=== PATIENT | male | born 1955 | race Hispanic/Latino ===

== ENCOUNTER 2017-10-18 09:24 | Observation (INO) | payer OTHER ==
--- NOTE | 2017-10-18 10:25 | RAD REPORT ---
EXAM DESCRIPTION: Sheri Single View10/18/2017 10:17 am CLINICAL HISTORY: Shortness of breath COMPARISON: 2016 FINDINGS: Mild bilateral pulmonary opacities are present. The heart is normal size IMPRESSION: Mild bilateral pulmonary opacities may represent interstitial pulmonary edema or pneumon itis/pneumonia
[2017-10-18 10:26] LABS: Absolute Lymphocytes (CBC) 1.6 K/uL (0.7-4.9); Absolute Monocytes 0.8 K/uL (0.1-1.3); Absolute Neutrophil 5.9 K/uL (1.8-8.0); Basophils % 0.9 % (0-1.3); Eosinophils % 4.9 % (0-4.4); Hematocrit 40.3 % (39.6-49.0); Lymphocytes % 17.7 % (15.3-44.8); MCH 31.9 pg (27.0-35.0); MCV 95.3 fL (80-100); MPV 8.9 fL (7.6-11.3); Monocytes % 9.3 % (3.3-12.3); RBC Red Blood Cell Count 4.23 M/uL (4.33-5.43)
--- NOTE | 2017-10-18 10:31 | EKG ---
Test Date: 2017-10-18 Test Time: 09:37:14 Manager City: [place] MEASUREMENT RESULTS: Intervals: Rate: 105 [place]: 166 QRSD: 96 QT: 332 QTc: 438 [place]: P: 79 [place]: 166 QRS: 63 T: 59 INTERPRETIVE STATEMENTS: Sinus tachycardia Right atrial enlargement Left ventricular hypertrophy with repolarization abnormality Abnormal ECG No previous ECG available for comparison Electronically Signed On 10-18-17 10:30:46 CDT by Mati Bonner
[2017-10-18 10:45] LABS: Albumin 4.1 g/dL (3.2-5.5); Bilirubin Direct 0.1 mg/dL (0-0.2); Bilirubin Total 0.7 mg/dL (0.3-1.2); Magnesium 2.6 mg/dL (1.8-2.5); Protein, Total 8.3 g/dL (6.0-8.3)
[2017-10-18 10:54] LABS: Protime INR 0.97
--- NOTE | 2017-10-18 11:24 | RAD REPORT ---
EXAM DESCRIPTION: CT - Thorax Wo Con - 10/18/2017 11:10 am CLINICAL HISTORY: sob COMPARISON: October 18, 2017 chest x-ray TECHNIQUE: Computed axial tomography of the chest was obtained. Contrast was not requested. All CT scans are performed using dose optimization technique as appropriate and may include automated exposure control or mA/KV adjustment according to patient size. FINDINGS: The evaluation of mediastinum, екатерина and vessels is limited secondary to lack of IV contras t administration. Mild bilateral interstitial lung opacities are present. No mediastinal or hilar lymphadenopathy is seen. Small bilateral pleural effusions are present. A pericardial effusion is not seen A small hiatal hernia is present. A 7 millimeter area of increased density is present within the pro ximal to mid thoracic esophagus. There is not visualized on the prior exam. IMPRESSION: Mild bilateral pulmonary opacities may represent interstitial pulmonary edema Small bilateral pleural effusions 7 millimeter area of increased density within the proximal to to mid thoracic esophagus is of uncerta in etiology and significance. It may represent a calcification. Followup CT chest in 2 months would b e helpful for re-evaluation
--- NOTE | 2017-10-18 11:50 | EDPHYS ---
Physician Documentation [facility] Name: Go Shen Age: 62 yrs Sex: Male : 1955 Arrival Date: 10/18/2017 Time: 09:27 Bed 6 Private MD: ED Physician Saul Contreras HPI: 10/18 10:22 This 62 yrs old Male presents to ER via Wheelchair with complaints of jr8 Weakness, Congestion. 10:22 The patient has shortness of breath at rest. Onset: The symptoms/episode began/occurred jr8 gradually, 1 week(s) ago, and became worse and became persistent. Duration: The symptoms are continuous. The patient's shortness of breath is aggravated by coughing. Associated signs and symptoms: Pertinent positives: weakness, fatigue . Severity of symptoms: At their worst the symptoms were moderate in the emergency department the symptoms are unchanged. The patient has not experienced similar symptoms in the past. The patient has not recently seen a physician. Historical: - Allergies: 09:33 Codeine; hb - Home Meds: 13:31 amlodipine 10 mg tab 1 tab once daily [Active]; sg - PMHx: 09:33 HD - MWF; hb - PSHx: 09:33 fistula - RUE; hb - Immunization history:: Adult Immunizations up to date. - Social history:: Smoking status: Patient/guardian denies using tobacco. ROS: 10:22 Eyes: Negative for injury, pain, redness, and discharge, ENT: Negative for injury, jr8 pain, and discharge, Neck: Negative for injury, pain, and swelling, Cardiovascular: Negative for chest pain, palpitations, and edema, Abdomen/GI: Negative for abdominal pain, nausea, vomiting, diarrhea, and constipation, Back: Negative for injury and pain, MS/Extremity: Negative for injury and deformity, Skin: Negative for injury, rash, and discoloration. 10:22 Constitutional: Positive for fatigue. 10:22 Respiratory: Positive for cough, shortness of breath. 10:22 Neuro: Positive for tremor, weakness, Negative for altered mental status, dizziness, headache, numbness, seizure activity, syncope, tingling. Exam: 10:22 Eyes: Pupils equal round and reactive to light, extra-ocular motions intact. Lids and jr8 lashes normal. Conjunctiva and sclera are non-icteric and not injected. Cornea within normal limits. Periorbital areas with no swelling, redness, or edema. ENT: Nares patent. No nasal discharge, no septal abnormalities noted. Tympanic membranes are normal and external auditory canals are clear. Oropharynx with no redness, swelling, or masses, exudates, or evidence of obstruction, uvula midline. Mucous membranes moist. Neck: Trachea midline, no thyromegaly or masses palpated, and no cervical lymphadenopathy. Supple, full range of motion without nuchal rigidity, or vertebral point tenderness. No Meningismus. Cardiovascular: Regular rate and rhythm with a normal S1 and S2. No gallops, murmurs, or rubs. Normal PMI, no JVD. No pulse deficits. Respiratory: Lungs have equal breath sounds bilaterally, clear to auscultation and percussion. No rales, rhonchi or wheezes noted. No increased work of breathing, no retractions or nasal flaring. Abdomen/GI: Soft, non-tender, with normal bowel sounds. No distension or tympany. No guarding or rebound. No evidence of tenderness throughout. Back: No spinal tenderness. No costovertebral tenderness. Full range of motion. Skin: Warm, dry with normal turgor. Normal color with no rashes, no lesions, and no evidence of cellulitis. MS/ Extremity: Pulses equal, no cyanosis. Neurovascular intact. Full, normal range of motion. Neuro: Awake and alert, GCS 15, oriented to person, place, time, and situation. Cranial nerves II-XII grossly intact. Motor strength 5/5 in all extremities. Sensory grossly intact. Cerebellar exam normal. Normal gait. Vital Signs: 09:32 BP 175 / 97; Pulse 100; Resp 20; Temp 99(TE); Pulse Ox 100% on R/A; Weight 99.79 kg; hb Height 5 ft. 10 in. (177.80 cm); Pain 0/10; 10:56 BP 156 / 83; Pulse 93; Resp 19; Pulse Ox 98% on R/A; jb1 12:15 BP 152 / 88; Pulse 90; Resp 18 S; Pulse Ox 99% on R/A; Pain 0/10; sg 13:34 BP 161 / 88; Pulse 90; Resp 18; Temp 99.0; Pulse Ox 98% on R/A; sg 09:32 Body Mass Index 31.57 (99.79 kg, 177.80 cm) hb MDM: 09:47 Patient medically screened. [facility] 11:48 Data reviewed: vital signs, nurses notes, lab test result(s), EKG, radiologic studies, [facility] CT scan, plain films, and as a result, I will admit patient. Data interpreted: Pulse oximetry: on room air is 98 %. Interpretation: normal. Counseling: I had a detailed discussion with the patient and/or guardian regarding: the historical points, exam findings, and any diagnostic results supporting the discharge/admit diagnosis, lab results, radiology results, the need for further work-up and treatment in the hospital. Physician consultation: Uriel Smith DO was called at 11:49, was contacted at 11:49, regarding admission, to the telemetry unit. consult, patient's condition, and will see patient. 10/18 09:57 Order name: Basic Metabolic Panel; Complete Time: 11:23 [facility] 10/18 09:57 Order name: BNP; Complete Time: 10:53 [facility] 10/18 09:57 Order name: CBC with Diff; Complete Time: 10:33 [facility] 10/18 09:57 Order name: LFT's; Complete Time: 11:23 [facility] 10/18 09:57 Order name: Magnesium; Complete Time: 11:23 [facility] 10/18 09:57 Order name: PT-INR; Complete Time: 11:00 [facility] 10/18 09:57 Order name: Troponin (emerg Dept Use Only); Complete Time: 10:48 [facility] 10/18 09:57 Order name: Blood Culture Adult (2) [facility] 10/18 12:36 Order name: Basic Metabolic Panel [facility] 10/18 12:36 Order name: Basic Metabolic Panel [facility] 10/18 12:36 Order name: Basic Metabolic Panel [facility] 10/18 12:36 Order name: Basic Metabolic Panel [facility] 10/18 12:36 Order name: CKMB Creatine Kinase MB [facility] 10/18 12:36 Order name: CKMB Creatine Kinase MB [facility] 10/18 09:57 Order name: XRAY Chest (1 view); Complete Time: 10:30 [facility] 10/18 09:57 Order name: EKG; Complete Time: 09:58 [facility] 10/18 09:57 Order name: Cardiac monitoring; Complete Time: 09:59 8 10/18 09:57 Order name: EKG - Nurse/Tech; Complete Time: 09:59 jr8 10/18 09:57 Order name: IV Saline Lock; Complete Time: :59 jr8 10/18 09:57 Order name: Labs collected and sent; Complete Time: 09:59 jr8 10/18 09:57 Order name: O2 Per Protocol; Complete Time: : jr8 10/18 09:57 Order name: O2 Sat Monitoring; Complete Time: :59 8 10/18 10:48 Order name: CT Chest Wo Con; Complete Time: 11:28 8 10/18 12:37 Order name: CONS Physician Consult EDMT 10/18 12:37 Order name: CONS Physician Consult EDMT 10/18 12:37 Order name: Echo with Doppler EDMT 10/18 12:37 Order name: Renal EDMT 10/18 12:37 Order name: Creatine Phosphokinase EDMT 10/18 12:37 Order name: Troponin I EDMT Administered Medications: No medications were administered Disposition: 10/18/17 11:50 Hospitalization ordered by Uriel Smith for Observation. Preliminary diagnosis are Chronic kidney disease (CKD), Acute pulmonary edema. - Bed requested for Telemetry/MedSurg (observation). - Status is Observation. sv - Condition is Stable. - Problem is new. - Symptoms have improved. UTI on Admission? No Addendum: 10/21/2017 21:09 Co-signature as Attending Physician, Saul Contreras MD. g s Signatures: Dispatcher [facility] Annmarie Barclay RN RN sv Woody, Diana, RN RN dw Gay, Steven, Dany Zimmer RN, PA PA jr8 Alva Corey RN RN hb Starr, Gregory, MD MD Corrections: (The following items were deleted from the chart) 10/18 13:29 11:50 Hospitalization Ordered by Uriel Smith DO for Observation. Preliminary dw diagnosis is Chronic kidney disease (CKD); Acute pulmonary edema. Bed requested for Telemetry/MedSurg (observation). Status is Observation. Condition is Stable. Problem is new. Symptoms have improved. UTI on Admission? No. jr8 14:09 13:29 10/18/2017 11:50 Hospitalization Ordered by Uriel Smith DO for Observation. sv Preliminary diagnosis is Chronic kidney disease (CKD); Acute pulmonary edema. Bed requested for Telemetry/MedSurg (observation). Status is Observation. Condition is Stable. Problem is new. Symptoms have improved. UTI on Admission? No. dw
--- NOTE | 2017-10-18 11:50 | ER ---
Nurse's Notes [facility] Name: Go Shen Age: 62 yrs Sex: Male : 1955 Arrival Date: 10/18/2017 Time: 09:27 Bed 6 Private MD: Diagnosis: Chronic kidney disease (CKD);Acute pulmonary edema Presentation: 10/18 09:30 Presenting complaint: Patient states: Weakness, SOB, shakiness, diarrhea, and decreased hb appetite x 3 days. HD MWF, last HD was Wed. Transition of care: patient was not received from another setting of care. Care prior to arrival: None. 09:30 Method Of Arrival: Wheelchair hb 09:37 Onset of symptoms was October 15, 2017. sg 09:37 Acuity: LITO 3 sg 09:45 Initial Sepsis Screen: Does the patient meet any 2 criteria? No. Patient's initial sg sepsis screen is negative. Does the patient have a suspected source of infection? No. Patient's initial sepsis screen is negative. Historical: - Allergies: 09:33 Codeine; hb - Home Meds: 13:31 amlodipine 10 mg tab 1 tab once daily [Active]; sg - PMHx: 09:33 HD - MWF; hb - PSHx: 09:33 fistula - RUE; hb - Immunization history:: Adult Immunizations up to date. - Social history:: Smoking status: Patient/guardian denies using tobacco. Screenin:45 Abuse screen: Denies threats or abuse. Denies injuries from another. Nutritional sg screening: No deficits noted. Tuberculosis screening: No symptoms or risk factors identified. Never had TB. Fall Risk None identified. Assessment: 09:45 General: Appears in no apparent distress. ill, well groomed, well developed, well sg nourished, Behavior is calm, cooperative, appropriate for age. Pain: Denies pain. Complains of pain in bodyaches. 09:45 Neuro: Level of Consciousness is awake, alert, obeys commands, Oriented to person, sg place, time, Tsa Screener are equal bilaterally Moves all extremities. Full function Gait is steady, Speech is normal, Facial symmetry appears normal. Cardiovascular: Heart tones S1 S2 present Capillary refill is brisk in bilateral fingers Patient's skin is warm and dry. Chest pain is denied. Respiratory: Airway is patent Respiratory effort is even, unlabored, Respiratory pattern is regular, symmetrical, Breath sounds are clear. GI: No signs and/or symptoms were reported involving the gastrointestinal system. : No signs and/or symptoms were reported regarding the genitourinary system. EENT: No signs and/or symptoms were reported regarding the EENT system. Derm: Skin is pink, warm \T\ dry. Musculoskeletal: No deficits noted. Reports bodyaches, fatigue and body tremors. 11:30 Reassessment: Patient appears in no apparent distress at this time. Patient and/or sg family updated on plan of care and expected duration. Pain level reassessed. Patient is alert, oriented x 3, equal unlabored respirations, skin warm/dry/pink. Patient denies pain at this time. 12:30 Reassessment: Patient appears in no apparent distress at this time. Patient and/or sg family updated on plan of care and expected duration. Pain level reassessed. Patient is alert, oriented x 3, equal unlabored respirations, skin warm/dry/pink. awaiting admission orders at this time, awaiting evaluation by hospital provider, will continue to monitor Patient denies pain at this time. 13:32 Reassessment: spoke with PACHECO Torres, updated home medication list at this time. sg 13:45 Reassessment: Echo being done at the bedside. sv Vital Signs: 09:32 BP 175 / 97; Pulse 100; Resp 20; Temp 99(TE); Pulse Ox 100% on R/A; Weight 99.79 kg; hb Height 5 ft. 10 in. (177.80 cm); Pain 0/10; 10:56 BP 156 / 83; Pulse 93; Resp 19; Pulse Ox 98% on R/A; jb1 12:15 BP 152 / 88; Pulse 90; Resp 18 S; Pulse Ox 99% on R/A; Pain 0/10; sg 13:34 BP 161 / 88; Pulse 90; Resp 18; Temp 99.0; Pulse Ox 98% on R/A; sg 09:32 Body Mass Index 31.57 (99.79 kg, 177.80 cm) hb ED Course: 09:27 Patient arrived in ED. as 09:33 Arm band placed on left wrist. hb 09:36 Brandon Daniels, RN is Primary Nurse. sg 09:37 Triage completed. sg 09:47 Dany Niño PA is PHCP. jr8 09:47 Saul Contreras MD is Attending Physician. jr8 09:47 EKG done, by technical publications manager. reviewed by Saul Contreras MD. at1 09:53 Initial lab(s) drawn, by me. Inserted saline lock: 22 gauge in left antecubital area, jb1 using aseptic technique. Blood collected. 10:00 Patient has correct armband on for positive identification. Placed in gown. Bed in low sg position. Side rails up X2. monitoring and evaluation advisor on. Pulse ox on. NIBP on. 10:13 XRAY Chest (1 view) In Process Unspecified. EDMS 11:05 CT completed. Patient tolerated procedure well. Patient moved to CT via stretcher. Patient moved back from CT. 11:10 CT Chest Wo Con In Process Unspecified. EDMS 11:49 Uriel Smith DO is Hospitalizing Provider. jr8 13:38 No provider procedures requiring assistance completed. Patient admitted, IV remains in sg place. intact, No redness/swelling at site. Administered Medications: No medications were administered Outcome: 11:50 Decision to Hospitalize by Provider. jr8 13:37 Admitted to Med/surg accompanied by tech, room 201, with chart, Report called to oskar Scott RN 13:37 Condition: stable 13:37 Instructed on the need for admit, safety practices, Demonstrated understanding of instructions. 14:09 Patient left the ED. sv Signatures: Dispatcher [employer] [facility] Artem Mckeon jb1 Annmarie Barclay RN RN sv Gay, Steven, RN RN sg Jones, Susan sj Martinez, Amelia as Dany Niño PA PA jr8 Aniya weaver, sales intern EKG Tat1 Alva Corey, SHERLY DUBOIS hb
[2017-10-18] MEDS ORDERED: GLUCAGON 1 MG/VIAL IM PRN (12:24)
[2017-10-18] MEDS ORDERED: ONDANSETRON 4 MG/2 ML VIAL IV PRN (12:24)
[2017-10-18] MEDS ORDERED: ACETAMINOPHEN 500 MG TAB PO PRN (12:24)
[2017-10-18] MEDS ORDERED: HYDRALAZINE HCL 20 MG/ML VIAL IV PRN (12:24)
[2017-10-18] MEDS ORDERED: D50W 25 GM/50 ML SYRINGE IV PRN (12:24)
--- NOTE | 2017-10-18 12:42 | P.HP ---
Certification for Inpatient Patient admitted to: Observation With expected LOS: <2 Midnights Patient will require the following post-hospital care: None Practitioner: I am a practitioner with admitting privileges, knowledge of patient current condition, hospital course, and medical plan of care. Services: Services provided to patient in accordance with Admission requirements found in Title 42 Section 412.3 of the Code of Federal Regulations Patient History Date of Service: 10/18/17 Primary Care Provider: Dr. Hardy Reason for admission: Shortness of breath, fatigue History of Present Illness: 62-year-old male presented to emergency room with increasing fatigue and shortness of breath. Patient with history of end-stage renal disease on dialysis Wednesday, Wednesdays and Fridays. He also is a history of BPH who self catheterizes 3 times a day. He also reports a history of hypertension and diabetes well controlled with diet. The patient has been having increasing shortness of breath over the last several days. He is denied any significant edema to the lower extremities. He does report a mild cough. No fever, chills, chest pain noted. Patient was to go to dialysis today but apparently dialysis was closed due to issues with their water system. He was advised to go to the ER for further evaluation. In the ER the patient was evaluated. Initial vitals for appear stable. White count 8.7, hemoglobin 13.5, sodium 133, potassium 5.0. BN of 59, creatinine 11.5 with a GFR 4. Magnesium 2.6, troponin was at 0.04. BNP was elevated at 1117. EKG showed sinus tachycardia with a rate of 105. CT of the chest showed bilateral opacities significant for pulmonary edema. Small bilateral pleural effusions noted a 7 mm density the to the proximal mid thoracic esophagus was noted This is likely calcification. Due to nature the findings the patient was admitted for further evaluation and treatment. I was asked to admit the patient. When I saw the patient ER, he did not appear acutely ill. He did not appear in significant respiratory distress. Patient does not smoke or drink. Patient appears compliant with his medical regimen and dialysis. Allergies codeine Adverse Reaction (Verified 06/03/15 12:18) Nausea/Vomiting NK Allergy (Uncoded 07/11/15 10:35) Unknown Home medications list reviewed: Yes Home Medications: Calcium Carbonate [Tums Regular*] 2,000 mg PO AC #30 tab 06/05/14 Acetaminophen [Tylenol -Tablet] 325 mg PO Q4HP PRN 06/03/15 - Past Medical/Surgical History Diabetic: Yes -: ESRD, (M,W,F dialysis) -: Hypertension -: Diabetes mellitus type 2 -: BPH with urinary retention -: AV graft Psychosocial/ Personal History: The patient is single. He has no children. - Family History Father -: Heart disease, Hypertension Mother -: Other (see notes) (Gallstones) Brother -: Heart disease Sister -: Diabetes - Social History Smoking Status: Never smoker Alcohol use: No CD- Drugs: No Caffeine use: Yes Place of Residence: Home Review of Systems General: Weakness, Malaise, As per HPI Eyes: Unremarkable ENT: Unremarkable Respiratory: Cough, Shortness of Breath, SOB with Excertion, As per HPI Cardiovascular: As per HPI Gastrointestinal: Unremarkable Genitourinary: Retention, As per HPI Musculoskeletal: As per HPI Integumentary: Unremarkable Neurological: Weakness, As per HPI Lymphatics: Unremarkable Physical Examination - Physical Exam General: Alert, In no apparent distress, Oriented x3, Cooperative HEENT: Atraumatic, Normocephalic, PERRLA, Mucous membr. moist/pink Neck: Supple, No Thyromegaly Respiratory: Diminished (To the bases bilateral), Crackles/rales (Minimal bilateral) Cardiovascular: Abnormal pulses (Mild sinus tachycardia) Gastrointestinal: Normal bowel sounds, Soft and benign, Non-distended, No tenderness, No masses, No rebound, No guarding Musculoskeletal: No erythema, No tenderness, No warmth Integumentary: No tenderness/swelling, No erythema, No warmth, No cyanosis Neurological: Normal speech, Normal strength at 5/5 x4 extr, Normal tone, Normal affect Lymphatics: No axilla or inguinal lymphadenopathy - Studies Laboratory Data (last 24 hrs) 10/18/17 10:00: PT 11.4, INR 0.97 10/18/17 10:00: WBC 8.7, Hgb 13.5 L, Hct 40.3, Plt Count 216 10/18/17 10:00: B-Natriuretic Peptide 1117 H 10/18/17 10:00: Sodium 133 L, Potassium 5.0, BUN 59 H, Creatinine 11.50 H*, Glucose 118, Magnesium 2.6 H D, Total Bilirubin 0.7, AST 14, ALT 14, Alkaline Phosphatase 56 Assessment and Plan - Problems (Diagnosis) (1) Pulmonary edema Current Visit: Yes Status: Acute Plan: CT scan shows bilateral pleural effusions with opacities likely from pulmonary edema. This is likely related to his end-stage renal disease admitted for dialysis. The patient does not appear in any respiratory distress. Will teach on fluid restriction. Will monitor closely. Will continue with cardiac enzymes. Will check echocardiogram due to his shortness of breath and slight elevation in his troponin. Will consult cardiology for further recommendations. Nephrology has been informed of the patient. Qualifiers: Chronicity: acute Qualified Code(s): J81.0 - Acute pulmonary edema (2) End stage renal disease Current Visit: Yes Status: Chronic Plan: Patient with end-stage renal disease on dialysis. He goes to dialysis Mondays, Wednesdays and Fridays. Patient will receive dialysis in the hospital. Nephrology consulted. (3) Hypertension Current Visit: Yes Status: Chronic Plan: Patient reports taking medication for blood pressure. Will obtain home medications and restart. Qualifiers: Hypertension type: essential hypertension Qualified Code(s): I10 - Essential (primary) hypertension (4) Diabetes mellitus Current Visit: Yes Status: Chronic Plan: Patient reports of diet controlled diabetes. Will check A1c. Will continue with sliding scale. Qualifiers: Diabetes mellitus type: type 2 Diabetes mellitus mcc insulin use: without interpretive naturalist use Diabetes mellitus complication status: with other specified complication Qualified Code(s): E11.69 - Type 2 diabetes mellitus with other specified complication (5) Abnormal CT scan Current Visit: Yes Status: Acute Plan: CT scan shows 7 mm density to the proximal mid thoracic esophagus. This appears to be a calcification. Recommendation is to recheck CT scan in 3 months. Recommendation is for the patient follow up with GI as an outpatient to further evaluate. Patient may have underlying GERD. Will start medication. (6) Elevated troponin Current Visit: Yes Status: Acute Plan: Will monitor cardiac enzymes. Will check echocardiogram. Cardiology consulted to further assess. (7) CHF (congestive heart failure) Current Visit: Yes Status: Suspected Plan: Suspect underlying CHF. Will continue with a fluid restriction. Patient will receive dialysis. Will monitor closely. Qualifiers: Heart failure type: diastolic Heart failure chronicity: chronic Qualified Code(s): I50.32 - Chronic diastolic (congestive) heart failure (8) Pleural effusion Current Visit: Yes Status: Acute Plan: Small bilateral pleural effusions noted. This is likely from the pulmonary edema. Will continue with above plan of care. (9) Dyspnea Onset Date: 05/25/14 Current Visit: No Status: Acute Plan: Will continue with above plan of care. Qualifiers: Dyspnea type: shortness of breath Qualified Code(s): R06.02 - Shortness of breath; R06.00 - Dyspnea, unspecified; R06.01 - Orthopnea (10) GERD (gastroesophageal reflux disease) Current Visit: Yes Status: Suspected Plan: Will continue with above plan of care. Discharge Plan: Home Plan to discharge in: 24 Hours - Advance Directives Does patient have a Living Will: No Does patient have a Durable POA for Healthcare: No - Code Status/Comfort Care Code Status Assessed: Yes Time Spent Managing Pts Care (In Minutes): 55
--- NOTE | 2017-10-18 15:38 | ECHO ---
HEIGHT: 5 ft 10 in WEIGHT: 215 lb 4.8 oz DATE OF STUDY: 10/18/[address]: 2-DIMENSIONAL: YES M.MODE: YES DOPPLER: YES COLOR FLOW: YES TDS: NO PORTABLE: NO DEFINITY: NO BUBBLE STUDY: NO DIAGNOSIS: SHORTNESS OF BREATH, SUSPECT CHF CARDIAC HISTORY: CATHERIZATION: NO SURGERY: NO PROSTHETIC VALVE: NO PACEMAKER: NO MEASUREMENTS (cm) DIASTOLIC (NORMALS) SYSTOLIC (NORMALS) IVSd 1.0 (0.6-1.2) LA Diam 4.4 (1.9-4.0) LVEF 50-55% LVIDd 5.1 (3.5-5.7) LVIDs 3.8 (2.0-3.5) %FS 25% LVPWd 1.0 (0.6-1.2) Ao Diam 3.2 (2.0-3.7) 2 DIMENSIONAL ASSESSMENT: RIGHT ATRIUM: NORMAL LEFT ATRIUM: DILATED RIGHT VENTRICLE: NORMAL LEFT VENTRICLE: NORMAL TRICUSPID VALVE: NORMAL MITRAL VALVE: NORMAL PULMONIC VALVE: NORMAL AORTIC VALVE: NORMAL PERICARDIAL EFFUSION: NONE AORTIC ROOT: NORMAL LEFT VENTRICULAR WALL MOTION: NORMAL DOPPLER/COLOR FLOW: MILD MITRAL REGURGITATION. MILD TRICUSPID REGURGITATION. NORMAL RIGHT VENTRICULAR SYSTOLIC PRESSURE. IMPAIRED LEFT VENTRICULAR RELAXATION. COMMENTS: NORMAL LEFT VENTRICULAR EJECTION FRACTION. DILATED LEFT ATRIUM. IMPAIRED LEFT VENTRICULAR RELAXATION. MILD MITRAL REGURGITATION AND TRICUSPID REGURGITATION. TECHNOLOGIST: TIMI AGUSTIN RDCS
[2017-10-18] MEDS: INSULIN -REGULAR HUMAN 50 UNIT/0.5 ML ML SQ SCH ×2 (16:30→21:00)
[2017-10-18] MEDS ORDERED: ENOXAPARIN 30 MG/0.3 ML SQ SCH (17:00)
[2017-10-18 17:06] LABS: Urine Appearance CLOUDY; Urine Bilirubin NEGATIVE (NEG); Urine Blood 1+ (NEG); Urine Color YELLOW; Urine Glucose TRACE (NEG); Urine Protein 2+ (NEG); Urine Urobilinogen 0.2 mg/dL (0.2-1.0)
[2017-10-18 17:07] LABS: Urine Microscopic Reflex ORDER UMIC
[2017-10-18 17:17] LABS: Urine Bacteria >50 /HPF (NONE SEEN); Urine RBC 20-50 /HPF (NONE SEEN)
[2017-10-18 17:18] LABS: Urine Culture Reflex Order REFLEXED; Urine White Blood Cell Casts 0-5 /LPF (NONE SEEN)
[2017-10-18 18:23] LABS: CKMB Creatine Kinase MB 1.6 ng/ml (0.3-4.0)
--- NOTE | 2017-10-18 20:19 | CON ---
Chief Complaint: Shortness of breath and cough. History Of Present Illness: Mr. Jono Shen was in his usual state of health until this weekend when he started feeling more short of breath. He was having orthopnea and cough, nonproductive cough . No fevers or chills. He went to dialysis hoping to have that help him feel better, but when he go t there their equipment was not working, they plan to delay it until sometime today, but in the meant ines because of the shortness of breath, he went to the emergency room. He has been placed in the [facility], and he gets dialysis Wednesday, Wednesday, and Wednesday. He denies any tobacco use. He has been a dialysis patient for about 3 years. He has underlying diabetes, hypertension, never had congestive heart failure, stroke, myocardial infarction, cardiac arrhythmia, heart surgery, or stents. He is al lergic to codeine. Over the weekend, he does not think he ate or drank any more than usual. On week ends, he takes special care not to gain too much weight between dialysis treatments. Medications: Outpatient medications have been insulin, apparently on a sliding scale. He has hydral azine ordered now, but I do not think he takes hydralazine normally or diuretic. He takes amlodipine 10 mg a day. Physical Examination: General: 5 feet 10 inches, 215 pounds, body mass index 30. HEENT: Unremarkable. Lungs: Reveal sparse basilar crackles. Heart: Within normal limits. Abdomen: Soft. Extremities: Unremarkable. Diagnostic Data: His echocardiogram shows his ejection fraction is about 50-55%. There is no signif icant valvular abnormality. There is poor LV compliance. There is mild pretibial edema. Impression: Mr. oJno Shen probably got volume overloaded over the weekend. I think dialysis w ill quieten things down. He has a troponin of 0.04, which is just above what we would call abnormal, but in a dialysis patient it is not alarming. He has a normal hemoglobin, hematocrit, and white blo od cell count. He had a temperature of 99.1, so I suspect he is mildly volume overloaded. I do not think I would want to call this congestive heart failure. B-natriuretic peptide is 1100, but in dial ysis patients the BNP is extremely unreliable test. The echocardiogram reveals ejection fraction is within the normal range. He does not have LVH. Thank you very much for your kind referral of Mr. Jono Shen. I will follow him with you. ANJEL Voice ID: [id number] Report ID: [id number]
[2017-10-19 02:30] LABS: CKMB Creatine Kinase MB 1.6 ng/ml (0.3-4.0)
--- NOTE | 2017-10-19 02:41 | CON ---
Date of Consultation: 10/18/2017 Chief Complaint: End-stage renal disease, on dialysis. History Of Present Illness: The patient presented to the hospital because of generalized weakness, difficulty with ambulation, dizziness, and presyncope. Blood pressure was elevated and was up to 159/81 and heart rate was 104. The patient was complaining of shortness of breath and generalized weakness. Blood glucose was 78 and SpO2 95%. The patient was found to have elevated BNP. Cardiology consultation was obtained for cardiac workup. Troponin level was up to 0.05 and BNP was 1117. Urgent dialysis was ordered to control hypervolemia to provide metabolic clearance and control potassium level. The patient was found to have borderline hyperkalemia, potassium was 5.0. There was hyponatremia present due to fluid overload. The patient was found to have dilutional hyponatremia, sodium was 133, and glucose 118. The patient received dialysis and urgent procedure was ordered to control fluid overload. Review of Systems: Constitutional: The patient complains of generalized weakness, dizziness, difficulty with ambulation. Eyes: Denies vision changes. Ears, Nose, Mouth, and Throat: Denies sore throat or earache. Respiratory: Has some shortness of breath. Denies PND or orthopnea. Complains dyspnea on exertion and dyspnea at rest. GI: Denies nausea or vomiting. Denies melena or hematemesis. : Denies dysuria or hematuria. Musculoskeletal: Denies muscle aches or joint swelling. Denies gout. All other systems reviewed and all are negative. Past Medical History: Diabetes mellitus, hypertension, congestive heart failure with diastolic dysfunction, CVA, myocardial infarction, cardiac arrhythmia, history of heart surgery and stent. Social History: Denies tobacco, alcohol, or illicit drugs. Family History: No kidney disease in the family. Physical Examination: General: Not in acute distress. Conversant Eyes: Anicteric sclerae. EOMI. Ears, Nose, Mouth, and Throat: Oral mucosa moist. No pallor. Neck: Supple. No JVD. No bruits. Lungs: Diminished breath sounds in bases. Crackles bilaterally present. Heart: S1, S2. No pericardial friction rub. Abdomen: Soft, benign. NO rebound. Extremities: Slight edema in both legs. No cellulitis Neurologic: no tremor, CN intact. Laboratory Data: Sodium 133, potassium 5.0, chloride 96, CO2 of 23, BUN 59, creatinine 11.5, magnesium 2.6, calcium 9.5. BNP 1117. Total protein 8.3. Albumin is 4.1. Hemoglobin is 13.5, WBC 8.7, platelet counts 216. Impression And Plan: 1. Fluid overload, shortness of breath, congestive heart failure, with diastolic dysfunction. CT scan of the done without contrast. There is interstitial lung opacity present consistent with pulmonary edema. Small bilateral pleural effusion present. The patient has congestive heart failure with diastolic dysfunction, acute on chronic. STAT hemodialysis with ultrafiltration will be done to treat fluid overload , provide management for congestive heart failure. Continue low-sodium diet. Monitor blood pressure closely. Adjust medication for blood pressure control. 2. The patient will continue hydralazine for blood pressure control. 3. Diabetes mellitus with renal manifestation. Continue insulin per sliding scale. 4. Renal osteodystrophy. Continue renal diet and binders. 5. Anemia with chronic kidney disease. DANIEL on hold. 6. The patient is undergoing cardiac workup for congestive heart failure and coronary artery disease. Dialysis parameters are adjusted to current labs and plan is to advance ultrafiltration to treat congestive heart failure, stabilize volemia to treat fluid overload. JUANI/JENNIFER Voice ID: [id number] Report ID: [id number] TRAVIS
[2017-10-19 05:21] LABS: Absolute Lymphocytes (CBC) 1.3 K/uL (0.7-4.9); Absolute Monocytes 0.9 K/uL (0.1-1.3); Absolute Neutrophil 4.3 K/uL (1.8-8.0); Basophils % 0.9 % (0-1.3); Eosinophils % 8.9 % (0-4.4); Hematocrit 36.7 % (39.6-49.0); Lymphocytes % 18.6 % (15.3-44.8); MCH 32.2 pg (27.0-35.0); MCV 94.8 fL (80-100); MPV 8.6 fL (7.6-11.3); Monocytes % 11.8 % (3.3-12.3); RBC Red Blood Cell Count 3.87 M/uL (4.33-5.43)
[2017-10-19 06:06] LABS: Magnesium 2.3 mg/dL (1.8-2.5); Potassium 4.6 mEq/L (3.6-5.0); Thyroid Stimulating Hormone 2.54 uIU/mL (0.34-5.60)
[2017-10-19] MEDS: PANTOPRAZOLE 40MG TABLET PO SCH (06:26)
[2017-10-19] MEDS: INSULIN -REGULAR HUMAN 50 UNIT/0.5 ML ML SQ SCH ×4 (07:30→21:00)
--- NOTE | 2017-10-19 08:22 | RAD REPORT ---
EXAM DESCRIPTION: RAD - Chest Pa And Lat (2 Views) - 10/19/2017 7:25 am CLINICAL HISTORY: Pulmonary edema COMPARISON: October 18 TECHNIQUE: PA and lateral views of the chest were obtained. FINDINGS: The lungs are normal volume. Interstitial markings are diffusely prominent. The alveolar c omponent seen on the prior study has mostly resolved. Vasculature is in normal range. Heart size is normal for portable imaging. Trachea is midline. No pleural effusion or pneumothorax seen. No acute bony finding noted. No aortic abnormality. IMPRESSION: Significant but incomplete resolution of the infiltrate or edema pattern. No new or progressive finding.
[2017-10-19 09:55] LABS: A1c Component 0.44 mg/dL; Hemoglobin A1c 5.4 % (4-6.0)
[2017-10-19] MEDS: ASPIRIN 81 MG CHEWABLE TABLET PO SCH (11:14)
[2017-10-19] MEDS: HEPARIN 5000 UNIT/ML 1 ML VIAL SQ SCH ×2 (13:04→21:18)
--- NOTE | 2017-10-19 15:55 | PN ---
Date of Progress Note: 10/19/2017 Mr. De La Cruz was admitted to Dr. Smith. He was seen by Dr. Bonner. He has mild volume overload proba luis felipe secondary to renal failure, mild increase in BNP and troponin secondary to renal failure. Echoca rdiogram yesterday was normal without any LV dysfunction, wall motion abnormalities, or diastolic dys function. I agree with his present management. He needs to be obviously dialyzed. He is going to [facility] dialysis tomorrow morning and , he can go home after that. No need for cardiac followu p at this point. COLLETTE/MODL Voice ID: [id number] Report ID: [id number]
--- NOTE | 2017-10-19 18:01 | P.PN ---
Subjective Date of Service: 10/19/17 Primary Care Provider: Dr. Hardy Chief Complaint: Shortness of breath, fatigue Subjective: Other (complaiing of weakness, states he feels too weak even to ambulate) Review of Systems 10-point ROS is otherwise unremarkable Neurological: Weakness Physical Examination - Vital Signs Temperature: 98.8 F Blood Pressure: 133/71 Pulse: 89 Respirations: 17 Pulse Ox (%): 96 - Physical Exam General: Alert, In no apparent distress, Oriented x3 HEENT: Atraumatic, Normocephalic, Other Neck: JVD not distended, No Thyromegaly, No LAD Respiratory: Diminished (at bases) Cardiovascular: No edema, Normal pulses, Regular rate/rhythm, Normal S1 S2 Gastrointestinal: Normal bowel sounds, Soft and benign, Non-distended, W/out hepatosplenomegaly, No ascites, No tenderness, No masses, No rebound, No guarding Musculoskeletal: No clubbing, No swelling, No contractures, No erythema, No tenderness, No warmth Neurological: Normal speech, Normal strength at 5/5 x4 extr, Normal tone, Sensation intact, Cranial nerves 3-12 intact Assessment And Plan - Current Problems (Diagnosis) (1) Weakness Current Visit: Yes Status: Acute Plan: consult PT (2) Pulmonary edema Onset Date: 10/19/17 Current Visit: Yes Status: Acute Plan: s/p HD with improvement in volume status Qualifiers: Chronicity: acute Qualified Code(s): J81.0 - Acute pulmonary edema (3) Diabetes mellitus Onset Date: 10/19/17 Current Visit: Yes Status: Chronic Qualifiers: Diabetes mellitus type: type 2 Diabetes mellitus longterm insulin use: without longterm use Diabetes mellitus complication status: with other specified complication Qualified Code(s): E11.69 - Type 2 diabetes mellitus with other specified complication (4) End stage renal disease Onset Date: 10/19/17 Current Visit: Yes Status: Chronic Plan: plan for HD in the am continue renal diet continue home medications Discharge Plan: Home Plan to discharge in: 24 Hours - Code Status/Comfort Care Code Status Assessed: Yes Code Status: Full Code
[2017-10-20 01:40] VITALS: O2SAT 91
--- NOTE | 2017-10-20 02:39 | PN ---
Date of Progress Note: 10/19/2017 Subjective: The patient was admitted with overload. Today, feeling well, off oxygen. Physical Examination: Vital Signs: Blood pressure 139/74, pulse of 89, afebrile. The patient had dialysis yesterday. We managed to remove 2500. Chest: Crackles bilateral base. Heart: S1, S2. Systolic murmur. Abdomen: Soft, nontender. Extremities: Trace edema. Medications: Current medications the patient on include: 1.Aspirin. 2.Hydralazine p.r.n. 3.Tylenol. 4.Zofran. 5.Pantoprazole. Laboratory Data: For the patient, H and H 12.5/36.7. Sodium 139, potassium 4.6, bicarb 26, BUN 37, creatinine 9, calcium 9, magnesium 2.3. Chest x-ray done. Chest x-ray showing cardiomegaly with mil d congestion central. Echocardiogram, ejection fraction of 55%. Tricuspid regurgitation. Assessment And Plan: 1.End-stage renal disease, over volume. I am going to go ahead and arrange for dialysis tomorrow. The patient is status post dialysis yesterday. Tolerated well. We will dialyze the patient tomorrow . The patient okay from the Renal standpoint for discharge today or tomorrow, we will follow up. 2.Hypertension, controlled optimal of blood pressure medication. We will utilize the blood pressure for ultrafiltration. 3.Congestive heart failure. We will ultrafiltrate tomorrow. Case discussed with the primary doctor, Dr. Gonzalez, agreed on the plan. Discussed with the patient, cary balized understanding. SAMIRA Voice ID: [id number] Report ID: [id number]
[2017-10-20 02:53] LABS: HBsAG Nonreactive (Nonreactive)
[2017-10-20 05:59] LABS: Absolute Lymphocytes (CBC) 1.6 K/uL (0.7-4.9); Absolute Monocytes 0.9 K/uL (0.1-1.3); Absolute Neutrophil 3.8 K/uL (1.8-8.0); Eosinophils % 12.1 % (0-4.4); Hematocrit 36.7 % (39.6-49.0); MCH 32.4 pg (27.0-35.0); MCV 95.5 fL (80-100); MPV 8.9 fL (7.6-11.3); Monocytes % 12.7 % (3.3-12.3); RBC Red Blood Cell Count 3.84 M/uL (4.33-5.43)
[2017-10-20 06:09] VITALS: BMI 30.7
[2017-10-20 06:12] LABS: Magnesium 2.6 mg/dL (1.8-2.5); Potassium 5.4 mEq/L (3.6-5.0)
[2017-10-20] MEDS: INSULIN -REGULAR HUMAN 50 UNIT/0.5 ML ML SQ SCH ×2 (07:30→11:30)
[2017-10-20] MEDS: PANTOPRAZOLE 40MG TABLET PO SCH (07:34)
[2017-10-20] MEDS: ASPIRIN 81 MG CHEWABLE TABLET PO SCH (12:36)
[2017-10-20] MEDS: HEPARIN 5000 UNIT/ML 1 ML VIAL SQ SCH (12:36)
--- NOTE | 2017-10-20 15:21 | P.DS ---
Admission Date: 10/18/17 Discharge Date: 10/20/17 Primary Care Provider: Dr. Hardy Disposition: ROUTINE DISCHARGE Discharge Condition: GOOD Reason for Admission: Shortness of breath, fatigue Consultations: Nephrology:Dr Mcgrath Procedures: HD - Problems (1) Weakness Current Visit: Yes Status: Acute (2) Pulmonary edema Onset Date: 10/19/17 Current Visit: Yes Status: Acute Qualifiers: Chronicity: acute Qualified Code(s): J81.0 - Acute pulmonary edema (3) Diabetes mellitus Onset Date: 10/19/17 Current Visit: Yes Status: Chronic Qualifiers: Diabetes mellitus type: type 2 Diabetes mellitus nursing home insulin use: without rat exterminator use Diabetes mellitus complication status: with other specified complication Qualified Code(s): E11.69 - Type 2 diabetes mellitus with other specified complication (4) End stage renal disease Onset Date: 10/19/17 Current Visit: Yes Status: Chronic Brief History of Present Illness: 62-year-old male presented to emergency room with increasing fatigue and shortness of breath. Patient with history of end-stage renal disease on dialysis Wednesday, Wednesdays and Fridays. He also is a history of BPH who self catheterizes 3 times a day. He also reports a history of hypertension and diabetes well controlled with diet. The patient has been having increasing shortness of breath over the last several days. He is denied any significant edema to the lower extremities. He does report a mild cough. No fever, chills, chest pain noted. Patient was to go to dialysis today but apparently dialysis was closed due to issues with their water system. He was advised to go to the ER for further evaluation. Hospital Course: In the ER the patient was evaluated. Initial vitals for appear stable. White count 8.7, hemoglobin 13.5, sodium 133, potassium 5.0. BN of 59, creatinine 11.5 with a GFR 4. Magnesium 2.6, troponin was at 0.04. BNP was elevated at 1117. EKG showed sinus tachycardia with a rate of 105. CT of the chest showed bilateral opacities significant for pulmonary edema. Small bilateral pleural effusions noted a 7 mm density the to the proximal mid thoracic esophagus was noted This is likely calcification. Due to nature the findings the patient was admitted for further evaluation and treatment. Nephrology was consulted, he had 2 sessions of HD with improvement in his shortness of breath.Hw was advised to follow up with his PCP for repeat CT in 3 months. Vital Signs/Physical Exam: Temp Pulse Resp BP Pulse Ox 98.0 F 88 18 156/78 H 94 10/20/17 08:00 10/20/17 08:00 10/20/17 08:00 10/20/17 08:00 10/20/17 08:00 General: Alert, In no apparent distress, Oriented x3 HEENT: Atraumatic, Normocephalic Neck: 2+ carotid pulse no bruit, JVD not distended, No Thyromegaly, No LAD Respiratory: Clear to auscultation bilaterally, Normal air movement Cardiovascular: No edema, Normal pulses, Regular rate/rhythm, Normal S1 S2, No gallops, No rubs, No murmurs Gastrointestinal: Normal bowel sounds, Soft and benign, Non-distended, W/out hepatosplenomegaly, No ascites, No tenderness, No masses, No rebound, No guarding Musculoskeletal: No clubbing, No swelling, No contractures, No erythema, No tenderness, No warmth Neurological: Normal strength at 5/5 x4 extr Laboratory Data at Discharge: WBC 7.2 K/uL (4.3-10.9) 10/20/17 04:48 Hgb 12.4 g/dL (13.6-17.9) L 10/20/17 04:48 Hct 36.7 % (39.6-49.0) L 10/20/17 04:48 Plt Count 182 K/uL (152-406) 10/20/17 04:48 PT 11.4 SECONDS (9.5-12.5) 10/18/17 10:00 INR 0.97 10/18/17 10:00 Sodium 139 mEq/L (135-145) 10/20/17 04:48 Potassium 5.4 mEq/L (3.6-5.0) H 10/20/17 04:48 BUN 60 mg/dL (6-20) H D 10/20/17 04:48 Creatinine 11.47 mg/dL (0.61-1.24) H* D 10/20/17 04:48 Glucose 83 mg/dL (65-120) 10/20/17 04:48 Magnesium 2.6 mg/dL (1.8-2.5) H 10/20/17 04:48 Total Bilirubin 0.7 mg/dL (0.3-1.2) 10/18/17 10:00 AST 14 IU/L (10-42) 10/18/17 10:00 ALT 14 IU/L (10-60) 10/18/17 10:00 Alkaline Phosphatase 56 IU/L (42-121) 10/18/17 10:00 Troponin I 0.05 ng/mL (<0.03) H 10/19/17 01:40 B-Natriuretic Peptide 1117 pg/ml (<=100) H 10/18/17 10:00 Triglycerides 89 mg/dL (35-160) 10/19/17 04:34 Cholesterol 194 mg/dL (<200) 10/19/17 04:34 HDL Cholesterol 45 mg/dL (27-67) 10/19/17 04:34 Cholesterol/HDL Ratio 4.31 10/19/17 04:34 Home Medications: Amlodipine Besylate 10 mg PO T,TH,S 10/18/17 Aspirin Chewable [Aspirin Chewable*] 81 mg PO DAILY tab.chew 10/20/17 Patient Discharge Instructions: Return to ER with new or worsening symptoms Diet: ADA Activity: Ad giuseppe Followup: Gita Hardy MD [ACTIVE - CAN ADMIT] - 1 Week (will need repeat CT chest in 3 months) Physician Review: Patient Assessed, Agree with Above Assessment and Plan Time spent managing pt's care (in minutes): 30
[2017-10-20 17:22] VITALS: BP 125/67; TEMP 98.1
--- NOTE | 2017-10-20 21:00 | PN ---
Date of Progress Note: 10/20/2017 Subjective: The patient doing better. No shortness of breath. The patient seen on dialysis. Physical Examination: Vital Signs: When I saw the patient, blood pressure 156/78, pulse of 88. Afebrile. The patient re- goaling for 3 L. Chest: Clear to auscultation. Heart: S1, S2. Regular. Abdomen: Soft. Nontender. Extremities: No edema. Laboratory Data: WBC 7.2, H and H 12.4/36.7, platelet 182. Sodium 139, potassium 5.4, bicarb 26, BU N 60, creatinine 11.4, calcium 8.8, magnesium 2.6. Medications: Current medications the patient is on include: 1.Aspirin. 2.Hydralazine. 3.Tylenol. 4.Pantoprazole. 5.Zofran. Assessment And Plan: 1.End-stage renal disease, over volume. Recovering. The patient is going to be cleared from the re nal standpoint to discharge after dialysis. 2.Hyperkalemia. We dialyzing on 2 K bath. 3.Anemia no need for DANIEL. 4.Secondary hyperparathyroid. Controlled. Optimal. 5.Congestive heart failure. Currently euvolemic. We will follow up with the primary. Case discussed with the patient, verbalized understanding. Again, the patient cleared from the renal standpoint for discharge planning. SMAIRA Voice ID: [id number] Report ID: [id number]
== END 2017-10-20 16:20 | disposition home or self-care (01) ==
LOC: ER 09:24 → ERHOLD 12:33 → 2ND 13:41
PROVIDERS: ADMIT Family Medicine; ATTEND Family Medicine
PROC: 5A1D70Z Performance of Urinary Filtration, Intermittent, Less than 6 Hours Per Day (ICD-10-PCS; principal; 2017-10-18)
PROC: 5A1D70Z Performance of Urinary Filtration, Intermittent, Less than 6 Hours Per Day (ICD-10-PCS; 2017-10-20)
DX: I13.2 Hypertensive heart and chronic kidney disease with heart failure and with stage 5 chronic kidney disease, or end stage renal disease (principal); E11.22 Type 2 diabetes mellitus with diabetic chronic kidney disease; N18.6 End stage renal disease; I50.33 Acute on chronic diastolic (congestive) heart failure; D63.1 Anemia in chronic kidney disease; N25.0 Renal osteodystrophy; N40.0 Benign prostatic hyperplasia without lower urinary tract symptoms; I25.2 Old myocardial infarction; Z86.73 Personal history of transient ischemic attack (TIA), and cerebral infarction without residual deficits; Z95.5 Presence of coronary angioplasty implant and graft
CPT/HCPCS: 36415 ×2; 71045; 71046; 71250; 80048 ×3; 80061; 80076; 82550 ×2; 82553 ×2; 82962 ×8; 83036; 83735 ×3; 83880; 84439; 84443; 84484 ×3; 85025 ×3; 85610; 86317; 86704; 86706; 86803; 87040 ×2; 87086; 87088; 87340; 90935 ×2; 93005; 93306; 97163; 99285; G0378 ×2; J1644 ×3; 81003; 81015; J1650

== ENCOUNTER 2017-10-25 03:16 | Emergency (ER) | payer OTHER ==
[2017-10-25 04:08] LABS: Potassium 4.3 mEq/L (3.6-5.0)
[2017-10-25 04:14] LABS: Absolute Lymphocytes (CBC) 1.5 K/uL (0.7-4.9); Absolute Monocytes 0.8 K/uL (0.1-1.3); Absolute Neutrophil 8.3 K/uL (1.8-8.0); Eosinophils % 5.1 % (0-4.4); Hematocrit 38.3 % (39.6-49.0); Lymphocytes % 13.3 % (15.3-44.8); MCH 31.2 pg (27.0-35.0); MCV 96.7 fL (80-100); MPV 9.8 fL (7.6-11.3); Monocytes % 7.2 % (3.3-12.3); RBC Red Blood Cell Count 3.96 M/uL (4.33-5.43)
[2017-10-25 04:15] LABS: Albumin 4.1 g/dL (3.2-5.5); Bilirubin Direct 0.1 mg/dL (0-0.2); Bilirubin Total 0.8 mg/dL (0.3-1.2); Protein, Total 8.1 g/dL (6.0-8.3)
[2017-10-25 05:04] LABS: Urine RBC TNTC /HPF (NONE SEEN)
[2017-10-25 05:05] LABS: Urine Bacteria <20 /HPF (NONE SEEN); Urine Culture Reflex Order REFLEXED
[2017-10-25 05:06] LABS: Urine Blood 3+ (NEG); Urine Glucose NEGATIVE (NEG); Urine Protein 3+ (NEG); Urine Specific Gravity 1.015 (1.005-1.030); Urine pH 8.5 (5.0-7.0)
--- NOTE | 2017-10-25 05:11 | ER ---
Nurse's Notes [facility] Name: Go Shen Age: 62 yrs Sex: Male : 1955 Arrival Date: 10/25/2017 Time: 03:19 Bed 20 Private MD: Diagnosis: Cystitis, unspecified with hematuria Presentation: 10/25 03:20 Presenting complaint: Patient states: that he self cath bid. He cathed at 2300 and fc urine was clear. Then at 0000 he noted blood with clots coming from his urethra. Pt is a dialysis pt and goes MWF. Transition of care: patient was not received from another setting of care. Onset of symptoms was October 25, 2017 at 00:00. Initial Sepsis Screen: Does the patient meet any 2 criteria? HR > 90 bpm. Yes Does the patient have a suspected source of infection? No. Patient's initial sepsis screen is negative. Care prior to arrival: None. 03:20 Method Of Arrival: Ambulatory 03:20 Acuity: LITO 3 Triage Assessment: 05:27 General: Behavior is. mg2 Historical: - Allergies: 03:32 Codeine; fc - Home Meds: 03:34 amlodipine 10 mg tab 1 tab T, Th, Sat [Active]; aspirin 81 mg Oral TbEC 1 tab once fc daily [Active]; - PMHx: 03:32 HD - MWF; Hypertension; ESRD; fc - PSHx: 03:32 fistula right upper arm; fc - Immunization history:: Last tetanus immunization: up to date. - Social history:: Smoking status: Patient/guardian denies using tobacco, Patient/guardian denies using alcohol, street drugs, The patient lives with family. - Family history:: not pertinent. Screenin:20 Abuse screen: Denies threats or abuse. Nutritional screening: No deficits noted. fc Tuberculosis screening: No symptoms or risk factors identified. Fall Risk None identified. Assessment: 04:02 General: Appears in no apparent distress. comfortable. Pain: Denies pain. Neuro: Level mg2 of Consciousness is awake, alert, obeys commands, Oriented to person, place, time. Cardiovascular: Capillary refill < 3 seconds Patient's skin is warm and dry. Respiratory: Airway is patent Respiratory effort is even, unlabored. GI: No signs and/or symptoms were reported involving the gastrointestinal system. : Urine is lakhwinder blood. EENT: No signs and/or symptoms were reported regarding the EENT system. EENT: No signs and/or symptoms were reported regarding the EENT system. Derm: Derm: Skin is intact, Skin is pink, warm \T\ dry. normal. Musculoskeletal: No signs and/or symptoms reported regarding the musculoskeletal system. Vital Signs: 03:20 BP 196 / 98; Pulse 119; Resp 18; Temp 99.1(O); Pulse Ox 96% on R/A; Weight 97.52 kg fc (R); Height 5 ft. 10 in. (177.80 cm) (R); Pain 0/10; 04:21 BP 179 / 91; Pulse 96; Resp 18; Pulse Ox 96% on R/A; aa1 05:15 BP 162 / 83; Pulse 84; Resp 18; Pulse Ox 95% on R/A; Pain 0/10; mg2 03:20 Body Mass Index 30.85 (97.52 kg, 177.80 cm) fc ED Course: 03:19 Patient arrived in ED. al2 03:20 Arm band placed on Patient placed in an exam room, on a stretcher. fc 03:20 Patient has correct armband on for positive identification. Placed in gown. Bed in low fc position. Call light in reach. Pulse ox on. NIBP on. 03:25 Danielle Cronin MD is Attending Physician. ma2 03:29 Triage completed. fc 03:31 Jaden Miguel RN is Primary Nurse. mg2 03:46 Missed attempt(s): 20 gauge in left antecubital area. Blood drawn, IV infiltrated. bs1 Inserted saline lock: 22 gauge in left wrist, using aseptic technique. 05:03 Carpenter cath inserted, using sterile technique, 16 Fr., by psychological science professor, balloon inflated, to mg2 gravity drainage, other leg bag attached. 05:26 No provider procedures requiring assistance completed. IV discontinued, bleeding mg2 controlled, No redness/swelling at site. Pressure dressing applied. Administered Medications: No medications were administered Outcome: 05:10 Discharge ordered by . ma2 05:26 Discharged to home ambulatory. mg2 05:26 Condition: stable 05:26 Discharge instructions given to patient, Instructed on discharge instructions, follow up and referral plans. Demonstrated understanding of instructions, follow-up care, medications, Prescriptions given X 1. 05:30 Patient left the ED. mg2 Signatures: Zenaida Mcgrath RN RN aa1 Raynn Bansal RN RN Jeanette Rizvi RN RN bs1 Chasidy eMsa Mohammad, MD MD ma2 Jaden Miguel RN RN mg2 Corrections: (The following items were deleted from the chart) 03:34 03:32 Home Meds: amlodipine 10 mg tab 1 tab once daily; [facility] 04:02 03:52 Inserted saline lock: 22 gauge in left antecubital area, using aseptic technique. mg2 Blood collected. mg2
--- NOTE | 2017-10-25 05:11 | EDPHYS ---
Physician Documentation [facility] Name: Go Shen Age: 62 yrs Sex: Male : 1955 Arrival Date: 10/25/2017 Time: 03:19 Bed 20 Private MD: ED Physician Danielle Cronin HPI: 10/25 03:34 This 62 yrs old Male presents to ER via Ambulatory with complaints of Urinary ma2 Problem, BLOOD IN URINE. 03:34 Onset: The symptoms/episode began/occurred gradually, 1 day(s) ago. Modifying factors: ma2 The symptoms are alleviated by. Associated signs and symptoms: Pertinent positives: dysuria, hematuria. Severity of symptoms: At their worst the symptoms were moderate. The patient has experienced similar episodes in the past. ESRD self cath for urine d/t BPH here with dysuria and hematuria x 1 day . Historical: - Allergies: 03:32 Codeine; fc - Home Meds: 03:34 amlodipine 10 mg tab 1 tab T, Th, Sat [Active]; aspirin 81 mg Oral TbEC 1 tab once fc daily [Active]; - PMHx: 03:32 HD - MWF; Hypertension; ESRD; fc - PSHx: 03:32 fistula right upper arm; fc - Immunization history:: Last tetanus immunization: up to date. - Social history:: Smoking status: Patient/guardian denies using tobacco, Patient/guardian denies using alcohol, street drugs, The patient lives with family. - Family history:: not pertinent. ROS: 03:34 : Positive for urinary symptoms. ma2 03:34 All other systems are negative. 05:11 Constitutional: Negative for fever, chills, and weight loss, Eyes: Negative for injury, ma2 pain, redness, and discharge. Exam: 03:34 Constitutional: This is a well developed, well nourished patient who is awake, alert, ma2 and in no acute distress. Head/Face: Normocephalic, atraumatic. Chest/axilla: Normal chest wall appearance and motion. Nontender with no deformity. No lesions are appreciated. Cardiovascular: Regular rate and rhythm with a normal S1 and S2. No gallops, murmurs, or rubs. Normal PMI, no JVD. No pulse deficits. Male : Normal genitalia with no discharge or lesions. Skin: Warm, dry with normal turgor. Normal color with no rashes, no lesions, and no evidence of cellulitis. Vital Signs: 03:20 BP 196 / 98; Pulse 119; Resp 18; Temp 99.1(O); Pulse Ox 96% on R/A; Weight 97.52 kg fc (R); Height 5 ft. 10 in. (177.80 cm) (R); Pain 0/10; 04:21 BP 179 / 91; Pulse 96; Resp 18; Pulse Ox 96% on R/A; aa1 05:15 BP 162 / 83; Pulse 84; Resp 18; Pulse Ox 95% on R/A; Pain 0/10; mg2 03:20 Body Mass Index 30.85 (97.52 kg, 177.80 cm) fc MDM: 03:34 Differential diagnosis: nonspecific abdominal pain, UTI, urinary retention, Weinberg ma2 catheter problem, prostatitis, urethritis. 03:35 Patient medically screened. ks2 05:03 Data reviewed: vital signs, nurses notes, EMS record, lab test result(s), radiologic ma2 studies. Counseling: I had a detailed discussion with the patient and/or guardian regarding: the historical points, exam findings, and any diagnostic results supporting the discharge/admit diagnosis, the presence of at least one elevated blood pressure reading (>120/80) during this emergency department visit, the need for outpatient follow up. 05:09 ED course: will place weinberg for 1 week and f.u with urology for further eval, has UTI ma2 as well . 10/25 03:26 Order name: Amylase, Serum; Complete Time: 04:40 ma2 10/25 03:26 Order name: Basic Metabolic Panel; Complete Time: 04:40 ma10/25 03:26 Order name: CBC with Diff; Complete Time: 05:03 ma10/25 03:26 Order name: Creatinine for Radiology; Complete Time: 04:40 ma10/25 03:26 Order name: Hepatic Function; Complete Time: 04:40 ma10/25 03:26 Order name: Lipase; Complete Time: 04:40 ma2 10/25 03:26 Order name: Urine Microscopic Only; Complete Time: 05:08 10/25 03:26 Order name: IV Saline Lock; Complete Time: 03:52 ma2 10/25 03:26 Order name: Labs collected and sent; Complete Time: 03:41 [facility] 10/25 03:26 Order name: Urine Dipstick-Ancillary (obtain specimen); Complete Time: 04:02 [facility] 10/25 04:17 Order name: Urine Dipstick--Ancillary (enter results); Complete Time: 05:09 [facility] 10/25 04:22 Order name: Weinberg: discharge home with weinberg cath; Complete Time: 05:15 [facility] 10/25 05:06 Order name: Urine Culture EDMS Administered Medications: No medications were administered Disposition: 10/25/17 05:10 Discharged to Home. Impression: Cystitis, unspecified with hematuria. - Condition is Stable. - Discharge Instructions: Urinary Tract Infection, Lyem-hp-[id number]. - Prescriptions for Bactrim 400- 80 mg Oral Tablet - take 2 tablets by ORAL route 4 times per day for 5 days; 10 tablet. - Medication Reconciliation Form, Thank You Letter, Antibiotic Education, Prescription Opioid Use form. - Follow up: Private Physician; When: Tomorrow; Reason: Continuance of care. - Problem is new. - Symptoms have improved. Signatures: Dispatcher [employer] EDIA Ryann Bansal RN RN Danielle Cronin MD MD [facility] Jaden Miguel RN RN mg2 Corrections: (The following items were deleted from the chart) 03:34 03:32 Home Meds: amlodipine 10 mg tab 1 tab once daily; [facility] 05:30 05:10 10/25/2017 05:10 Discharged to Home. Impression: Cystitis, unspecified with mg2 hematuria. Condition is Stable. Forms are Medication Reconciliation Form, Thank You Letter, Antibiotic Education, Prescription Opioid Use. Follow up: Private Physician; When: Tomorrow; Reason: Continuance of care. Problem is new. Symptoms have improved. ks2
[2017-10-25 05:34] VITALS: TEMP 99.1
[2017-10-25 05:37] VITALS: BP 162/83; O2SAT 95
== END 2017-10-25 05:30 | disposition home or self-care (01) ==
LOC: ER 03:16
DX: N30.91 Cystitis, unspecified with hematuria (principal); I12.0 Hypertensive chronic kidney disease with stage 5 chronic kidney disease or end stage renal disease; N18.6 End stage renal disease; Z99.2 Dependence on renal dialysis; Z79.82 Long term (current) use of aspirin
CPT/HCPCS: 36415; 51702; 80048; 80076; 81003; 81015; 82150; 83690; 85025; 87086; 87088; 99284

== ENCOUNTER 2018-03-21 07:04 | Inpatient (IN) | payer OTHER ==
[2018-03-21 07:43] LABS: Absolute Lymphocytes (CBC) 1.3 K/uL (0.7-4.9); Absolute Monocytes 0.7 K/uL (0.1-1.3); Absolute Neutrophil 5.2 K/uL (1.8-8.0); Eosinophils % 7.2 % (0-4.4); Hematocrit 39.8 % (39.6-49.0); Lymphocytes % 16.7 % (15.3-44.8); MCH 33.3 pg (27.0-35.0); MCV 98.7 fL (80-100); MPV 8.9 fL (7.6-11.3); Monocytes % 8.7 % (3.3-12.3); RBC Red Blood Cell Count 4.03 M/uL (4.33-5.43)
--- NOTE | 2018-03-21 07:56 | RAD REPORT ---
EXAM DESCRIPTION: CT - Head Brain Wo Cont - 03/21/2018 7:41 am CLINICAL HISTORY: AMS, hypertension Drowsiness COMPARISON: No comparisons TECHNIQUE: All CT scans are performed using dose optimization technique as appropriate and may inclu de automated exposure control or mA/KV adjustment according to patient size. FINDINGS: No intracranial hemorrhage, hydrocephalus or extra-axial fluid collection.No areas of brai n edema or evidence of midline shift. The paranasal sinuses and mastoids are clear. The calvarium is intact. IMPRESSION: No acute intracranial abnormality.
[2018-03-21 07:59] LABS: Potassium 4.3 mmol/L (3.5-5.1); Troponin (Emerg Dept Use Only) 0.1 ng/mL (0.0-0.045)
--- NOTE | 2018-03-21 09:21 | RAD REPORT ---
EXAM DESCRIPTION: RAD - Chest Single View - 03/21/2018 7:48 am CLINICAL HISTORY: cough, chills, AMS Chest pain. COMPARISON: Chest Pa And Lat (2 Views) dated 10/19/2017; Chest Single View dated 10/18/2017; CHEST SING LE VIEW dated 07/10/2015; CHEST SINGLE VIEW dated 06/05/2014 FINDINGS: Portable technique limits examination quality. Ill-defined linear opacities are present in the right lung base, which may represent developing pneum onia or interstitial pulmonary edema. The heart is upper limit normal size. No displaced fractures.
--- NOTE | 2018-03-21 09:32 | ER ---
Nurse's Notes [facility] Name: Go Shen Age: 62 yrs Sex: Male : 1955 Arrival Date: 03/21/2018 Time: 07:08 Bed 3 Private MD: Diagnosis: Dyspnea, unspecified;End stage renal disease;Weakness;Pneumonia Presentation: 03/21 07:10 Presenting complaint: EMS states: c/o dizziness and generalized weakness. Pt stated c/o sv SOB after he had to crawl from his room to the living room to call 911. Transition of care: patient was not received from another setting of care. Onset of symptoms was March 21, 2018. Risk Assessment: Do you want to hurt yourself or someone else? Patient reports no desire to harm self or others. Initial Sepsis Screen: Does the patient meet any 2 criteria? No. Patient's initial sepsis screen is negative. Does the patient have a suspected source of infection? No. Patient's initial sepsis screen is negative. Care prior to arrival: None. 07:10 Method Of Arrival: EMS: [facility] sv 07:10 Acuity: LITO 2 sv Triage Assessment: 07:10 General: Appears in no apparent distress. uncomfortable, well developed, Behavior is sv calm, cooperative. Pain: Denies pain. EENT: Reports [place]. Neuro: Level of Consciousness is awake, alert, obeys commands, Oriented to person, place, time, situation, Moves all extremities. Full function Speech is normal, Reports dizziness, weakness. Cardiovascular: Patient's skin is warm and dry. Dialysis shunt: in the right bicep, with palpable thrill, with no edema, no bleeding noted. Respiratory: Reports shortness of breath on exertion Airway is patent Respiratory effort is even, unlabored, Respiratory pattern is regular, tachypnea the patient has mild shortness of breath. : Reports weinberg with leg bag. Derm: Skin is normal. Musculoskeletal: No signs and/or symptoms reported regarding the musculoskeletal system. Historical: - Allergies: 07:20 Codeine; sg - PMHx: 07:20 ESRD; HD - MWF; Hypertension; sg - PSHx: 07:20 fistula right upper arm; sg - Immunization history:: Adult Immunizations up to date. - Family history:: not pertinent. - Social history:: Smoking status: Patient/guardian denies using tobacco. - Ebola Screening: : No symptoms or risks identified at this time. - Hospitalizations: : No recent hospitalization is reported. Screenin:35 Abuse screen: Denies threats or abuse. Denies injuries from another. Nutritional sv screening: No deficits noted. Tuberculosis screening: No symptoms or risk factors identified. Fall Risk None identified. Assessment: 07:51 Reassessment: Patient appears in no apparent distress at this time. No changes from sv previously documented assessment. Patient and/or family updated on plan of care and expected duration. Pain level reassessed. Patient is alert, oriented x 3, equal unlabored respirations, skin warm/dry/pink. 09:57 Reassessment: Patient appears in no apparent distress at this time. No changes from sv previously documented assessment. Patient and/or family updated on plan of care and expected duration. Pain level reassessed. Patient is alert, oriented x 3, equal unlabored respirations, skin warm/dry/pink. 10:34 Reassessment: Patient appears in no apparent distress at this time. No changes from sv previously documented assessment. Patient and/or family updated on plan of care and expected duration. Pain level reassessed. Patient is alert, oriented x 3, equal unlabored respirations, skin warm/dry/pink. 11:15 Reassessment: Nurse to call back for report. sv Vital Signs: 07:10 BP 158 / 100; Pulse 111; Resp 20; Pulse Ox 96% on 2 lpm NC; sg 07:10 Temp 98(TE); sv 07:30 BP 166 / 86; Pulse 101; Resp 19; Pulse Ox 97% on 2 lpm NC; sv 07:51 BP 172 / 95; Pulse 99; Resp 23; Pulse Ox 97% on 2 lpm NC; sv 08:30 BP 167 / 92; Pulse 97; Resp 15; Pulse Ox 97% on 2 lpm NC; sv 09:30 BP 181 / 100; Pulse 99; Resp 23; Pulse Ox 98% on 2 lpm NC; sv 09:45 BP 176 / 96; Pulse 98; Resp 20; Pulse Ox 97% on 2 lpm NC; sv 10:38 BP 160 / 88; Pulse 97; Resp 26; Pulse Ox 98% on R/A; sv 10:53 BP 149 / 91; Pulse 98; Resp 22; Pulse Ox 98% on 2 lpm NC; sv ED Course: 07:08 Patient arrived in ED. rn 07:08 Vik Chiang MD is Attending Physician. rn 07:10 Annmarie Barclay, SHERLY is Primary Nurse. sv 07:10 Inserted saline lock: 20 gauge in left antecubital area, using aseptic technique. Blood sg collected. 07:10 Initial lab(s) drawn, by me, sent to lab. First set of blood cultures drawn by me. sg 07:10 Patient has correct armband on for positive identification. Bed in low position. Call sg light in reach. Side rails up X2. secured entrance monitor on. Pulse ox on. NIBP on. Warm blanket given. Head of bed elevated. 07:21 Arm band placed on. sg 07:33 Triage completed. sv 07:[address] via stretcher. sv 07:39 X-ray completed. Patient tolerated procedure well. Patient moved back from CT. sw 07:40 CT Head Brain wo Cont In Process Unspecified. EDMS 07:47 Patient moved back from [address]. sv 07:48 Chest Single View XRAY In Process Unspecified. EDMS 07:55 EKG done, by set up mold technician. reviewed by Vik Chiang MD. at1 09:31 Uriel Smith DO is Hospitalizing Provider. rn 10:33 IV discontinued, intact, bleeding controlled, No redness/swelling at site. IV sv infiltrated to the left AC. Inserted saline lock: 22 gauge in left hand, using aseptic technique. ,using aseptic technique. started by Sonu printing technician Blood collected. 10:39 Awaiting bed assignment. sv 11:13 No provider procedures requiring assistance completed. Patient admitted, IV remains in sv place. intact. Administered Medications: 09:54 Drug: Rocephin - (cefTRIAXone) 1 grams Route: IVPB; Infused Over: 30 mins; Site: left sv antecubital; 09:57 Follow up: Response: No adverse reaction; IV Status: Completed infusion; IV Intake: 10mlsv 09:57 Drug: AZITHromycin 500 mg Route: IVPB; Infused Over: 1 hrs; Site: left antecubital; sv 10:36 Follow up: IV SiteChange: left hand; IV SiteChange Reason: Infiltration sv 11:20 Follow up: Response: No adverse reaction; IV Status: Completed infusion; IV Intake: sv 250ml Point of Care Testing: Blood Glucose: 07:10 Blood Glucose: 116 mg/dL; sv Ranges: Intake: 09:57 IV: 10ml; Total: 10ml. sv 11:20 IV: 250ml; Total: 260ml. sv Outcome: 09:32 Decision to Hospitalize by Provider. rn 11:35 Admitted to Tele accompanied by tech, via stretcher, room 232, with oxygen, with chart, sv Report called to Diane DUBOIS 11:35 Condition: stable 11:35 Instructed on the need for admit. 11:43 Patient left the ED. sv Signatures: Dispatcher [employer] Annmarie Ward RN RN sv Gay, Steven, RN RN sg Nieto, Roman, MD MD rn Gonzales, Amanda, wrapper selector EKG Tat1 Genet Diaz
--- NOTE | 2018-03-21 09:33 | EDPHYS ---
Physician Documentation [facility] Name: Go Shen Age: 62 yrs Sex: Male : 1955 Arrival Date: 03/21/2018 Time: 07:08 Bed 3 Private MD: ED Physician Vik Chiang HPI: 03/21 07:10 This 62 yrs old Male presents to ER via Unassigned with complaints of rn weakness, cough. 07:10 Reports woke up this morning with generalized weakness, gets dialysis MWF, has not rn missed any appointments, reports chills, cough, neck pain, no syncope but feels like passing out. No abd pain/nausea/vomiting/diarrhea.. Onset: The symptoms/episode began/occurred this morning. Severity of symptoms: At their worst the symptoms were moderate in the emergency department the symptoms are unchanged. The patient has experienced a previous episode. The patient has not recently seen a physician. Historical: - Allergies: 07:20 Codeine; sg - PMHx: 07:20 ESRD; HD - MWF; Hypertension; sg - PSHx: 07:20 fistula right upper arm; sg - Immunization history:: Adult Immunizations up to date. - Family history:: not pertinent. - Social history:: Smoking status: Patient/guardian denies using tobacco. - Ebola Screening: : No symptoms or risks identified at this time. - Hospitalizations: : No recent hospitalization is reported. ROS: 07:10 Constitutional: + chills Eyes: Negative for injury, pain, redness, and discharge, Neck: rn Negative for injury, pain, and swelling, Cardiovascular: Negative for chest pain, palpitations Respiratory: + cough and sob Abdomen/GI: Negative for abdominal pain, nausea, vomiting, diarrhea, and constipation, MS/Extremity: Negative for injury and deformity, Skin: Negative for injury, rash, and discoloration, Neuro: Negative for headache, numbness, tingling, and seizure. Exam: 07:12 Constitutional: This is a well developed, well nourished patient who is awake, alert, rn and in no acute distress. Head/Face: Normocephalic, atraumatic. Eyes: Pupils equal round and reactive to light, extra-ocular motions intact. Lids and lashes normal. Conjunctiva and sclera are non-icteric and not injected. Cornea within normal limits. Periorbital areas with no swelling, redness, or edema. ENT: dry MM Cardiovascular: tachycardic, regular, no murmur Respiratory: + faint wheezing right lung erickson, mild tachypnea, no retractions, speaks full sentences Abdomen/GI: soft, non-tender Skin: Warm, dry, no rashes MS/ Extremity: Pulses equal, no cyanosis. Neurovascular intact. Full, normal range of motion. Equal circumference. Neuro: Awake and alert, GCS 15, oriented to person, place, time, and situation. Cranial nerves II-XII grossly intact. Motor strength 5/5 in all extremities. Sensory grossly intact. 07:56 ECG was reviewed by the Attending Physician. rn Vital Signs: 07:10 BP 158 / 100; Pulse 111; Resp 20; Pulse Ox 96% on 2 lpm NC; sg 07:10 Temp 98(TE); sv 07:30 BP 166 / 86; Pulse 101; Resp 19; Pulse Ox 97% on 2 lpm NC; sv 07:51 BP 172 / 95; Pulse 99; Resp 23; Pulse Ox 97% on 2 lpm NC; sv 08:30 BP 167 / 92; Pulse 97; Resp 15; Pulse Ox 97% on 2 lpm NC; sv 09:30 BP 181 / 100; Pulse 99; Resp 23; Pulse Ox 98% on 2 lpm NC; sv 09:45 BP 176 / 96; Pulse 98; Resp 20; Pulse Ox 97% on 2 lpm NC; sv 10:38 BP 160 / 88; Pulse 97; Resp 26; Pulse Ox 98% on R/A; sv 10:53 BP 149 / 91; Pulse 98; Resp 22; Pulse Ox 98% on 2 lpm NC; sv MDM: 07:08 Patient medically screened. rn 09:30 Differential Diagnosis altered mental status, sepsis. Data reviewed: vital signs, rn nurses notes, lab test result(s), radiologic studies, plain films, and as a result, I will admit patient. Counseling: I had a detailed discussion with the patient and/or guardian regarding: the historical points, exam findings, and any diagnostic results supporting the discharge/admit diagnosis, lab results, radiology results, the need for further work-up and treatment in the hospital. Response to treatment: the patient's symptoms have mildly improved after treatment, and as a result, I will admit patient. Admission orders: after a detailed discussion of the patient's condition and case, the admit orders are written by me. ED course: Pt can't even get up in stretcher, + possible pneumonia vs pulmonary edema, + productive cough, + tachypneic, will admit to Dr. Smith for further care. . 03/21 07:10 Order name: Urine Culture rn 03/21 07:10 Order name: Basic Metabolic Panel; Complete Time: 08:39 rn 03/21 07:10 Order name: Blood Culture Adult (2) rn 03/21 07:10 Order name: CBC with Diff; Complete Time: 07:56 rn 03/21 07:10 Order name: CPK; Complete Time: 08:39 rn 03/21 07:10 Order name: Lactate; Complete Time: 08:39 rn 03/21 07:10 Order name: Procalcitonin; Complete Time: 08:39 rn 03/21 07:10 Order name: Troponin (emerg Dept Use Only); Complete Time: 08:39 rn 03/21 07:10 Order name: Urine Microscopic Only rn 03/21 07:10 Order name: Strep; Complete Time: 08:39 rn 03/21 07:10 Order name: Flu; Complete Time: 08:39 rn 03/21 07:12 Order name: N-Terminal Pro-brain Natriuretic Peptide; Complete Time: 09:28 rn 03/21 07:17 Order name: Glucose, Ancillary Testing EDMS 03/21 08:03 Order name: Throat Culture EDMS 03/21 10:17 Order name: Basic Metabolic Panel EDMS 03/21 10:17 Order name: Basic Metabolic Panel EDMS 03/21 10:17 Order name: Basic Metabolic Panel EDMS 03/21 10:17 Order name: Basic Metabolic Panel EDMS 03/21 10:17 Order name: Magnesium EDMS 03/21 10:17 Order name: Magnesium EDMS 03/21 10:17 Order name: Magnesium EDMS 03/21 10:17 Order name: Magnesium EDMS 03/21 10:17 Order name: Phosphorus EDMS 03/21 10:17 Order name: Phosphorus EDMS 03/21 10:17 Order name: Phosphorus EDMS 03/21 10:17 Order name: Phosphorus EDMS 03/21 10:17 Order name: Influenza Screen (A EDMS 03/21 10:17 Order name: Sputum Culture EDMS 03/21 10:18 Order name: Hemoglobin A1c EDMS 03/21 10:18 Order name: T4 Free EDMS 03/21 07:10 Order name: Chest Single View XRAY; Complete Time: 09:28 rn 03/21 07:10 Order name: Accucheck; Complete Time: 07:31 rn 03/21 07:10 Order name: Cardiac monitoring; Complete Time: 07:31 rn 03/21 07:10 Order name: EKG - Nurse/Tech; Complete Time: 07:52 rn 03/21 07:10 Order name: IV Saline Lock - Large Bore; Complete Time: 07:31 rn 03/21 07:10 Order name: Labs collected and sent; Complete Time: 07:32 rn 03/21 07:10 Order name: O2 Per Protocol; Complete Time: 07:32 rn 03/21 07:10 Order name: O2 Sat Monitoring; Complete Time: 07:32 rn 03/21 07:10 Order name: CT Head Brain wo Cont; Complete Time: 08:39 rn 03/21 09:15 Order name: EKG Electrocardiogram EDHI 03/21 10:18 Order name: CONS Physician Consult EDMS 03/21 10:18 Order name: Respiratory Therapy Consult EDHI 03/21 10:18 Order name: Renal EDHI 03/21 10:18 Order name: Echo with Doppler EDMS 03/21 10:18 Order name: Thyroid Stimulating Hormone EDMS 03/21 10:18 Order name: Chest Pa And Lat (2 Views) EDMS 03/21 10:55 Order name: Lactate Sepsis 2 HR Follow-up EDMS EC:56 Rate is 99 beats/min. Rhythm is regular. QRS Mcloud is Normal. [place] interval is normal. QRS rn interval is normal. QT interval is normal. No Q waves. T waves are Normal. No ST changes noted. Clinical impression: NSR w/ Non-specific ST/T Changes. Interpreted by me. Administered Medications: 09:54 Drug: Rocephin - (cefTRIAXone) 1 grams Route: IVPB; Infused Over: 30 mins; Site: left sv antecubital; 09:57 Follow up: Response: No adverse reaction; IV Status: Completed infusion; IV Intake: 10mlsv 09:57 Drug: AZITHromycin 500 mg Route: IVPB; Infused Over: 1 hrs; Site: left antecubital; sv 10:36 Follow up: IV SiteChange: left hand; IV SiteChange Reason: Infiltration sv 11:20 Follow up: Response: No adverse reaction; IV Status: Completed infusion; IV Intake: sv 250ml Point of Care Testing: Blood Glucose: 07:10 Blood Glucose: 116 mg/dL; sv Ranges: Critical Glucose Levels:Adult <50 mg/dl or >400 mg/dl <40 mg/dl or >180 mg/dl Disposition: 03/21/18 09:32 Hospitalization ordered by Uriel Smith for Inpatient Admission. Preliminary diagnosis are Dyspnea, unspecified, End stage renal disease, Weakness, Pneumonia. - Bed requested for Telemetry/MedSurg (Inpatient). - Status is Inpatient Admission. sv - Condition is Stable. - Problem is new. - Symptoms have improved. UTI on Admission? No Signatures: Dispatcher [employer] EDAnnmarie Vial RN RN sv Woody, Diana, RN RN dw Gay, Steven, RN RN sg Nieto, Roman, MD MD rn Corrections: (The following items were deleted from the chart) 07:13 07:10 Constitutional: + chills Eyes: Negative for injury, pain, redness, and discharge, hybrid corn breeder: Negative for chest pain, palpitations Respiratory: + cough and sob Abdomen/GI: Negative for abdominal pain, nausea, vomiting, diarrhea, and constipation, rn 10:59 09:32 Hospitalization Ordered by Uriel Smith DO for Inpatient Admission. Preliminary dw diagnosis is Dyspnea, unspecified; End stage renal disease; Weakness; Pneumonia. Bed requested for Telemetry/MedSurg (Inpatient). Status is Inpatient Admission. Condition is Stable. Problem is new. Symptoms have improved. UTI on Admission? No. rn 11:43 10:59 03/21/2018 09:32 Hospitalization Ordered by Uriel Smith DO for Inpatient sv Admission. Preliminary diagnosis is Dyspnea, unspecified; End stage renal disease; Weakness; Pneumonia. Bed requested for Telemetry/MedSurg (Inpatient). Status is Inpatient Admission. Condition is Stable. Problem is new. Symptoms have improved. UTI on Admission? No. dw
[2018-03-21] MEDS ORDERED: AZITHROMYCIN 500 MG/250 ML BAG ONE (09:45)
[2018-03-21] MEDS ORDERED: CEFTRIAXONE/SWI 1gm 1 GM/10 ML SYR ONE (09:45)
[2018-03-21] MEDS ORDERED: ACETAMINOPHEN 500 MG TAB PO PRN (10:10)
[2018-03-21] MEDS ORDERED: ONDANSETRON 4 MG/2 ML VIAL IV PRN (10:10)
[2018-03-21] MEDS ORDERED: BENZONATATE 100 MG CAP PO PRN (10:10)
[2018-03-21] MEDS: INSULIN -REGULAR HUMAN 50 UNIT/0.5 ML ML SQ SCH ×3 (11:30→20:45)
[2018-03-21 12:45] VITALS: BMI 29.5
--- NOTE | 2018-03-21 13:15 | EKG ---
Test Date: 2018-03-21 Test Time: 07:54:08 Insurance Sales Specialist: DELPHINE MEASUREMENT RESULTS: Intervals: Rate: 99 W[place]: 168 QRSD: 98 QT: 354 QTc: 454 [place]: P: 72 W[place]: 168 QRS: -9 T: 101 INTERPRETIVE STATEMENTS: Normal sinus rhythm Left ventricular hypertrophy with repolarization abnormality Abnormal ECG Compared to ECG 10/18/2017 09:37:14 Sinus tachycardia no longer present Atrial abnormality no longer present Electronically Signed On 03-21-18 13:14:51 CDT by Mati Bonner
--- NOTE | 2018-03-21 13:31 | P.HP ---
Certification for Inpatient Patient admitted to: Inpatient With expected LOS: >2 Midnights Patient will require the following post-hospital care: None Practitioner: I am a practitioner with admitting privileges, knowledge of patient current condition, hospital course, and medical plan of care. Services: Services provided to patient in accordance with Admission requirements found in Title 42 Section 412.3 of the Code of Federal Regulations Patient History Date of Service: 03/21/18 Primary Care Provider: None; Nephrology-Dr. Ledezma Reason for admission: Shortness of breath History of Present Illness: 62-year-old male presented emergency room with shortness of breath. Patient reported shortness of breath, cough and fatigue today. He was not able to get out of bed. Patient also reported some pain to the shoulder and arm. Patient with history of end-stage renal disease on dialysis, diabetes, BPH and hypertension. Patient goes to dialysis and monitor his weight closely. In the ER patient evaluated. White count 7.8, hemoglobin 13.4. Platelet count of 211. Sodium 140, potassium 4.3, BUN of 62, creatinine 11.7 with a GFR 4. Glucose 120. Lactic acid 2.1. Troponin 0.1. BMP 24,000. Pro calcitonin negative. Chest x-rayed showed possible right lower lobe pneumonia versus pulmonary edema. Patient admitted for further evaluation and treatment. When I saw the patient ER, he appeared comfortable. Patient with history of end -stage renal disease, diabetes, BPH and hypertension. Patient does not smoke or drink alcohol. Allergies No Known Allergies Allergy (Verified 03/21/18 12:06) Home medications list reviewed: Yes Home Medications: Calcium Carbonate [Tums] 1 tab PO TIDWM 03/21/18 - Past Medical/Surgical History Diabetic: Yes -: ESRD, (M,W,F dialysis) -: Hypertension -: Diabetes mellitus type 2 -: BPH with urinary retention -: AV graft Psychosocial/ Personal History: The patient is single. He has no children. - Family History Father -: Heart disease, Hypertension Mother -: Other (see notes) Brother -: Heart disease Sister -: Diabetes - Social History Smoking Status: Never smoker Alcohol use: Yes CD- Drugs: No Caffeine use: Yes Place of Residence: Home Review of Systems General: Weakness, As per HPI Eyes: Unremarkable ENT: Unremarkable Respiratory: Cough, Shortness of Breath, As per HPI Cardiovascular: Unremarkable Gastrointestinal: Unremarkable Genitourinary: Unremarkable Musculoskeletal: Unremarkable Integumentary: Unremarkable Neurological: Weakness, As per HPI Lymphatics: Unremarkable Physical Examination - Vital Signs Temperature: 99.1 F Blood Pressure: 158/83 Pulse: 99 Respirations: 20 Pulse Ox (%): 99 - Physical Exam General: Alert, In no apparent distress, Oriented x3, Cooperative HEENT: Atraumatic, Normocephalic, PERRLA, Mucous membr. moist/pink Neck: Supple Respiratory: Crackles/rales (To the right base) Cardiovascular: Normal pulses, Regular rate/rhythm Gastrointestinal: Normal bowel sounds, Soft and benign, Non-distended, No tenderness, No masses, No rebound, No guarding Musculoskeletal: No erythema, No tenderness, No warmth Integumentary: No tenderness/swelling, No erythema, No warmth, No cyanosis Neurological: Normal speech, Normal strength at 5/5 x4 extr, Normal tone, Normal affect - Studies Laboratory Data (last 24 hrs) 03/21/18 07:10: WBC 7.8, Hgb 13.4 L, Hct 39.8, Plt Count 211 03/21/18 07:10: Sodium 140, Potassium 4.3, BUN 62 H, Creatinine 11.70 H*, Glucose 126 H Microbiology Data (last 24 hrs): 03/21/18 07:20 Throat Group A Streptococcus Rapid Screen - Final 03/21/18 07:20 Nasopharnyx Influenza Type A Antigen Screen - Final 03/21/18 07:20 Nasopharnyx Influenza Type B Antigen Screen - Final Assessment and Plan - Plan Impression: Shortness of breast secondary to right lower pneumonia versus pulmonary edema End-stage renal disease on dialysis Mondays, Wednesdays and Fridays Diabetes mellitus type 2 non insulin dependent Hypertension BPH Plan: Shortness of breast secondary to right lower pneumonia versus pulmonary edema: Patient will be admitted. Will start antibiotic therapy for pneumonia. Will obtain sputum culture and influenza evaluation. Will recheck chest x-ray in the morning. This may also be underlying pulmonary edema. Will check echocardiogram to evaluate for CHF. Patient to get dialysis. Will provide medication for cough. Will continue monitor closely. Will maintain sats above 90%. End-stage renal disease on dialysis Mondays, Wednesdays and Fridays: Nephrology consulted. Patient will require dialysis during his stay. Diabetes mellitus type 2 non insulin dependent: Will provide insulin sliding scale and Accu-Cheks. Will check A1c. Hypertension: Will need to verify home medication and restart. Will monitor and adjust appropriately. BPH: Will review and restart home medication. Will monitor and adjust appropriately. Discharge Plan: Home Plan to discharge in: 72 Hours - Advance Directives Does patient have a Living Will: No Does patient have a Durable POA for Healthcare: No - Code Status/Comfort Care Code Status Assessed: Yes (Patient full code.) Time Spent Managing Pts Care (In Minutes): 55
[2018-03-21 14:06] LABS: Thyroid Stimulating Hormone 2.65 uIU/mL (0.360-3.740)
[2018-03-21] MEDS ORDERED: MANNITOL 25% 12.5 GM/50 ML VIAL IV PRN (14:19)
[2018-03-21] MEDS ORDERED: NA CHLORIDE 0.9% 1,000 ML IV PRN (14:19)
[2018-03-21] MEDS ORDERED: ALBUMIN HUMAN 25% 50 ML IV SCH (15:00)
[2018-03-21] MEDS: ENOXAPARIN 30 MG/0.3 ML SQ SCH (17:47)
[2018-03-21] MEDS: METOPROLOL TAR 25 MG TAB PO SCH (18:00)
--- NOTE | 2018-03-22 02:28 | CON ---
Date of Consultation: 03/21/2018 Chief Complaint: End-stage renal disease. History Of Present Illness: The patient presented to the hospital because of generalized weakness, altered mental status, fever, chills and cough. He was complaining of shortness of breath. Chest x-ray was done to rule out pneumonia. The patient was found to have elevated BNP, fluid overload and urgent dialysis was ordered to control congestive heart failure with diastolic dysfunction. The patient is a 62-year-old man with history of multiple medical problems including end-stage renal disease. He was scheduled to have dialysis today in the morning although because he was not feeling well and was complaining of shortness of breath, fatigue and cough came to emergency room. He has history of end-stage renal disease, dialysis, diabetes, BPH, hypertension. ER evaluation showed hemoglobin of 13.4, potassium 4.3, creatinine 11.7, BUN 62, troponin 0.1. Chest x-ray showed possible right lower lobe pneumonia and some pulmonary edema. Review of Systems: General: Complains of generalized weakness, fatigue. Eyes: Denies vision changes. Ears, Nose, Mouth and Throat: Denies sore throat, earache. Respiratory: Complains of shortness of breath, dyspnea with activities and at rest, and productive cough. Denies wheezing. GI: Denies nausea, vomiting. : Denies dysuria, hematuria. Musculoskeletal: Denies muscle aches or joint swellings. All other systems reviewed and all are negative. Past Medical History: Hypertension, congestive heart failure with diastolic dysfunction, hypertensive heart and kidney disease, diabetes mellitus, BPH, hyperlipidemia, anemia of CKD, renal osteodystrophy. Family History: Heart disease, hypertension in his father. Mother had hypertension. Brother, heart disease. Sister, diabetes. Social History: Denies tobacco, alcohol, illicit drug. Physical Examination: General: Not in acute distress. Eyes: Anicteric sclerae. EOMI. Ears, Nose, Mouth and Throat: Oral mucosa moist. No pallor. Neck: Supple. No JVD. No bruits. cardiovascular: S1, S2 no pericardial friction rub Lungs: Crackles bilaterally. Rhonchi present. No wheezing. Heart: S1, S2. No pericardial friction rub. Abdomen: Soft, benign. Not tender. Extremities: Edema present in both legs. NEUROLOGIC: alert , oriented , no tremor SKIN: warm and dry , no skin rashes Laboratory Data: Hemoglobin 13.4, WBC 7.8, platelet count is 211,000. Sodium 140, potassium 4.3, chloride 102, CO2 22, BUN 66, creatinine 11.7. Lactic acid 2.1. Troponin 0.10. CK level 53. BNP 24,320. TSH 2.65. Impression And Plan: 1. Congestive heart failure with diastolic dysfunction, fluid overload, pulmonary edema. The patient will have urgent dialysis with ultrafiltration to control fluid overload. 2. Continue O2 nasal cannula. Workup is pending to rule out acute coronary syndrome. 3. Hypertension. Monitor blood pressure closely during dialysis. Continue beta-tyrese and AP inhibitor for congestive heart failure. 4. Echo will be done to check for any evidence of pericardial effusion. 5. Anemia of chronic kidney disease. Monitor hemoglobin level and adjust DANIEL. 6. Renal osteodystrophy. Continue renal diet, low phosphorus diet, adjust binders. 7. Hyperlipidemia. Continue low-cholesterol diet, adjust medications. JUANI/JENNIFER Voice ID: [id number] Report ID: [id number] [email or web address]
[2018-03-22 05:42] LABS: Urine Appearance TURBID; Urine Bilirubin NEGATIVE (NEG); Urine Blood 1+ (NEG); Urine Color RED; Urine Glucose NEGATIVE (NEG); Urine Protein 3+ (NEG); Urine Specific Gravity 1.015 (1.005-1.030); Urine Urobilinogen 0.2 mg/dL (0.2-1.0); Urine pH 7.5 (5.0-7.0)
[2018-03-22 05:43] LABS: Urine Microscopic Reflex ORDER UMIC
[2018-03-22 05:53] LABS: Urine Bacteria LOADED /HPF (NONE SEEN); Urine Culture Reflex Order NOT NEEDED
[2018-03-22 06:06] LABS: Absolute Lymphocytes (CBC) 1.4 K/uL (0.7-4.9); Absolute Monocytes 0.8 K/uL (0.1-1.3); Absolute Neutrophil 4.4 K/uL (1.8-8.0); Basophils % 1.2 % (0-1.3); Eosinophils % 10.5 % (0-4.4); Hematocrit 36.9 % (39.6-49.0); Lymphocytes % 18.3 % (15.3-44.8); MCH 33.2 pg (27.0-35.0); MCV 99.2 fL (80-100); MPV 8.7 fL (7.6-11.3); Monocytes % 10.9 % (3.3-12.3); RBC Red Blood Cell Count 3.72 M/uL (4.33-5.43)
[2018-03-22] MEDS: METOPROLOL TAR 25 MG TAB PO SCH ×2 (06:25→21:52)
[2018-03-22 06:31] LABS: Magnesium 2.8 mg/dL (1.8-2.4); Phosphorus 5.7 mg/dL (2.5-4.9); Potassium 4.4 mmol/L (3.5-5.1)
[2018-03-22] MEDS: INSULIN -REGULAR HUMAN 50 UNIT/0.5 ML ML SQ SCH ×4 (07:30→21:00)
[2018-03-22] MEDS: ASPIRIN EC 81 MG TAB PO SCH (08:55)
[2018-03-22] MEDS ORDERED: AZITHROMYCIN 250 MG TAB PO SCH (09:00)
[2018-03-22] MEDS ORDERED: CEFTRIAXONE/SWI 1gm 1 GM/10 ML SYR IV SCH (09:00)
--- NOTE | 2018-03-22 12:17 | ECHO ---
HEIGHT: 5 ft 10 in WEIGHT: 209 lb 1 oz DATE OF STUDY: 03/22/[address]: Uriel Smith DO 2-DIMENSIONAL: YES M.MODE: YES DOPPLER: YES COLOR FLOW: YES TDS: NO PORTABLE: NO DEFINITY: NO BUBBLE STUDY: NO DIAGNOSIS: SHORTNESS OF BREATH, END STAGE RENAL DISEASE/ HYPERTENSION CARDIAC HISTORY: CATHERIZATION: NO SURGERY: NO PROSTHETIC VALVE: NO PACEMAKER: NO MEASUREMENTS (cm) DIASTOLIC (NORMALS) SYSTOLIC (NORMALS) IVSd 1.2 (0.6-1.2) LA Diam 4.6 (1.9-4.0) LVEF 41% LVIDd 4.9 (3.5-5.7) LVIDs 3.9 (2.0-3.5) %FS 20% LVPWd 1.2 (0.6-1.2) Ao Diam 2.9 (2.0-3.7) 2 DIMENSIONAL ASSESSMENT: RIGHT ATRIUM: DILATED LEFT ATRIUM: DILATED RIGHT VENTRICLE: NORMAL LEFT VENTRICLE: NORMAL TRICUSPID VALVE: NORMAL MITRAL VALVE: NORMAL PULMONIC VALVE: NORMAL AORTIC VALVE: NORMAL PERICARDIAL EFFUSION: NONE AORTIC ROOT: NORMAL LEFT VENTRICULAR WALL MOTION: MILD GLOBAL HYPOKINESIS. DOPPLER/COLOR FLOW: MILD MITRAL AND TRICUSPID REGURGITATION. ESTIMATED RIGHT VENTRICULAR SYSOTOLIC PRESSURE 55mmHg. MODERATE PULMONARY HYPERTENSION. COMMENTS: DEPRESSED LEFT VENTRICULAR EJECTION FRACTION. DILATED LEFT AND RIGHT ATRIUM. MILD MITRAL AND TRICUSPID REGURGITATION. MODERATE PULMONARY HYPERTENSION. TECHNOLOGIST: TIMI GR
--- NOTE | 2018-03-22 13:19 | P.PN ---
Subjective Date of Service: 03/22/18 Primary Care Provider: None; Nephrology-Dr. Ledezma Chief Complaint: Shortness of breath Subjective: Improving Physical Examination - Vital Signs Temperature: 98.6 F Blood Pressure: 143/67 Pulse: 71 Respirations: 17 Pulse Ox (%): 96 - Physical Exam General: Alert, In no apparent distress, Oriented x3, Cooperative HEENT: Atraumatic Neck: Supple Respiratory: Crackles/rales (Mild crackles but improved) Cardiovascular: Normal pulses, Regular rate/rhythm Gastrointestinal: Normal bowel sounds, Soft and benign, Non-distended, No tenderness, No masses, No rebound, No guarding Musculoskeletal: No erythema, No tenderness, No warmth Integumentary: No tenderness/swelling, No erythema, No warmth, No cyanosis Neurological: Normal speech, Normal strength at 5/5 x4 extr, Normal tone, Normal affect - Studies Microbiology Data (last 24 hrs): 03/21/18 07:25 Blood - Blood Anaerobic Blood Culture - Final 03/21/18 07:10 Blood - Blood Anaerobic Blood Culture - Final Medications List Reviewed: Yes Assessment & Plan Discharge Plan: Home Plan to discharge in: 24 Hours Physician Review Additional Text: Impression: Shortness of breast secondary to pulmonary edema with noted moderate pulmonary hypertension on echocardiogram Acute on chronic diastolic CHF End-stage renal disease on dialysis Mondays, Wednesdays and Fridays Diabetes mellitus type 2 non insulin dependent Hypertension Anemia of chronic disease Plan: Shortness of breast secondary to pulmonary edema with noted moderate pulmonary hypertension on echocardiogram: Case discussed with nephrology. Patient will get dialysis again today. Doubt pneumonia. Will discontinue antibiotic therapy. Echocardiogram shows moderate pulmonary hypertension. Will teach on 1500 cc per day fluid restriction. Will recheck x-ray. Will wean off oxygen. Acute on chronic diastolic CHF: Continue with above recommendation. Echocardiogram shows moderate palm hypertension. Will teach on 1500 cc per day fluid restriction and low-salt diet. End-stage renal disease on dialysis Mondays, Wednesdays and Fridays: Patient will get another round of dialysis again today Diabetes mellitus type 2 non insulin dependent: Hemoglobin A1c 5.3. Well controlled, will continue with sliding scale. Patient does not take medication as an outpatient. Hypertension: Will continue with metoprolol. Will continue monitor and adjust appropriately. Anemia of chronic disease: Hemoglobin stable. Will monitor closely. Time Spent Managing Pts Care (In Minutes): 55
--- NOTE | 2018-03-22 14:13 | RAD REPORT ---
EXAM DESCRIPTION: RAD - Chest Pa And Lat (2 Views) - 03/22/2018 2:02 pm CLINICAL HISTORY: Follow up CHF, pulmonary edema Chest pain. COMPARISON: Chest Single View dated 03/21/2018; Chest Pa And Lat (2 Views) dated 10/19/2017; Chest Sing le View dated 10/18/2017; CHEST SINGLE VIEW dated 07/10/2015 FINDINGS: Mild improvement in bilateral pulmonary opacities is noted since comparative study, compat ible with mild improvement in CHF/ volume overload pattern. Trace pleural fluid bilaterally. The hear t is upper limit normal in size. No displaced fractures. IMPRESSION: Mild improvement in CHF/ volume overload pattern.
--- NOTE | 2018-03-22 17:20 | PN ---
Date of Progress Note: 03/22/2018 History: The patient was admitted with over volume. The patient had dialysis yesterday. We managed to remove 2 L. The patient tolerated the dialysis. The patient feeling slightly better. No nausea . No vomiting. Physical Examination: Vital Signs: When I saw the patient, blood pressure of 143/67, pulse of 72. Chest: Faint crackles bilateral base. Heart: S1, S2. Regular. Abdomen: Soft. Nontender. Extremity: No edema. Laboratory Data: H and H 12.4/36.9. Sodium 140, potassium 4.4, bicarb 24, BUN 47, creatinine 10, ca lcium 8.8. Phosphorus 5.7, magnesium 2.8. Medications: Current medications the patient on include: 1.Aspirin. 2.Z-Bec. 3.Ceftriaxone. 4.Lovenox. 5.Metoprolol 25 b.i.d. 6.Zofran. Assessment And Plan: 1.End-stage renal disease, over volume. I am going to go ahead and do another session of sequential today to establish better volume control. Then patient may be able to be discharged after dialysis. 2.Hypertension. We will keep utilizing the blood pressure for more ultrafiltration. 3.Anemia for chronic kidney disease. No need for DANIEL. 4.Coronary artery disease congestive heart failure as above. SAMIRA Voice ID: [id number] Report ID: [id number]
[2018-03-22] MEDS: ENOXAPARIN 30 MG/0.3 ML SQ SCH (21:52)
[2018-03-23] MEDS: METOPROLOL TAR 25 MG TAB PO SCH (05:15)
[2018-03-23 05:16] VITALS: BP 132/74
[2018-03-23 05:24] VITALS: TEMP 98.2
[2018-03-23 06:02] VITALS: O2SAT 97
[2018-03-23 06:10] LABS: Absolute Lymphocytes (CBC) 1.6 K/uL (0.7-4.9); Absolute Neutrophil 4.9 K/uL (1.8-8.0); Basophils % 0.3 % (0-1.3); Eosinophils % 12.5 % (0-4.4); Hematocrit 41.2 % (39.6-49.0); Lymphocytes % 18.9 % (15.3-44.8); MCH 33.3 pg (27.0-35.0); MCV 98.2 fL (80-100); MPV 8.8 fL (7.6-11.3); Monocytes % 11.5 % (3.3-12.3)
[2018-03-23 06:29] LABS: Magnesium 2.9 mg/dL (1.8-2.4); Phosphorus 7.4 mg/dL (2.5-4.9); Potassium 4.6 mmol/L (3.5-5.1)
[2018-03-23] MEDS: INSULIN -REGULAR HUMAN 50 UNIT/0.5 ML ML SQ SCH ×2 (07:30→11:30)
[2018-03-23] MEDS: ASPIRIN EC 81 MG TAB PO SCH (09:20)
--- NOTE | 2018-03-23 10:39 | P.DS ---
Admission Date: 03/21/18 Discharge Date: 03/23/18 Primary Care Provider: None; Nephrology-Dr. Ledezma Disposition: ROUTINE DISCHARGE Discharge Condition: GOOD Reason for Admission: Shortness of breath Consultations: Nephrology-Dr. Mcgrath Procedures: Echocardiogram: Ejection fraction 41% LEFT VENTRICULAR WALL MOTION: MILD GLOBAL HYPOKINESIS. DOPPLER/COLOR FLOW: MILD MITRAL AND TRICUSPID REGURGITATION. ESTIMATED RIGHT VENTRICULAR SYSOTOLIC PRESSURE 55mmHg. MODERATE PULMONARY HYPERTENSION. COMMENTS: DEPRESSED LEFT VENTRICULAR EJECTION FRACTION. DILATED LEFT AND RIGHT ATRIUM. MILD MITRAL AND TRICUSPID REGURGITATION. MODERATE PULMONARY HYPERTENSION. Medical Problem List: Shortness of breast secondary to pulmonary edema with noted moderate pulmonary hypertension on echocardiogram Acute on chronic diastolic CHF, ejection fraction 41% with moderate pulmonary hypertension End-stage renal disease on dialysis Mondays, Wednesdays and Fridays Diabetes mellitus type 2 non insulin dependent Hypertension Anemia of chronic disease Brief History of Present Illness: 62-year-old male presented emergency room with shortness of breath. Patient reported shortness of breath, cough and fatigue today. He was not able to get out of bed. Patient also reported some pain to the shoulder and arm. Patient with history of end-stage renal disease on dialysis, diabetes, BPH and hypertension. Patient goes to dialysis and monitor his weight closely. In the ER patient evaluated. White count 7.8, hemoglobin 13.4. Platelet count of 211. Sodium 140, potassium 4.3, BUN of 62, creatinine 11.7 with a GFR 4. Glucose 120. Lactic acid 2.1. Troponin 0.1. BMP 24,000. Pro calcitonin negative. Chest x-rayed showed possible right lower lobe pneumonia versus pulmonary edema. Patient admitted for further evaluation and treatment. When I saw the patient ER, he appeared comfortable. Patient with history of end -stage renal disease, diabetes, BPH and hypertension. Patient does not smoke or drink alcohol. Hospital Course: Patient presented with shortness of breath. Patient found to have pulmonary edema on chest x-ray. Pulmonary edema secondary to acute on chronic diastolic CHF. Echocardiogram showed ejection fraction 41% with moderate pulmonary hypertension. Medications adjusted during his stay. Patient also received dialysis. Improvement was noted. At discharge he will continue with a 1500 cc per day fluid restriction and low-salt diet. Patient will need to monitor his weight daily. If his weight increases by more than 5 lb, then he is to contact nephrology to further assess. Recommendation is for the patient to establish care with pulmonology to further address his pulmonary hypertension. Patient may have underlying sleep apnea. Patient may require sleep study with pulmonology to further evaluate. Patient has end-stage renal disease on dialysis Mondays, Wednesdays and Fridays. Patient received dialysis with improvement of his shortness of breath. Nephrology was consulted. At discharge patient will continue with dialysis as directed. Future medications will need to be renally dosed. Recommendation on no further use of nonsteroidal anti-inflammatories. Patient has diabetes type 2 non insulin dependent. A1c 5.3. Patient continue with diet control. No need for medication at this time. Recommendation is to maintain blood sugars less 140 fasting and less than 2 after meals. Further monitoring to be done by his PCP. Patient has hypertension. Patient not previously on medication. Blood pressure now better controlled with medication. At discharge he will continue with metoprolol 25 mg 1 pill twice daily. Recommendation is to maintain blood pressures less 150/80. Further adjustment can be done by nephrology. Patient has anemia of chronic disease. Hemoglobin stable. This can be monitored by nephrology as an outpatient. Vital Signs/Physical Exam: Temp Pulse Resp BP Pulse Ox 98.2 F 86 16 132/74 98 03/23/18 05:23 03/23/18 05:23 03/23/18 05:23 03/23/18 05:23 03/23/18 05:23 General: Alert, In no apparent distress, Oriented x3, Cooperative HEENT: Atraumatic Neck: Supple Respiratory: Clear to auscultation bilaterally, Normal air movement Cardiovascular: Normal pulses, Regular rate/rhythm Gastrointestinal: Normal bowel sounds, Soft and benign, Non-distended, No tenderness, No masses, No rebound, No guarding Musculoskeletal: No erythema, No tenderness, No warmth Integumentary: No tenderness/swelling, No erythema, No warmth, No cyanosis Neurological: Normal speech, Normal strength at 5/5 x4 extr, Normal tone, Normal affect Laboratory Data at Discharge: WBC 8.6 K/uL (4.3-10.9) D 03/23/18 05:57 Hgb 14.0 g/dL (13.6-17.9) 03/23/18 05:57 Hct 41.2 % (39.6-49.0) 03/23/18 05:57 Plt Count 186 K/uL (152-406) 03/23/18 05:57 Sodium 138 mmol/L (136-145) 03/23/18 05:57 Potassium 4.6 mmol/L (3.5-5.1) 03/23/18 05:57 BUN 67 mg/dL (7-18) H D 03/23/18 05:57 Creatinine 12.50 mg/dL (0.55-1.3) H* D 03/23/18 05:57 Glucose 94 mg/dL (74-106) 03/23/18 05:57 Phosphorus 7.4 mg/dL (2.5-4.9) H 03/23/18 05:57 Magnesium 2.9 mg/dL (1.8-2.4) H 03/23/18 05:57 Home Medications: Calcium Carbonate [Tums] 1 tab PO TIDWM 03/21/18 Aspirin [Aspirin EC 81 MG] 81 mg PO DAILY #90 tablet. 03/23/18 Metoprolol Tartrate [Lopressor*] 25 mg PO BID 6AM 6PM #60 tab 03/23/18 New Medications: Aspirin [Aspirin EC 81 MG] 81 mg PO DAILY #90 tablet. Metoprolol Tartrate [Lopressor*] 25 mg PO BID 6AM 6PM #60 tab Patient Discharge Instructions: 1. Patient will need to establish care with a PCP to continue his care. 2. Patient presented with shortness of breath. Patient found to have pulmonary edema on chest x-ray. Pulmonary edema secondary to acute on chronic diastolic CHF. Echocardiogram showed ejection fraction 41% with moderate pulmonary hypertension. Medications adjusted during his stay. Patient also received dialysis. Improvement was noted. At discharge he will continue with a 1500 cc per day fluid restriction and low-salt diet. Patient will need to monitor his weight daily. If his weight increases by more than 5 lb, then he is to contact nephrology to further assess. Recommendation is for the patient to establish care with pulmonology to further address his pulmonary hypertension. Patient may have underlying sleep apnea. Patient may require sleep study with pulmonology to further evaluate. 3. Patient has end- stage renal disease on dialysis Mondays, Wednesdays and Fridays. Patient received dialysis with improvement of his shortness of breath. Nephrology was consulted. At discharge patient will continue with dialysis as directed. Future medications will need to be renally dosed. Recommendation on no further use of nonsteroidal anti-inflammatories. 4. Patient has diabetes type 2 non insulin dependent. A1c 5.3. Patient continue with diet control. No need for medication at this time. Recommendation is to maintain blood sugars less 140 fasting and less than 2 after meals. Further monitoring to be done by his PCP. 5. Patient has hypertension. Patient not previously on medication. Blood pressure now better controlled with medication. At discharge he will continue with metoprolol 25 mg 1 pill twice daily. Recommendation is to maintain blood pressures less 150/80. Further adjustment can be done by nephrology. 6. Patient has anemia of chronic disease. Hemoglobin stable. This can be monitored by nephrology as an outpatient. Diet: Renal Activity: Ad giuseppe Time spent managing pt's care (in minutes): 55
--- NOTE | 2018-03-23 15:51 | PN ---
Subjective: The patient was admitted with shortness of breath, congestive heart failure. Physical Examination: Vital Signs: Blood pressure 132/74, pulse of 86. General: The patient had dialysis yesterday. We managed to remove 2900. Chest: Crackles bilateral base. Heart: S1, S2. Regular. Abdomen: Soft, nontender. Extremities: No edema. : The patient has Carpenter. Laboratory Data: H and H are 14/41. Sodium 138, potassium 4.6, bicarb 23, BUN 67, creatinine 12, ca lcium of 9. Current Medications: The patient on, its includes: 1.Albumin. 2.Lovenox. 3.Metoprolol 25 b.i.d. 4.Zofran. Assessment And Plan: 1.End-stage renal disease, over volume, status post sequentials yesterday. We will do dialysis toda y to establish better volume and to back the patient to his schedule. 2.Hypertension. Controlled, optimal. Continue current medication. 3.Congestive heart failure, looks to me. Started getting better volume control. The patient will b e able to be discharged after dialysis today. 4.Diabetes as by primary. 5.Obstructive uropathy. Status post Carpenter. We will follow up with Urology as outpatient. MARYANNE/JENNIFER Voice ID: [id number] Report ID: [id number]
[2018-03-24 19:06] LABS: HBsAG Nonreactive (Nonreactive)
== END 2018-03-23 15:50 | disposition home or self-care (01) | DRG 291 ==
LOC: ER 07:04 → ERHOLD 10:10 → 2ND 11:36
PROVIDERS: ADMIT Family Medicine; ATTEND Family Medicine
PROC: 5A1D70Z Performance of Urinary Filtration, Intermittent, Less than 6 Hours Per Day (ICD-10-PCS; principal; 2018-03-21)
PROC: 5A1D70Z Performance of Urinary Filtration, Intermittent, Less than 6 Hours Per Day (ICD-10-PCS; 2018-03-22)
PROC: 5A1D70Z Performance of Urinary Filtration, Intermittent, Less than 6 Hours Per Day (ICD-10-PCS; 2018-03-23)
DX: I13.2 Hypertensive heart and chronic kidney disease with heart failure and with stage 5 chronic kidney disease, or end stage renal disease (principal); N18.6 End stage renal disease; I50.33 Acute on chronic diastolic (congestive) heart failure; E11.22 Type 2 diabetes mellitus with diabetic chronic kidney disease; Z99.2 Dependence on renal dialysis; I27.20 Pulmonary hypertension, unspecified; D63.1 Anemia in chronic kidney disease; N40.0 Benign prostatic hyperplasia without lower urinary tract symptoms; E78.5 Hyperlipidemia, unspecified; N25.0 Renal osteodystrophy; I25.10 Atherosclerotic heart disease of native coronary artery without angina pectoris; N13.9 Obstructive and reflux uropathy, unspecified
CPT/HCPCS: 36415; 70450; 71045; 71046; 80048; 81003; 81015; 82550; 82962; 83036; 83605; 83735; 83880; 84100; 84145; 84439; 84443; 84484; 85025; 86317; 86704; 86706; 87040; 87070; 87077; 87081; 87086; 87088; 87186; 87340; 87804; 90935; 93005; 93306; 96365; 96375; 99285; J0456; J0696; J1650

== ENCOUNTER 2018-10-30 17:22 | Inpatient (IN) | payer OTHER, BC ==
[2018-10-30 18:43] LABS: Absolute Lymphocytes (CBC) 1.3 K/uL (0.7-4.9); Absolute Monocytes 0.9 K/uL (0.1-1.3); Absolute Neutrophil 7.9 K/uL (1.8-8.0); Basophils % 0.6 % (0-1.3); Eosinophils % 7.4 % (0-4.4); Hematocrit 37.4 % (39.6-49.0); Lymphocytes % 12.1 % (15.3-44.8); MPV 8.5 fL (7.6-11.3); Monocytes % 8.5 % (3.3-12.3); RBC Red Blood Cell Count 3.83 M/uL (4.33-5.43)
[2018-10-30 19:24] LABS: Potassium 4.1 mmol/L (3.5-5.1)
--- NOTE | 2018-10-30 19:28 | RAD REPORT ---
EXAM DESCRIPTION: Sheri Single View10/30/2018 7:01 pm CLINICAL HISTORY: cough COMPARISON: March 2018 FINDINGS: Mild bilateral pulmonary opacities. The heart is mildly enlarged IMPRESSION: Mild interstitial pulmonary edema
[2018-10-30] MEDS ORDERED: ACETAMINOPHEN 500 MG TAB PO PRN (20:02)
[2018-10-30] MEDS ORDERED: ONDANSETRON 4 MG/2 ML VIAL IV PRN (20:02)
[2018-10-30] MEDS ORDERED: ALBUTEROL 2.5 MG/3 ML NEB SOL NEB PRN (20:02)
[2018-10-30] MEDS ORDERED: IPRATROPIUM BROM 0.5MG/2.5ML NEB PRN (20:02)
--- NOTE | 2018-10-30 20:32 | EDPHYS ---
Physician Documentation [facility] Name: Go Shen Age: 63 yrs Sex: Male : 1955 Arrival Date: 10/30/2018 Time: 17:24 Bed 24 Private MD: ED Physician Jorge Cisneros HPI: 10/30 18:15 This 63 yrs old Male presents to ER via Ambulatory with complaints of Cough, cp Congestion, Drainage From Eye. 18:15 The patient or guardian reports cough, that is intermittent, with productive sputum. cp Onset: The symptoms/episode began/occurred 1 week(s) ago. Severity of symptoms: in the emergency department the symptoms are unchanged, despite home interventions. Associated signs and symptoms: Pertinent positives: general weakness, drainage from eyes, Pertinent negatives: chest pain, diarrhea, fever, vomiting. Historical: - Allergies: 17:42 Codeine; la1 - Home Meds: 17:48 None [Active]; la1 - PMHx: 17:42 ESRD; HD - MWF; Hypertension; bph; la1 - Immunization history:: Adult Immunizations up to date. - Social history:: Smoking status: Patient/guardian denies using tobacco. - Ebola Screening: : No symptoms or risks identified at this time. ROS: 18:20 Constitutional: Negative for body aches, chills, fever, poor PO intake. cp 18:20 Eyes: Positive for discharge, Negative for pain. cp 18:20 Cardiovascular: Negative for chest pain. 18:20 Respiratory: Positive for cough, shortness of breath, Negative for wheezing. 18:20 Abdomen/GI: Negative for abdominal pain, nausea, vomiting, and diarrhea. 18:20 Back: Negative for pain at rest, pain with movement. 18:20 Neuro: Positive for general weakness, Negative for altered mental status, headache. 18:20 All other systems are negative. Exam: 18:27 Constitutional: The patient appears in no acute distress, alert, awake, cp non-diaphoretic, non-toxic, well developed, well nourished. 18:27 Head/Face: Normocephalic, atraumatic. cp 18:27 Eyes: Periorbital structures: appear normal, Pupils: equal, round, and reactive to light and accomodation, Extraocular movements: intact throughout, Conjunctiva: mild erythema and drainage both eyes. Lids and lashes: appear normal, bilaterally. 18:27 ENT: External ear(s): are unremarkable, Ear canal(s): are normal, clear, TM's: are normal, no evidence of bulging, no erythema, Nose: is normal, Mouth: Lips: moist, Oral mucosa: pink and intact, moist, Posterior pharynx: is normal, airway is patent, no erythema, no exudate. 18:27 Neck: ROM/movement: is normal, is supple, without pain, no range of motions limitations, no meningismus, no nuchal rigidity. 18:27 Chest/axilla: Inspection: normal, Palpation: is normal, no crepitus, no tenderness. 18:27 Cardiovascular: Rate: tachycardic, Rhythm: regular. 18:27 Respiratory: the patient does not display signs of respiratory distress, Respirations: normal, no use of accessory muscles, no retractions, no splinting, no tachypnea, labored breathing, is not present. 18:27 Abdomen/GI: Inspection: abdomen appears normal, Bowel sounds: active, all quadrants, Palpation: abdomen is soft and non-tender, in all quadrants. 18:27 Back: pain, is absent, ROM is normal. 18:27 Skin: cellulitis, is not appreciated, no rash present. 18:27 Neuro: Orientation: to person, place \T\ time. Mentation: is normal, Cerebellar function: is grossly normal, Motor: moves all fours, general weakness w/o focal deficits, Gait: is unsteady. 18:50 ECG was reviewed by the Attending Physician. cp Vital Signs: 17:42 BP 172 / 95; Pulse 112; Resp 19; Temp 99.4(O); Pulse Ox 98% on R/A; Weight 99.79 kg; la1 Height 5 ft. 10 in. (177.80 cm); Pain 0/10; 19:26 BP 164 / 99; Pulse 104; Resp 16; Pulse Ox 98% on R/A; la1 20:28 BP 172 / 98; Pulse 105; Resp 22; Pulse Ox 98% on R/A; la1 21:05 Temp 99.3; la1 17:42 Body Mass Index 31.57 (99.79 kg, 177.80 cm) la1 MDM: 17:41 Patient medically screened. 20:30 Data reviewed: vital signs, nurses notes, lab test result(s), radiologic studies, plain cp films. 20:30 Test interpretation: by ED physician or midlevel provider: plain radiologic studies. cp Physician consultation: Danielle Cano MD was called at 19:45, was contacted at 19:45, regarding admission, to the telemetry unit. patient's condition. 10/30 18:12 Order name: Influenza Screen (a \T\ B); Complete Time: 19:06 cp 10/30 18:12 Order name: Strep; Complete Time: 19:06 cp 10/30 18:16 Order name: CBC with Diff; Complete Time: 19:06 10/30 19:31 Interpretation: Normal except: WBC 11.1; RBC 3.83; HGB 12.4; HCT 37.4; LYM% 12.1; cp EOSINOPHIL % 7.4; EOSA 0.8. 10/30 18:16 Order name: BMP; Complete Time: 19:30 10/30 19:31 Interpretation: Normal except: NA 134; GLUC 113; BUN 76; CRE 11.00; GFR 5. 10/30 18:16 Order name: BNP; Complete Time: 19:30 10/30 19:31 Interpretation: Abnormal: NT PRO-BNP 16703. 10/30 18:54 Order name: Throat Culture [facility] 10/30 18:16 Order name: XRAY Chest (1 view); Complete Time: 19:30 10/30 19:49 Order name: Procalcitonin 10/30 19:49 Order name: Blood Culture Adult (2) 10/30 19:49 Order name: Lactate 05/ 19:49 Order name: Magnesium; Complete Time: 20:29 cp 10/30 20:29 Interpretation: Abnormal: MG 2.5. 10/30 20:06 Order name: Troponin I [facility] 10/30 20:06 Order name: Troponin I [facility] 10/30 20:06 Order name: Troponin I [facility] 10/30 18:16 Order name: EKG; Complete Time: 18:16 10/30 18:16 Order name: EKG - Nurse/Tech; Complete Time: 18:39 10/30 20:06 Order name: CONS Physician Consult [facility] 05/12 20:06 Order name: CONS Physician Consult ED[facility] 10/30 20:07 Order name: Echo with Doppler ED[facility] EC:50 Rate is 106 beats/min. Rhythm is regular. ND interval is normal. QRS interval is cp normal. QT interval is normal. Interpreted by me. Reviewed by me. Administered Medications: 20:28 Drug: Lasix 40 mg Route: IVP; Site: left antecubital; la1 20:48 Follow up: Response: No adverse reaction la1 Disposition: 21:30 Chart complete. cp 10/31 09:26 Co-signature as Attending Physician, Jorge Cisneros MD I agree with the assessment and [facility] plan of care. Disposition: 10/30/18 20:31 Hospitalization ordered by Danielle Cano for Observation. Preliminary diagnosis are Weakness - general, End stage renal disease, Pulmonary edema. - Bed requested for Telemetry/MedSurg (observation). - Status is Observation. la1 - Condition is Stable. - Problem is new. - Symptoms have improved. UTI on Admission? No Signatures: Dispatcher [employer] EDHI Jessica Méndez RN RN mw Anderson, Corey, MD MD cha Attema, Lee, RN RN la1 Jorge Simmons PA PA cp Corrections: (The following items were deleted from the chart) 10/30 19:31 19:07 Normal except: WBC 11.1; RBC 3.83; HGB 12.4; HCT 37.4; LYM% 12.1; EOSINOPHIL % cp 7.4. cp 20:38 20:31 Hospitalization Ordered by Danielle Cano MD for Observation. Preliminary mw diagnosis is Weakness - general; End stage renal disease; Pulmonary edema. Bed requested for Telemetry/MedSurg (observation). Status is Observation. Condition is Stable. Problem is new. Symptoms have improved. UTI on Admission? No. cp 21:06 20:38 10/30/2018 20:31 Hospitalization Ordered by Danielle Cano MD for Observation. la1 Preliminary diagnosis is Weakness - general; End stage renal disease; Pulmonary edema. Bed requested for Telemetry/MedSurg (observation). Status is Observation. Condition is Stable. Problem is new. Symptoms have improved. UTI on Admission? No. mw
--- NOTE | 2018-10-30 20:32 | ER ---
Nurse's Notes [facility] Name: Go Shen Age: 63 yrs Sex: Male : 1955 Arrival Date: 10/30/2018 Time: 17:24 Bed 24 Private MD: Diagnosis: Weakness-general;End stage renal disease;Pulmonary edema Presentation: 10/30 17:40 Presenting complaint: Patient states: Persistent cough for one week with nasal la1 drainage. Transition of care: patient was not received from another setting of care. Resp Distress? No respiratory distress is noted at this time. Onset of symptoms was October 30, 2018. Risk Assessment: Do you want to hurt yourself or someone else? Patient reports no desire to harm self or others. Initial Sepsis Screen: Does the patient meet any 2 criteria? HR > 90 bpm. Does the patient have a suspected source of infection? Yes: Productive cough/pneumonia. Care prior to arrival: None. 17:40 Method Of Arrival: Ambulatory la1 17:40 Acuity: LITO 3 la1 Historical: - Allergies: 17:42 Codeine; la1 - Home Meds: 17:48 None [Active]; la1 - PMHx: 17:42 ESRD; HD - MWF; Hypertension; bph; la1 - Immunization history:: Adult Immunizations up to date. - Social history:: Smoking status: Patient/guardian denies using tobacco. - Ebola Screening: : No symptoms or risks identified at this time. Screenin:48 Abuse screen: Denies threats or abuse. Nutritional screening: No deficits noted. la1 Tuberculosis screening: No symptoms or risk factors identified. Fall Risk None identified. Assessment: 17:47 General: Appears ill, Behavior is calm, cooperative. Pain: Denies pain. Neuro: Level of la1 Consciousness is awake, alert, obeys commands, Oriented to person, place, time, situation. Cardiovascular: Capillary refill < 3 seconds Patient's skin is warm and dry. Cardiovascular: Dialysis shunt: in the right arm. Respiratory: Airway is patent Respiratory effort is even, unlabored, Respiratory pattern is regular, symmetrical, Breath sounds are coarse bilaterally. the patient has mild shortness of breath. GI: No signs and/or symptoms were reported involving the gastrointestinal system. : No signs and/or symptoms were reported regarding the genitourinary system. 19:03 Reassessment: Patient appears in no apparent distress at this time. No changes from la1 previously documented assessment. Patient and/or family updated on plan of care and expected duration. Pain level reassessed. 20:48 Cardiovascular: Patient's skin is warm and dry. Respiratory: Airway is patent la1 Respiratory effort is even, unlabored, Respiratory pattern is regular, symmetrical. : Carpenter in place to gravity drainage Urine is clear. Vital Signs: 17:42 BP 172 / 95; Pulse 112; Resp 19; Temp 99.4(O); Pulse Ox 98% on R/A; Weight 99.79 kg; la1 Height 5 ft. 10 in. (177.80 cm); Pain 0/10; 19:26 BP 164 / 99; Pulse 104; Resp 16; Pulse Ox 98% on R/A; la1 20:28 BP 172 / 98; Pulse 105; Resp 22; Pulse Ox 98% on R/A; la1 21:05 Temp 99.3; la1 17:42 Body Mass Index 31.57 (99.79 kg, 177.80 cm) la1 ED Course: 17:24 Patient arrived in ED. as 17:41 Triage completed. la1 17:41 Jorge Simmons PA is PHCP. cp 17:41 Jorge Cisneros MD is Attending Physician. cp 17:42 Arm band placed on left wrist. la1 17:48 Bed in low position. Call light in reach. la1 18:17 Valentino Hernandez, RN is Primary Nurse. la1 19:01 XRAY Chest (1 view) In Process Unspecified. EDMS 20:28 No provider procedures requiring assistance completed. Inserted saline lock: 22 gauge la1 in left antecubital area, using aseptic technique. Blood collected. 20:30 Danielle Cano MD is Hospitalizing Provider. cp 21:04 Patient admitted, IV remains in place. la1 Administered Medications: 20:28 Drug: Lasix 40 mg Route: IVP; Site: left antecubital; la1 20:48 Follow up: Response: No adverse reaction la1 Outcome: 20:31 Decision to Hospitalize by Provider. cp 21:05 Admitted to Tele accompanied by tech, via stretcher, room 412. la1 21:05 Condition: stable 21:05 Instructed on the need for admit. 21:06 Patient left the ED. la1 Signatures: Dispatcher [employer] Carmen Miramontes Lee, RN RN la1 Jorge Simmons PA PA cp
[2018-10-30 21:38] VITALS: BMI 30.4
[2018-10-30] MEDS: FUROSEMIDE 40 MG/4 ML VIAL IV SCH (22:00)
[2018-10-30] MEDS: METOPROLOL TAR 50 MG TAB PO SCH (22:00)
[2018-10-31] MEDS: HYDROCODONE/CHLORPHEN 5 ML/OSYR PO PRN ×2 (00:27→20:31)
--- NOTE | 2018-10-31 04:15 | P.HP ---
Certification for Inpatient Patient admitted to: Inpatient With expected LOS: >2 Midnights Patient will require the following post-hospital care: None Practitioner: I am a practitioner with admitting privileges, knowledge of patient current condition, hospital course, and medical plan of care. Services: Services provided to patient in accordance with Admission requirements found in Title 42 Section 412.3 of the Code of Federal Regulations Patient History Date of Service: 10/30/18 Reason for admission: SOB/cough/congestion/hypoxic/pleuritic CP History of Present Illness: Patient is a 63-year-old gentleman who came to the hospital with shortness of breath. Patient was found have pulmonary edema. Patient has end-stage renal disease and is on hemodialysis. Patient has not missed a dialysis session but with short of breath. X-ray confirmed patient was volume overloaded. Will go ahead and Consulted nephrology for hemodialysis. Patient also has coughing & congestion. He denies a fever. He will be admitted for further evaluation. Allergies No Known Allergies Allergy (Verified 10/30/18 23:27) Home Medications: NK [No Home Meds] 10/30/18 - Past Medical/Surgical History Has patient received pneumonia vaccine in the past: Yes Diabetic: Yes -: ESRD, (M,W,F dialysis) -: Hypertension -: Diabetes mellitus type 2 -: BPH with urinary retention -: AV graft Psychosocial/ Personal History: The patient is single. He has no children. - Family History Father Medical History: Heart disease, Hypertension Mother Medical History: Other (see notes) Brother Medical History: Heart disease Sister Medical History: Diabetes - Social History Smoking Status: Never smoker Alcohol use: Yes CD- Drugs: No Caffeine use: Yes Place of Residence: Home Review of Systems 10-point ROS is otherwise unremarkable Physical Examination - Vital Signs Temperature: 97.5 F Blood Pressure: 156/84 Pulse: 84 Respirations: 16 Pulse Ox (%): 99 - Physical Exam General: Alert, In no apparent distress, Oriented x3 HEENT: Atraumatic, PERRLA, Mucous membr. moist/pink, EOMI, Sclerae nonicteric Neck: Supple, 2+ carotid pulse no bruit, No LAD, Without JVD or thyroid abnormality Respiratory: Crackles/rales, Rhonchi/gurgles Cardiovascular: Regular rate/rhythm, Normal S1 S2, No murmurs Gastrointestinal: Normal bowel sounds, Soft and benign, Non-distended, No tenderness Musculoskeletal: No clubbing, No swelling, No tenderness Integumentary: No rashes Neurological: Normal gait, Normal speech, Normal strength at 5/5 x4 extr, Normal tone, Sensation intact, Cranial nerves 3-12 intact, Normal affect Lymphatics: No axilla or inguinal lymphadenopathy Urinary: Weinberg catheter - Studies Laboratory Data (last 24 hrs) 10/30/18 18:30: Magnesium 2.5 H 10/30/18 18:30: Sodium 134 L, Potassium 4.1, BUN 76 H, Creatinine 11.00 H*, Glucose 113 H 10/30/18 18:30: WBC 11.1 H, Hgb 12.4 L, Hct 37.4 L, Plt Count 209 Microbiology Data (last 24 hrs): 10/30/18 18:30 Nasopharnyx Influenza Type A Antigen Screen - Final 10/30/18 18:30 Nasopharnyx Influenza Type B Antigen Screen - Final 10/30/18 18:30 Throat Group A Streptococcus Rapid Screen - Final Assessment & Plan - Problems (Diagnosis) (1) Acute diastolic CHF (congestive heart failure) Current Visit: Yes Status: Acute (2) BPH (benign prostatic hyperplasia) Onset Date: 03/22/18 Current Visit: No Status: Acute (3) Dyspnea Onset Date: 05/25/14 Current Visit: No Status: Acute Qualifiers: (4) ESRD on hemodialysis Onset Date: 03/22/18 Current Visit: No Status: Acute (5) Pulmonary edema Onset Date: 10/19/17 Current Visit: No Status: Acute Qualifiers: (6) Weakness Current Visit: No Status: Acute (7) Diabetes mellitus Onset Date: 10/19/17 Current Visit: No Status: Chronic Qualifiers: (8) Hypertension Onset Date: 10/19/17 Current Visit: No Status: Chronic Qualifiers: (9) GERD (gastroesophageal reflux disease) Onset Date: 10/19/17 Current Visit: No Status: Suspected - Plan 1. Echocardiogram 2. Consult ARB 3. Consult Beta tyrese 4. Cardiology/Nephrology consultation 5. Aggressive diuresis 6. Strict I's and O's 7. Repeat CXR 8. Daily weights 9. Discuss with nephrology re: weinberg Discharge Plan: Home Plan to discharge in: Greater than 2 days - Advance Directives Does patient have a Living Will: No Does patient have a Durable POA for Healthcare: No - Code Status/Comfort Care Code Status Assessed: Yes Code Status: Full Code Critical Care: No Time Spent Managing PTS Care (In Minutes): 50
[2018-10-31] MEDS: HEPARIN 5000 UNIT/ML 1 ML VIAL SQ SCH ×2 (09:00→20:31)
[2018-10-31] MEDS ORDERED: ENOXAPARIN 40 MG/0.4 ML SQ SCH (09:00)
[2018-10-31] MEDS: FUROSEMIDE 40 MG/4 ML VIAL IV SCH ×2 (09:00→18:06)
[2018-10-31] MEDS: METOPROLOL TAR 50 MG TAB PO SCH ×2 (09:00→20:31)
--- NOTE | 2018-10-31 09:19 | EKG ---
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
--- NOTE | 2018-10-31 12:05 | P.PN ---
Subjective Date of Service: 10/31/18 Primary Care Provider: [facility]; Nephrology-Dr. Mcgrath Chief Complaint: SOB/cough/congestion/hypoxic/pleuritic CP Subjective: Doing well Physical Examination - Vital Signs Temperature: 97.5 F Blood Pressure: 156/84 Pulse: 84 Respirations: 16 Pulse Ox (%): 99 - Physical Exam General: Alert, In no apparent distress, Oriented x3, Cooperative HEENT: Atraumatic Neck: Supple Respiratory: Clear to auscultation bilaterally, Normal air movement Cardiovascular: Normal pulses, Regular rate/rhythm Gastrointestinal: Normal bowel sounds, Soft and benign, Non-distended Integumentary: Tenderness/swelling (Edema to the lower extremities bilateral 1 to 2+) Neurological: Normal speech, Normal strength at 5/5 x4 extr, Normal tone, Normal affect - Studies Laboratory Data (last 24 hrs) 10/30/18 18:30: Magnesium 2.5 H 10/30/18 18:30: Sodium 134 L, Potassium 4.1, BUN 76 H, Creatinine 11.00 H*, Glucose 113 H 10/30/18 18:30: WBC 11.1 H, Hgb 12.4 L, Hct 37.4 L, Plt Count 209 Microbiology Data (last 24 hrs): 10/30/18 18:30 Nasopharnyx Influenza Type A Antigen Screen - Final 10/30/18 18:30 Nasopharnyx Influenza Type B Antigen Screen - Final 10/30/18 18:30 Throat Group A Streptococcus Rapid Screen - Final Medications List Reviewed: Yes Assessment & Plan Discharge Plan: Home Plan to discharge in: 24 Hours Physician Review Additional Text: Impression: Dyspnea secondary to acute on chronic diastolic CHF complicated with elevated troponin likely underlying CAD End-stage renal disease on hemodialysis Hypertension Diabetes mellitus type 2 BPH with history of urinary retention, patient self caths Plan: Dyspnea secondary to acute on chronic diastolic CHF complicated with elevated troponin likely underlying CAD: Continue with fluid restriction. Continue with diuresis. Patient to get dialysis. Elevated troponin noted. Cardiology has ordered stress test to further evaluate. Will discuss with cardiology and nephrology after findings. End-stage renal disease on hemodialysis: Continue with fluid restriction and hemodialysis. Hypertension: Continue with medication. Will monitor and adjust appropriately. Diabetes mellitus type 2: Continue with Accu-Cheks and sliding scale. BPH with history of urinary retention, patient self caths: Patient has had chronic catheter for quite some time. It is not been changed in over 3 months. No need for chronic catheter at this time. Will discontinue. Patient will continue with self caths as directed. Continue with medication. Recommend to follow up with urology as an outpatient. Time Spent Managing Pts Care (In Minutes): 55
--- NOTE | 2018-10-31 12:14 | CON ---
Additional Attending Physician: Dr. Cano. Chief Complaint: Cough. History Of Present Illness: Mr. Shen has been having a cough for about a week. He coughs up juan miguel ar looking phlegm. No fevers or chills. He was not having any chest pain, but he got so short of br eath and so sick with a cough that he came to the ER. He was admitted. His EKG does not show any ac knik changes suggestive of AL. His troponin is elevated and N-terminal proBNP is very elevated. The patient is a dialysis patient, has been for about 4 years now. He takes a variety of medicines, but they are not listed in his chart as of yet. He has never had any vascular surgery. Never myocardial infarction or stroke. He has mildly depressed ejection fraction, moderate to severe pulmonary hyper tension. Never has been a cigarette smoker. Physical Examination: General: He is 5 feet 10 inches, 212 pounds. Alert, oriented, pleasant. HEENT: Unremarkable. Lungs: Crackles up to the mid scapula. Heart: Within normal limits. Abdomen: Soft. Extremities: Trace edema. Distal pulses diminished. His troponin is 1.15 and 1.62. His creatinine is 11 and N-terminal proBNP is 64,000. A procalcitonin level is elevated. His chest x-ray indicate s interstitial edema. No pneumonia. Impression: The patient has pulmonary edema causing his enzyme rise. I am not sure he is having ang nguyen. We will do an echo and pharmacologic nuclear stress test to see what degree of CAD he might have, but he clearly needs to get more fluid removed when he gets dialysis. CYN/JENNIFER Voice ID: [id number] Report ID: [id number]
--- NOTE | 2018-10-31 13:47 | ECHO ---
HEIGHT: 5 ft 10 in WEIGHT: 212 lb 9.6 oz DATE OF STUDY: 10/31/[address]: Danielle Cano MD 2-DIMENSIONAL: YES M.MODE: YES DOPPLER: YES COLOR FLOW: YES TDS: NO PORTABLE: NO DEFINITY: NO BUBBLE STUDY: NO DIAGNOSIS: CONGESTIVE HEART FAILURE CARDIAC HISTORY: CATHERIZATION: NO SURGERY: NO PROSTHETIC VALVE: NO PACEMAKER: NO MEASUREMENTS (cm) DIASTOLIC (NORMALS) SYSTOLIC (NORMALS) IVSd 1.0 (0.6-1.2) LA Diam 4.3 (1.9-4.0) LVEF 30-35% LVIDd 6.1 (3.5-5.7) LVIDs 4.9 (2.0-3.5) %FS 20% LVPWd 1.1 (0.6-1.2) Ao Diam 2.9 (2.0-3.7) 2 DIMENSIONAL ASSESSMENT: RIGHT ATRIUM: DILATED LEFT ATRIUM: DILATED RIGHT VENTRICLE: DILATED LEFT VENTRICLE: DILATED TRICUSPID VALVE: NORMAL MITRAL VALVE: NORMAL PULMONIC VALVE: NORMAL AORTIC VALVE: NORMAL PERICARDIAL EFFUSION: NONE AORTIC ROOT: NORMAL LEFT VENTRICULAR WALL MOTION: GLOBAL HYPOKINESIS. DOPPLER/COLOR FLOW: MILD MITRAL AND TRICUSPID REGURGITATION. NORMAL RIGHT VENTRICULAR SYSTOLIC PRESSURE. COMMENTS: FOUR CHAMBER DILATATION. DEPRESSED LEFT VENTRICULAR EJECTION FRACTION. MILD MITRAL AND TRICUSPID REGURGITATION. TECHNOLOGIST: TIMI GR
[2018-10-31] MEDS ORDERED: MANNITOL 25% 12.5 GM/50 ML VIAL IV PRN (15:10)
[2018-10-31] MEDS ORDERED: NA CHLORIDE 0.9% 1,000 ML IV PRN (15:10)
[2018-10-31] MEDS ORDERED: ALBUMIN HUMAN 25% 50 ML IV SCH (16:00)
--- NOTE | 2018-11-01 05:22 | CON ---
Date of Consultation: 10/31/2018 Chief Complaint: End-stage renal disease, severe shortness of breath, congestive heart failure with acute on chronic component diastolic dysfunction. History Of Present Illness: The patient is a 63-year-old man with history of end-stage renal disease. He presented to the hospital with shortness of breath. He was found to have pleural effusion and pulmonary edema. He was complaining of shortness of breath, cough, congestion of the chest. He was found to have hypoxemic respiratory failure. He was evaluated for pleuritic chest pain. The patient is on hemodialysis, has been treated with dialysis 3 times per week. The patient came into the hospital yesterday and chest x-ray showed interstitial pulmonary edema. Nephrology consultation was obtained. The patient will have stat dialysis to obtain metabolic clearance and ultrafiltration to provide management for congestive heart failure. Review of Systems: Constitutional: The patient denies fever, chills. He is complaining of generalized weakness. Eyes: Denies vision changes. Ears, Nose, Mouth, and Throat: Denies sore throat, earache. Respiratory: He is complaining of cough, shortness of breath, PND, orthopnea. Cardiovascular: Denies syncope. He is complaining of chest pain of pleuritic characteristics. GI: Denies nausea, vomiting. : Denies dysuria, hematuria. Musculoskeletal: Complains of generalized weakness. All other systems reviewed and all are negative. Past Medical History: End-stage renal disease, on dialysis Wednesday, Wednesday, Wednesday; hypertension; diabetes mellitus, type 2; BPH with urinary retention, status post AV access procedure; history of congestive heart failure with diastolic dysfunction, required treatment with frequent dialysis during hospitalization on previous occasion. Family History: Hypertension, heart disease due to coronary artery disease, diabetes. Social History: Negative for tobacco, alcohol, or illicit drugs. Physical Examination: General: The patient is awake, alert, follows commands. Eyes: Anicteric sclerae. EOMI. Ears, Nose, Mouth, and Throat: Oral mucosa moist. No pallor. Neck: Supple. NO bruits Lungs: Crackles bilaterally present at bases. Few rhonchi. Abdomen: Soft, benign, nontender. Extremities: Edema present in both legs. No cellulitis Neurological: Moving extremities. Cranial nerves intact. No tremor. Psychiatric: The patient is lethargic. The patient is alert, responsive to voice and follows commands. Lab Work: Magnesium 2.5, sodium 144, potassium 4.1, BUN 76, creatinine 11, glucose 113. WBC 11.1, hemoglobin 12.4, platelet count 209,000. Impression And Plan: 1. Severe shortness of breath, hypoxemic respiratory failure. The patient will continue p.o. fluid restriction. The patient will have dialysis with stat procedure done with ultrafiltration to treat volume overload and to provide management for congestive heart failure. 2. BPH. The patient has a Carpenter catheter previously. The Carpenter catheter will be removed and the patient will have bladder scan to assess for urinary retention. Recommend to have urology consultation to rule out any evidence of malignancy and evaluate prostate hyperplasia. 3. Dyspnea of multifactorial etiology secondary to end-stage renal disease with hypervolemia and congestive heart failure. Dialysis will be done to treat hyperkalemia. Continue p.o. fluid restriction, low-sodium diet. 4. Diabetes mellitus. Continue insulin. The patient is not a candidate for metformin. 5. Hypertension, blood pressure controlled. Adjust ultrafiltration during dialysis according to blood pressure and volemia status. 6. Renal osteodystrophy. Continue renal diet and binders. 7. Anemia. DANIEL on hold. Hemoglobin is over the target range. JUANI/JENNIFER Voice ID: [id number] Report ID: [id number] TRAVIS
[2018-11-01] MEDS: HYDROCODONE/CHLORPHEN 5 ML/OSYR PO PRN ×2 (06:22→06:23)
[2018-11-01] MEDS ORDERED: REGADENOSON 0.4 MG/5 ML SYR IV ONE (08:26)
[2018-11-01] MEDS: METOPROLOL TAR 50 MG TAB PO SCH (09:28)
[2018-11-01] MEDS: FUROSEMIDE 40 MG/4 ML VIAL IV SCH (09:28)
[2018-11-01] MEDS: HEPARIN 5000 UNIT/ML 1 ML VIAL SQ SCH (09:30)
--- NOTE | 2018-11-01 10:27 | RAD REPORT ---
EXAM DESCRIPTION: NM - Rest Stress Cardiac Imaging - 11/01/2018 9:37 am CLINICAL HISTORY: Chest pain COMPARISON: None. TECHNIQUE: The patient was administered approximately 10 mCi of Tc 99m Sestamibi prior to resting SP ECT imaging of the heart. The patient was then administered approximately 30 mCi of Tc 99m Sestamibi following exercise or pharmacologic stress. Multiplanar SPECT images were reviewed. FINDINGS: The end diastolic volume is 214 ml, the end systolic volume is 168 ml, and the ejection fr action is 21 %. No stress-induced ischemic changes are identifiable. Large area as of fixed diminished activity seen along the anterior wall mid in apex portion. Muscular septum and the inferior wall show large areas o f fixed diminished activity as well. Lateral wall is the only region that is mostly uninvolved by any scarring. IMPRESSION: No stress-induced ischemic change identifiable. Anterior, septal and inferior wall large fixed defects all believed to be areas of scarred myocardium . End-diastolic volume is enlarged at 214 mL with very poor EF of 21%.
--- NOTE | 2018-11-01 10:48 | TREADPHA ---
DX: CHEST PAIN Date of Study: 11/01/2018 Ht: 5 10 Wt: 212 lb 9.6 oz Consulting Physician: KEYUR MEDICATIONS: TYLENOL, PROVENTIL, LASIX, HEPARIN, LOPRESSOR HISTORY: 63 YEAR OLD MALE HERE FOR CHEST PAIN. HISTORY OF END STAGE RENAL FAILURE WITH DIALYSIS, HYPERTENSION AND BPH PHYSICIAL EXAMINATION: RESTING B.P.: 140/74 RESTING H.R.: 84 RESTING EKG: NORMAL SINUS RHYTHM, NON SPECIFIC ST PROTOCOL: LEXISCAN EXERCISE TIME: 3:30 B.P. AT PEAK STRESS: 129/79 IMPRESSION: LEXISCAN STRESS TEST PERFORMED. CARDIOLITE INJECTED PER PROTOCOL. NO ARRHYTHMIAS NOTED. DENIES ANY PAIN. SEE NUCLEAR MEDICINE REPORT.
--- NOTE | 2018-11-01 12:07 | P.DS ---
Admission Date: 10/30/18 Discharge Date: 11/01/18 Primary Care Provider: [facility]; Nephrology-Dr. Mcgrath Disposition: ROUTINE DISCHARGE Discharge Condition: GOOD Reason for Admission: SOB/cough/congestion/hypoxic/pleuritic CP Consultations: Nephrology-Dr. Mcgrath Cardiology-Dr. Bonner/Dr. Cheney Urology-Dr. Avelar Procedures: CXR: COMPARISON: March 2018 FINDINGS: Mild bilateral pulmonary opacities. The heart is mildly enlarged IMPRESSION: Mild interstitial pulmonary edema ECHO: Ejection fraction 30% LEFT VENTRICULAR WALL MOTION: GLOBAL HYPOKINESIS. DOPPLER/COLOR FLOW: MILD MITRAL AND TRICUSPID REGURGITATION. NORMAL RIGHT VENTRICULAR SYSTOLIC PRESSURE. COMMENTS: FOUR CHAMBER DILATATION. DEPRESSED LEFT VENTRICULAR EJECTION FRACTION. MILD MITRAL AND TRICUSPID REGURGITATION. Cardiac Stress test: FINDINGS: The end diastolic volume is 214 ml, the end systolic volume is 168 ml , and the ejection fraction is 21 %. No stress-induced ischemic changes are identifiable. Large area as of fixed diminished activity seen along the anterior wall mid in apex portion. Muscular septum and the inferior wall show large areas of fixed diminished activity as well. Lateral wall is the only region that is mostly uninvolved by any scarring. IMPRESSION: No stress-induced ischemic change identifiable. Anterior, septal and inferior wall large fixed defects all believed to be areas of scarred myocardium. End-diastolic volume is enlarged at 214 mL with very poor EF of 21%. Medical problem list: Dyspnea secondary to acute on chronic systolic CHF ejection fraction 30% End-stage renal disease on hemodialysis Hypertension Diabetes mellitus type 2, diet controlled BPH with history of urinary retention, patient self caths Brief History of Present Illness: 63-year-old male presented emergency room with shortness of breath and cough. Patient with underlying CHF, hypertension, and end-stage renal disease. Patient found to have acute on chronic CHF. Patient was admitted for treatment. Hospital Course: Patient presented with dyspnea secondary to acute on chronic systolic CHF. Patient had elevated troponin. Patient was started on diuresis. Patient received dialysis. Patient was seen and evaluated by a nephrology and cardiology. Cardiology recommended echocardiogram and cardiac stress test to further evaluate his condition. Echocardiogram shows ejection fraction of 30%. Cardiac stress test shows no stress-induced ischemia. Patient not taking any medication prior to admission. At discharge patient without any significant shortness of breath. At discharge patient will continue with aspirin 81 mg daily, Lasix 40 mg daily, metoprolol 25 mg 1 pill twice daily, and Lipitor 10 mg daily. Recommend to continue with a 1500 cc per day fluid restriction and low-salt diet. Recommend to monitor his weight daily. If his weight increases by more than 5 lb he is to contact nephrology or cardiology for further recommendation. Education on CHF will be provided. Patient with end-stage renal disease on hemodialysis. Patient will continue with fluid restriction as above. Recommend no further use of nonsteroidal anti- inflammatories. Future medications will not be renally dosed. Patient will continue with hemodialysis as directed. Patient with hypertension. Patient previously not on a medication. Patient placed on metoprolol 25 mg 1 pill twice daily. Blood pressure improved. At discharge, he will continue with metoprolol 25 mg 1 pill twice daily. Further adjustment in medication can be done by nephrology as an outpatient. Patient with diabetes mellitus type 2. Patient is diet controlled. Recommend to follow up with his PCP to further monitor. Recommend to recheck A1c in 3 months. Patient with history of BPH and history of urinary retention. Patient previously on medication. Patient has had Carpenter catheter since late last year. This had not been replaced. During the course of his stay urology was consulted. Carpenter catheter removed. Patient may continue with self- catheterizations every other day. This can be further adjusted pending urinary output. Recommend to follow up with urology to further monitor and address. Vital Signs/Physical Exam: Temp Pulse Resp BP Pulse Ox 97.9 F 75 20 140/80 97 11/01/18 08:00 11/01/18 09:28 11/01/18 08:00 11/01/18 09:28 11/01/18 08:00 General: Alert, In no apparent distress, Oriented x3, Cooperative HEENT: Atraumatic Neck: Supple Respiratory: Clear to auscultation bilaterally, Normal air movement Cardiovascular: Normal pulses, Regular rate/rhythm Gastrointestinal: Normal bowel sounds, Soft and benign, Non-distended, No tenderness, No masses, No rebound, No guarding Musculoskeletal: No erythema, No tenderness, No warmth Integumentary: No tenderness/swelling, No erythema, No warmth, No cyanosis Neurological: Normal speech, Normal strength at 5/5 x4 extr, Normal tone, Normal affect Laboratory Data at Discharge: WBC 11.1 K/uL (4.3-10.9) H 10/30/18 18:30 Hgb 12.4 g/dL (13.6-17.9) L 10/30/18 18:30 Hct 37.4 % (39.6-49.0) L 10/30/18 18:30 Plt Count 209 K/uL (152-406) 10/30/18 18:30 Sodium 134 mmol/L (136-145) L 10/30/18 18:30 Potassium 4.1 mmol/L (3.5-5.1) 10/30/18 18:30 BUN 76 mg/dL (7-18) H 10/30/18 18:30 Creatinine 11.00 mg/dL (0.55-1.3) H* 10/30/18 18:30 Glucose 113 mg/dL (74-106) H 10/30/18 18:30 Magnesium 2.5 mg/dL (1.8-2.4) H 10/30/18 18:30 Troponin I 1.62 ng/mL (0.0-0.045) H* 10/31/18 05:35 Home Medications: Aspirin [Aspirin EC 81 MG] 81 mg PO DAILY #90 tablet. 11/01/18 Atorvastatin Calcium [Lipitor] 10 mg PO BEDTIME #30 tab 11/01/18 Furosemide [Lasix] 40 mg PO DAILY #30 tab 11/01/18 Metoprolol Tartrate [Lopressor*] 25 mg PO BID #60 tab 11/01/18 New Medications: Aspirin [Aspirin EC 81 MG] 81 mg PO DAILY #90 tablet. Atorvastatin Calcium [Lipitor] 10 mg PO BEDTIME #30 tab Furosemide [Lasix] 40 mg PO DAILY #30 tab Metoprolol Tartrate [Lopressor*] 25 mg PO BID #60 tab Patient Discharge Instructions: 1. Recommend to follow up with a PCP to establish care and follow up this hospitalization. 2. Patient presented with dyspnea secondary to acute on chronic systolic CHF. Patient had elevated troponin. Patient was started on diuresis. Patient received dialysis. Patient was seen and evaluated by a nephrology and cardiology. Cardiology recommended echocardiogram and cardiac stress test to further evaluate his condition. Echocardiogram shows ejection fraction of 30%. Cardiac stress test shows no stress-induced ischemia. Patient not taking any medication prior to admission. At discharge patient without any significant shortness of breath. At discharge patient will continue with aspirin 81 mg daily, Lasix 40 mg daily, metoprolol 25 mg 1 pill twice daily, and Lipitor 10 mg daily. Recommend to continue with a 1500 cc per day fluid restriction and low-salt diet. Recommend to monitor his weight daily. If his weight increases by more than 5 lb he is to contact nephrology or cardiology for further recommendation. Education on CHF will be provided. 3. Patient with end-stage renal disease on hemodialysis. Patient will continue with fluid restriction as above. Recommend no further use of nonsteroidal anti-inflammatories. Future medications will not be renally dosed. Patient will continue with hemodialysis as directed. 4. Patient with hypertension. Patient previously not on a medication. Patient placed on metoprolol 25 mg 1 pill twice daily. Blood pressure improved. At discharge, he will continue with metoprolol 25 mg 1 pill twice daily. Further adjustment in medication can be done by nephrology as an outpatient. 5. Patient with diabetes mellitus type 2. Patient is diet controlled. Recommend to follow up with his PCP to further monitor. Recommend to recheck A1c in 3 months. 6. Patient with history of BPH and history of urinary retention. Patient previously on medication. Patient has had Carpenter catheter since late last year. This had not been replaced. During the course of his stay urology was consulted. Carpenter catheter removed. Patient may continue with self-catheterizations every other day. This can be further adjusted pending urinary output. Recommend to follow up with urology to further monitor and address. Diet: Renal Activity: Fall precautions Time spent managing pt's care (in minutes): 55
[2018-11-01 16:20] VITALS: BP 100/59; TEMP 97.7
[2018-11-01 16:50] VITALS: O2SAT 95
--- NOTE | 2018-11-01 17:10 | CON ---
History Of Present Illness: A 63-year-old gentleman with end-stage renal disease and history of BPH, he said since 5 years ago. He also has urinary retention. He has endstage renal disease on dialysi s and catheterize twice a day. Only about a cup of urine each time. He was placed on Flomax 5 years ago also, but never worked. He came to the ER in April and March last year for some gross teresa turia due to catheter trauma, so a catheter was placed in his bladder. This catheter has remained in side until now. He now comes to the ER for CHF, and the patient tells me that he only makes like a c up of urine or so a day, and he catheterize once a day now. I think with this in mind, he probably w ill catheterize once every 2 days. Does not need to catheterize that often. Review of Systems: Otherwise negative. Past Medical History: End-stage renal disease, dialyzed 3 times per week, diabetes type 2, BPH with retention, history of CHF, diastolic dysfunction. Family History: Hypertension, heart disease, coronary artery disease, diabetes. Social History: Negative for tobacco, alcohol, or illicit drugs. Physical Examination: General: The patient is awake, alert, following commands. Doctor is present and the nurses present in the room. HEENT: Atraumatic and normocephalic. Neck: Supple. Lungs: Clear. Abdomen: Soft, nontender. : Both testicles were descended, nontender. No masses. Phallus uncircumcised. No lesions. ULYSSES: Examined about 40 g benign feeling prostate. No lesions. Laboratory Data: Reviewed. No PSA is present. The patient will check with his primary care doctor, Dr. Hester, about his PSA, since he is leaving in a few hours. We will have enough time to check a PSA and discuss the results with him. Impression: Urinary retention, most likely secondary to benign prostatic hyperplasia. Continue cath eterization p.r.n., maybe once every 2 days. If it is a lot, he can go once a day. He may even need to be cath'ed maybe only once a week, possibly. ZORA/JENNIFER Voice ID: [id number] Report ID: [id number]
--- NOTE | 2018-11-01 20:55 | PN ---
Date of Progress Note: 11/01/2018 Subjective: The patient was admitted with urine retention and chest pain. Physical Examination: Vital Signs: When I saw the patient, blood pressure of 140/80, pulse of 75. Chest: Clear to auscultation. Heart: S1 and S2, regular. Abdomen: Soft and nontender. Extremities: Trace edema. Laboratory Data: H and H 12.4/37.4. Sodium 134, potassium 4.1, bicarb 22, BUN 76, creatinine 11, ca lcium 9.6. BNP 64,000. Assessment/plan: 1.End-stage renal disease, over-volume, status post dialysis yesterday. Currently better on room ai r. We will continue dialysis Wednesday, Wednesday, and Wednesday. Keep challenging the patient. 2.Hyponatremia secondary to cardiorenal. We will keep optimizing fluid. 3.Anemia. No need for DANIEL. 4.Hypertension. Utilize blood pressure for more ultrafiltration. 5.Urine retention. Continue p.r.n. self catheter. SAMIRA Voice ID: [id number] Report ID: [id number]
--- NOTE | 2018-11-01 23:25 | PN ---
Date of Progress Note: 11/01/2018 The patient had been seen by Dr. Bonner for congestive heart failure. Mr. De La Cruz had an ejection fraction by echo which was done yesterday of 35%. He was diuresing well. He is a hemodialysis patient. A Lexiscan that was ordered today was normal. Mr. De La Cruz can probably go home on congestive heart failure regimen. I would like to see him in the office soon and consider a heart catheterization and possibly a defibrillator placement. COLLETTE/JENNIFER Voice ID: [id number] Report ID: [id number]
== END 2018-11-01 18:17 | disposition home or self-care (01) | DRG 291 ==
LOC: ER 17:22 → ERHOLD 20:02 → 4TH 20:58
PROVIDERS: ADMIT Hospitalist; ATTEND Family Medicine
PROC: 5A1D70Z Performance of Urinary Filtration, Intermittent, Less than 6 Hours Per Day (ICD-10-PCS; principal; 2018-10-31)
DX: I13.2 Hypertensive heart and chronic kidney disease with heart failure and with stage 5 chronic kidney disease, or end stage renal disease (principal); N18.6 End stage renal disease; I50.33 Acute on chronic diastolic (congestive) heart failure; J96.91 Respiratory failure, unspecified with hypoxia; E87.1 Hypo-osmolality and hyponatremia; E11.22 Type 2 diabetes mellitus with diabetic chronic kidney disease; Z99.2 Dependence on renal dialysis; I27.20 Pulmonary hypertension, unspecified; N40.1 Benign prostatic hyperplasia with lower urinary tract symptoms; R33.8 Other retention of urine; E87.5 Hyperkalemia; R53.1 Weakness; D64.9 Anemia, unspecified; K21.9 Gastro-esophageal reflux disease without esophagitis; Z88.5 Allergy status to narcotic agent
CPT/HCPCS: 36415; 71045; 78452; 80048; 82962; 83605; 83735; 83880; 84145; 84484; 85025; 87040; 87070; 87081; 87804; 90935; 93005; 93017; 93306; 96374; 99285; A9500; J1644; J1940; J2785

== ENCOUNTER 2019-04-14 15:20 | Inpatient (IN) | payer OTHER, BC ==
[2019-04-14] MEDS ORDERED: NA CHLORIDE 0.9% 250 ML ONE (16:01)
[2019-04-14] MEDS ORDERED: ACETAMINOPHEN 325 MG TABLET ONE (16:01)
[2019-04-14] MEDS ORDERED: LEVALBUTEROL 1.25 MG/3 ML NEB ONE (16:17)
[2019-04-14 16:19] LABS: Absolute Lymphocytes (CBC) 0.8 K/uL (0.7-4.9); Basophils % 0.3 % (0-1.3); Hematocrit 38.3 % (39.6-49.0); Lymphocytes % 10.4 % (15.3-44.8); MPV 8.6 fL (7.6-11.3); RBC Red Blood Cell Count 3.86 M/uL (4.33-5.43)
[2019-04-14 16:22] LABS: Protime INR 1.04
--- NOTE | 2019-04-14 16:33 | RAD REPORT ---
EXAM DESCRIPTION: Sheri Single View04/14/2019 4:19 pm CLINICAL HISTORY: Fever COMPARISON: October 2018 FINDINGS: Mild bilateral interstitial lung opacities. The heart is mildly to moderately enlarged IMPRESSION: These findings probably represent mild CHF
[2019-04-14 16:39] LABS: Albumin 3.7 g/dL (3.4-5.0); Bilirubin Direct 0.2 mg/dL (0-0.2); Bilirubin Total 0.7 mg/dL (0.2-1.0); Potassium 3.6 mmol/L (3.5-5.1); Protein, Total 8.8 g/dL (6.4-8.2); Troponin (Emerg Dept Use Only) 0.5 ng/mL (0.0-0.045)
[2019-04-14] MEDS ORDERED: ASPIRIN 81 MG CHEWABLE TABLET ONE (16:53)
[2019-04-14 17:19] LABS: Urine Blood 3+ (NEG); Urine Glucose NEGATIVE (NEG); Urine Protein 3+ (NEG)
[2019-04-14 17:35] LABS: Urine Bacteria 20-50 /HPF (NONE SEEN)
[2019-04-14 17:37] LABS: Urine Culture Reflex Order NOT NEEDED; Urine Mucus 2+ /HPF (NONE SEEN)
[2019-04-14] MEDS ORDERED: NA CHLORIDE 0.9% 500 ML ONE (17:39)
--- NOTE | 2019-04-14 17:42 | ER ---
Nurse's Notes [facility] Name: Go Shen Age: 64 yrs Sex: Male : 1955 Arrival Date: 04/14/2019 Time: 15:22 Bed 20 Private MD: Diagnosis: Acute upper respiratory infection, unspecified;Urinary tract infection, site not specified Presentation: 04/14 15:31 Initial Sepsis Screen: Does the patient meet any 2 criteria? RR > 20 per min. HR > 90 sv bpm. Yes Does the patient have a suspected source of infection? Yes: Productive cough/pneumonia. 15:31 Presenting complaint: Patient states: fever, productive cough since yesterday. Pt sv reports that he went to HD today and started having chills, tachycardia during HD and he finished it. Transition of care: patient was not received from another setting of care. Onset of symptoms was April 13, 2019. Risk Assessment: Do you want to hurt yourself or someone else? Patient reports no desire to harm self or others. Care prior to arrival: None. 15:31 Method Of Arrival: Wheelchair sv 15:31 Acuity: LITO 2 sv Historical: - Allergies: 15:34 Codeine; sv - PMHx: 15:34 BPH; ESRD; HD - MWF; Hypertension; sv - Immunization history:: Adult Immunizations up to date. - Social history:: Smoking status: Patient/guardian denies using tobacco. - Ebola Screening: : Patient negative for fever greater than or equal to 101.5 degrees Fahrenheit, and additional compatible Ebola Virus Disease symptoms Patient denies exposure to infectious person Patient denies travel to an Ebola-affected area in the 21 days before illness onset. Screenin:32 Abuse screen: Denies threats or abuse. Nutritional screening: No deficits noted. em Tuberculosis screening: No symptoms or risk factors identified. Fall Risk None identified. Assessment: 15:32 General: Appears in no apparent distress. uncomfortable, Behavior is calm, cooperative, em Reports fever for 12-24 hours, feeling ill for 12-24 hours. Pain: Complains of pain in "body aches" Pain currently is 5 out of 10 on a pain scale. Neuro: Level of Consciousness is awake, alert, obeys commands, Oriented to person, place, time, situation, Appropriate for age. Cardiovascular: Capillary refill < 3 seconds Patient's skin is warm and dry. Dialysis shunt: in the right bicep, with palpable thrill, with auscultated bruit, with no erythema, with no edema, no bleeding noted. Respiratory: Reports cough that is productive, Airway is patent Respiratory effort is even, Respiratory pattern is regular, tachypnea Breath sounds are diminished bilaterally. Onset: The symptoms/episode began/occurred yesterday, the patient has moderate shortness of breath. GI: Patient currently denies nausea, vomiting. Derm: Skin is intact, is healthy with good turgor, Skin is pink, warm \\T\\ dry. Musculoskeletal: Capillary refill < 3 seconds, Range of motion: intact in all extremities. 15:34 Reassessment: Code sepsis called. sv 16:42 Reassessment: Patient appears in no apparent distress at this time. Patient and/or em family updated on plan of care and expected duration. Pain level reassessed. Patient states feeling better. Patient states symptoms have improved. 17:45 Reassessment: Patient appears in no apparent distress at this time. Patient and/or em family updated on plan of care and expected duration. Pain level reassessed. Patient is alert/active/playful, equal unlabored respirations, skin warm/dry/pink. Patient denies pain at this time. Patient states feeling better. Patient states symptoms have improved. 19:15 General: Appears in no apparent distress. comfortable, Behavior is calm, cooperative, rr5 appropriate for age, Reports fever for feeling ill for. Pain: Denies pain. Neuro: Level of Consciousness is awake, alert, obeys commands, Oriented to person, place, time, situation, Appropriate for age. Cardiovascular: Capillary refill < 3 seconds Patient's skin is warm and dry. Respiratory: Airway is patent Respiratory effort is even, unlabored. GI: No signs and/or symptoms were reported involving the gastrointestinal system. : No signs and/or symptoms were reported regarding the genitourinary system. EENT: No signs and/or symptoms were reported regarding the EENT system. Derm: Skin is intact, is healthy with good turgor, Skin is pink, warm \\T\\ dry. Skin temperature is warm. 19:15 Musculoskeletal: Capillary refill < 3 seconds, Range of motion: intact in all rr5 extremities, fistula at right arm noted. 20:10 Reassessment: Patient appears in no apparent distress at this time. No changes from rr5 previously documented assessment. Patient and/or family updated on plan of care and expected duration. Pain level reassessed. Patient is alert, oriented x 3, equal unlabored respirations, skin warm/dry/pink. no complaints made for transfer to 4th floor. agreed for the plan of admission. Vital Signs: 15:34 BP 180 / 112; Pulse 127; Resp 26; Temp 100.4; Pulse Ox 100% ; Weight 96.5 kg; sv 16:15 BP 184 / 91; Pulse 120; Resp 30; Pulse Ox 100% on R/A; Pain 5/10; em 17:15 BP 145 / 98; Pulse 114; Resp 34; Temp 101.4(O); Pulse Ox 100% on R/A; em 18:43 BP 151 / 76; Pulse 102; Resp 26; Temp 100.6(O); Pulse Ox 95% on R/A; Pain 0/10; em 19:53 BP 156 / 83; Pulse 103; Resp 22; Temp 99.8; Pulse Ox 98% ; rr5 ED Course: 15:22 Patient arrived in ED. mr 15:23 Jorge Simmons PA is PHCP. cp 15:23 Narciso Adame MD is Attending Physician. cp 15:29 Fuentes Nowak LVN is Primary Nurse. em 15:32 Patient has correct armband on for positive identification. Placed in gown. Bed in low em position. Call light in reach. Side rails up X2. phototypesetting equipment monitor on. Pulse ox on. NIBP on. 15:34 Triage completed. sv 15:35 Arm band placed on. sv 15:43 Primary Nurse role handed off by Fuentes Nowak LVN iw 15:43 Sharon Fuentes, SHERLY is Primary Nurse. iw 15:45 Missed attempt(s): 22 gauge in right antecubital area. Bleeding controlled, band aid em applied, catheter tip intact. 15:59 Initial lab(s) drawn, by me, sent to lab. Inserted saline lock: 22 gauge in left ms forearm, using aseptic technique. Blood collected. 16:19 Chest Single View XRAY In Process Unspecified. EDMS 17:41 Uriel Smith DO is Hospitalizing Provider. cp 17:45 Straight cath inserted, using sterile technique, 16 Fr. Returned cloudy urine. Patient em tolerated well. 19:25 Repeat lab(s) drawn. by me, sent to lab. rr5 19:54 No provider procedures requiring assistance completed. Patient admitted, IV remains in rr5 place. intact, No redness/swelling at site. Administered Medications: 16:02 Drug: Tylenol 1000 mg Route: PO; em 17:16 Follow up: Response: No adverse reaction; Temperature is unchanged em 16:04 Drug: NS 0.9% 250 ml Route: IV; Rate: bolus; Site: left forearm; em 16:35 Follow up: IV Status: Completed infusion; IV Intake: 250ml em 16:20 Drug: Xopenex (3) 1.25 mg Route: Inhalation; em 16:45 Follow up: Response: No adverse reaction; Marked relief of symptoms; Wheezing diminishedem 16:57 Drug: Aspirin Chewable Tablet 324 mg Route: PO; em 17:17 Follow up: Response: No adverse reaction em 17:36 Drug: vancoMYCIN 1 grams Route: IVPB; Infused Over: 2 hrs; Site: right forearm; em 19:35 Follow up: Response: No adverse reaction; IV Status: Completed infusion; IV Intake: rr5 250ml 17:37 Drug: Cefepime 2 grams Route: IVPB; Rate: 200 ml/hr; Infused Over: 30 mins; Site: right iw forearm; 17:45 Follow up: Response: No adverse reaction; IV Status: Completed infusion; IV Intake: 20mlem 17:38 Not Given (Other Intervention Used): NS 0.9% 750 ml IV at bolus once iw 17:42 Drug: NS 0.9% 500 ml Route: IV; Rate: bolus; Site: left forearm; em 19:15 Follow up: Response: No adverse reaction; IV Status: Completed infusion; IV Intake: rr5 500ml Intake: 16:35 IV: 250ml; Total: 250ml. em 17:45 IV: 20ml; Total: 270ml. em 19:15 IV: 500ml; Total: 770ml. rr5 19:35 IV: 250ml; Total: 1020ml. rr5 Outcome: 17:41 Decision to Hospitalize by Provider. cp 20:00 Admitted to [facility] accompanied by baljit, via wheelchair, room 405, with chart, Report rr5 called to ambrose 20:00 Condition: stable 20:00 Instructed on the need for admit. rr5 20:19 Patient left the ED. rr5 Signatures: Dispatcher [employer] Annmarie Ward, RN RN Elio, Zuly Nowak, Fuentes, SCRAP HOOKER SCRAP HOOKER em Sharon Fuentes RN RN iw Villarreal, Valorie ms Iris, Jorge, PA PA Tyrese Medina RN RN rr5 Corrections: (The following items were deleted from the chart) 16:20 15:32 Respiratory: Airway is patent Respiratory effort is even, Respiratory pattern is em regular, tachypnea em
--- NOTE | 2019-04-14 17:42 | EDPHYS ---
Physician Documentation [facility] Name: Go Shen Age: 64 yrs Sex: Male : 1955 Arrival Date: 04/14/2019 Time: 15:22 Bed 20 Private MD: ED Physician Narciso Adame HPI: 04/14 15:45 This 64 yrs old Male presents to ER via Wheelchair with complaints of Fever. cp 15:45 The patient reports fever, with an emergency department temperature of 100.4 degrees cp Fahrenheit. 15:45 Onset: The symptoms/episode began/occurred today. Associated signs and symptoms: cp Pertinent positives: chills, cough, Pertinent negatives: abdominal pain, altered mental status, chest pain, diarrhea, headache, vomiting. Severity of symptoms: in the emergency department the symptoms are unchanged despite home interventions. Patient reports he completed dialysis today. Historical: - Allergies: 15:34 Codeine; sv - PMHx: 15:34 BPH; ESRD; HD - MWF; Hypertension; sv - Immunization history:: Adult Immunizations up to date. - Social history:: Smoking status: Patient/guardian denies using tobacco. - Ebola Screening: : Patient negative for fever greater than or equal to 101.5 degrees Fahrenheit, and additional compatible Ebola Virus Disease symptoms Patient denies exposure to infectious person Patient denies travel to an Ebola-affected area in the 21 days before illness onset. ROS: 15:50 Constitutional: Positive for chills, fever, Negative for poor PO intake. cp 15:50 Eyes: Negative for injury, pain, redness, and discharge. cp 15:50 ENT: Negative for drainage from ear(s), ear pain, sinus congestion, sinus pain, sore throat, difficulty swallowing, difficulty handling secretions. 15:50 Cardiovascular: Negative for chest pain. 15:50 Respiratory: Positive for cough, "sounds productive", Negative for wheezing. 15:50 Abdomen/GI: Negative for abdominal pain, vomiting, diarrhea, constipation. 15:50 Back: Negative for pain at rest, pain with movement. 15:50 Skin: Negative for rash. 15:50 Neuro: Negative for altered mental status, headache, weakness. 15:50 All other systems are negative. Exam: 16:00 Constitutional: The patient appears in no acute distress, alert, awake, cp non-diaphoretic, non-toxic, well developed, well nourished, obviously ill. 16:00 Head/Face: Normocephalic, atraumatic. cp 16:00 Eyes: Periorbital structures: appear normal, Conjunctiva: normal, no exudate, no injection, Sclera: no appreciated abnormality, Lids and lashes: appear normal, bilaterally. 16:00 ENT: External ear(s): are unremarkable, Ear canal(s): are normal, clear, TM's: bulging, is not appreciated, bilaterally, dullness, bilaterally, erythema, is not appreciated, bilaterally, Nose: is normal, Mouth: Lips: moist, Oral mucosa: moist, Posterior pharynx: is normal, airway is patent, no erythema, no exudate. 16:00 Neck: ROM/movement: is normal, is supple, without pain, no range of motions limitations, no meningismus, no nuchal rigidity. 16:00 Chest/axilla: Inspection: normal, Palpation: is normal, no crepitus, no tenderness. 16:00 Cardiovascular: Rate: tachycardic, Rhythm: regular, Edema: ankle edema, that is mild, JVD: is not appreciated. 16:00 Respiratory: the patient does not display signs of respiratory distress, Respirations: labored breathing, is not present, shallow respirations, are not present, Breath sounds: bronchial sounds, that are moderate, are heard diffusely, stridor, is not appreciated, + upper airway congestion. 16:00 Abdomen/GI: Inspection: abdomen appears normal, Bowel sounds: active, all quadrants, Palpation: abdomen is soft and non-tender, in all quadrants, voluntary guarding, is not appreciated. 16:00 Back: pain, is absent, ROM is normal. 16:00 Skin: no rash present. 16:00 Neuro: Orientation: to person, place \\T\\ time. Mentation: is normal, Motor: moves all fours, strength is normal. 16:13 ECG was reviewed by the Attending Physician. cp Vital Signs: 15:34 BP 180 / 112; Pulse 127; Resp 26; Temp 100.4; Pulse Ox 100% ; Weight 96.5 kg; sv 16:15 BP 184 / 91; Pulse 120; Resp 30; Pulse Ox 100% on R/A; Pain 5/10; em 17:15 BP 145 / 98; Pulse 114; Resp 34; Temp 101.4(O); Pulse Ox 100% on R/A; em 18:43 BP 151 / 76; Pulse 102; Resp 26; Temp 100.6(O); Pulse Ox 95% on R/A; Pain 0/10; em 19:53 BP 156 / 83; Pulse 103; Resp 22; Temp 99.8; Pulse Ox 98% ; rr5 MDM: 15:24 Patient medically screened. cp 16:00 Differential diagnosis: viral Infection, bacterial infection, pneumonia meningitis, cp influenza, sepsis, UTI. 17:40 Physician consultation: Uriel Smith DO was called at 17:40, was contacted at 17:40, regarding patient's condition. 17:40 Data reviewed: vital signs, nurses notes, lab test result(s), EKG, radiologic studies, cp plain films, I have discussed the patient's presentation/case with the attending Emergency Department Physician; and as a result, I will admit patient. 17:40 Test interpretation: by ED physician or midlevel provider: ECG, plain radiologic cp studies. Counseling: I had a detailed discussion with the patient and/or guardian regarding: the historical points, exam findings, and any diagnostic results supporting the discharge/admit diagnosis, lab results, radiology results, the need for further work-up and treatment in the hospital. 04/14 15:42 Order name: Basic Metabolic Panel; Complete Time: 16:46 cp 04/14 16:46 Interpretation: Normal except: NA 132; CL 94; GLUC 108; BUN 30; CRE 5.98; GFR 9. cp 04/14 15:42 Order name: Blood Culture Adult (2) cp 04/14 15:42 Order name: CBC with Diff; Complete Time: 16:40 cp 04/14 16:42 Interpretation: Normal except: RBC 3.86; HGB 13.1; HCT 38.3; HASEEB% 75.6; LYM% 10.4; MN% cp 13.1. 04/14 15:42 Order name: CPK; Complete Time: 16:46 cp 04/14 17:24 Interpretation: Abnormal: CPK 1160. 04/14 15:42 Order name: Lactate; Complete Time: 16:46 cp 04/14 16:46 Interpretation: Abnormal: LAC 2.1. 04/14 15:42 Order name: LFT's; Complete Time: 16:46 cp 04/14 17:24 Interpretation: Normal except: AST 61; TP 8.8; GLOB 5.1; A/G 0.7. cp 04/14 15:42 Order name: Procalcitonin; Complete Time: 17:24 cp 04/14 17:36 Interpretation: Reviewed. 04/14 15:42 Order name: Protime (+inr); Complete Time: 16:40 cp 04/14 15:42 Order name: Ptt, Activated; Complete Time: 16:40 cp 04/14 15:42 Order name: Troponin (emerg Dept Use Only); Complete Time: 16:46 cp 04/14 16:46 Interpretation: Abnormal: TROPED 0.50. cp 04/14 15:43 Order name: Influenza Screen (a \\T\\ B); Complete Time: 16:40 cp 04/14 17:25 Interpretation: Reviewed. 04/14 15:56 Order name: UA MICROSCOPIC; Complete Time: 17:38 cp 04/14 17:38 Interpretation: Reviewed. 04/14 15:56 Order name: Urine Culture cp 04/14 17:15 Order name: Urine Dipstick--Ancillary (enter results); Complete Time: 17:32 eb 04/14 17:33 Interpretation: Normal except: UBLD 3+; UPROT 3+; UESTR 3+. cp 04/14 15:42 Order name: Chest Single View XRAY; Complete Time: 16:40 cp 04/14 15:42 Order name: Accucheck; Complete Time: 15:59 cp 04/14 15:42 Order name: Cardiac monitoring; Complete Time: 15:59 cp 04/14 15:42 Order name: EKG - Nurse/Tech; Complete Time: 15:59 cp 04/14 15:42 Order name: IV Saline Lock - Large Bore; Complete Time: 15:59 cp 04/14 15:42 Order name: Labs collected and sent; Complete Time: 15:59 cp 04/14 16:02 Order name: EKG Electrocardiogram; Complete Time: 16:03 EDMS 04/14 20:09 Order name: Lactate Sepsis 2 HR Follow-up EDMS 04/14 15:42 Order name: O2 Per Protocol; Complete Time: 15:59 cp 04/14 15:42 Order name: O2 Sat Monitoring; Complete Time: 15:59 cp 04/14 15:42 Order name: Urine Dipstick-Ancillary (obtain specimen); Complete Time: 17:11 cp 04/14 15:56 Order name: Cath; Complete Time: 17:11 cp EC:13 Rate is 119 beats/min. Rhythm is regular. VT interval is normal. QRS interval is cp normal. QT interval is normal. Interpreted by me. Reviewed by me. Administered Medications: 16:02 Drug: Tylenol 1000 mg Route: PO; em 17:16 Follow up: Response: No adverse reaction; Temperature is unchanged em 16:04 Drug: NS 0.9% 250 ml Route: IV; Rate: bolus; Site: left forearm; em 16:35 Follow up: IV Status: Completed infusion; IV Intake: 250ml em 16:20 Drug: Xopenex (3) 1.25 mg Route: Inhalation; em 16:45 Follow up: Response: No adverse reaction; Marked relief of symptoms; Wheezing diminishedem 16:57 Drug: Aspirin Chewable Tablet 324 mg Route: PO; em 17:17 Follow up: Response: No adverse reaction em 17:36 Drug: vancoMYCIN 1 grams Route: IVPB; Infused Over: 2 hrs; Site: right forearm; em 19:35 Follow up: Response: No adverse reaction; IV Status: Completed infusion; IV Intake: rr5 250ml 17:37 Drug: Cefepime 2 grams Route: IVPB; Rate: 200 ml/hr; Infused Over: 30 mins; Site: right iw forearm; 17:45 Follow up: Response: No adverse reaction; IV Status: Completed infusion; IV Intake: 20mlem 17:38 Not Given (Other Intervention Used): NS 0.9% 750 ml IV at bolus once iw 17:42 Drug: NS 0.9% 500 ml Route: IV; Rate: bolus; Site: left forearm; em 19:15 Follow up: Response: No adverse reaction; IV Status: Completed infusion; IV Intake: rr5 500ml Disposition: 04/14/19 17:41 Hospitalization ordered by Uriel Smith for Inpatient Admission. Preliminary diagnosis are Acute upper respiratory infection, unspecified, Urinary tract infection, site not specified. - Bed requested for Telemetry/MedSurg (Inpatient). - Status is Inpatient Admission. rr5 - Condition is Stable. - Problem is new. - Symptoms have improved. UTI on Admission? Yes Addendum: 04/17/2019 08:22 Co-signature as Attending Physician, Narciso Adame MD I agree with the assessment and k plan of care. Signatures: Dispatcher [employer] Annmarie Ward, RN RN Celestina Tello RN RN Narciso Adame MD MD [facility] Fuentes Nowak, NURSERY WORKER NURSERY WORKER em Sharon Fuentes RN SHERLY Jorge Simmons PA PA cp Tyrese Guevara RN RN rr5 Corrections: (The following items were deleted from the chart) 04/14 18:15 17:41 [facility] Preliminary cp diagnosis is Other sepsis; Acute upper respiratory infection, unspecified; Urinary tract infection, site not specified. Bed requested for Telemetry/MedSurg (Inpatient). Status is Inpatient Admission. Condition is Stable. Problem is new. Symptoms have improved. UTI on Admission? Yes. 18:34 18:15 04/14/2019 17:41 [facility] Preliminary diagnosis is Acute upper respiratory infection, unspecified; Urinary tract infection, site not specified. Bed requested for Telemetry/MedSurg (Inpatient). Status is Inpatient Admission. Condition is Stable. Problem is new. Symptoms have improved. UTI on Admission? Yes. 20:19 18:34 04/14/2019 17:41 [facility]. Preliminary diagnosis is Acute upper respiratory infection, unspecified; Urinary tract infection, site not specified. Bed requested for Telemetry/MedSurg (Inpatient). Status is Inpatient Admission. Condition is Stable. Problem is new. Symptoms have improved. UTI on Admission? Yes.
[2019-04-14] MEDS ORDERED: VANCOMYCIN/NS 1 gm 1 GM/250 ML BAG IV ONE (18:00)
[2019-04-14] MEDS ORDERED: CEFEPIME/SWI 2gm 2 GM/20 ML SYR IVP ONE (18:00)
--- NOTE | 2019-04-14 18:15 | P.HP ---
Certification for Inpatient Patient admitted to: Inpatient With expected LOS: >2 Midnights Patient will require the following post-hospital care: None Practitioner: I am a practitioner with admitting privileges, knowledge of patient current condition, hospital course, and medical plan of care. Services: Services provided to patient in accordance with Admission requirements found in Title 42 Section 412.3 of the Code of Federal Regulations Patient History Date of Service: 04/14/19 Primary Care Provider: None; Nephrology-Dr. Mcgrath Reason for admission: Fever History of Present Illness: 64-year-old male with history of end-stage renal disease on hemodialysis, diabetes mellitus type 2 diet controlled, BPH, and peripheral vascular disease. Over the last several days patient has reported some cough, congestion. He was in dialysis today when he started to have fever, chills. His temperature was around 100.4. He reported that he has been taking some medication for flu-like symptoms. The patient was sent from dialysis to the ER for further evaluation. In the ER patient evaluated. Patient found to have fever 100.4. Patient slightly tachycardic. Blood pressure stable. Patient was given IV fluid bolus in the emergency room. White count 7.8, hemoglobin 13.1. Pro calcitonin unremarkable. Lactic acid slightly elevated at 2.1. Normal less than 2. Sodium 132, potassium 3.6. BUN of 30, creatinine 5.9, GFR of 9. Glucose 108. Troponin 0.5. Urinalysis was positive for UTI. Chest x-rayed showed some mild volume overload. Patient was given IV antibiotic therapy. Patient admitted for further evaluation. When I saw the patient ER, he appeared stable. Patient did not appear septic. Tachycardia improved around 110. Blood pressure stable. Patient reports that he still self caths from time to time. He still produces some mild urine. He has been on dialysis for over 2 years. Patient reports history of BPH. Diabetes is well controlled with diet. Patient with history of PVD on Plavix. Patient has history of UTI in the past. No recent sick contacts noted. Influenza test negative. Patient reports the only takes medication-Plavix and Protonix. He does not take any medication which he used to in the past for hypertension. Allergies No Known Allergies Allergy (Verified 10/30/18 23:27) Home medications list reviewed: Yes Home Medications: Aspirin [Aspirin EC 81 MG] 81 mg PO DAILY #90 tablet. 11/01/18 Atorvastatin Calcium [Lipitor] 10 mg PO BEDTIME #30 tab 11/01/18 Furosemide [Lasix] 40 mg PO DAILY #30 tab 11/01/18 Metoprolol Tartrate [Lopressor*] 25 mg PO BID #60 tab 11/01/18 - Past Medical/Surgical History Diabetic: Yes -: ESRD, (M,W,F dialysis) -: Hypertension -: Diabetes mellitus type 2 -: BPH with urinary retention -: PVD -: AV graft Psychosocial/ Personal History: The patient is single. He has no children. - Family History Father -: Heart disease, Hypertension Mother -: Other (see notes) Brother -: Heart disease Sister -: Diabetes - Social History Smoking Status: Never smoker Alcohol use: No CD- Drugs: No Caffeine use: Yes Place of Residence: Home Review of Systems General: Fever, Chills, As per HPI Eyes: Unremarkable ENT: Nose Congestion, As per HPI Respiratory: Cough, As per HPI Cardiovascular: Unremarkable Gastrointestinal: Unremarkable Genitourinary: Unremarkable Musculoskeletal: Unremarkable Integumentary: Unremarkable Neurological: Unremarkable Lymphatics: Unremarkable Physical Examination - Physical Exam General: Alert, In no apparent distress, Oriented x3, Cooperative HEENT: Atraumatic, Normocephalic, PERRLA, Other (Mild nasal congestion. Hearing loss noted. Has hearing aid on the left side.) Neck: Supple, No Thyromegaly Respiratory: Crackles/rales (Mild crackles to the bases.) Cardiovascular: Abnormal pulses (Mild sinus tachycardia around 100-110.) Gastrointestinal: Normal bowel sounds, Soft and benign, Non-distended, No tenderness, No masses, No rebound, No guarding Musculoskeletal: No erythema, No tenderness, No warmth Integumentary: No tenderness/swelling, No erythema, No warmth, No cyanosis Neurological: Normal speech, Normal strength at 5/5 x4 extr, Normal tone, Normal affect - Studies Laboratory Data (last 24 hrs) 04/14/19 15:53: PT 12.3, INR 1.04, APTT 27.5 04/14/19 15:53: WBC 7.8, Hgb 13.1 L, Hct 38.3 L, Plt Count 181 04/14/19 15:53: Sodium 132 L, Potassium 3.6, BUN 30 H, Creatinine 5.98 H*, Glucose 108 H, Total Bilirubin 0.7, AST 61 H, ALT 29, Alkaline Phosphatase 63 Microbiology Data (last 24 hrs): 04/14/19 15:53 Nasopharnyx Influenza Type A Antigen Screen - Final 04/14/19 15:53 Nasopharnyx Influenza Type B Antigen Screen - Final Assessment and Plan - Plan Impression: Fever secondary to recurrent UTI Cough, congestion with possible volume overload End-stage renal disease on hemodialysis History of BPH patient self caths Diabetes mellitus type 2 diet controlled GERD Peripheral vascular disease Elevated troponin Plan: Fever secondary to recurrent UTI: Patient will be admitted for further evaluation and treatment. Will start Rocephin. Urine culture obtained. This was a cath urine. Blood cultures also obtained. Patient with history of UTI in the past. Will continue to monitor the patient closely. Patient given IV fluid bolus in the emergency room. Will not give any more fluid due to possible volume overload and history of end-stage renal disease. Patient does not appear septic at this time. Pro calcitonin negative. Lactic acid was 2.1. Will monitor the patient closely. Patient still self caths. Will allow patient to self caths from time to time. Hospitalist will continue his care tomorrow. Nephrology consulted to further evaluate. Anticipate discharge in the next 2-4 days with clinical improvement. Cough, congestion with possible volume overload: Patient with possible viral upper respiratory infection. Will need to monitor chest x-ray closely. Patient given IV fluid bolus in the emergency room. Will hold further IV fluids at this time. Patient may require dialysis during his stay as unsure whether he completed dialysis today. Will obtain echocardiogram. End-stage renal disease on hemodialysis: Nephrology consulted. Patient will likely require dialysis as unsure whether he completed his dialysis today. History of BPH patient self caths: Continue as above. Will allow the patient to self caths from time to time. Diabetes mellitus type 2 diet controlled: Will monitor Accu-Cheks and provide sliding scale. GERD: Restart home medication-Protonix. Peripheral vascular disease: Restart home medication-Plavix Elevated troponin: Will monitor cardiac enzymes. Doubt need for cardiology consultation. Will obtain echocardiogram. Discharge Plan: Home Plan to discharge in: Greater than 2 days - Advance Directives Does patient have a Living Will: No Does patient have a Durable POA for Healthcare: No - Code Status/Comfort Care Code Status Assessed: Yes (Patient is full code) Time Spent Managing Pts Care (In Minutes): 55
[2019-04-14] MEDS ORDERED: ONDANSETRON 4 MG/2 ML VIAL IV PRN (20:01)
[2019-04-14] MEDS ORDERED: ACETAMINOPHEN 500 MG TAB PO PRN (20:01)
[2019-04-14] MEDS ORDERED: BENZONATATE 100 MG CAP PO PRN (20:01)
[2019-04-14] MEDS: INSULIN -REGULAR HUMAN 50 UNIT/0.5 ML ML SQ SCH (21:00)
[2019-04-14] MEDS: HEPARIN 5000 UNIT/ML 1 ML VIAL SQ SCH (21:20)
[2019-04-14] MEDS: CEFTRIAXONE/SWI 1gm 1 GM/10 ML SYR IV SCH (21:20)
[2019-04-14 21:40] VITALS: BMI 29.9
[2019-04-14 22:54] LABS: CKMB Creatine Kinase MB 3.4 ng/mL (0.3-3.6)
[2019-04-14 22:56] LABS: Troponin I 0.72 ng/mL (0.0-0.045)
[2019-04-15] MEDS ORDERED: PANTOPRAZOLE 40MG TABLET PO SCH (06:30)
[2019-04-15 06:38] LABS: Absolute Lymphocytes (CBC) 0.8 K/uL (0.7-4.9); Basophils % 0.6 % (0-1.3); Hematocrit 35.8 % (39.6-49.0); Lymphocytes % 11.6 % (15.3-44.8); MPV 8.9 fL (7.6-11.3); RBC Red Blood Cell Count 3.59 M/uL (4.33-5.43)
[2019-04-15] MEDS: INSULIN -REGULAR HUMAN 50 UNIT/0.5 ML ML SQ SCH ×4 (07:30→21:00)
[2019-04-15 08:04] LABS: CKMB Creatine Kinase MB 4.9 ng/mL (0.3-3.6); Magnesium 2.2 mg/dL (1.8-2.4); Potassium 3.4 mmol/L (3.5-5.1); Troponin I 1.18 ng/mL (0.0-0.045)
[2019-04-15] MEDS: HEPARIN 5000 UNIT/ML 1 ML VIAL SQ SCH ×2 (08:16→21:34)
[2019-04-15] MEDS: CLOPIDOGREL 75 MG TABLET PO SCH (08:16)
[2019-04-15] MEDS: ALBUTEROL 2.5 MG/3 ML NEB SOL NEB PRN ×2 (11:02→21:45)
[2019-04-15] MEDS ORDERED: ALBUTEROL 2.5 MG/3 ML NEB SOL NEB SCH (12:00)
--- NOTE | 2019-04-15 12:31 | EKG ---
Test Date: 2019-04-14 Test Time: 16:09:35 Home Economics Teacher: TJ MEASUREMENT RESULTS: Intervals: Rate: 119 WI: 160 QRSD: 90 QT: 324 QTc: 455 [place]: P: 91 WI: 160 QRS: 4 T: 114 INTERPRETIVE STATEMENTS: Sinus tachycardia Inferior infarct, age undetermined Abnormal ECG Compared to ECG 10/30/2018 18:37:43 Myocardial infarct finding now present Left ventricular hypertrophy no longer present Early repolarization no longer present Electronically Signed On 04-15-19 12:29:21 CDT by Eliseo Cheney
--- NOTE | 2019-04-15 13:56 | P.PN ---
Subjective Date of Service: 04/16/19 Primary Care Provider: None; Nephrology-Dr. Mcgrath Chief Complaint: Fever No fever today. Patient voices no new complaint. He stated he self catheterized himself every day. He denied any nausea. He is eating well. Urine culture result is pending. Physical Examination - Vital Signs Temperature: 98.5 F Blood Pressure: 140/82 Pulse: 96 Respirations: 18 Pulse Ox (%): 98 - Physical Exam General: Alert, In no apparent distress, Oriented x3 HEENT: Mucous membr. moist/pink Neck: Supple, JVD not distended Respiratory: Normal air movement, Other (Mild scattered wheezes) Cardiovascular: No edema, Regular rate/rhythm, Normal S1 S2, No murmurs Capillary refill: <2 Seconds Gastrointestinal: Normal bowel sounds, Soft and benign, Non-distended, No tenderness Musculoskeletal: No swelling, No erythema Integumentary: No rashes Neurological: Normal speech, Normal strength at 5/5 x4 extr - Studies Laboratory Data (last 24 hrs) 04/14/19 15:53: PT 12.3, INR 1.04, APTT 27.5 04/14/19 15:53: WBC 7.8, Hgb 13.1 L, Hct 38.3 L, Plt Count 181 04/14/19 15:53: Sodium 132 L, Potassium 3.6, BUN 30 H, Creatinine 5.98 H*, Glucose 108 H, Total Bilirubin 0.7, AST 61 H, ALT 29, Alkaline Phosphatase 63 Microbiology Data (last 24 hrs): 04/14/19 15:49 Blood - Blood Anaerobic Blood Culture - Final 04/14/19 15:53 Nasopharnyx Influenza Type A Antigen Screen - Final 04/14/19 15:53 Nasopharnyx Influenza Type B Antigen Screen - Final Assessment And Plan - Current Problems (Diagnosis) (1) Urinary tract infection Current Visit: Yes Status: Acute (2) Upper respiratory infection Current Visit: Yes Status: Acute (3) BPH (benign prostatic hyperplasia) Onset Date: 03/22/18 Current Visit: No Status: Acute (4) ESRD on hemodialysis Onset Date: 03/22/18 Current Visit: No Status: Acute (5) Elevated troponin Onset Date: 10/19/17 Current Visit: No Status: Acute (6) Acute diastolic CHF (congestive heart failure) Current Visit: No Status: Acute - Plan Continue IV Rocephin and follow urine culture. Rapid flu test is negative. Patient also has mild wheezing which could be secondary to CHF as evidenced on his chest x-ray. He is stable respiratory brown but may require additional dialysis. Nephrology is consulted to assist. Elevated troponin likely secondary to decreased clearance from ESRD. Patient is asymptomatic and there is low suspicion for ACS. Echocardiogram ordered to evaluate elevated troponin. Diabetes mellitus type 2 diet controlled. Continue Plavix for PVD.
[2019-04-15] MEDS: CEFTRIAXONE/SWI 1gm 1 GM/10 ML SYR IV SCH (21:30)
--- NOTE | 2019-04-16 02:23 | PN ---
Date of Progress Note: 04/15/2019 Chief Complaint: End-stage renal disease DICTATION ENDS HERE JUANI/JENNIFER Voice ID: [id number] Report ID: [id number]
--- NOTE | 2019-04-16 02:40 | CON ---
Date of Consultation: 04/15/2019 Chief Complaint: End-stage renal disease, on dialysis. History Of Present Illness: Patient has multiple medical problems including history of diabetes tim itus, diabetic kidney disease, BPH, peripheral vascular disease. He presented to the [facility] of cough, congestion, and generalized weakness. He had dialysis done yesterday. He developed feve rs, chills, and temperature was 100.4. He was taking medication for flu-like symptoms. He was refer red from dialysis to emergency room for further evaluation. He was admitted to the hospital because of fever, tachycardia. He received IV fluid bolus in the emergency room. White count was 7.8, hemog lobin 13.1. Procalcitonin was unremarkable. Lactic acid was slightly elevated up to 2.1. Electroly jerry showed potassium 3.6, sodium 132, BUN 30, creatinine 5.9, glucose 108, troponin 0.5. Urinalysis was positive for urinary tract infection. Chest x-ray was consistent with mild fluid overload. Misty ent was started on antibiotics for possible pneumonia. He developed tachycardia up to 110. He start ed on antibiotics for urinary tract infection. He has history of BPH, was seen previously by urologi and he was advised to perform self catheterization. Review of Systems: Constitutional: Had low-grade fever, generalized weakness, and chills. Eyes: Denies vision changes. Ears, Nose, Mouth, and Throat: Denies sore throat, earache. Respiratory: Denies PND, orthopnea. Had some cough, nonproductive. : Denies dysuria or hematuria. Musculoskeletal: Denies muscle aches or joint swelling. All other systems reviewed and all are negative. Past Medical History: End-stage renal disease, on dialysis Wednesday, Wednesday, Wednesday, hypertension, diabetes mellitus type 2, BPH, peripheral vascular disease, status post AV access procedure, had AV g raft placed. Family History: Father, heart disease, hypertension. Mother, did not have kidney disease. Sister, diabetes. Brother, heart disease. Social History: Denies tobacco, alcohol, or illicit drugs. Physical Examination: General: The patient is awake, alert, follows commands. Eyes: Anicteric sclerae. EOMI. Ears, Nose, Mouth and Throat: Oral mucosa moist. No pallor. Neck: Supple. No JVD. No bruits. Lungs: Clear to auscultation bilaterally. Heart: S1, S2. No pericardial friction rub. Abdomen: Soft, benign, nontender. Extremities: No edema. Laboratory Data: Sodium 132, potassium 3.6, chloride 108, BUN 30, creatinine 5.98, glucose 108. Impression And Plan: 1.End-stage renal disease. Dialysis will be done. According to lab work results, patient will have lab work re-evaluated tomorrow. Patient will continue low-sodium diet and renal diet, p.o. fluid re striction. 2.Cough, congestion, possible pneumonia. Continue antibiotics. 3.Diabetes mellitus. Continue insulin. 4.Urinary tract infection. Plan is to check blood culture to rule out bacteremia. Continue antibio tics for urinary tract infection. JUANI/JENNIFER Voice ID: [id number] Report ID: [id number]
[2019-04-16 06:05] LABS: Absolute Lymphocytes (CBC) 0.9 K/uL (0.7-4.9); Basophils % 0.6 % (0-1.3); Hematocrit 34.1 % (39.6-49.0); Lymphocytes % 17.1 % (15.3-44.8); RBC Red Blood Cell Count 3.45 M/uL (4.33-5.43)
[2019-04-16 06:29] LABS: Magnesium 2.4 mg/dL (1.8-2.4); Potassium 3.6 mmol/L (3.5-5.1)
[2019-04-16] MEDS: INSULIN -REGULAR HUMAN 50 UNIT/0.5 ML ML SQ SCH ×4 (07:30→21:00)
[2019-04-16] MEDS: HEPARIN 5000 UNIT/ML 1 ML VIAL SQ SCH ×2 (08:26→21:04)
[2019-04-16] MEDS: PANTOPRAZOLE 40MG TABLET PO SCH (08:26)
[2019-04-16] MEDS: ASPIRIN EC 81 MG TAB PO SCH (08:27)
[2019-04-16] MEDS: CLOPIDOGREL 75 MG TABLET PO SCH (08:27)
--- NOTE | 2019-04-16 10:39 | P.PN ---
Subjective Date of Service: 04/16/19 Primary Care Provider: None; Nephrology-Dr. Mcgrath Chief Complaint: Fever Subjective: No new changes Patient reports coughing intermittently. Cough is nonproductive. He has been afebrile. He denied any nausea. He is eating well. Urine culture result is growing gram-negative rods. He denies shortness of breath. Physical Examination - Vital Signs Temperature: 98.1 F Blood Pressure: 157/85 Pulse: 90 Respirations: 20 Pulse Ox (%): 97 - Physical Exam General: Alert, In no apparent distress, Oriented x3 HEENT: Mucous membr. moist/pink Neck: Supple, JVD not distended Respiratory: Normal air movement, Other (Mild bibasilar area) Cardiovascular: No edema, Regular rate/rhythm, Normal S1 S2 Gastrointestinal: Normal bowel sounds, Soft and benign, Non-distended, No tenderness Musculoskeletal: No swelling, No erythema Integumentary: No rashes Neurological: Normal speech, Normal strength at 5/5 x4 extr - Studies Microbiology Data (last 24 hrs): 04/14/19 15:49 Blood - Blood Anaerobic Blood Culture - Final Assessment And Plan - Current Problems (Diagnosis) (1) Urinary tract infection Current Visit: Yes Status: Acute (2) Upper respiratory infection Current Visit: Yes Status: Acute (3) BPH (benign prostatic hyperplasia) Onset Date: 03/22/18 Current Visit: No Status: Acute (4) ESRD on hemodialysis Onset Date: 03/22/18 Current Visit: No Status: Acute (5) Elevated troponin Onset Date: 10/19/17 Current Visit: No Status: Acute (6) Acute diastolic CHF (congestive heart failure) Current Visit: No Status: Acute - Plan Continue IV Rocephin and follow urine culture. Patient also has mild intermittent wheezing which could be secondary to CHF as evidenced on his chest x-ray. He is stable respiratory brown but may require additional dialysis. Nephrology input appreciated. Elevated troponin likely secondary to decreased clearance from ESRD. Patient is asymptomatic and there is low suspicion for ACS. Echocardiogram is pending. Diabetes mellitus type 2 is diet to controlled. Continue Plavix for PVD.
--- NOTE | 2019-04-16 11:22 | RAD REPORT ---
EXAM DESCRIPTION: RAD - Chest Pa And Lat (2 Views) - 04/16/2019 5:50 am CLINICAL HISTORY: pneumonia Chest pain. COMPARISON: Chest Single View dated 04/14/2019; Chest Single View dated 10/30/2018; Chest Pa And Lat (2 Views) dated 03/22/2018; Chest Single View dated 03/21/2018 FINDINGS: The lungs are mildly emphysematous. Subtle areas of reticular opacity in both lung bases, greater on the left, probably represents mild pneumonia. The heart is moderately enlarged in size. No displaced fractures.
[2019-04-16] MEDS: CEFTRIAXONE/SWI 1gm 1 GM/10 ML SYR IV SCH (21:03)
[2019-04-16] MEDS: ALBUTEROL 2.5 MG/3 ML NEB SOL NEB PRN (22:30)
--- NOTE | 2019-04-17 02:00 | PN ---
Date of Progress Note: 04/16/2019 Chief Complaint: End-stage renal disease, generalized weakness, fever. History: Patient is treated with antibiotics for urinary tract infection. Chest x-ray showed some i ncreased trace pleural effusion. Patient denies PND or orthopnea. Physical Examination: Lungs: Diminished breath sounds at bases, few crackles. Heart: S1, S2. Abdomen: Soft, benign. Extremities: No edema. Impression And Plan: 1.End-stage renal disease. Patient will have dialysis tomorrow. Patient likely has pneumonia in th e left lung base. Continue antibiotics. Re-evaluate chest x-ray. 2.Hypertension. Continue blood pressure medication. 3.Anemia in chronic kidney disease. Continue DANIEL. 4.Renal osteodystrophy. Continue renal diet and binders. EB/MODL Voice ID: [id number] Report ID: [id number]
[2019-04-17 06:08] LABS: Basophils % 0.8 % (0-1.3); Hematocrit 33.3 % (39.6-49.0); Lymphocytes % 17.9 % (15.3-44.8); MPV 8.7 fL (7.6-11.3); RBC Red Blood Cell Count 3.37 M/uL (4.33-5.43)
[2019-04-17 06:30] LABS: Magnesium 2.6 mg/dL (1.8-2.4); Potassium 3.7 mmol/L (3.5-5.1)
[2019-04-17] MEDS: INSULIN -REGULAR HUMAN 50 UNIT/0.5 ML ML SQ SCH ×4 (07:30→20:34)
[2019-04-17] MEDS: CLOPIDOGREL 75 MG TABLET PO SCH (09:00)
[2019-04-17] MEDS: HEPARIN 5000 UNIT/ML 1 ML VIAL SQ SCH ×2 (09:00→20:56)
[2019-04-17] MEDS: ASPIRIN EC 81 MG TAB PO SCH (09:00)
[2019-04-17] MEDS: PANTOPRAZOLE 40MG TABLET PO SCH (09:00)
--- NOTE | 2019-04-17 11:38 | EKG ---
Test Date: 2019-04-15 Test Time: 08:57:16 Box Storage Worker: EDWARDO MEASUREMENT RESULTS: Intervals: Rate: 99 KS: 158 QRSD: 88 QT: 360 QTc: 462 [place]: P: 83 KS: 158 QRS: 35 T: 263 INTERPRETIVE STATEMENTS: Normal sinus rhythm Right atrial enlargement Inferior infarct, age undetermined ST & T wave abnormality, consider lateral ischemia Abnormal ECG Compared to ECG 04/14/2019 16:09:35 Atrial abnormality now present ST (T wave) deviation now present Possible ischemia now present Sinus tachycardia no longer present Myocardial infarct finding still present Electronically Signed On 04-17-19 11:38:04 CDT by Mati Bonner
--- NOTE | 2019-04-17 14:30 | PN ---
Date of Progress Note: 04/17/2019 Subjective: Patient seen and examined. Chart reviewed and case discussed with RN. Denies any acute events overnight. Code Status: Full. Medications: List reviewed. Physical Examination: Vital Signs: Temperature 97.9, heart rate 100, blood pressure 175/86, respirations 20, O2 95% on susan m air. General: Awake, alert, oriented x3. Elderly male, obese, BMI 30. CV: S1, S2. Regular rate and rhythm. Peripheral pulses present. Respiratory: Somewhat diminished breath sounds. No wheezing or stridor. Gastrointestinal: Abdomen is soft, nontender, nondistended. Positive bowel sounds. Extremities: No clubbing or cyanosis. Trace pedal edema. Neurologic: Nonfocal. Laboratory Data: Sodium 137, potassium 3.7, chloride 100, CO2 of 20, BUN 77, creatinine 12.5, glucos e 91, calcium 8.9, magnesium 2.6. Troponin 0.72, 1.18. WBC 5.8, H and H 11.5 and 33.3, platelets 17 5, neutrophils 63%. Blood cultures, no growth to date. Urine culture, growing out Salmonella specie s, which was sensitive to Cipro, Levaquin, Bactrim, and ampicillin. Echocardiogram still pending. Assessment: A 64-year-old male with; 1.Acute cystitis without hematuria secondary to Salmonella. Can be switched over to oral antibiotic s upon discharge, improving. 2.Upper respiratory infection. Chest x-ray does show pneumonia on the left side with subtle areas o f reticular opacity, greater on the left. 3.Benign prostatic hypertrophy. Continue medications. 4.End-stage renal disease, on hemodialysis, scheduled for dialysis today. Appreciate Nephrology in ut. We will avoid NSAIDs and nephrotoxins. 5.Elevated troponin level. We will consult Cardiology. Echocardiogram is still pending. 6.Acute diastolic heart failure. Continue with diuretics. Monitor I's and O's. Strict fluid restr iction. 7.Diabetes mellitus type 2 with hyperglycemia, diet-controlled. We will monitor Accu-Cheks and cont inue sliding scale insulin. 8.Peripheral vascular disease. Continue Plavix. Plan: Follow up on echocardiogram. Cardiology consultation. Dialysis this morning. /JENNIFER Voice ID: [id number] Report ID: [id number]
--- NOTE | 2019-04-17 16:50 | PN ---
Date of Progress Note: 04/17/2019 Chief Complaint: End-stage renal disease, generalized weakness, fever. History: Patient is treated with antibiotics for urinary tract infection and pneumonia. Patient den ies PND or orthopnea. Today, he is scheduled for dialysis. He has some fluid overload, pleural effu corrina, peripheral edema of mild degree. Patient will have ultrafiltration as tolerated to obtain nega tive fluid balance. Review of Systems: Denies fever or chills. Denies nausea or vomiting. Physical Examination: Lungs: Clear to auscultation bilaterally. Heart: S1, S2. Abdomen: Soft, benign. Extremities: Slight edema. Laboratory Data: Blood work; sodium 137, potassium 3.7, chloride 100, CO2 of 22, BUN 77, calcium 8.9 , magnesium 2.6, glucose 91. Hemoglobin 11.5, WBC 5.8, platelets 175,000. Impression And Plan: 1.End-stage renal disease. Continue p.o. fluid restriction, renal diet, electrolytes and azotemia h as been in good control. 2.Fluid overload. Continue p.o. fluid restriction. Obtain ultrafiltration with dialysis. Monitor blood pressure to prevent intradialytic hypotension. Plan is to adjust ultrafiltration accordingly. 3.Hypertension. Blood pressure controlled. 4.Renal osteodystrophy. Continue renal diet and binders. EB/MODL Voice ID: [id number] Report ID: [id number]
--- NOTE | 2019-04-17 18:30 | CON ---
Identification: 64-year-old man. Chief Complaint: Shortness of breath. Reason For Consult: Abnormal troponin. History Of Present Illness: Mr. Jono Shen is an end-stage renal disease patient. He has mildl y depressed ejection fraction. He does not have chest pain. When he had shortness of breath, there is interstitial edema. It is thought by 1 radiologist the pneumonia in the left lower base. Patient does not have fevers, chills, sweats, or excessive sputum or an elevated white blood cells. He has been in our hospital several times with a similar thing. In October of this year, a nuclear stress test indicated ejection fraction in the 30s. No ischemia. Possible old scar. Patient is not having ches t pain. He has shortness of breath. No cough, fevers, chills, or sweats. He is doing much better n ow. When he gets dialysis, he loses more weight. He tends to gain weight when he has a weekend wher e 2 consecutive days occurred without dialysis that may have been what happened here. Physical Examination: Vital Signs: The patient is 5 feet 10 inches, 213 pounds. General: Alert, oriented, pleasant, not in distress. Lungs: Do not reveal crackles. Heart: Within normal limits. Abdomen: Soft. Extremities: No edema, cyanosis, clubbing. Laboratory Data: The highest troponin is 1.18. He has a creatinine today of 12.5 before dialysis. He just finished dialysis. Impression: His troponin elevations probably are not indicative of an acute coronary syndrome, certa inly not by symptoms or EKG changes. I would argue again for continued medical therapy for Mr. Shelton Shen. I recommend doing a cardiac cath at this point. His urine is growing salmonella, which is an unusual organism and he was not tested for the ceftriaxone that he is receiving, so perhaps he should get one of the fluoroquinolone drugs that he is usually used to treat salmonella. The salmone lla growing in his urine is sensitive to all of the usual fluoroquinolone such as Cipro. SH/MODL Voice ID: [id number] Report ID: [id number]
[2019-04-18] MEDS: INSULIN -REGULAR HUMAN 50 UNIT/0.5 ML ML SQ SCH ×2 (07:30→11:30)
[2019-04-18] MEDS ORDERED: CIPROFLOXACIN 400mg IV 400 MG/200 ML BAG IV SCH (09:00)
[2019-04-18] MEDS: HEPARIN 5000 UNIT/ML 1 ML VIAL SQ SCH (10:27)
[2019-04-18] MEDS: PANTOPRAZOLE 40MG TABLET PO SCH (10:27)
[2019-04-18] MEDS: CLOPIDOGREL 75 MG TABLET PO SCH (10:27)
[2019-04-18] MEDS: ASPIRIN EC 81 MG TAB PO SCH (10:30)
[2019-04-18 12:33] VITALS: BP 137/72; TEMP 97.6
[2019-04-18 12:41] VITALS: O2SAT 82
--- NOTE | 2019-04-18 16:51 | PN ---
Date of Progress Note: 04/18/2019 History: Patient is feeling better. Shortness of breath has been subsided. Physical Examination: Vital Signs: Blood pressure of 152/69, pulse of 82. Chest: Crackles in the left base. Heart: S1, S2. Regular. Systolic murmur. Abdomen: Soft, nontender. Extremities: No edema. Laboratory Data: H and H of 11.5/33.3. Sodium 137, potassium 3.7, bicarb 20, BUN 77, creatinine 12. 5, calcium 8.9, magnesium 2.6. Current Medications: The patient on include Cipro, aspirin, Plavix, Tylenol, Zofran, pantoprazole. Assessment And Plan: 1.End-stage renal disease, over volume, currently normalized volume. Continue dialysis as scheduled . Dialyzed yesterday, managed to remove 2800. We will continue dialysis Wednesday, Wednesday, Wednesday. 2.Congestive heart failure exacerbation, normal volume currently, resolved. We will utilize blood p ressure for ultrafiltration. 3.Hypertension, off blood pressure medication. We will utilize blood pressure for ultrafiltration. 4.Secondary hyperparathyroidism, stable. 5.Pneumonia. Continue Cipro. MARYANNE/JENNIFER Voice ID: [id number] Report ID: [id number]
--- NOTE | 2019-04-18 16:58 | PN ---
Date of Progress Note: 04/18/2019 Subjective: Mr. De La Cruz is 64, has a history of end-stage renal disease, on hemodialysis, came in wit h shortness of breath, chest pain, elevated troponin. Dr. Bonner saw him. We are planning only medi miah therapy, no heart catheterization. He has mild decrease in ejection fraction as of October 2018. He has a normal Lexiscan in October 2018. Today, he is in sinus rhythm. Glucose of 141. His blood pressu re is okay. Continuing to have his hemodialysis. Recommendations: I recommend continuing present therapy. The patient can go home whenever it is oka y with Dr. Viera. We will be happy to see him in the office as an outpatient. COLLETTE/JENNIFER Voice ID: [id number] Report ID: [id number]
--- NOTE | 2019-04-19 06:23 | DS ---
Date of Discharge: 04/18/2019 Consultants: Dr. Bonner with Cardiology. Dr. Ledezma with Nephrology. Admitting Diagnoses: 1.Fever. 2.Recurrent acute cystitis with hematuria. 3.Volume overload. 4.End-stage renal disease, on hemodialysis. 5.History of benign prostatic hypertrophy, self catheterization. 6.Diabetes mellitus type 2, diet controlled. 7.Gastroesophageal reflux disease without esophagitis. 8.Peripheral vascular disease. 9.Elevated troponin level. Discharge Diagnoses: 1.Acute cystitis with hematuria secondary to Salmonella. 2.Acute upper respiratory tract infection, likely bronchitis. 3.End-stage renal disease, on hemodialysis. 4.Benign prostatic hypertrophy, self catheterization. 5.Elevated troponin level. No further cardiac workup. 6.Acute diastolic heart failure. 7.Diabetes mellitus type 2 with hyperglycemia and diet controlled. 8.Peripheral vascular disease on Plavix. 9.Overweight, body mass index 29. Hospital Course: Patient is a 64-year-old male with past medical history of end-stage renal disease, on hemodialysis; diabetes, benign prostatic hyperplasia, and peripheral vascular disease, who comes in due to cough and congestion. Patient's workup revealed a white count of 7.8. Procalcitonin was n egative. Lactate was slightly elevated at 2.1 and as well as the troponin which was 0.5. His UA was positive for UTI. He was started on IV antibiotics for the UTI. Cultures were sent out. Patient d oes have history of self catheterization. He has diabetes which is diet controlled. His urine cultu re grew out Salmonella, which is unusual to be present in the urine. Possible contamination from sto ol is possible, however, patient did not have any GI symptoms. His influenza screen was negative. H is blood cultures did not show any growth. Sputum cultures were pending as well. Patient was seen b y Nephrology to continue his dialysis. His renal status remained stable. His shortness of breath im proved. Chest x-ray was repeated. Lungs were found to be mildly emphysematous, subtle areas of reti cular opacity in the lung bases, greater on the left, representing mild pneumonia, however, there was no cough, sputum production, or clinical signs of pneumonia. Patient was also seen by Cardiology jenny e to the elevated troponin level, which was as high as 1.18. Patient refuses echocardiogram, however , patient was seen by Dr. Bonner. Patient has had multiple previous stress test and workup done by Safia arkatina. This was not felt to be acute coronary syndrome. There was no ST-elevation on EKG and Ca rdiology recommended medical therapy per Dr. Shen. Patient was then stable for discharge. He di d not have any chest pain or shortness of breath. His symptoms improved. He was able to ambulate. He had dialysis day prior to discharge and we will repeat dialysis on Wednesday. Medications: As per medication reconciliation list. Patient needs to establish care with primary ca re physician in 1 week. Follow up with business continuity analyst, Dr. Ledezma in 2 weeks. Follow up with cardiologi st, Dr. Bonner, in 2 weeks. Return to ER for worsening condition. Diet: Renal. Activity: As tolerated. Physical Examination: General: Awake, alert, oriented x3 elderly male. CV: S1-S2. Respiratory: Moving air well bilaterally, except at the bases. Abdomen: Abdomen is soft, nontender, nondistended. Positive bowel sounds. Extremities: No clubbing or cyanosis. Patient's edema is present. Neurologic: Nonfocal. Time Spent: Total time spent discharging patient was 41 minutes. /JENNIFER Voice ID: [id number] Report ID: [id number]
== END 2019-04-18 13:10 | disposition home or self-care (01) | DRG 689 ==
LOC: ER 15:20 → ERHOLD 18:01 → 4TH 20:05
PROVIDERS: ADMIT Family Medicine; ATTEND Family Medicine
PROC: 5A1D70Z Performance of Urinary Filtration, Intermittent, Less than 6 Hours Per Day (ICD-10-PCS; principal; 2019-04-17)
DX: N30.01 Acute cystitis with hematuria (principal); N18.6 End stage renal disease; I50.33 Acute on chronic diastolic (congestive) heart failure; J18.9 Pneumonia, unspecified organism; I13.2 Hypertensive heart and chronic kidney disease with heart failure and with stage 5 chronic kidney disease, or end stage renal disease; B96.89 Other specified bacterial agents as the cause of diseases classified elsewhere; E11.22 Type 2 diabetes mellitus with diabetic chronic kidney disease; E11.65 Type 2 diabetes mellitus with hyperglycemia; I73.9 Peripheral vascular disease, unspecified; N40.0 Benign prostatic hyperplasia without lower urinary tract symptoms; J06.9 Acute upper respiratory infection, unspecified; D63.1 Anemia in chronic kidney disease; N25.0 Renal osteodystrophy; Z99.2 Dependence on renal dialysis; E66.3 Overweight; Z68.29 Body mass index [BMI] 29.0-29.9, adult
CPT/HCPCS: 36415; 51702; 71045; 71046; 80048; 80076; 81003; 81015; 82550; 82553; 82947; 83605; 83735; 84145; 84484; 85025; 85610; 85730; 87040; 87077; 87086; 87088; 87186; 87804; 90935; 93005; 94640; 96365; 96366; 96367; 96375; 99285; J0692; J0696; J0744; J1644; J3370; J7030; J7040

== ENCOUNTER 2022-03-11 16:59 | Inpatient (IN) | payer OTHER, BC ==
[2022-03-11] MEDS ORDERED: METOPROLOL TAR 25 MG TAB ONE ×2 (18:18→18:39)
[2022-03-11] MEDS ORDERED: METOPROLOL TARTRATE 5 MG/5 ML INJ IV ONE (18:18)
[2022-03-11 18:19] LABS: Absolute Lymphocytes (CBC) 1.3 K/uL (0.7-4.9); Lymphocytes % 16.7 % (15.3-44.8); MCV 97.1 fL (80-100); MPV 8.7 fL (7.6-11.3)
[2022-03-11 18:25] LABS: Protime INR 1.16
[2022-03-11 18:42] LABS: Albumin 3.6 g/dL (3.4-5.0); Bilirubin Direct 0.1 mg/dL (0-0.2); Bilirubin Total 0.5 mg/dL (0.2-1.0); Protein, Total 8.3 g/dL (6.4-8.2)
[2022-03-11 18:43] LABS: Magnesium 2.9 mg/dL (1.8-2.4); Potassium 4.9 mmol/L (3.5-5.1)
[2022-03-11 18:45] LABS: Troponin High Sensitivity 360.4 pg/mL (<58.9)
--- NOTE | 2022-03-11 19:07 | EDPHYS ---
Physician Documentation [facility] Name: Go Shen Age: 66 yrs Sex: Male : 1955 Arrival Date: 03/11/2022 Time: 17:05 Bed 4 Private MD: TONO Physician Jorge Cisneros HPI: 03/11 18:10 This 66 yrs old Male presents to ER via Ambulatory with complaints of cp Shortness Of Breath, Weakness. 18:10 The patient has shortness of breath at rest. cp 18:10 Onset: The symptoms/episode began/occurred 2 week(s) ago. Duration: The symptoms are cp continuous, and are steadily getting worse. Associated signs and symptoms: Pertinent positives: general weakness, Pertinent negatives: chest pain, productive cough, diaphoresis, fever. 18:10 Severity of symptoms: in the emergency department the symptoms are unchanged despite cp home interventions. Patient reports completing dialysis today. Historical: - Allergies: 17:45 Codeine; jh6 - PMHx: 17:45 BPH; ESRD; HD - MWF; Hypertension; jh6 - Immunization history:: Client reports receiving the 2nd dose of the Covid vaccine. - Social history:: Smoking status: Patient denies any tobacco usage or history of. ROS: 18:15 Constitutional: Negative for body aches, chills, fever, poor PO intake. cp 18:15 Eyes: Negative for injury, pain, redness, and discharge. cp 18:15 ENT: Negative for drainage from ear(s), ear pain, sore throat, difficulty swallowing, difficulty handling secretions. 18:15 Cardiovascular: Negative for chest pain. 18:15 Respiratory: Positive for shortness of breath, at rest. Negative for cough, wheezing. 18:15 Abdomen/GI: Negative for abdominal pain, nausea, vomiting, and diarrhea. 18:15 Neuro: Positive for weakness, Negative for altered mental status, dizziness, headache, syncope. 18:15 All other systems are negative. Exam: 18:20 Constitutional: The patient appears in no acute distress, alert, awake, cp non-diaphoretic, non-toxic, well developed, well nourished. 18:20 Head/Face: Normocephalic, atraumatic. cp 18:20 Eyes: Periorbital structures: appear normal, Conjunctiva: normal, no exudate, no injection, Sclera: no appreciated abnormality, Lids and lashes: appear normal, bilaterally. 18:20 ENT: External ear(s): are unremarkable, Nose: is normal, Mouth: Lips: moist, Oral mucosa: pink and intact, moist, Posterior pharynx: Airway: no evidence of obstruction, patent. 18:20 Neck: ROM/movement: is normal, is supple, without pain, no range of motions limitations. 18:20 Chest/axilla: Inspection: normal, Palpation: is normal, no crepitus, no tenderness. 18:20 Cardiovascular: Rate: tachycardic, Rhythm: irregular, Edema: ankle edema, that is mild, cp JVD: is not appreciated. 18:20 Respiratory: the patient does not display signs of respiratory distress, Respirations: labored breathing, that is mild, intercostal retractions, are absent, shallow respirations, are not present, Breath sounds: decreased breath sounds, that are mild, diffuse, wheezing: is not appreciated. 18:20 Abdomen/GI: Inspection: abdomen appears normal, Palpation: abdomen is soft and cp non-tender, in all quadrants. 18:20 Neuro: Orientation: to person, place \T\ time. Mentation: is normal, Motor: moves all fours, general weakness with no focal deficits. Vital Signs: 17:32 BP 140 / 108; Pulse 120; Resp 20; Temp 99.2; Pulse Ox 100% ; Weight 91.63 kg; Height 5 jh6 ft. 10 in. (177.80 cm); Pain 0/10; 18:10 BP 146 / 105; Pulse 121; Resp 27; Pulse Ox 100% on R/A; tp1 18:20 BP 141 / 124; Pulse 126; Resp 26; Pulse Ox 100% on R/A; tp1 18:25 BP 125 / 97; Pulse 107; Resp 18; Pulse Ox 100% on R/A; tp1 18:48 BP 108 / 90; Pulse 97; Resp 29; Pulse Ox 100% on R/A; eh3 19:39 BP 131 / 82; Pulse 89; Resp 24; Pulse Ox 100% on R/A; jb4 17:32 Body Mass Index 28.98 (91.63 kg, 177.80 cm) 6 MDM: 17:49 Patient medically screened. [facility] 03/11 18:05 Order name: Basic Metabolic Panel 03/11 18:05 Order name: CBC with Diff cp 03/11 18:05 Order name: LFT's cp 03/11 18:05 Order name: Magnesium 03/11 18:05 Order name: NT PRO-BNP 03/11 18:05 Order name: PT-INR 03/11 18:05 Order name: Troponin HS 03/11 18:23 Order name: CBC with Automated Diff; Complete Time: 18:27 EDMS 03/11 18:27 Interpretation: Normal except: RBC 3.40; HGB 11.1; HCT 33.0; RDW 16.0. cp 03/11 18:25 Order name: Protime (+INR); Complete Time: 18:27 EDMS 03/11 18:45 Order name: Basic Metabolic Panel; Complete Time: 19:37 EDMS 03/11 18:48 Interpretation: Normal except: ANION GAP 17.9; BUN 62; CRE 10.80; GFR 5. cp 03/11 18:45 Order name: Liver (Hepatic) Function; Complete Time: 19:37 EDMS 03/11 18:45 Order name: Troponin High Sensitivity; Complete Time: 19:37 EDMS 03/11 18:45 Order name: Magnesium; Complete Time: 19:37 EDMS 03/11 18:58 Order name: NT PRO-BNP; Complete Time: 19:37 EDMS 03/11 18:05 Order name: XRAY Chest (1 view) 03/11 18:05 Order name: EKG; Complete Time: 18:06 03/11 18:05 Order name: Cardiac monitoring; Complete Time: 18:05 03/11 18:05 Order name: EKG - Nurse/Tech; Complete Time: 18:05 03/11 18:05 Order name: IV Saline Lock; Complete Time: 18:50 03/11 18:05 Order name: Labs collected and sent; Complete Time: 18:05 03/11 18:05 Order name: O2 Per Protocol; Complete Time: 18:05 03/11 18:05 Order name: O2 Sat Monitoring; Complete Time: 18:05 03/11 19:18 Order name: RAD; Complete Time: 19:37 EDMS 03/11 20:30 Order name: SARS-COV-2 Antigen Rapid EDMS Administered Medications: 18:15 Drug: Lopressor (metoprolol) 5 mg Route: IVP; Site: left wrist; tp1 18:20 Drug: Lopressor (metoprolol) 5 mg Route: IVP; Site: left wrist; tp1 18:49 Follow up: Response: Marked relief of symptoms tp1 18:26 Not Given (Physician Discretion): Lopressor (metoprolol TARTRATE)) 25 mg PO once cp 18:35 Drug: Lopressor (metoprolol TARTRATE) 50 mg Route: PO; tp1 19:12 Follow up: Response: Marked relief of symptoms tp1 Disposition Summary: 03/11/22 19:07 Hospitalization Ordered Hospitalization Status: Inpatient Admission cp Provider: Fabby Atkins cp Location: Telemetry/MedSurg (Inpatient) cp Condition: Stable cp Problem: new cp Symptoms: have improved cp Bed/Room Type: Standard cp Room Assignment: 405(03/11/22 20:42) tw5 Diagnosis - Unspecified atrial fibrillation cp Forms: - Medication Reconciliation Form cp - SBAR form cp Signatures: Dispatcher [employer] EDJorge Johnson MD MD cha Page, Corey, PA PA cp Wood, Tiffany tw5 Diamond Hammond RN RN jh6 Lety Figueroa RN RN tp1 Fabby Atkins PA-C PA-C sb4 Corrections: (The following items were deleted from the chart) 20:42 19:07 cp tw5
--- NOTE | 2022-03-11 19:07 | ER ---
Nurse's Notes [facility] Name: Go Shen Age: 66 yrs Sex: Male : 1955 Arrival Date: 03/11/2022 Time: 17:05 Bed 4 Private MD: Diagnosis: Unspecified atrial fibrillation Presentation: 03/11 17:32 Chief complaint: Patient states: Pt having weakness when he west to dialysis today with 6 sob. has not missed any dialysis treatments and reports that they took off 2kg today. pt states still having slight sob after dialysis today. pt is able to speak in complete sentneces. Coronavirus screen: Vaccine status: Patient reports receiving the 2nd dose of the covid vaccine. Ebola Screen: Patient negative for fever greater than or equal to 101.5 degrees Fahrenheit, and additional compatible Ebola Virus Disease symptoms Patient denies exposure to infectious person. Patient denies travel to an Ebola-affected area in the 21 days before illness onset. Initial Sepsis Screen: Does the patient meet any 2 criteria? No. Patient's initial sepsis screen is negative. Does the patient have a suspected source of infection? No. Patient's initial sepsis screen is negative. Risk Assessment: Do you want to hurt yourself or someone else? Patient reports no desire to harm self or others. Onset of symptoms was February 25, 2022. 17:32 Method Of Arrival: Ambulatory [facility] 17:32 Acuity: LITO 2 [facility] Triage Assessment: 17:45 General: Appears in no apparent distress. General: Behavior is calm, cooperative. Pain: [facility] Denies pain. Respiratory: Reports shortness of breath on exertion Onset: The symptoms/episode began/occurred 2-3 weeks go, the patient has moderate shortness of breath. Historical: - Allergies: 17:45 Codeine; jh6 - PMHx: 17:45 BPH; ESRD; HD - MWF; Hypertension; jh6 - Immunization history:: Client reports receiving the 2nd dose of the Covid vaccine. - Social history:: Smoking status: Patient denies any tobacco usage or history of. Screenin:00 Abuse screen: Denies threats or abuse. Denies injuries from another. Nutritional tp1 screening: No deficits noted. Tuberculosis screening: No symptoms or risk factors identified. Fall Risk No fall in past 12 months (0 pts). No secondary diagnosis (0 pts). IV access (20 points). Ambulatory Aid- None/Bed Rest/Nurse Assist (0 pts). Gait- Normal/Bed Rest/Wheelchair (0 pts) Mental Status- Oriented to own ability (0 pts). Assessment: 18:00 General: Appears in no apparent distress. uncomfortable, Behavior is calm, cooperative. tp1 Pain: Denies pain. Neuro: Level of Consciousness is awake, alert, obeys commands, Oriented to person, place, time, situation. Cardiovascular: Reports shortness of breath, Patient's skin is warm and dry. Rhythm is atrial fibrillation. Respiratory: Reports shortness of breath on exertion Airway is patent Respiratory effort is even, unlabored, Breath sounds with wheezes bilaterally. the patient has mild shortness of breath. GI: Abdomen is round non-distended. : Reports produces little urine due to dialysis. EENT: No signs and/or symptoms were reported regarding the EENT system. Derm: Skin is pink, warm \T\ dry. Musculoskeletal: Circulation, motion, and sensation intact. Swelling present in bilateral lower extremities. 18:35 Reassessment: PTs respiratory rate increased and PT stated his stomach was hurting and tp1 then sat up in a tripod position. head of bed was elevated, O2 100%. provider notified. PT was repositioned in bed, 2L O2 via NC applied. PT now resting comfortably in bed. 18:35 GI: Abd is soft and non tender X 4 quads. tp1 19:15 Reassessment: Pt is sitting on the side of the bed. Respirations are labored, even, jb4 symmetrical, and tachypneic. denies difficulty breathing at this time. Vital Signs: 17:32 BP 140 / 108; Pulse 120; Resp 20; Temp 99.2; Pulse Ox 100% ; Weight 91.63 kg; Height 5 jh6 ft. 10 in. (177.80 cm); Pain 0/10; 18:10 BP 146 / 105; Pulse 121; Resp 27; Pulse Ox 100% on R/A; tp1 18:20 BP 141 / 124; Pulse 126; Resp 26; Pulse Ox 100% on R/A; tp1 18:25 BP 125 / 97; Pulse 107; Resp 18; Pulse Ox 100% on R/A; tp1 18:48 BP 108 / 90; Pulse 97; Resp 29; Pulse Ox 100% on R/A; eh3 19:39 BP 131 / 82; Pulse 89; Resp 24; Pulse Ox 100% on R/A; jb4 17:32 Body Mass Index 28.98 (91.63 kg, 177.80 cm) [facility] ED Course: 17:05 Patient arrived in ED. mr 17:45 Triage completed. [facility] 17:46 Arm band placed on left wrist. EKG completed in triage. Results shown to MD. [facility] 17:48 Jorge Simmons PA is PHCP. cp 17:48 Jorge Cisneros MD is Attending Physician. cp 18:00 Patient has correct armband on for positive identification. Bed in low position. Call tp1 light in reach. 18:08 Inserted saline lock: 22 gauge in left wrist, using aseptic technique. Blood collected. tp1 18:36 Lety Figueroa RN is Primary Nurse. tp1 19:05 Fabby Atkins PA-C is Hospitalizing Provider. cp 19:09 Basic Metabolic Panel Sent. tw5 19:09 CBC with Diff Sent. tw5 19:09 LFT's Sent. tw5 19:09 Magnesium Sent. tw5 19:09 NT PRO-BNP Sent. tw5 19:10 PT-INR Sent. tw5 19:10 Troponin HS Sent. tw5 21:10 No provider procedures requiring assistance completed. Patient admitted, IV remains in tw5 place. Administered Medications: 18:15 Drug: Lopressor (metoprolol) 5 mg Route: IVP; Site: left wrist; tp1 18:20 Drug: Lopressor (metoprolol) 5 mg Route: IVP; Site: left wrist; tp1 18:49 Follow up: Response: Marked relief of symptoms tp1 18:26 Not Given (Physician Discretion): Lopressor (metoprolol TARTRATE)) 25 mg PO once cp 18:35 Drug: Lopressor (metoprolol TARTRATE) 50 mg Route: PO; tp1 19:12 Follow up: Response: Marked relief of symptoms tp1 Medication: 21:10 VIS not applicable for this client. tw5 Outcome: 19:07 Decision to Hospitalize by Provider. cp 21:10 Admitted to Med/surg Report called to bedside report given tw5 21:10 Condition: stable 21:10 Instructed on the need for admit. 21:10 Patient left the ED. tw5 Signatures: Zuly Ballard mr Iris, KATIANA Patel cp, James, RN RN jb4 Lety Mcneill tw5 Diamond Hammond, RN RN jh6 Lety Figueroa, RN RN tp1 Noris Serrano, RN RN eh3 Corrections: (The following items were deleted from the chart) 18:46 18:41 Reassessment: tp1 tp1 18:47 18:00 EENT: No signs and/or symptoms were reported regarding the EENT system. tp1 tp1 18:47 18:00 Musculoskeletal: Circulation, motion, and sensation intact. tp1 tp1 19:12 18:35 Reassessment: PTs respiratory rate increased and PT stated his stomach was tp1 hurting and then sat up in a tripod position. head of bed was elevated, O2 100%. provider notified. PT was repositioned in bed, 2L O2 via NC applied. PT now resting comfortably in bed. tp1
--- NOTE | 2022-03-11 19:15 | RAD REPORT ---
EXAM DESCRIPTION: RAD - Chest Single View - 03/11/2022 7:07 pm CLINICAL HISTORY: SOB Chest pain. COMPARISON: Chest Pa And Lat (2 Views) dated 04/16/2019; Chest Single View dated 04/14/2019; Chest S john View dated 10/30/2018; Chest Pa And Lat (2 Views) dated 03/22/2018 FINDINGS: Portable technique limits examination quality. Moderate bilateral pulmonary opacities are present which may represent pulmonary edema or pneumonia. The heart is moderately enlarged. No displaced fractures. IMPRESSION: Moderate CHF versus volume overload pattern.
[2022-03-11 20:30] LABS: SARS-CoV-2 Antigen Rapid Res Negative (Negative)
[2022-03-11] MEDS ORDERED: ONDANSETRON 4 MG/2 ML VIAL IV PRN (21:26)
[2022-03-11] MEDS ORDERED: ALBUTEROL 2.5 MG/3 ML NEB SOL NEB PRN (21:26)
[2022-03-11] MEDS ORDERED: ACETAMINOPHEN 500 MG TAB PO PRN (21:26)
[2022-03-11 21:39] VITALS: BMI 29.0
[2022-03-11] MEDS: APIXABAN 2.5 MG TABLET PO SCH (22:05)
[2022-03-11] MEDS: ATORVASTATIN 40 MG TAB PO SCH (22:05)
--- NOTE | 2022-03-11 22:37 | P.HP ---
Certification for Inpatient Patient admitted to: Inpatient With expected LOS: <2 Midnights Patient will require the following post-hospital care: None Practitioner: I am a practitioner with admitting privileges, knowledge of patient current condition, hospital course, and medical plan of care. Services: Services provided to patient in accordance with Admission requirements found in Title 42 Section 412.3 of the Code of Federal Regulations Patient History Date of Service: 03/12/22 Reason for admission: Afib new onset History of Present Illness: Patient is a 66-year-old male with history of hypertension, insulin dependent type 2 diabetes, and ESRD on HD MWF (followed by [facility]) who presented to the ED with complaints of weakness and shortness of breath that began when he was finishing dialysis today. He was noted to be tachycardic upon arrival to the ER. EKG showed A. fib RVR. Patient denies history of afib and is not on any anticoagulation. He was given 2 rounds of 5 mg IV Lopressor as well as 50 mg p.o. Lopressor which brought his rate down. His labs are significant for creatinine of 10, troponin 360, BNP [id number]. Shortness of breath and weakness have improved throughout his stay in the ER. He is admitted for further evaluation and treatment. Allergies No Known Allergies Allergy (Verified 03/11/22 21:29) Home medications list reviewed: Yes Home Medications: Aspirin [Aspirin EC 81 MG] 81 mg PO DAILY #90 tablet. 11/01/18 Clopidogrel Bisulfate [Plavix*] 1 tab PO DAILY 04/14/19 Pantoprazole [Protonix Tab*] 1 tab PO DAILY 04/14/19 Ciprofloxacin HCl [Cipro 250 MG Tablet*] 250 mg PO DAILY #5 tab 04/18/19 - Past Medical/Surgical History Diabetic: Yes -: ESRD, (M,W,F dialysis) -: Hypertension -: Diabetes mellitus type 2 -: BPH with urinary retention -: PVD -: AV graft Psychosocial/ Personal History: The patient is single. He has no children. - Family History Father -: Heart disease, Hypertension Mother -: Other (see notes) Brother -: Heart disease Sister -: Diabetes - Social History Smoking Status: Never smoker Alcohol use: No CD- Drugs: No Caffeine use: No Place of Residence: Home Review of Systems General: Weakness Respiratory: Shortness of Breath Physical Examination - Physical Exam General: Alert, In no apparent distress HEENT: Atraumatic, PERRLA, EOMI, Sclerae nonicteric Neck: Supple, 2+ carotid pulse no bruit, No LAD, Without JVD or thyroid abnormality Respiratory: Clear to auscultation bilaterally, Normal air movement Cardiovascular: Regular rate/rhythm, Normal S1 S2 Gastrointestinal: Normal bowel sounds, No tenderness Musculoskeletal: No tenderness Integumentary: No rashes Neurological: Normal speech, Normal strength at 5/5 x4 extr, Normal tone, Normal affect - Studies Laboratory Data (last 24 hrs) 03/11/22 18:06: PT 12.8 H, INR 1.16 03/11/22 18:06: WBC 7.50, Hgb 11.1 L, Hct 33.0 L, Plt Count 181 03/11/22 18:06: Sodium 136, Potassium 4.9, BUN 62 H, Creatinine 10.80 H*, Glucose 105, Magnesium 2.9 H, Total Bilirubin 0.5, AST 36, ALT 56, Alkaline Phosphatase 116 Assessment and Plan - Problems (Diagnosis) (1) New onset a-fib Current Visit: Yes Status: Acute (2) ESRD on hemodialysis Current Visit: Yes Status: Chronic (3) Elevated troponin Current Visit: Yes Status: Acute (4) Hypertension Current Visit: Yes Status: Chronic Qualifiers: Hypertension type: primary hypertension Qualified Code(s): I10 - Essential (primary) hypertension (5) Diabetes mellitus Current Visit: Yes Status: Chronic Qualifiers: Diabetes mellitus type: type 2 Diabetes mellitus senior living insulin use: without senior living use Diabetes mellitus complication status: with hyperglycemia Qualified Code(s): E11.65 - Type 2 diabetes mellitus with hyperglycemia - Plan -Rate currently controlled although still afib -Cardiology consulted. Echo ordered. -Eliquis initiated -Nephrology consult for HD -Monitor patient on telemetry -Lipid panel, TSH, A1c pending -Trend troponin -Aspirin daily -Breathing treatments PRN -Monitor and replete electrolytes per protocol -Reconcile and continue home medications -Eliquis for VTE prophylaxis -Full code Discharge Plan: Home Plan to discharge in: 48 Hours - Advance Directives Does patient have a Living Will: No Does patient have a Durable POA for Healthcare: No - Code Status/Comfort Care Code Status Assessed: Yes (Full) Critical Care: No Time Spent Managing Pts Care (In Minutes): 50
[2022-03-11 23:29] LABS: Troponin High Sensitivity 382.8 pg/mL (<58.9)
[2022-03-12 06:45] LABS: Absolute Lymphocytes (CBC) 0.8 K/uL (0.7-4.9); Hematocrit 32.6 % (39.6-49.0); Lymphocytes % 11.5 % (15.3-44.8); MCV 97.7 fL (80-100); MPV 8.8 fL (7.6-11.3); RBC Red Blood Cell Count 3.34 M/uL (4.33-5.43)
[2022-03-12 07:09] LABS: Albumin 3.5 g/dL (3.4-5.0); Magnesium 2.9 mg/dL (1.8-2.4); Phosphorus 5.9 mg/dL (2.5-4.9); Thyroid Stimulating Hormone 2.93 uIU/mL (0.360-3.740)
[2022-03-12 07:11] LABS: Troponin High Sensitivity 334.2 pg/mL (<58.9)
[2022-03-12 07:12] LABS: Potassium 5.8 mmol/L (3.5-5.1)
[2022-03-12] MEDS: ASPIRIN EC 81 MG TAB PO SCH (08:55)
[2022-03-12] MEDS: APIXABAN 2.5 MG TABLET PO SCH ×2 (08:55→21:01)
--- NOTE | 2022-03-12 12:49 | CON ---
Date of Consultation: 03/12/2022 Reason For Consultation: Weakness and shortness of breath. History Of Present Illness: Mr. De La Cruz is 66. Has a history of dialysis on Wednesday, Wednesday, and . Has a history of chronic atrial fibrillation. Came in with weakness and shortness of breath, it is only presumably secondary to CHF. Chest x-ray shows CHF. Had a negative Lexiscan in 2019. Landry gipson has a known ejection fraction of 32% to 35%, chronic systolic congestive heart failure. He denied any chest pain, but has had PND, orthopnea and some pedal edema. He is compliant with his dialysis. Past Medical History: As stated above. Allergies: NONE. Review of Systems: Negative. Social History: Negative. Family History: Noncontributory. Medications: Include Eliquis, albuterol, aspirin, and Lipitor. Physical Examination: General: He is in AFib, rate of 88. No acute distress. Vital Signs: Stable. HEENT: Negative. Neck: Supple with no bruit. Chest: Clear on the right. Rales on the left. Cardiac: Revealed atrial fibrillation. No murmurs, gallops, or rubs. Abdomen: Benign. Extremities: Revealed no clubbing, cyanosis. He had 1+ edema. Laboratory Data: Creatinine is 11.8. Troponin is 334. Potassium is 5.8. EKG; AFib, 88. BNP is 11 9,000. Impression And Plan: 1.Acute on chronic systolic congestive heart failure. 2.Chronic atrial fibrillation. 3.End-stage renal disease, on dialysis. 4.Elevated troponin and BNP secondary to demand ischemia from congestive heart failure and kidney fa ilure. No plan for catheterization at this point, although he may deserve a catheterization sometime down the road. Echocardiogram is pending. Continue present regimen, dialyze. We will continue to follow. COLLETTE/JACOBOL Voice ID: [id number] Report ID: [id number]
--- NOTE | 2022-03-12 13:38 | EKG ---
Test Date: 2022-03-11 Test Time: 17:46:05 Business Control Specialist: HO MEASUREMENT RESULTS: Intervals: Rate: 120 UT: QRSD: 98 QT: 342 QTc: 483 [place]: P: UT: QRS: -39 T: 165 INTERPRETIVE STATEMENTS: Atrial flutter with variable AV block Left axis deviation Left ventricular hypertrophy with repolarization abnormality Abnormal ECG Compared to ECG 04/15/2019 08:57:16 Left-axis deviation now present Left ventricular hypertrophy now present Early repolarization now present Sinus rhythm no longer present Atrial abnormality no longer present Myocardial infarct finding no longer present ST (T wave) deviation no longer present Possible ischemia no longer present Electronically Signed On 03-12-22 13:36:55 CDT by Abdiel Reilly
--- NOTE | 2022-03-12 13:40 | CON ---
Date of Consultation: 03/12/2022 Reason For Consultation: Elevated BUN and creatinine, over volume, end-stage renal disease. 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 The patient yesterday came to the dialysis with shortness of breath and palpitation, difficulty ambulating. We placed the patient on s equential. We extended the treatment. We managed to remove 3.1 L below his dry weight by 1 kg, but the patient continued to have shortness of breath. For that reason, the patient was reported to the ER. In the ER, the patient found to have AFib with RVR. For that reason, the patient was admitted. The patient denied any chest pain. Today, his heart rate much better. Past Medical History: Includes; 1.End-stage renal disease, on hemodialysis Wednesday, Wednesday, Wednesday. 2.Secondary hyperparathyroidism. 3.Anemia. 4.Diabetes complicated with neuropathy, nephropathy. 5.Benign prostatic hypertrophy. 6.CAD. 7.AFib. Family History: Positive for CAD, hypertension, diabetes. Social History: Denied smoking. Denied drinking. Denied drugs abuse. Review of Systems: Head and Neck: No red eye. No ear pain. GI: No nausea. No vomiting. : No polyuria. No dysuria. No hematuria. Pigment Making Supervisor: Not applicable. Respiratory: Has shortness of breath. Cardiovascular: Has palpitation. Endocrine: No polydipsia. Skin: No rash. Neuro: Has neuropathy. Musculoskeletal: Generalized fatigue, difficulty ambulating. Physical Examination: Vital Signs: When I saw the patient; blood pressure 149/92, pulse of 92, irregular. Chest: Crackles bilateral. Heart: S1, S2. Systolic murmur. Irregular. Abdomen: Soft, nontender. Extremity: Trace edema. Right radial cephalic AV fistula. Neurologic: Alert, oriented. No focality. Difficulty hearing. Laboratory Data: H and H 11.1/32.6. Sodium 133, potassium 5.8, bicarb 22, BUN 74, creatinine 1.8, p hosphorus 5.9, magnesium 2.9. Current Medications: The patient on include Eliquis, albuterol, aspirin, atorvastatin, and Zofran. Assessment And Plan: 1.End-stage renal disease with over volume and hyperkalemia. I am going to go ahead and arrange for the dialysis today and tomorrow. We will challenge the patient. The patient is going to be dialyze d on low-potassium bath and low blood flow to establish better volume control and we will follow up t he patient. 2.Hypertension, controlled, optimal. We will continue trying to utilize blood pressure for more ult rafiltration. 3.Hyperkalemia. The patient is going to be dialyzed on low-potassium bath. 4.Anemia of chronic kidney disease. No need for DANIEL. 5.Over volume. The patient is going to be challenged on the dialysis today and tomorrow. 6.Diabetes as by primary. 7.Atrial fibrillation with rapid ventricular response as by primary and Cardiology. Thank you, Dr. Cano for allowing us to participate in the care of your patient. Time spent examining the patient [id number], reviewing data, lab and radiology, placing order, disc ussing the case with the hospitalist and steam hand including nursing more than 65 minutes. SAMIRA Voice ID: [id number] Report ID: [id number]
[2022-03-12] MEDS ORDERED: ALBUTEROL 2.5 MG/3 ML NEB SOL NEB PRN (15:00)
--- NOTE | 2022-03-12 19:14 | RAD REPORT ---
EXAM DESCRIPTION: RAD - Chest Single View - 03/12/2022 6:16 pm CLINICAL HISTORY: unable to completete dialysis COMPARISON: Portable 03/11/2022 TECHNIQUE: AP portable chest image was obtained 03/12/2022 6:16 pm . FINDINGS: Interstitial and patchy alveolar opacities are present. Pattern is not substantially diffe rent from comparison. Mild cardiomegaly is present. Central vascular engorgement seen. No pneumothorax or large pleural effusion. No acute bony abnormality seen. No acute aortic findings suspected. IMPRESSION: CHF/volume overload pattern similar to March 11 imaging.
[2022-03-12] MEDS: ATORVASTATIN 40 MG TAB PO SCH (21:01)
[2022-03-13 06:05] LABS: Absolute Lymphocytes (CBC) 1.3 K/uL (0.7-4.9); Hematocrit 28.5 % (39.6-49.0); Lymphocytes % 18.1 % (15.3-44.8); MCV 97.6 fL (80-100); MPV 9.2 fL (7.6-11.3); RBC Red Blood Cell Count 2.92 M/uL (4.33-5.43)
[2022-03-13 06:25] LABS: Potassium 4.8 mmol/L (3.5-5.1)
--- NOTE | 2022-03-13 07:08 | ECHO ---
HEIGHT: 5 ft 10 in WEIGHT: 201 lb 14.4 oz DATE OF STUDY: 03/12/[address]: Fabby Atkins 2-DIMENSIONAL: YES M.MODE: YES DOPPLER: YES COLOR FLOW: YES TDS: NO PORTABLE: YES DEFINITY: NO BUBBLE STUDY: NO DIAGNOSIS: NEW ONSET ATRIAL FIBRILLATION CARDIAC HISTORY: CATHERIZATION: NO SURGERY: NO PROSTHETIC VALVE: NO PACEMAKER: NO MEASUREMENTS (cm) DIASTOLIC (NORMALS) SYSTOLIC (NORMALS) IVSd 1.2 (0.6-1.2) LA Diam 3.9 (1.9-4.0) LVEF 10-15% LVIDd 5.3 (3.5-5.7) LVIDs 4.8 (2.0-3.5) %FS 9% LVPWd 1.3 (0.6-1.2) Ao Diam 2.5 (2.0-3.7) 2 DIMENSIONAL ASSESSMENT: RIGHT ATRIUM: NORMAL LEFT ATRIUM: ENLARGED RIGHT VENTRICLE: DIPRESSED FUNCTION LEFT VENTRICLE: SEVERELY DEPRESSED EJECTION FRACTION TRICUSPID VALVE: MILD TRICUSPID REGURGITATION MITRAL VALVE: MODERATE MITRAL REGURGITATION PULMONIC VALVE: MILD PULMONIC INSUFFICIENCY AORTIC VALVE: NORMAL PERICARDIAL EFFUSION: NONE AORTIC ROOT: NORMAL LEFT VENTRICULAR WALL MOTION: SEVERE GLOBAL HYPOKINESIS. DOPPLER/COLOR FLOW: SEE BELOW. COMMENTS: SEVERELY DEPRESSED LEFT VENTRICULAR EJECTION FRACTION 10-15%. SEVERELY DEPRESSED RIGHT VENTRICULAR FUNCTION. MILD TRICUSPID REGURGITATION. MODERATE MITRAL REGURGITATION. TECHNOLOGIST: CARLEEN SOUTH
[2022-03-13] MEDS: APIXABAN 2.5 MG TABLET PO SCH ×2 (08:56→20:17)
[2022-03-13] MEDS: ASPIRIN EC 81 MG TAB PO SCH (08:56)
--- NOTE | 2022-03-13 14:41 | P.PN ---
Subjective Date of Service: 03/13/22 Chief Complaint: Afib new onset Subjective: Other (Attempted to do HD today but unable d/t clotted AVF.) Physical Examination - Vital Signs Temperature: 97.2 F Blood Pressure: 131/82 Pulse: 89 Respirations: 24 Pulse Ox (%): 99 - Physical Exam General: In no apparent distress, Other (chronically ill-appearing) HEENT: Atraumatic, Normocephalic Neck: Supple, JVD not distended Respiratory: Other (symmetric chest expansion) Cardiovascular: No rubs, No murmurs Gastrointestinal: Soft and benign, No rebound Musculoskeletal: No clubbing Integumentary: No warmth Neurological: Normal tone Urinary: Other (no bladder distention) External genitalia: Deferred Rectal: Deferred Assessment And Plan - Plan 1. End-stage renal disease. Unable to do HD today d/t clotted LA AVF. 2. Hyperkalemia. Improved w/ HD received yesterday. 3. Htn. Cont current BP med regimen. 4. Anemia of chronic kidney disease. No need for DANIEL. Monitor H/H 5. Volume overload. Resume HD when access is working. 6. DM2. Mngt per primary team. 7. Atrial fibrillation with rapid ventricular response. Per cardiology 8. Dispo. Transfer to [facility] for AVF declotting.
[2022-03-13] MEDS: ATORVASTATIN 40 MG TAB PO SCH (20:17)
[2022-03-13 20:59] VITALS: O2SAT 99
[2022-03-14 07:33] VITALS: BP 131/82; TEMP 97.2
--- NOTE | 2022-03-14 09:18 | PN ---
Date of Progress Note: 03/13/2022 Subjective: Seen by bedside. Doing clinically well. No shortness of breath. He has a fistula for dialysis that is thrombosed and the plan to transfer him for thrombectomy in [place]. Review of Systems: No chest pain or shortness of breath, orthopnea, cough, nausea, vomiting, diarrhea. All other system s reviewed and they were negative. Physical Examination: Vital Signs: Reviewed. Head and Neck: Pupils are equal, reactive to light. Intact eye movements. No JVD. No cervical lym phadenopathy. Neck is supple. Thyroid is not enlarged. Lungs: Decreased breathing sounds with crackles both failed both lung erickson. No accessory muscle u se or muscle retraction. Heart: Irregularly irregular. No extra sounds. Abdomen: Soft, nontender. Bowel sounds positive. No organomegaly. No masses or hernia. No rigidi ty or rebound. Extremities: No clubbing or cyanosis. Intact pulses. Skin: No rash. Neurologic: Alert, awake, oriented x3. No acute focal deficits appreciated. Lymph Nodes: No cervical or axillary lymphadenopathy. Investigations: His creatinine is 13.3. Troponin 334. Hemoglobin is 9.7, white blood cell count 7. Assessment And Recommendation: 1.Severe systolic heart failure. Ejection fraction is less than 15%. The patient has atrial fibril lation and sinus rhythm needs to be restored. I recommend to start him on beta-tyrese with metoprol ol 25 mg twice a day for rate control and titrate up as needed and then once his heart rate is contro lled to switch to Toprol-XL and also recommend to start low dose of AP inhibitor if Nephrology is ok ay with that. 2.Atrial fibrillation. Rate is better; however, introduce beta-tyrese as outlined above and contin ue apixaban at a low dose due to the kidney dysfunction and the patient will need close monitoring as an outpatient. I explained to him in details and he agreed for followup as the patient likely will be transferred for fistula thrombectomy in [place]. 3.Dyslipidemia. Continue statin. 4.Elevated troponin. This patient will need ischemia evaluation. We will plan on a stress test as an outpatient and also further management of his atrial fibrillation. We will attempt to convert to sinus rhythm down the road once he has been anticoagulated for at least 4 weeks. SR/MODL Voice ID: [id number] Report ID: [id number]
== END 2022-03-14 05:04 | disposition short-term general hospital (02) | DRG 291 ==
LOC: ER 16:59 → ERHOLD 20:16 → 4TH 20:54
PROVIDERS: ADMIT Hospitalist; ATTEND Hospitalist
DX: I13.2 Hypertensive heart and chronic kidney disease with heart failure and with stage 5 chronic kidney disease, or end stage renal disease (principal); N18.6 End stage renal disease; I50.23 Acute on chronic systolic (congestive) heart failure; T82.868A Thrombosis due to vascular prosthetic devices, implants and grafts, initial encounter; I24.8 Other forms of acute ischemic heart disease; N25.81 Secondary hyperparathyroidism of renal origin; I48.91 Unspecified atrial fibrillation; E11.22 Type 2 diabetes mellitus with diabetic chronic kidney disease; E11.51 Type 2 diabetes mellitus with diabetic peripheral angiopathy without gangrene; E11.65 Type 2 diabetes mellitus with hyperglycemia; D63.1 Anemia in chronic kidney disease; Z99.2 Dependence on renal dialysis; E87.70 Fluid overload, unspecified; E11.40 Type 2 diabetes mellitus with diabetic neuropathy, unspecified; E11.21 Type 2 diabetes mellitus with diabetic nephropathy; E87.5 Hyperkalemia; N40.1 Benign prostatic hyperplasia with lower urinary tract symptoms; R33.8 Other retention of urine; E78.5 Hyperlipidemia, unspecified; I25.10 Atherosclerotic heart disease of native coronary artery without angina pectoris; Z20.822 Contact with and (suspected) exposure to COVID-19; Z79.82 Long term (current) use of aspirin; Z79.01 Long term (current) use of anticoagulants; Z79.899 Other long term (current) drug therapy; Z88.5 Allergy status to narcotic agent; Z82.49 Family history of ischemic heart disease and other diseases of the circulatory system; Z83.3 Family history of diabetes mellitus
CPT/HCPCS: 36415; 71045; 80048; 80061; 80069; 80076; 82550; 82553; 82947; 83735; 83880; 84443; 84484; 85025; 85610; 87811; 90935; 93005; 93306; 94760; 96374; 97116; 97161; 97530; 99285; J1644

== ENCOUNTER 2023-03-17 20:36 | Inpatient (IN) | payer OTHER, BC ==
--- OUTSIDE RECORDS SUMMARY | 2023-03-17 20:44 | XMS REPORT | Continuity of Care Document ---
:1955 Author Organization [facility] t Address [address] [place] [address] Care Team Providers Name Role Phone ERIKA AVALOS Attending Clinician Unavailable ERIKA AVALOS Admitting Clinician Unavailable Problems This patient has no known problems. Allergies, Adverse Reactions, Alerts This patient has no known allergies or adverse reactions. Medications This patient has no known medications. Procedures This patient has no known procedures. Encounters Start End Encounter Admission Attending Care Care Encounter Source Date/Time Date/Time Type Type Clinicians Facility Department ID 2022-03-14 2022-03-18 Inpatient ERIKA AVALOS [facility] [id number] Adrian 00:00:00 00:00:[address] Results Test Description Test Time Test Comments Results Result Comments Source SARS-CoV-2 (COVID-19) RNA [Presence] in Respiratory sp ecimen by 2022-03-15 04:52:56 ROMA with probe detection Test Item Value Reference Range Interpretation Comme nts SARS-CoV-2 (COVID-19) RNA [Presence] in Respiratory specimen by Not detected ROMA with probe detection (test code = 01156-5) Whether patient is employed in a healthcare setting (test code = Un known 26514-5) Whether the patient has symptoms related to condition of interest U nknown (test code = 40395-0) Whether the patient was hospitalized for condition of interest Unkn own (test code = 96786-5) Whether the patient was admitted to intensive care unit (ICU) for U nknown condition of interest (test code = 50273-9) Whether patient resides in a congregate care setting (test code = U nknown 06220-8) status (test code = 85136-7) Unknown Date and time of symptom onset (test code = 99041-9) Unknown [facility]
[2023-03-17] MEDS ORDERED: PROMETHAZINE 25 MG TABLET ONE (21:21)
[2023-03-17] MEDS ORDERED: hydrOXYzine HCL 25 MG TAB ONE (21:21)
[2023-03-17] MEDS ORDERED: HYDROCODONE/APAP 5/325 MG TAB ONE (21:22)
[2023-03-17 21:33] LABS: Absolute Lymphocytes (CBC) 1.1 K/uL (0.7-4.9); Hematocrit 38.9 % (39.6-49.0); Lymphocytes % 12.8 % (15.3-44.8); MCV 100.9 fL (80-100); MPV 8.8 fL (7.6-11.3); Platelets 154 thou/uL (152-406); RBC Red Blood Cell Count 3.85 M/uL (4.33-5.43)
--- NOTE | 2023-03-17 21:50 | RAD REPORT ---
EXAM DESCRIPTION: RAD - Chest Single View - 03/17/2023 9:44 pm CLINICAL HISTORY: chest congestion Chest pain. COMPARISON: Chest Single View dated 03/12/2022; Chest Single View dated 03/11/2022; Chest Pa And Lat ( 2 Views) dated 04/16/2019; Chest Single View dated 04/14/2019 FINDINGS: Portable technique limits examination quality. Moderate bilateral pulmonary opacities are present, which may represent pulmonary edema or pneumonia. The heart is mildly enlarged in size. No displaced fractures.
[2023-03-17 22:20] LABS: Albumin 3.4 g/dL (3.4-5.0); Bilirubin Direct 0.2 mg/dL (0-0.2); Bilirubin Indirect, Calculated 0.4 mg/dL (0.2-0.8); Bilirubin Total 0.6 mg/dL (0.2-1.0); Magnesium 2.1 mg/dL (1.6-2.4); Potassium 3.9 mEq/L (3.5-5.1); Protein, Total 7.6 g/dL (6.4-8.2)
--- NOTE | 2023-03-17 22:35 | ER ---
Nurse's Notes [facility] Name: Go Shen Age: 67 yrs Sex: Male : 1955 Arrival Date: 03/17/2023 Time: 20:36 Bed 13 Private MD: Diagnosis: Dyspnea on exertion, pulmonary edema, congestion, elevation of troponin, end-stage renal disease on dialysis Presentation: 03/17 20:38 Chief complaint: EMS states: toned out to patient's house for me1 congestion/cough/fever/chills and some sob. Coronavirus screen: Vaccine status: Patient reports receiving the 2nd dose of the covid vaccine. chills, congestion, cough unrelated to allergies, difficulty breathing, fatigue, fever, muscle pain. Ebola Screen: No symptoms or risks identified at this time. Initial Sepsis Screen: Does the patient meet any 2 criteria? HR > 90 bpm. No. Patient's initial sepsis screen is negative. Does the patient have a suspected source of infection? Yes: Productive cough/pneumonia. Risk Assessment: Do you want to hurt yourself or someone else? Patient reports no desire to harm self or others. Onset of symptoms was March 17, 2023. 20:38 Method Of Arrival: EMS: [facility] 20:38 Acuity: LITO 3 me1 Triage Assessment: 20:41 General: Appears uncomfortable, well developed, well nourished, Behavior is calm, me1 cooperative, appropriate for age, quiet. Pain: Complains of pain in generalized Pain does not radiate. Pain currently is 4 out of 10 on a pain scale. Quality of pain is described as aching, Pain began gradually, Is continuous. Neuro: Level of Consciousness is awake, alert, obeys commands, Oriented to person, place, time, situation, Appropriate for age. Cardiovascular: Capillary refill < 3 seconds Patient's skin is warm and dry. Respiratory: Airway is patent Respiratory effort is even, unlabored, Respiratory pattern is regular, symmetrical. Historical: - Allergies: 20:41 Codeine; me1 - PMHx: 20:41 BPH; ESRD; HD - MWF; Hypertension; me1 - Immunization history:: Adult Immunizations up to date. - Social history:: Smoking status: Patient denies any tobacco usage or history of. - Family history:: not pertinent. Screenin:43 [facility] ED Fall Risk Assessment (Adult) History of falling in the last 3 months, me1 including since admission No falls in past 3 months (0 pts) Confusion or Disorientation No (0 pts) Intoxicated or Sedated No (0 pts) Impaired Gait Yes (1 pt) Mobility Assist Device Used Yes (1 pt) Altered Elimination No (0 pt) Score/Fall Risk Level 3 or more points = High Risk. Abuse screen: Denies threats or abuse. Nutritional screening: No deficits noted. Tuberculosis screening: No symptoms or risk factors identified. Assessment: 20:43 General: See triage assessment. . me1 Vital Signs: 20:38 BP 151 / 81; Pulse 98; Resp 23; Temp 99.1(O); Pulse Ox 99% on R/A; Weight 82.55 kg; me1 Height 5 ft. 10 in. ; 21:00 BP 143 / 74; Pulse 95; Resp 20; Pulse Ox 99% on R/A; me1 21:45 BP 150 / 80; Pulse 97; Resp 22; Pulse Ox 100% on R/A; me1 22:32 BP 137 / 72; Pulse 98; Resp 17; Pulse Ox 96% on R/A; me1 20:38 Body Mass Index 26.11 (82.55 kg, 177.8 cm) me1 ED Course: 20:37 Patient arrived in ED. lg3 20:38 Joel Hill MD is Attending Physician. sp4 20:38 Teresa Dang, RN is Primary Nurse. me1 20:41 Triage completed. me1 20:41 Arm band placed on Patient placed in an exam room. me1 20:43 Patient has correct armband on for positive identification. Bed in low position. Call me1 light in reach. Side rails up X2. Provided Education on: POC. Verbalized understanding.. 20:43 No provider procedures requiring assistance completed. me1 20:56 Inserted saline lock: 20 gauge in left forearm, using aseptic technique. me1 21:45 Chest Single View In Process Unspecified. EDMS 22:21 Notified ED physician of a critical lab result(s). troponin 291. me1 22:34 Tyrese Chiang MD is Hospitalizing Provider. sp4 03/18 08:19 Patient admitted, IV remains in place. db Administered Medications: 03/17 21:14 Drug: HYDROcodone-acetaminophen PO 5 mg-325 mg 2 tabs PO once Route: PO; me1 21:54 Follow up: Response: No adverse reaction; Pain is decreased me1 21:14 Drug: hydrOXYzine PO 25 mg PO once Route: PO; me1 21:54 Follow up: Response: No adverse reaction me1 21:14 Drug: Promethazine PO 25 mg PO once Route: PO; me1 21:54 Follow up: Response: No adverse reaction me1 21:14 Not Given (med not available. Dr Michael krishnan ): [id number] mg PO once me1 22:39 Drug: Enoxaparin Sub-Q 80 mg Sub-Q once Route: Sub-Q; Site: left lower abdomen; me1 22:40 Drug: Aspirin PO Chewable Tablet 324 mg PO once; 81 mg tablets x 4 Route: PO; me1 Medication: 20:43 VIS not applicable for this client. me1 Outcome: 22:34 Decision to Hospitalize by Provider. sp4 03/18 08:19 Admitted to ER Hold. Please see [facility] for further documentation. db Condition: stable Instructed on the need for admit, 11:58 Patient left the ED. db Signatures: Dispatcher [employer] EDBettina Tiwari RN RN lg3 Dolly Wadsworth RN RN db Joel Hill MD MD sp4 Teresa Dang RN RN me1 Corrections: (The following items were deleted from the chart) 03/17 22:32 21:00 BP 150 / 80; Pulse 97bpm; Resp 22bpm; Pulse Ox 100% RA; me1 me1
--- NOTE | 2023-03-17 22:35 | EDPHYS ---
Physician Documentation [facility] Name: Go Shen Age: 67 yrs Sex: Male : 1955 Arrival Date: 03/17/2023 Time: 20:36 Bed 13 Private MD: ED Physician Joel Hill HPI: 03/17 20:38 This 67 yrs old Male presents to ER via Unassigned with complaints of flu like sp4 symptoms . 22:34 67-year-old male with past medical history of end-stage renal disease, hypertension, sp4 insulin-dependent type 2 diabetes, on hemodialysis every Wednesday, Followed by Dr. Mcgrath, presents to the emergency room with generalized weakness, feeling unwell, cough and congestion, shortness of breath. Patient reports he finishes dialysis this morning but he still feeling unwell and short of breath. Patient arrived with EMS, denied any chest pains. Past medications as listed include aspirin 81 mg daily, Plavix 75 mg daily, Protonix daily, also phosphate binders. Additional history includes BPH and PVD. . Historical: - Allergies: 20:41 Codeine; me1 - PMHx: 20:41 BPH; ESRD; HD - MWF; Hypertension; me1 - Immunization history:: Adult Immunizations up to date. - Social history:: Smoking status: Patient denies any tobacco usage or history of. - Family history:: not pertinent. ROS: 22:38 Constitutional: Negative for fever, chills, and weight loss, positive for generalized sp4 weakness, shortness of breath, feeling unwell, cough and congestion Eyes: Negative for injury, pain, redness, and discharge, 22:38 All other systems are negative, Exam: 22:38 Constitutional: This is a well developed, well nourished patient who is awake, alert, sp4 and in no acute distress. Patient is chronically ill-appearing but nontoxic. Vital signs and blood pressure are stable. There is a right upper arm dialysis fistula with palpable thrill. Results of right upper arm nonfunctional fistula. Patient is very hard of hearing has sensorineural hearing loss Head/Face: Normocephalic, atraumatic. Eyes: Pupils equal round and reactive to light, extra-ocular motions intact. Lids and lashes normal. Conjunctiva and sclera are not injected. Cornea within normal limits. Periorbital areas with no swelling, redness, or edema. ENT: Nares patent. No nasal discharge, no septal abnormalities noted. Tympanic membranes are normal and external auditory canals are clear. Oropharynx with no redness, swelling, or masses, exudates, or evidence of obstruction, uvula midline. Mucous membranes moist. Neck: Trachea midline, no thyromegaly or masses palpated, and no cervical lymphadenopathy. Supple, full range of motion without nuchal rigidity, or vertebral point tenderness. Chest/axilla: Normal chest wall appearance and motion. Nontender with no deformity. No lesions are appreciated. Cardiovascular: Regular rate and rhythm with a normal S1 and S2. No gallops, murmurs, or rubs. Normal PMI, no JVD. No pulse deficits. Respiratory: Lungs have equal breath sounds bilaterally, clear to auscultation and percussion. No rales, rhonchi or wheezes noted. No increased work of breathing, no retractions or nasal flaring. Abdomen/GI: Soft, non-tender, with normal bowel sounds. No distension or tympany. No guarding or rebound. No evidence of tenderness throughout. Back: No spinal tenderness. No costovertebral tenderness. Male : Normal genitalia with no discharge or lesions. Skin: Warm, dry with normal turgor. Normal color with no rashes, no lesions, and no evidence of cellulitis. MS/ Extremity: Pulses equal, no cyanosis. Neurovascular intact. Full, normal range of motion. Neuro: Awake and alert, GCS 15, oriented to person, place, time, and situation. Cranial nerves II-XII grossly intact. Motor strength 5/5 in all extremities. Sensory grossly intact. Psych: Awake, alert, with orientation to person, place and time. Behavior, mood, and affect are within normal limits 22:40 ECG was reviewed by the Attending Physician. EKG time 2145, EKG reveals sinus rhythm sp4 with a rate of 99, left axis deviation, left ventricular hypertrophy, ST segment depressed V5 V6, no sign of ST elevation. Vital Signs: 20:38 BP 151 / 81; Pulse 98; Resp 23; Temp 99.1(O); Pulse Ox 99% on R/A; Weight 82.55 kg; me1 Height 5 ft. 10 in. ; 21:00 BP 143 / 74; Pulse 95; Resp 20; Pulse Ox 99% on R/A; me1 21:45 BP 150 / 80; Pulse 97; Resp 22; Pulse Ox 100% on R/A; me1 22:32 BP 137 / 72; Pulse 98; Resp 17; Pulse Ox 96% on R/A; me1 20:38 Body Mass Index 26.11 (82.55 kg, 177.8 cm) [facility] [place] MDM: 20:55 Patient medically screened. sp4 22:40 Differential Diagnosis altered mental status, sepsis, flu. Data reviewed: vital signs, sp4 nurses notes, EMS record, old medical records, lab test result(s), EKG, radiologic studies, plain films. 22:41 Consideration of Admission/Observation Patient was admitted/placed on observation. sp4 Escalation of care including admission/observation considered. Management of patient was discussed with the following: Hospitalist: Admission team. ED course: Patient has significant troponin elevation to 91, although troponin has been high in the past, at this time patient warrants admission for troponin trend also for management of pulmonary edema. Influenza test still pending. 03/17 20:38 Order name: SARS RAPID [facility] 03/17 20:38 Order name: Influenza Screen (a \T\ B) [facility] 03/17 20:39 Order name: Basic Metabolic Panel [facility] 03/17 20:39 Order name: CBC with Diff [facility] 03/17 20:39 Order name: LFT's [facility] 03/17 20:39 Order name: Magnesium [facility] 03/17 20:39 Order name: NT PRO-BNP [facility] 03/17 20:39 Order name: PT-INR [facility] 03/17 20:39 Order name: Troponin HS [facility] 03/17 21:29 Order name: Basic Metabolic Panel; Complete Time: 22:23 [facility] 03/17 21:29 Order name: Liver (Hepatic) Function; Complete Time: 22:23 [facility] 03/17 21:29 Order name: Troponin High Sensitivity; Complete Time: 22:23 [facility] 03/17 21:29 Order name: NT PRO-BNP; Complete Time: 22:23 [facility] 03/17 21:29 Order name: Magnesium; Complete Time: 22:23 [facility] 03/17 21:29 Order name: CBC with Automated Diff; Complete Time: 22:04 [facility] 03/17 21:29 Order name: Protime (+INR) [facility] 03/17 21:29 Order name: SARS-COV-2 RT PCR; Complete Time: 22:04 [facility] 03/17 21:29 Order name: Influenza Screen (A ; Complete Time: 00:06 [facility] 03/18 02:46 Order name: Influenza Screen (A [facility] 03/18 04:35 Order name: CBC with Automated Diff [facility] 03/18 05:19 Order name: Basic Metabolic Panel [facility] 03/18 05:19 Order name: Troponin High Sensitivity [facility] 03/18 05:19 Order name: Lipid Profile [facility] 03/18 05:19 Order name: T4 Free [facility] 03/18 05:19 Order name: Thyroid Stimulating Hormone [facility] 03/18 05:26 Order name: Procalcitonin [facility] 03/17 20:39 Order name: XRAY Chest (1 view) [facility] 03/17 21:22 Order name: Chest Single View; Complete Time: 22:04 [facility] 03/17 20:39 Order name: EKG; Complete Time: 02:38 [facility] 03/17 20:39 Order name: Cardiac monitoring; Complete Time: 21:54 [facility] 03/17 20:39 Order name: EKG - Nurse/Tech; Complete Time: 21:54 [facility] 03/17 20:39 Order name: IV Saline Lock; Complete Time: 21:05 [facility] 03/17 20:39 Order name: Labs collected and sent; Complete Time: 21:05 4 03/17 20:39 Order name: O2 Per Protocol; Complete Time: 21:05 [facility] 03/17 20:39 Order name: O2 Sat Monitoring; Complete Time: 21:05 sp4 EC:40 Rate is 99 beats/min. Rhythm is regular, Sinus Rhythm. Left axis deviation noted. FL sp4 interval is normal. ST Segment is depressed in leads V5, V6. Interpreted by me. Administered Medications: 21:14 Drug: HYDROcodone-acetaminophen PO 5 mg-325 mg 2 tabs PO once Route: PO; me1 21:54 Follow up: Response: No adverse reaction; Pain is decreased me1 21:14 Drug: hydrOXYzine PO 25 mg PO once Route: PO; me1 21:54 Follow up: Response: No adverse reaction me1 21:14 Drug: Promethazine PO 25 mg PO once Route: PO; me1 21:54 Follow up: Response: No adverse reaction me1 21:14 Not Given (med not available. Dr Michael kirshnan ): [id number] mg PO once me1 22:39 Drug: Enoxaparin Sub-Q 80 mg Sub-Q once Route: Sub-Q; Site: left lower abdomen; me1 22:40 Drug: Aspirin PO Chewable Tablet 324 mg PO once; 81 mg tablets x 4 Route: PO; me1 Disposition Summary: 03/17/23 22:34 Hospitalization Ordered Notes: Hospitalization Status: Inpatient Admission sp4 Provider: Tyrese Chiang sp4 Condition: Stable sp4 Problem: new sp4 Symptoms: are unchanged sp4 Bed/Room Type: Standard sp4 Location: Telemetry/MedSurg (Inpatient)(03/18/23 11:00) Room Assignment: [facility](03/18/23 11:00) Diagnosis - Dyspnea on exertion, pulmonary edema, congestion, elevation of troponin, end-stage sp4 renal disease on dialysis Forms: - Medication Reconciliation Form sp4 - SBAR form sp4 - Leadership Thank You Letter sp4 Signatures: Dispatcher [employer] Talita Ruiz RN RN Alva Corey RN RN Joel Hill MD MD sp Teresa Dang RN RN me1 Corrections: (The following items were deleted from the chart) 23:10 22:34 Telemetry/MedSurg (Inpatient) sp4 cg 23:10 22:34 sp4 cg 03/18 11:00 03/17 23:10 [facility] ER HOLD cg hb 03/18 11:00 03/17 23:10 ERHOLD- [facility]
[2023-03-17] MEDS ORDERED: ASPIRIN 81 MG CHEWABLE TABLET ONE (22:51)
[2023-03-17] MEDS ORDERED: ENOXAPARIN 80 MG/0.8 ML SQ ONE (22:52)
--- NOTE | 2023-03-17 23:21 | P.HP ---
Certification for Inpatient Patient admitted to: Observation With expected LOS: <2 Midnights Practitioner: I am a practitioner with admitting privileges, knowledge of patient current condition, hospital course, and medical plan of care. Services: Services provided to patient in accordance with Admission requirements found in Title 42 Section 412.3 of the Code of Federal Regulations Patient History Date of Service: 03/17/23 Reason for admission: NSTEMI, Pulmonary edema History of Present Illness: 67-year-old male with history of ESRD on HD MWF, BPH, hypertension, atrial fibr illation on chronic anticoagulation presents emergency department with chief complaint of cough, congestion, shortness of breath. He reports his symptoms began yesterday, felt as if he had low-grade fevers as well for the past 24 to 48 hours. He was evaluated here in the emergency department his labs are significant for hemoglobin 13 hematocrit 30.9 creatinine 6.31 GFR 9 troponin 291.0 BNP 97,832 COVID-negative flu test is pending chest x-ray shows moderate pulmonary opacities concerning for pulmonary edema versus pneumonia. Flu test is pending, previous troponin levels about a year ago similar to this evening, denies chest pain. Patient be admitted for NSTEMI, shortness of breath. Allergies No Known Allergies Allergy (Verified 03/11/22 21:29) Home Medications: Sucroferric Oxyhydroxide [Velphoro] 1,000 mg PO TID 03/12/22 Apixaban [Eliquis *] 2.5 mg PO BID #60 03/13/22 Metoprolol Tartrate [Lopressor] 25 mg PO BID #60 tab 03/13/22 - Past Medical/Surgical History Diabetic: Yes -: ESRD, (M,W,F dialysis) -: Hypertension -: Diabetes mellitus type 2 -: BPH with urinary retention -: PVD -: AF on AC -: AV graft Psychosocial/ Personal History: The patient is single. He has no children. - Family History Father -: Heart disease, Hypertension Mother -: Other (see notes) Brother -: Heart disease Sister -: Diabetes - Social History Smoking Status: Never smoker Alcohol use: No CD- Drugs: No Caffeine use: No Place of Residence: Home Review of Systems 10-point ROS is otherwise unremarkable General: Chills Respiratory: Shortness of Breath Physical Examination - Physical Exam General: Alert, In no apparent distress, Oriented x3 HEENT: Atraumatic, PERRLA, Mucous membr. moist/pink, EOMI, Sclerae nonicteric Neck: Supple, 2+ carotid pulse no bruit, No LAD, Without JVD or thyroid abnormality Respiratory: Diminished Cardiovascular: Regular rate/rhythm, Normal S1 S2 Gastrointestinal: Normal bowel sounds, No tenderness Musculoskeletal: No tenderness Integumentary: No rashes Neurological: Normal speech, Normal strength at 5/5 x4 extr, Normal tone, Normal affect - Studies Laboratory Data (last 24 hrs) 03/17/23 03/17/23 21:03 21:03 WBC 8.50 Hgb 13.0 L Hct 38.9 L Plt Count 154 Sodium 135 L Potassium 3.9 BUN 21 H Creatinine 6.31 H Glucose 100 Magnesium 2.1 Total Bilirubin 0.6 AST 13 L ALT 24 Alkaline Phosphatase 63 Assessment and Plan - Plan Assessment: ESRD on HD MWF with volume overload/pulmonary edema NSTEMI Atrial fibrillation on chronic anticoagulation Hypertension BPH-self caths around once a week Plan: ESRD on HD MWF with volume overload/pulmonary edema Compliant with dialysis, last dialyzed on Wednesday completed session. Nephrology consult in place. NSTEMI Suspect event ischemia, denies chest pain troponin similar to previous. Will trend troponins, monitor on telemetry. Atrial fibrillation on chronic anticoagulation Continue Eliquis, other home medications. Hypertension BPH-self caths around once a week Continue home medications. DVT PPX: Continue Eliquis Code status: Full Discharge Plan: Home Plan to discharge in: 24 Hours - Advance Directives Does patient have a Living Will: No Does patient have a Durable POA for Healthcare: No - Code Status/Comfort Care Code Status Assessed: Yes (Full code) Critical Care: No Time Spent Managing Pts Care (In Minutes): 55
[2023-03-18] MEDS ORDERED: ONDANSETRON 4 MG/2 ML VIAL IV PRN (01:13)
[2023-03-18 01:17] VITALS: BMI 26.1
[2023-03-18 04:28] LABS: Absolute Lymphocytes (CBC) 1.3 K/uL (0.7-4.9); Hematocrit 40.1 % (39.6-49.0); Lymphocytes % 14.3 % (15.3-44.8); MCV 101.7 fL (80-100); MPV 8.9 fL (7.6-11.3); Platelets 143 thou/uL (152-406); RBC Red Blood Cell Count 3.94 M/uL (4.33-5.43)
[2023-03-18 05:09] LABS: Potassium 3.8 mEq/L (3.5-5.1); Thyroid Stimulating Hormone 1.64 uIU/mL (0.358-3.740)
[2023-03-18 05:18] LABS: Troponin High Sensitivity 317.1 pg/mL (<58.9)
[2023-03-18 05:30] LABS: Protime INR 1.15
[2023-03-18] MEDS: APIXABAN 2.5 MG TABLET PO SCH ×2 (08:56→20:40)
--- NOTE | 2023-03-18 10:15 | P.PN ---
Subjective Date of Service: 03/18/23 Chief Complaint: NSTEMI, Pulmonary edema HPI 03/17: Hermelinda De La Cruz, 67-year-old male with history of ESRD on HD MWF, BPH, hypertension, atrial fibrillation on chronic anticoagulation presents emergency department with chief complaint of cough, congestion, shortness of breath. He reports his symptoms began yesterday, felt as if he had low-grade fevers as well for the past 24 to 48 hours. He was evaluated here in the emergency department his labs are significant for hemoglobin 13 hematocrit 30.9 creatinine 6.31 GFR 9 troponin 291.0 BNP 97,832 COVID-negative flu test is pending chest x-ray shows moderate pulmonary opacities concerning for pulmonary edema versus pneumonia. Flu test is pending, previous troponin levels about a year ago similar to this evening, denies chest pain. Patient be admitted for NSTEMI, shortness of breath. 03/18: Patient awake in bed uncomfortable. Patient c/o of a hoarse voice, coughing while talking. On RA sating 95%. Troponin trend 291.0/317.1/313.9. Plan for dialysis tomorrow. Patient more comfortable this afternoon. <Leeann Clement - Last Filed: 03/18/23 16:41> Date of Service: 03/18/23 <Tyrese Chiang - Last Filed: 03/18/23 17:23> Review of Systems General: Fever, Weakness, Malaise Eyes: Unremarkable ENT: Other (hoarse ) Respiratory: Cough Cardiovascular: Orthopnea Gastrointestinal: Unremarkable Genitourinary: Other (Dialysis Wednesday, self catheterization) Integumentary: Unremarkable Neurological: Unremarkable Lymphatics: Unremarkable <Leeann Clement - Last Filed: 03/18/23 16:41> Physical Examination - Vital Signs Temperature: 98.8 F Blood Pressure: 156/88 Pulse: 102 Respirations: 20 Pulse Ox (%): 96 - Physical Exam General: Alert, Oriented x3, Other (uncomfortable) HEENT: Atraumatic, Normocephalic, PERRLA, Other (hard of hearing) Neck: Supple, 2+ carotid pulse no bruit Respiratory: Diminished Cardiovascular: No edema, Normal pulses, Regular rate/rhythm, Normal S1 S2 Capillary refill: <2 Seconds Gastrointestinal: Normal bowel sounds, Hyperactive Musculoskeletal: No clubbing, No swelling, No contractures Integumentary: No rashes Neurological: Normal speech, Normal strength at 5/5 x4 extr - Studies Laboratory Data (last 24 hrs) 03/17/23 03/17/23 03/17/23 21:03 21:03 20:39 WBC 8.50 Hgb 13.0 L Hct 38.9 L Plt Count 154 PT Cancelled INR Cancelled Sodium 135 L Potassium 3.9 BUN 21 H Creatinine 6.31 H Glucose 100 Magnesium 2.1 Total Bilirubin 0.6 AST 13 L ALT 24 Alkaline Phosphatase 63 03/17/23 03/17/23 20:39 20:39 WBC Cancelled Hgb Cancelled Hct Cancelled Plt Count Cancelled PT INR Sodium Cancelled Potassium Cancelled BUN Cancelled Creatinine Cancelled Glucose Cancelled Magnesium Cancelled Total Bilirubin Cancelled AST Cancelled ALT Cancelled Alkaline Phosphatase Cancelled Microbiology Data (last 24 hrs): 03/17/23 21:03 Nasopharnyx Influenza Type A Antigen Screen - Final 03/17/23 21:03 Nasopharnyx Influenza Type B Antigen Screen - Final <Leeann Clement - Last Filed: 03/18/23 16:41> - Studies Laboratory Data (last 24 hrs) 03/17/23 03/17/23 03/17/23 21:03 21:03 20:39 WBC 8.50 Hgb 13.0 L Hct 38.9 L Plt Count 154 PT Cancelled INR Cancelled Sodium 135 L Potassium 3.9 BUN 21 H Creatinine 6.31 H Glucose 100 Magnesium 2.1 Total Bilirubin 0.6 AST 13 L ALT 24 Alkaline Phosphatase 63 03/17/23 03/17/23 20:39 20:39 WBC Cancelled Hgb Cancelled Hct Cancelled Plt Count Cancelled PT INR Sodium Cancelled Potassium Cancelled BUN Cancelled Creatinine Cancelled Glucose Cancelled Magnesium Cancelled Total Bilirubin Cancelled AST Cancelled ALT Cancelled Alkaline Phosphatase Cancelled Microbiology Data (last 24 hrs): 03/17/23 21:03 Nasopharnyx Influenza Type A Antigen Screen - Final 03/17/23 21:03 Nasopharnyx Influenza Type B Antigen Screen - Final <Tyrese Chiang - Last Filed: 03/18/23 17:23> Assessment And Plan - Plan Assessment: ESRD on HD MWF with volume overload/pulmonary edema NSTEMI Atrial fibrillation on chronic anticoagulation Hypertension BPH-self caths around once a week Plan: ESRD on HD MWF with volume overload/pulmonary edema Compliant with dialysis, last dialyzed on Wednesday completed session. Self catheterization once a week. Nephrology consult- plan for dialysis Wednesday NSTEMI Suspect event ischemia, denies chest pain troponin similar to previous. Monitor on telemetry. Troponin trend 291.0/317.1/313.9 Atrial fibrillation on chronic anticoagulation Continue Eliquis, other home medications. Hypertension BPH-self caths around once a week Continue home medications. DVT PPX: Continue Eliquis Code status: Full Discharge Plan: Home Plan to discharge in: 24 Hours Time Spent Managing PTS Care (In Minutes): 35 <Leeann Clement - Last Filed: 03/18/23 16:41> - Plan Patient seen on rounds separately from MAP CLERK U[place]ano, and plan of care reviewed Agree with plan of care as noted above Patient reports feeling better - less congestion, breathing easier, voice is still crackling / weak no new/worse symptoms HD tomorrow NSTEMI, cardio consulted, denies chest pain, suspect demand ischemia afebrile <Tyrese Chiang - Last Filed: 03/18/23 17:23>
--- NOTE | 2023-03-18 15:07 | EKG ---
Test Date: 2023-03-17 Test Time: 21:43:32 Gate Mortiser Operator: TRI MEASUREMENT RESULTS: Intervals: Rate: 98 VA: 176 QRSD: 134 QT: 394 QTc: 503 [place]: P: 82 VA: 176 QRS: -39 T: 116 INTERPRETIVE STATEMENTS: Normal sinus rhythm Left axis deviation Left ventricular hypertrophy with QRS widening T wave abnormality, consider lateral ischemia Abnormal ECG Compared to ECG 03/11/2022 17:46:05 T-wave abnormality now present Possible ischemia now present Atrial flutter no longer present Early repolarization no longer present Electronically Signed On 03-18-23 15:04:59 CDT by Abdiel Reilly
[2023-03-18] MEDS: METOPROLOL TAR 25 MG TAB PO SCH (17:44)
--- NOTE | 2023-03-18 20:51 | CON ---
Date of Consultation: 03/18/2023 Reason For Consultation: Elevated troponin. History Of Present Illness: This is a 67-year-old male with history of end-stage renal disease, on h emodialysis, hypertension, atrial fibrillation, who presented with cough and congestion and shortness of breath, low-grade fever as well. Denies having any active chest pain. No other complaints. Past Medical History: As outlined above in the HPI. Medications: Refer reconciliation sheet for detailed list. Allergies: NO KNOWN DRUG ALLERGIES. Family History: No premature coronary artery disease or cancer. Social History: Does not smoke or drink. Does not use any drugs. Review of Systems: All systems reviewed and they were negative except as mentioned in the HPI. Physical Examination: Vital Signs: Reviewed. Head and Neck: Pupils are equal, reactive to light. Intact eye movements. Mild JVD elevation. No cervical lymphadenopathy. Lungs: Positive bilateral air entry with rhonchi bilaterally. No accessory muscle use or muscle ret raction. Heart: Irregular. No extra sounds. Abdomen: Soft, nontender. Bowel sounds positive. No organomegaly. No masses or hernia. No rigidi ty or rebound Extremities: Edema is present bilaterally. No clubbing or cyanosis. Intact pulses. Skin: No rash. No nodule. Neurologic: Alert, awake, oriented x3. No acute focal deficits appreciated. Investigations: BUN 23, creatinine 6.7. Troponin peaked at 317. Assessment And Recommendations: 1.Elevated troponin, likely demand ischemia. Patient is asymptomatic. I recommend a Lexiscan nucle ar stress test to be done to further evaluate and obtain an echo. 2.Atrial fibrillation. Increase metoprolol to 50 mg twice a day and continue apixaban 2.5 mg twice a day. 3.End-stage renal disease, on hemodialysis. 4.Fluid overload. Needs dialysis and nephrology is on board. SR/MODL Voice ID: [id number] Report ID: [id number]
[2023-03-18] MEDS: BENZONATATE 100 MG CAP PO PRN (22:49)
[2023-03-19 03:14] LABS: Absolute Lymphocytes (CBC) 1.2 K/uL (0.7-4.9); Hematocrit 38.7 % (39.6-49.0); Lymphocytes % 11.8 % (15.3-44.8); MCV 101.2 fL (80-100); MPV 8.9 fL (7.6-11.3); Platelets 144 thou/uL (152-406); RBC Red Blood Cell Count 3.83 M/uL (4.33-5.43)
[2023-03-19 03:36] LABS: Albumin 3.2 g/dL (3.4-5.0); Potassium 4.1 mEq/L (3.5-5.1)
--- NOTE | 2023-03-19 04:21 | CON ---
Date of Consultation: 03/18/2023 Chief Complaint: Congestive heart failure, fluid overload, non-ST elevation myocardial infarction, p ulmonary edema. History Of Present Illness: The patient is a 67-year-old man with history of end-stage renal disease , on hemodialysis Wednesday, Wednesday, Wednesday. He has last dialysis done on March 17, 2 023. He has history of atrial fibrillation on chronic anticoagulation, hypertension, and BPH. He pr esented to the hospital because of shortness of breath, cough, congestion, and low-grade fever. He w as evaluated for possible COVID. COVID test was negative. BNP was elevated, troponin was 291, hemog lobin 13, hematocrit 38.9, creatinine 6.31. Chest x-ray showed some interstitial opacities. Pulmona ry congestion concerning for pulmonary edema, which was a typical pneumonia. Flu test was done as we ll and is pending. Patient is admitted to the hospital for non-ST elevation myocardial infarction, s hortness of breath. He was consulted by machine try out setter. Review of Systems: General: Denies syncope. Has low-grade fever. Eyes: Denies new vision changes. Ears, Nose, Mouth and Throat: Has hearing impairment, chronic. Gastrointestinal: Denies nausea or vomiting. : Denies dysuria, hematuria. Cardiovascular: Denies chest pain, palpitation, syncope. Respiratory: Denies hemoptysis. He has had cough and some congestion, which is gradually resolving. All other system are reviewed and all are negative. Past Medical History: Anemia, CKD, end-stage renal disease, hypertension, diabetes mellitus with anh al manifestation, diabetic kidney disease, BPH with urinary retention, peripheral vascular disease, a trial fibrillation on anticoagulation, history of dialysis access procedure. Social History: Denies tobacco, alcohol, illicit drugs. Family History: Heart disease, history of diabetes. Mother has sudden hypertension and heart diseas e. Physical Examination: General: The patient is awake, follows commands. Oriented x3. HEENT: Atraumatic, normocephalic. Anicteric sclerae. Neck: Supple. No JVD. No bruits. Lungs: Few rhonchi. Heart: S1, S2. No pericardial friction rub. Abdomen: Soft, benign, nontender. No rebound. No guarding. No flank tenderness. Extremities: Slight edema in both ankles. Neurological: Moving extremities. Cranial nerves intact. Lab Work: WBC 8.5, hemoglobin 13. Sodium 135, platelet count 154, potassium 3.9, BUN 21, creatinine level of 6.31, magnesium 2.1, total bilirubin 0.6. Impression And Plan: End-stage renal disease on Wednesday, Wednesday, Wednesday. He came to the hospital with shortness of breath and chest x-ray consistent with pulmonary edema and fluid overload. The pat ient is on O2 nasal cannula, non-ST elevation myocardial infarction. Cardiology is consulted for atr ial fibrillation, on chronic anticoagulation, hypertension, BPH, end-stage renal disease. Plan is to resume dialysis with ultrafiltration and monitor fluid balance. Continue low-sodium diet, p.o. flui d restriction. Advance ultrafiltration to control volemia. 1.Atrial fibrillation, chronic, on Eliquis. Further recommendation from Cardiology. 2.Hypertension. Continue low-sodium diet and current blood pressure medication. 3.BPH. Patient self catheterized and continue as per Urology recommendation. 4.Hypertension. Advance blood pressure medication. Patient will continue beta tyrese. EB/MODL Voice ID: [id number] Report ID: [id number]
[2023-03-19] MEDS: METOPROLOL TAR 25 MG TAB PO SCH (05:49)
--- NOTE | 2023-03-19 06:55 | ECHO ---
HEIGHT: 5 ft 10 in WEIGHT: 181 lb 15.866 oz DATE OF STUDY: 03/18/[address]: Valentino Hernandez NP 2-DIMENSIONAL: YES M.MODE: YES DOPPLER: YES COLOR FLOW: YES TDS: PORTABLE: YES DEFINITY: BUBBLE STUDY: DIAGNOSIS: NON ST ELEVATION MYOCARDIAL INFARCTION, PULMONARY EDEMA CARDIAC HISTORY: CATHERIZATION: NO SURGERY: NO PROSTHETIC VALVE: NO PACEMAKER: NO MEASUREMENTS (cm) DIASTOLIC (NORMALS) SYSTOLIC (NORMALS) IVSd 1.1 (0.6-1.2) LA Diam 3.4 (1.9-4.0) LVEF 12% LVIDd 5.6 (3.5-5.7) LVIDs 2.3 (2.0-3.5) %FS 6% LVPWd 1.2 (0.6-1.2) Ao Diam 3.0 (2.0-3.7) 2 DIMENSIONAL ASSESSMENT: RIGHT ATRIUM: NORMAL LEFT ATRIUM: NORMAL RIGHT VENTRICLE: NORMAL LEFT VENTRICLE: DEPRESSED EJECTION FRACTION TRICUSPID VALVE: MILD TRICUSPID REGURGITATION MITRAL VALVE: MODERATE MITRAL REGURGITATION PULMONIC VALVE: MILD PULMONIC INSUFFICIENCY AORTIC VALVE: NORMAL PERICARDIAL EFFUSION: NONE AORTIC ROOT: NORMAL LEFT VENTRICULAR WALL MOTION: SEVERE GLOBAL HYPOKINESIS DOPPLER/COLOR FLOW: SEE BELOW COMMENTS: 1. SEVERELY DEPRESSED LEFT VENTRICULAR EJECTION FRACTION 15-20% 2. SEVERE GLOBAL HYPOKINESIS 3. MODERATE MITRAL REGURGITATION 4. MILD TRICUSPID REGURGITATION TECHNOLOGIST: CARLEEN SOUTH
[2023-03-19] MEDS ORDERED: REGADENOSON 0.4 MG/5 ML SYR IV ONE (07:24)
[2023-03-19] MEDS: FOLIC ACID 1 MG TABLET PO SCH (08:35)
[2023-03-19] MEDS: APIXABAN 2.5 MG TABLET PO SCH ×2 (08:36→20:00)
--- NOTE | 2023-03-19 12:43 | RAD REPORT ---
EXAM DESCRIPTION: NM - Rest Stress Cardiac Imaging - 03/19/2023 8:22 am CLINICAL HISTORY: elevated troponin COMPARISON: Rest Stress Cardiac Imaging dated 11/01/2018 TECHNIQUE: The patient was administered approximately 10.2 mCi of Tc 99m Sestamibi prior to resting SPECT imaging of the heart. The patient was then administered approximately 28.9 mCi of Tc 99m Sestam ibi following exercise or pharmacologic stress. Multiplanar SPECT images were reviewed. FINDINGS: No stress induced ischemic defect is seen to suggest stress induced ischemia. Large fixed defects involving the entirety of the inferior wall and apex, large portions of the anterior wall spa ring a portion of the basal segment, apical segment of the lateral wall, and most of the septal wall. The extent of involvement is overall stable. The end diastolic volume is 251 ml, the end systolic volume is 183 ml, and the ejection fraction is 2 7 %. IMPRESSION: No evidence of stress induced ischemia. Extensive fixed defects, mainly sparing the lateral wall, stable in extent compared to the 2019 study , compatible with sequelae of ischemia. End-diastolic volume is increased, and the ejection fraction is reduced, 27%. Similar findings were a lso noted in 2019.
--- NOTE | 2023-03-19 13:17 | P.PN ---
Subjective Date of Service: 03/19/23 Chief Complaint: NSTEMI, Pulmonary edema Subjective: Other (HD received today.) Physical Examination - Vital Signs Temperature: 98.3 F Blood Pressure: 127/67 Pulse: 73 Respirations: 18 Pulse Ox (%): 100 - Physical Exam General: Other (chronically ill-appearing) HEENT: Atraumatic, Normocephalic Neck: Supple Respiratory: Other (symmetric chest expansion) Cardiovascular: No rubs, No murmurs Gastrointestinal: Soft and benign, No rebound Musculoskeletal: No clubbing Integumentary: No warmth Neurological: Normal tone Urinary: Other (no bladder distention) External genitalia: Deferred Rectal: Deferred - Studies Laboratory Data (last 24 hrs) 03/19/23 03/19/23 02:40 02:40 WBC 9.70 Hgb 13.5 L Hct 38.7 L Plt Count 144 L Sodium 131 L D Potassium 4.1 BUN 42 H Creatinine 8.58 H Glucose 120 H Phosphorus 5.0 H Assessment And Plan - Plan 1. End-stage renal disease on HD Wednesday, Wednesday, Wednesday. HD received today. 1. Atrial fibrillation, chronic, on Eliquis. Further recommendation from Cardiology. 2. Hypertension. Continue low-sodium diet and current blood pressure medication. 3. BPH. Patient self catheterized and continue as per Urology recommendation. 4. Hypertension. Advance blood pressure medication. Patient will continue beta tyrese. 5. Renal osteodystrophy. Monitor serum calcium and phosphorus.
[2023-03-19 14:20] LABS: Hepatitis B surface AG Interp. Nonreactive (Nonreactive)
--- NOTE | 2023-03-19 14:56 | TREADPHA ---
DX: ELEVATED TROPONIN Date of Study: 03/19/2023 Ht: 5' 10 " Wt: 181 lb 15.866 oz Consulting Physician: MICKY MEDICATIONS: ELIQUIS, TESSALON PERLE, FOLIC ACID, LOPRESSOR, ZOFRAN HISTORY: PHYSICIAL EXAMINATION: RESTING B.P.: 120/72 RESTING H.R.: 76 RESTING EKG: NORMAL SINUS RHYTHM WITH INFERIOLATERAL ST DEPRESSION PROTOCOL: PHARMACOLOGIC EXERCISE TIME: 3:30 B.P. AT PEAK STRESS: 128/64 IMPRESSION: LEXISCAN STRESS TEST PERFORMED. CARDIOLITE ADMINISTERED PER PROTOCOL (SEE NUCLEAR MEDICINE REPORT). NO SUPRAVENTRICULAR TACHYCARDIA, VENTRICULAR TACHYCARDIA OR ARRHYTHMIAS NOTED. NO SHORTNESS OF BREATH OR CHEST PAIN NOTED. NON-DIAGNOSTIC ELECTROCARDIGRAM PART DUE TO ABNORMAL BASELINE.
[2023-03-19] MEDS: METOPROLOL TAR 50 MG TAB PO SCH (17:13)
--- NOTE | 2023-03-19 17:47 | P.PN ---
Subjective Date of Service: 03/19/23 Chief Complaint: NSTEMI, Pulmonary edema HPI 03/17: Hermelinda De La Cruz, 67-year-old male with history of ESRD on HD MWF, BPH, hypertension, atrial fibrillation on chronic anticoagulation presents emergency department with chief complaint of cough, congestion, shortness of breath. He reports his symptoms began yesterday, felt as if he had low-grade fevers as well for the past 24 to 48 hours. He was evaluated here in the emergency department his labs are significant for hemoglobin 13 hematocrit 30.9 creatinine 6.31 GFR 9 troponin 291.0 BNP 97,832 COVID-negative flu test is pending chest x-ray shows moderate pulmonary opacities concerning for pulmonary edema versus pneumonia. Flu test is pending, previous troponin levels about a year ago similar to this evening, denies chest pain. Patient be admitted for NSTEMI, shortness of breath. 03/18: Patient awake in bed uncomfortable. Patient c/o of a hoarse voice, coughing while talking. On RA sating 95%. Troponin trend 291.0/317.1/313.9. Plan for dialysis tomorrow. Patient more comfortable this afternoon. 03/19: Patient awake, more comfortable today. Still with hoarse voice and upper respiratory congestion. Dialysis today. likely discharge tomorrow. Nephrology recommends fluid restriction and low sodium diet. Stress test resulted with No evidence of stress induced ischemia. Extensive fixed defects, mainly sparing the lateral wall, stable in extent compared to the 2019 study, compatible with sequelae of ischemia. End-diastolic volume is increased, and the ejection fraction is reduced, 27%. Similar findings were also noted in 2019. <Leeann Clement - Last Filed: 03/19/23 18:05> Date of Service: 03/19/23 <Tyrese Chiang - Last Filed: 03/19/23 21:27> Review of Systems General: Unremarkable Eyes: Unremarkable ENT: Nose Congestion Respiratory: Cough, Wheezing Cardiovascular: Unremarkable Gastrointestinal: Unremarkable Neurological: Unremarkable <Leeann Clement - Last Filed: 03/19/23 18:05> Physical Examination - Vital Signs Temperature: 98.3 F Blood Pressure: 127/67 Pulse: 73 Respirations: 18 Pulse Ox (%): 100 - Physical Exam General: Alert, In no apparent distress, Oriented x3 HEENT: Atraumatic, Normocephalic, PERRLA Respiratory: Crackles/rales, Expiratory wheezes Cardiovascular: No edema, Normal pulses, Regular rate/rhythm, Normal S1 S2 Capillary refill: <2 Seconds Gastrointestinal: Normal bowel sounds Musculoskeletal: No clubbing, No swelling, No contractures Integumentary: No rashes Neurological: Normal speech, Normal strength at 5/5 x4 extr - Studies Laboratory Data (last 24 hrs) 03/19/23 03/19/23 02:40 02:40 WBC 9.70 Hgb 13.5 L Hct 38.7 L Plt Count 144 L Sodium 131 L D Potassium 4.1 BUN 42 H Creatinine 8.58 H Glucose 120 H Phosphorus 5.0 H <Leeann Clement - Last Filed: 03/19/23 18:05> - Studies Laboratory Data (last 24 hrs) 03/19/23 03/19/23 02:40 02:40 WBC 9.70 Hgb 13.5 L Hct 38.7 L Plt Count 144 L Sodium 131 L D Potassium 4.1 BUN 42 H Creatinine 8.58 H Glucose 120 H Phosphorus 5.0 H <Tyrese Chiang - Last Filed: 03/19/23 21:27> Assessment And Plan - Plan Assessment: ESRD on HD MWF with volume overload/pulmonary edema NSTEMI Atrial fibrillation on chronic anticoagulation Hypertension BPH-self caths around once a week Plan: ESRD on HD MWF with volume overload/pulmonary edema Compliant with dialysis, last dialyzed on Wednesday completed session. Self catheterization once a week. Nephrology consult- plan for dialysis today (Wednesday) fluid restriction with low sodium diet NSTEMI Suspect event ischemia, denies chest pain troponin similar to previous. Monitor on telemetry. Troponin trend 291.0/317.1/313.9 stress test with No evidence of stress induced ischemia. ejection fraction is reduced, 27%. Similar findings were also noted in 2019. Eliquis Atrial fibrillation on chronic anticoagulation Continue Eliquis, other home medications. Hypertension lopressor upper respiratory infection tessalon perle BPH-self caths around once a week Continue home medications. DVT PPX: Continue Eliquis Code status: Full Discharge Plan: Home Plan to discharge in: 24 Hours Time Spent Managing PTS Care (In Minutes): 35 <Leeann Clement - Last Filed: 03/19/23 18:05> - Plan Patient seen on rounds independently reviewed and agree with plan of care as noted above by FRONT END TECHNICIAN Urbano alfaro on chronci CHF exacerbation; EF: 15-20% on echo, h/o EF <15-20% nephro consulted; planned for HD today <Tyrese Chiang - Last Filed: 03/19/23 21:27>
--- NOTE | 2023-03-19 19:03 | PN ---
Date of Progress Note: 03/19/2023 Subjective: Seen by bedside. Doing well. No chest pain. Review of Systems: No chest pain. Has mild shortness of breath. No nausea, vomiting, or diarrhea. No abdominal pain. No dysuria, polyuria, or urgency. All other systems reviewed are negative. Physical Examination: Vital Signs: Reviewed. Head and Neck: Pupils are equal, reactive to light. Intact eye movements. No JVD. No cervical lym phadenopathy. Neck: Supple. Thyroid is not enlarged. Lungs: Clear to auscultation bilaterally. No rhonchi, rales, or crackles. No accessory muscles. H eart: Regular. No extra sounds. Abdomen: Soft, nontender. Bowel sounds positive. No organomegaly. No masses or hernia. No rigidi ty or rebound. Extremities: No clubbing or cyanosis. Intact pulses. Skin: No rash. Neurologic: Alert, awake. No acute focal deficits appreciated. Investigations: Troponin peaked at 317, it is coming down. Stress test was negative. Assessment And Recommendation: 1.Elevated troponin. Negative stress test was done today. The patient does not have any active tiana st pain and on echo, severely depressed ejection fraction. No further ischemia workup is needed. 2.Severe systolic heart failure. The patient with end-stage renal disease. Needs fluid management via dialysis. 3.Hypertension. Blood pressure is controlled. 4.Atrial fibrillation. His heart rate is better. I would recommend increase metoprolol further to 100 mg twice a day to get the heart rate close to 60. SR/MODL Voice ID: [id number] Report ID: [id number]
[2023-03-19 20:08] VITALS: O2SAT 94
[2023-03-20] MEDS ORDERED: ACETAMINOPHEN 325 MG TABLET PO PRN (01:45)
[2023-03-20] MEDS: BENZONATATE 100 MG CAP PO PRN (01:59)
[2023-03-20 03:43] LABS: Hematocrit 39.5 % (39.6-49.0); Lymphocytes % 10.6 % (15.3-44.8); MCV 101.3 fL (80-100); MPV 9.4 fL (7.6-11.3); Platelets 170 thou/uL (152-406)
[2023-03-20 04:09] LABS: Magnesium 2.3 mg/dL (1.6-2.4); Phosphorus 4.2 mg/dL (2.5-4.9); Potassium 4.1 mEq/L (3.5-5.1)
[2023-03-20] MEDS: METOPROLOL TAR 50 MG TAB PO SCH (05:37)
[2023-03-20] MEDS: APIXABAN 2.5 MG TABLET PO SCH (09:08)
[2023-03-20] MEDS: FOLIC ACID 1 MG TABLET PO SCH (09:08)
--- NOTE | 2023-03-20 09:44 | P.DS ---
Admission Date: 03/19/23 Discharge Date: 03/20/23 Reason for Admission: NSTEMI, Pulmonary edema Brief History of Present Illness: HPI 03/17: Hermelinda De La Cruz, 67-year-old male with history of ESRD on HD MWF, BPH, hypertension, atrial fibrillation on chronic anticoagulation presents emergency department with chief complaint of cough, congestion, shortness of breath. He reports his symptoms began yesterday, felt as if he had low-grade fevers as well for the past 24 to 48 hours. He was evaluated here in the emergency department his labs are significant for hemoglobin 13 hematocrit 30.9 creatinine 6.31 GFR 9 troponin 291.0 BNP 97,832 COVID-negative flu test is pending chest x-ray shows moderate pulmonary opacities concerning for pulmonary edema versus pneumonia. Flu test is pending, previous troponin levels about a year ago similar to this evening, denies chest pain. Patient be admitted for NSTEMI, shortness of breath. Dialysis Monday 03/19, cardiology and nephrology consulted and following closely. Stress test resulted with no evidence of stress induced ischemia. Hospital Course: Hermelinda De La Cruz is a pleasant 67 with a past medical history significant for ESRD on HS MWF, BPH, HTN, atrial fibrillation on chronic anticoagulation, who was admitted to the [facility] on 03/17 for NSTEMI, pulmonary edema. Cardiology and Nephrology were consulted, Dialysis performed Monday 03/19, Nephrology recommended low sodium diet, fluid restriction. Cardiology recommended to increase the metoprolol and dialysis to manage fluid level. On 03/20, Hermelinda De La Cruz was seen on morning rounds and deemed medically stable for discharge. Hermelinda De La Cruz was discharged with instructions to schedule follow-up appointments with PCP and Staffing Clerk. Hermelinda De La Cruz was provided prescriptions for Metoprolol 100 mg PO BID. The patient and family members were given the opportunity to ask questions and reported no further questions. Furthermore, all questions were answered to the best of my ability. A copy of this discharge summary will be sent to the above providers to facilitate continuity of care. Today, I personally spent 55 minutes with Hermelinda De La Cruz, of which greater than 50% of the time was spent in patient education, counseling, and coordination of care as described above. Discharge Instructions Continue with HD on your regular schedule of MWF Fluid restriction of 1500 mls daily low sodium diet per nephrology- 2000 mg of sodium daily Follow up with PCP and retail receiving clerk in one week - Please follow-up with your PCP for medication refills/adjustments Medication changes: metoprolol 100 mg PO BID folic acid 1 mg PO daily benzonate 100 mg prn TID <Leeann Clement - Last Filed: 03/20/23 10:38> Admission Date: 03/19/23 Discharge Date: 03/20/23 <Tyrese Chiang - Last Filed: 03/20/23 17:04> Disposition: ROUTINE DISCHARGE Vital Signs/Physical Exam: Temp Pulse Resp BP Pulse Ox 98.3 F 73 18 127/67 100 03/20/23 09:24 03/20/23 09:24 03/20/23 09:24 03/20/23 09:24 03/20/23 09:24 General: Alert, In no apparent distress, Oriented x3 HEENT: Atraumatic, Normocephalic, PERRLA Neck: Supple, 2+ carotid pulse no bruit, JVD not distended Respiratory: Clear to auscultation bilaterally, Normal air movement, Crackles/rales Cardiovascular: No edema, Normal pulses, Normal S1 S2 Capillary refill: <2 Seconds Gastrointestinal: Normal bowel sounds, Hypoactive, Soft and benign Musculoskeletal: No clubbing, No swelling, No contractures Integumentary: No rashes, No breakdown, No significant lesion Neurological: Normal speech, Normal strength at 5/5 x4 extr, Normal tone Laboratory Data at Discharge: WBC 9.70 thou/uL (4.3-10.9) 03/20/23 02:25 Hgb 13.3 g/dL (13.6-17.9) L 03/20/23 02:25 Hct 39.5 % (39.6-49.0) L 03/20/23 02:25 Plt Count 170 thou/uL (152-406) 03/20/23 02:25 PT 12.6 SECONDS (9.5-12.5) H 03/18/23 04:55 INR 1.15 03/18/23 04:55 Sodium 132 mEq/L (136-145) L 03/20/23 02:25 Potassium 4.1 mEq/L (3.5-5.1) 03/20/23 02:25 BUN 37 mg/dL (7-18) H 03/20/23 02:25 Creatinine 7.51 mg/dL (0.70-1.30) H 03/20/23 02:25 Glucose 96 mg/dL (74-106) 03/20/23 02:25 Phosphorus 4.2 mg/dL (2.5-4.9) 03/20/23 02:25 Magnesium 2.3 mg/dL (1.6-2.4) 03/20/23 02:25 Total Bilirubin 0.6 mg/dL (0.2-1.0) 03/17/23 21:03 AST 13 U/L (15-37) L 03/17/23 21:03 ALT 24 U/L (16-61) 03/17/23 21:03 Alkaline Phosphatase 63 U/L (45-117) 03/17/23 21:03 Triglycerides 80 mg/dL (<150) 03/18/23 03:38 Cholesterol 184 mg/dL (<200) 03/18/23 03:38 HDL Cholesterol 56 mg/dL (40-60) 03/18/23 03:38 Cholesterol/HDL Ratio 3.29 03/18/23 03:38 <Leeann Clement - Last Filed: 03/20/23 10:38> Vital Signs/Physical Exam: Temp Pulse Resp BP Pulse Ox 98.2 F 74 16 109/57 L 97 03/20/23 11:53 03/20/23 11:53 03/20/23 11:53 03/20/23 11:53 03/20/23 11:53 Laboratory Data at Discharge: WBC 9.70 thou/uL (4.3-10.9) 03/20/23 02:25 Hgb 13.3 g/dL (13.6-17.9) L 03/20/23 02:25 Hct 39.5 % (39.6-49.0) L 03/20/23 02:25 Plt Count 170 thou/uL (152-406) 03/20/23 02:25 PT 12.6 SECONDS (9.5-12.5) H 03/18/23 04:55 INR 1.15 03/18/23 04:55 Sodium 132 mEq/L (136-145) L 03/20/23 02:25 Potassium 4.1 mEq/L (3.5-5.1) 03/20/23 02:25 BUN 37 mg/dL (7-18) H 03/20/23 02:25 Creatinine 7.51 mg/dL (0.70-1.30) H 03/20/23 02:25 Glucose 96 mg/dL (74-106) 03/20/23 02:25 Phosphorus 4.2 mg/dL (2.5-4.9) 03/20/23 02:25 Magnesium 2.3 mg/dL (1.6-2.4) 03/20/23 02:25 Total Bilirubin 0.6 mg/dL (0.2-1.0) 03/17/23 21:03 AST 13 U/L (15-37) L 03/17/23 21:03 ALT 24 U/L (16-61) 03/17/23 21:03 Alkaline Phosphatase 63 U/L (45-117) 03/17/23 21:03 Triglycerides 80 mg/dL (<150) 03/18/23 03:38 Cholesterol 184 mg/dL (<200) 03/18/23 03:38 HDL Cholesterol 56 mg/dL (40-60) 03/18/23 03:38 Cholesterol/HDL Ratio 3.29 03/18/23 03:38 <Tyrese Chiang - Last Filed: 03/20/23 17:04> Diet: Low sodium Activity: Ad giuseppe Time spent managing pt's care (in minutes): 55 <Leeann Clement - Last Filed: 03/20/23 10:38> Physician Review: Patient Assessed, Agree with Above Assessment and Plan <Tyrese Chiang - Last Filed: 03/20/23 17:04> Home Medications: Sucroferric Oxyhydroxide [Velphoro] 1,000 mg PO TID 03/12/22 Apixaban [Eliquis *] 2.5 mg PO BID #60 03/13/22 Benzonatate [Tessalon Perle*] 100 mg PO TID PRN 30 Days #30 cap 03/20/23 Folic Acid 1 mg PO DAILY #30 tab 03/20/23 Metoprolol Tartrate 100 mg PO BID 30 Days #60 tab 03/20/23 New Medications: Folic Acid 1 mg PO DAILY #30 tab Metoprolol Tartrate 100 mg PO BID 30 Days #60 tab Benzonatate [Tessalon Perle*] 100 mg PO TID PRN 30 Days #30 cap PRN Reason: Cough Physician Discharge Instructions: Hermelinda De La Cruz is a pleasant 67 with a past medical history significant for ESRD on HS MWF, BPH, HTN, atrial fibrillation on chronic anticoagulation, who was admitted to the [facility] on 03/17 for NSTEMI, pulmonary edema. Cardiology and Nephrology were consulted, Dialysis performed Monday 03/19, Nephrology recommended low sodium diet, fluid restriction. Cardiology recommended to increase the metoprolol and dialysis to manage fluid level. On 03/20, Hermelinda De La Cruz was seen on morning rounds and deemed medically stable for discharge. Hermelinda De La Cruz was discharged with instructions to schedule follow-up appointments with PCP and Staffing Clerk. Hermelinda De La Cruz was provided prescriptions for Metoprolol 100 mg PO BID. The patient and family members were given the opportunity to ask questions and reported no further questions. Furthermore, all questions were answered to the best of my ability. A copy of this discharge summary will be sent to the above providers to facilitate continuity of care. Discharge Instructions Continue with HD on your regular schedule of MWF Fluid restriction of 1500 mls daily low sodium diet per nephrology- 2000 mg of sodium daily Follow up with PCP and retail receiving clerk in one week - Please follow-up with your PCP for medication refills/adjustments Medication changes: metoprolol 100 mg PO BID folic acid 1 mg PO daily benzonate 100 mg prn TID
[2023-03-20 11:54] VITALS: BP 109/57; TEMP 98.2
[2023-03-20] MEDS ORDERED: METOPROLOL TAR 50 MG TAB PO SCH (18:00)
--- NOTE | 2023-03-20 23:36 | PN ---
Date of Progress Note: 03/20/2023 Chief Complaint: End-stage renal disease, on hemodialysis. History Of Present Illness: Patient was admitted for [id number] myocardial infarction and he w as found to have pulmonary edema yesterday and procedure was well tolerated. Patient katherin es PND, orthopnea, wheezing, chest pain palpitation. Physical Examination: Lungs: Clear to auscultation bilaterally. Heart: S1, S2. Abdomen: Soft. Extremities: No edema. Blood Work: Hemoglobin 13.5, WBC 9.7, and platelet count 144,000. Sodium 142, potassium 4.1, chlori de 110, BUN . Impression And Plan: 1.End-stage renal disease, on hemodialysis Wednesday, Wednesday, Wednesday. He received dialysis yesterda y. 2.Atrial fibrillation, chronic. Recommendation from Cardiology. Continue low-fat diet and current blood pressure medication. 3.BPH. Patient self catheterizes and continue rest per Urology recommendation. 4.Hypertension. Advance blood pressure medication. Patient will continue beta tyrese. 5.Renal osteodystrophy. Monitor calcium and phosphorus level. EB/MODL Voice ID: [id number] Report ID: [id number]
== END 2023-03-20 13:05 | disposition home or self-care (01) | DRG 280 ==
LOC: ER 20:36 → ERHOLD 23:25 → 2ND 03-18 11:30 → OBSVTOIN 03-19 12:14
PROVIDERS: ADMIT Hospitalist; ATTEND Hospitalist
PROC: 5A1D70Z Performance of Urinary Filtration, Intermittent, Less than 6 Hours Per Day (ICD-10-PCS; principal; 2023-03-19)
DX: I21.4 Non-ST elevation (NSTEMI) myocardial infarction (principal); I50.23 Acute on chronic systolic (congestive) heart failure; N18.6 End stage renal disease; I13.2 Hypertensive heart and chronic kidney disease with heart failure and with stage 5 chronic kidney disease, or end stage renal disease; I48.20 Chronic atrial fibrillation, unspecified; E11.22 Type 2 diabetes mellitus with diabetic chronic kidney disease; E11.51 Type 2 diabetes mellitus with diabetic peripheral angiopathy without gangrene; J06.9 Acute upper respiratory infection, unspecified; N25.0 Renal osteodystrophy; H91.90 Unspecified hearing loss, unspecified ear; N40.0 Benign prostatic hyperplasia without lower urinary tract symptoms; Z99.2 Dependence on renal dialysis; Z79.4 Long term (current) use of insulin; Z88.5 Allergy status to narcotic agent; Z79.01 Long term (current) use of anticoagulants; Z79.82 Long term (current) use of aspirin; Z79.02 Long term (current) use of antithrombotics/antiplatelets; Z79.899 Other long term (current) drug therapy; Z20.822 Contact with and (suspected) exposure to COVID-19
CPT/HCPCS: 36415; 71045; 78452; 80048; 80061; 80069; 80076; 83735; 83880; 84145; 84439; 84443; 84484; 85025; 85610; 86704; 86706; 87340; 87635; 87804; 90935; 93005; 93017; 93306; 96372; 99285; A9500; G0378; J2785; Q0169

== ENCOUNTER 2024-06-07 13:18 | Inpatient (IN) | payer OTHER, BC ==
[2024-06-07 14:30] LABS: SARS-CoV-2 Antigen CONTROL BLUE LINE VIS/BG OK; SARS-CoV-2 Antigen Rapid Res Negative (Negative)
[2024-06-07 14:38] LABS: Absolute Eosinophils 0.2 K/uL (0-0.5); Absolute Lymphocytes (CBC) 0.6 K/uL (0.7-4.9); Absolute Monocytes 0.6 K/uL (0.1-1.3); Absolute Neutrophil 3.9 K/uL (1.8-8.0); Basophils % 0.6 % (0-1.3); Eosinophils % 3.8 % (0-4.4); Hematocrit 41.8 % (39.6-49.0); Hemoglobin 13.7 g/dL (13.6-17.9); Lymphocytes % 11.3 % (15.3-44.8); MCH 33.9 pg (27.0-35.0); MCHC 32.7 g/dL (32.0-36.0); MCV 103.6 fL (80-100); MPV 8.8 fL (7.6-11.3); Neutrophils % 73.3 % (41.7-73.7); Nucleated Red Blood Cells % 0.1 % (0-0); Platelets 129 thou/uL (152-406); RBC Red Blood Cell Count 4.04 M/uL (4.33-5.43); Red Cell Distribution Width 15.8 % (12.1-15.2)
--- NOTE | 2024-06-07 14:44 | RAD REPORT ---
EXAMINATION: ONE VIEW CHEST XR CLINICAL INDICATION: Male, 69 years old.,SOB TECHNIQUE: Frontal chest projection is submitted. Examination is limited by patient positioning and t echnique. COMPARISON: 03/17/2023 FINDINGS: Central interstitial prominence and perihilar mild hazy opacities, stable. No pneumothorax. Possible small left pleural effusion. The heart is upper limit of normal in size. Mediastinal contours are unremarkable. IMPRESSION: Stable findings suggestive of pulmonary edema, although a small left pleural effusion may have develo ped.
[2024-06-07 15:08] LABS: Albumin 3.7 g/dL (3.4-5.0); Albumin/Globulin Ratio 0.8 (1.1-1.8); Anion Gap 11.2 mEq/L (5.0-15.0); Bilirubin Direct 0.3 mg/dL (0-0.2); Bilirubin Indirect, Calculated 0.6 mg/dL (0.2-0.8); Bilirubin Total 0.9 mg/dL (0.2-1.0); Globulin 4.8 g/dL (2.3-3.5); Protein, Total 8.5 g/dL (6.4-8.2)
[2024-06-07 15:09] LABS: Magnesium 2.6 mg/dL (1.6-2.4); Potassium 4.2 mEq/L (3.5-5.1)
[2024-06-07] MEDS ORDERED: FUROSEMIDE 40 MG/4 ML VIAL ONE (17:33)
[2024-06-07] MEDS ORDERED: ALBUTEROL 2.5 MG/3 ML NEB SOL ONE ×2 (17:33→19:38)
--- NOTE | 2024-06-07 18:40 | EDPHYS ---
Physician Documentation [facility] Name: Go Shen Age: 69 yrs Sex: Male : 1955 Arrival Date: 06/07/2024 Time: 13:18 Bed 20 Private MD: ED Physician Joel Hill HPI: 06/07 13:34 This 69 yrs old Male presents to ER via EMS with complaints of Shortness Of sw6 Breath, Palpitations. 13:34 The patient presents with EMS from his dialysis center for evaluation for cough, sw6 palpitations and shortness of breath that started yesterday. He denies any sick contacts. He was given Tylenol at the facility prior to transfer to the ER for temperature documented to be 100.1 degrees orally. He did receive his full run of dialysis today and had 1.4 L of fluid taken off. He does receive dialysis every Wednesday, Wednesday and Wednesday and today is Wednesday. He denies any chest pain. No leg swelling. No history of COPD, emphysema or heart failure. He does have high blood pressure as well as diabetes and takes medications for this. He does not smoke. Here for evaluation.. 13:41 The patient has shortness of breath at rest. Onset: The symptoms/episode began/occurred sw6 yesterday. Duration: The symptoms are continuous, and are unchanged since they started. The patient's shortness of breath has no apparent modifying factors. Associated signs and symptoms: The patient has no apparent associated signs or symptoms. Severity of symptoms: in the emergency department the symptoms are unchanged. Historical: - Allergies: 13:20 Codeine; db - PMHx: 13:20 BPH; ESRD; HD - MWF; Hypertension; db - Immunization history:: Adult Immunizations unknown. - Infectious Disease History:: Denies. - Social history:: Smoking status: Patient reports the use of cigarette tobacco products. ROS: 13:34 Constitutional: Negative for fever, chills, and weight loss, ENT: Negative for injury, sw6 pain, and discharge, Neck: Negative for injury, pain, and swelling, Abdomen/GI: Negative for abdominal pain, nausea, vomiting, diarrhea, and constipation, MS/Extremity: Negative for injury and deformity, Skin: Negative for injury, rash, and discoloration, Neuro: Negative for headache, weakness, numbness, tingling, and seizure, 13:34 Cardiovascular: Positive for palpitations, 13:34 Respiratory: Positive for cough, shortness of breath, Exam: 13:34 Constitutional: The patient appears alert, awake, non-diaphoretic, non-toxic, in sw6 obvious distress, mildly distressed, 13:34 Head/face: Exam is negative for abrasion(s), deformity, 13:34 ENT: Nose: is normal, 13:34 Chest/axilla: Exam negative for deformity, tenderness, 13:34 Cardiovascular: Rate: tachycardic, Rhythm: regular, 13:34 ECG was reviewed by the Attending Physician. 13:34 Respiratory: The patient is tachypneic and using accessory muscles to breathe. He has wheezing noted bilaterally., 13:34 Abdomen/GI: Inspection: abdomen appears normal, Palpation: abdomen is soft and non-tender, 13:34 Musculoskeletal/extremity: No edema to his bilateral legs. His right arm AV fistula site has a palpable thrill.. 13:34 Neuro: Exam negative for focal neuro deficits, 13:34 Psych: Exam negative for inappropriate behavior, 18:44 Neck: Trachea midline, no thyromegaly or masses palpated, and no cervical sw6 lymphadenopathy. Supple, full range of motion without nuchal rigidity, or vertebral point tenderness. No Meningismus. Vital Signs: 13:16 BP 163 / 95; Pulse 121; Resp 26; Temp 99.3; Pulse Ox 97% on R/A; Weight 83.01 kg; db 13:30 BP 171 / 94; Pulse 118; Resp 36; Pulse Ox 97% ; db 14:30 BP 135 / 72; Pulse 105; Resp 20; Pulse Ox 95% on R/A; db 15:00 BP 131 / 72; Pulse 100; Resp 30; Pulse Ox 96% on R/A; db 16:30 BP 135 / 81; Pulse 101; Resp 28; Pulse Ox 96% ; db 17:30 BP 147 / 86; Pulse 102; Resp 24; Pulse Ox 95% ; db 18:30 BP 149 / 85; Pulse 104; Resp 20; Pulse Ox 97% on R/A; db 19:55 BP 159 / 80; Pulse 112; Resp 32; Pulse Ox 100% on R/A; jb4 20:55 BP 156 / 104; Pulse 113; Resp 24; Pulse Ox 96% ; jb4 MDM: 13:25 Medical Screening Exam initiated 13:34 Differential diagnosis: Anemia asthma, Bronchitis CHF exacerbation, pneumonia, sw6 pulmonary edema, reactive airway disease. Data reviewed: vital signs, nurses notes, EKG. 18:34 Data reviewed: lab test result(s), cardiac enzymes, CBC, electrolytes, hepatic panel, radiologic studies, plain films. ED course: The patient is doing well here in ER. His breathing improved on its own after short time here in the ER. He was given an albuterol treatment here in the ER after his breathing improved on its own and reports that is helping him feel better. His laboratory studies are baseline for him including an elevated creatinine as well as a baseline BNP which is slightly improved today as well as an elevated troponin. His EKG shows no signs of hyperkalemia and his potassium is normal here. He has remained with ox saturations in the upper 90s \T\ improved respiratory rate. He is also resting comfortably in the examination room without any evidence of respite distress. He remained stable here in the ER and is okay for discharge home with PCP follow-up.. 20:29 ED course: The patient got winded and short of breath while standing up trying to get sw6 dressed to go home. Will admit the patient to internal medicine for continued management.. 20:29 Transition of care: After a detail discussion of the patient's case, care is sw6 transferred to Joel Hill MD. 06/07 13:33 Order name: BMP; Complete Time: 15:45 06/07 13:33 Order name: Blood Culture Adult (2) 06/07 13:33 Order name: CBC with Diff; Complete Time: 15:45 06/07 15:46 Interpretation: Within normal limits. 06/07 13:33 Order name: CPK; Complete Time: 15:45 06/07 13:33 Order name: Hepatic Function; Complete Time: 15:45 06/07 15:46 Interpretation: Within normal limits. 06/07 13:33 Order name: Lipase; Complete Time: 15:45 06/07 13:33 Order name: Magnesium; Complete Time: 15:45 06/07 15:46 Interpretation: Within normal limits. 06/07 13:33 Order name: NT PRO-BNP; Complete Time: 15:45 06/07 15:49 Interpretation: Abnormal: high but improved value for him. 06/07 13:33 Order name: Troponin HS; Complete Time: 15:45 06/07 15:49 Interpretation: Abnormal: Baseline for patient. 06/07 13:33 Order name: Flu; Complete Time: 14:35 06/07 14:36 Interpretation: Within normal limits. 06/07 13:33 Order name: RSV; Complete Time: 14:35 06/07 14:36 Interpretation: Within normal limits. 06/07 13:33 Order name: SARS-COV-2 Antigen Rapid; Complete Time: 14:35 06/07 14:36 Interpretation: Within normal limits. 06/07 20:58 Order name: Magnesium EDMS 06/07 20:58 Order name: NT PRO-BNP EDMS 06/07 20:58 Order name: Phosphorus EDMS 06/07 20:58 Order name: Urinalysis w/ reflexes EDMS 06/07 20:58 Order name: Troponin High Sensitivity EDMS 06/07 20:58 Order name: Troponin High Sensitivity EDMS 06/07 20:58 Order name: Troponin High Sensitivity EDMS 06/07 20:58 Order name: Troponin High Sensitivity EDMS 06/07 13:33 Order name: XRAY CXR (1 view); Complete Time: 15:45 06/07 21:26 Order name: Echo with Doppler EDMS 06/07 13:33 Order name: Cardiac monitoring; Complete Time: 14:52 06/07 13:33 Order name: EKG - Nurse/Tech; Complete Time: 14:52 06/07 13:33 Order name: IV Saline Lock; Complete Time: 14:52 06/07 13:33 Order name: Labs collected and sent; Complete Time: 14:52 06/07 13:33 Order name: O2 Per Protocol; Complete Time: 14:52 06/07 13:33 Order name: O2 Sat Monitoring; Complete Time: 14:52 06/07 13:33 Order name: Droplet/Contact Precautions; Complete Time: 17:37 EC:34 Rate is 119 beats/min. Rhythm is regular. Left axis deviation noted. PA interval is sw6 prolonged. QRS interval is prolonged. QT interval is normal. No Q waves. Administered Medications: 17:35 Drug: Albuterol Inhalation 2.5 mg Inhalation once Route: Inhalation; db 19:03 Follow up: Response: No adverse reaction db 17:35 Drug: Furosemide IVP 80 mg IVP once; give over 2 minutes Route: IVP; Site: left db antecubital; 19:03 Follow up: Response: No adverse reaction db 19:40 Drug: Albuterol Inhalation 2.5 mg Inhalation once Route: Inhalation; jb4 19:53 Drug: Tessalon Perle PO 100 mg PO once Route: PO; jb4 Disposition Summary: 06/07/24 22:02 Hospitalization Ordered Notes: Hospitalization Status: Inpatient Admission sp4 Provider: Prince madiha Ramirez Location: Telemetry/MedSurg (Inpatient)(06/07/24 22:02) sp4 Condition: Fair(06/07/24 22:02) sp4 Problem: new sp4 Symptoms: are unchanged sp4 Bed/Room Type: Standard sp4 Room Assignment: 415(06/07/24 22:11) ty Diagnosis - Acute pulmonary edema sp4 - Dyspnea on exertion, elevated troponin, end-stage renal disease dialysis dependent, sp4 acute respiratory distress Forms: - Medication Reconciliation Form sp4 - SBAR form sp4 - Leadership Thank You Letter sp4 Signatures: Dispatcher [employer] EDMS Cruz Perez RN RN jb4 Dolly Wadsworth RN RN Joel Scanoln MD MD sp4 Roberto Le ty Nevaeh Fuentes MD MD sw6 Corrections: (The following items were deleted from the chart) 13:34 13:34 BASIC METABOLIC PANEL+C.LAB.BRZ ordered. EDMS EDMS 13:34 13:34 BLOOD CULTURE*+BA.LAB.BRZ ordered. EDMS EDMS 13:34 13:34 CBC+H.LAB.BRZ ordered. EDMS EDMS 13:34 13:34 CREATINE PHOSPHOKINASE+C.LAB.BRZ ordered. EDMS EDMS 13:34 13:34 HEPATIC FUNCTION+C.LAB.BRZ ordered. EDMS EDMS 13:34 13:34 LIPASE+C.LAB.BRZ ordered. EDMS EDMS 13:34 13:34 MAGNESIUM+C.LAB.BRZ ordered. EDMS EDMS 13:34 13:34 PROBNP+C.LAB.BRZ ordered. EDMS EDMS 13:34 13:34 Troponin High Sensitivity+C.LAB.BRZ ordered. EDMS EDMS 13:34 13:34 Influenza Screen (A \T\ B)+BA.LAB.BRZ ordered. EDMS EDMS 13:34 13:34 Respiratory Syncytial Virus Ag+BA.LAB.BRZ ordered. EDMS EDMS 13:34 13:34 SARS-COV-2 Antigen Rapid+I.LAB.BRZ ordered. EDMS EDMS 15:49 15:49 Abnormal. 6 6 20:31 18:39 Home [facility]6 20:31 18:39 Shortness of breath [facility]6 20:31 18:39 Dependence on renal dialysis [facility]6 20:55 18:39 Fair 6 sp4 22:11 22:02 sp4 ty
--- NOTE | 2024-06-07 18:40 | ER ---
Nurse's Notes [facility] Name: Go Shen Age: 69 yrs Sex: Male : 1955 Arrival Date: 06/07/2024 Time: 13:18 Bed 20 Private MD: Diagnosis: Acute pulmonary edema;Dyspnea on exertion, elevated troponin, end-stage renal disease dialysis dependent, acute respiratory distress Presentation: 06/07 13:16 Chief complaint: EMS states: SHORTNESS OF BREATH, PALPITATIONS, AND COUGH. FROM db DIALYSIS WITH HIGH HR AND SOB. DIALYSIS PULLED 1.4 LITERS. TAKES TYLENOL 975 MG PO. Coronavirus screen: Client denies travel out of the [place] in the last 14 days. At this time, the client does not indicate any symptoms associated with coronavirus-19. Ebola Screen: Patient negative for fever greater than or equal to 101.5 degrees Fahrenheit, and additional compatible Ebola Virus Disease symptoms Patient denies exposure to infectious person. Patient denies travel to an Ebola-affected area in the 21 days before illness onset. No symptoms or risks identified at this time. Initial Sepsis Screen: Does the patient meet any 2 criteria? No. Patient's initial sepsis screen is negative. Does the patient have a suspected source of infection? No. Patient's initial sepsis screen is negative. Risk Assessment: Do you want to hurt yourself or someone else? Patient reports no desire to harm self or others. Onset of symptoms was June 07, 2024. Care prior to arrival: Medication(s) given: Tylenol, 975 MG PO. 13:16 Method Of Arrival: EMS: [facility] db 13:16 Acuity: LITO 2 db Triage Assessment: 13:20 General: Appears distressed, uncomfortable, Behavior is cooperative. Pain: Denies pain. db Neuro: Level of Consciousness is awake, alert, obeys commands, Oriented to person, place, time, situation. Cardiovascular: Reports palpitations, shortness of breath. Respiratory: Reports shortness of breath cough that is Airway is patent Respiratory effort is even, labored, Respiratory pattern is regular, symmetrical, Breath sounds are coarse bilaterally. Onset: The symptoms/episode began/occurred yesterday, the patient has moderate shortness of breath. Historical: - Allergies: 13:20 Codeine; db - PMHx: 13:20 BPH; ESRD; HD - MWF; Hypertension; db - Immunization history:: Adult Immunizations unknown. - Infectious Disease History:: Denies. - Social history:: Smoking status: Patient reports the use of cigarette tobacco products. Screenin:31 [facility] ED Fall Risk Assessment (Adult) History of falling in the last 3 months, db including since admission No falls in past 3 months (0 pts) Confusion or Disorientation No (0 pts) Intoxicated or Sedated No (0 pts) Impaired Gait No (0 pts) Mobility Assist Device Used No (0 pt) Altered Elimination No (0 pt) Score/Fall Risk Level 0 - 2 = Low Risk Oriented to surroundings, Maintained a safe environment. Abuse screen: Denies threats or abuse. Denies injuries from another. Nutritional screening: No deficits noted. Tuberculosis screening: No symptoms or risk factors identified. Assessment: 13:31 Neuro: Level of Consciousness is awake, alert, obeys commands, Oriented to person, db place, time, situation. Cardiovascular: Rhythm is sinus tachycardia. Respiratory: Breath sounds are coarse Breath sounds with rhonchi. 15:14 Reassessment: Patient and/or family updated on plan of care and expected duration. Pain db level reassessed. Patient is alert, oriented x 3, equal unlabored respirations, skin warm/dry/pink. General: Appears uncomfortable, Behavior is calm, cooperative. Respiratory: Airway is patent Respiratory effort is even, labored, with retractions, Respiratory pattern is regular, symmetrical. 16:24 Reassessment: Patient appears in no apparent distress at this time. Patient and/or db family updated on plan of care and expected duration. Pain level reassessed. Patient is alert, oriented x 3, equal unlabored respirations, skin warm/dry/pink. FAMILY IS AT BEDSIDE. 17:30 Reassessment: Patient appears in no apparent distress at this time. Patient and/or db family updated on plan of care and expected duration. Pain level reassessed. Patient is alert, oriented x 3, equal unlabored respirations, skin warm/dry/pink. 18:45 Reassessment: Patient appears in no apparent distress at this time. Patient and/or db family updated on plan of care and expected duration. Pain level reassessed. Patient is alert, oriented x 3, equal unlabored respirations, skin warm/dry/pink. PATIENT STATES NEEDS TRANSPORTATION HOME. 19:12 Reassessment: Patient and/or family updated on plan of care and expected duration. Pain jb4 level reassessed. Pt attempting to call his sister for a ride home. Respirations are even and labored. Pt reports increasing SOB. 20:30 Reassessment: Pt reports feeling better after breathing treatments respirations are jb4 more relaxed. Pt attempted to stand and became very SOB which worsened with talking, ER provider notified, pt to be admitted. Vital Signs: 13:16 BP 163 / 95; Pulse 121; Resp 26; Temp 99.3; Pulse Ox 97% on R/A; Weight 83.01 kg; db 13:30 BP 171 / 94; Pulse 118; Resp 36; Pulse Ox 97% ; db 14:30 BP 135 / 72; Pulse 105; Resp 20; Pulse Ox 95% on R/A; db 15:00 BP 131 / 72; Pulse 100; Resp 30; Pulse Ox 96% on R/A; db 16:30 BP 135 / 81; Pulse 101; Resp 28; Pulse Ox 96% ; db 17:30 BP 147 / 86; Pulse 102; Resp 24; Pulse Ox 95% ; db 18:30 BP 149 / 85; Pulse 104; Resp 20; Pulse Ox 97% on R/A; db 19:55 BP 159 / 80; Pulse 112; Resp 32; Pulse Ox 100% on R/A; jb4 20:55 BP 156 / 104; Pulse 113; Resp 24; Pulse Ox 96% ; jb4 ED Course: 13:20 Arm band placed on Patient placed in an exam room. db 13:24 Patient arrived in ED. db 13:25 Nevaeh Fuentes MD is Attending Physician. sw6 13:29 Triage completed. db 14:07 Missed attempt(s): 20 gauge Bleeding controlled, band aid applied, catheter tip intact. kb4 14:07 Missed attempt(s): 20 gauge Bleeding controlled, band aid applied, catheter tip intact. kb4 14:16 XRAY CXR (1 view) In Process Unspecified. EDMS 14:50 Dolly Wadsworth, RN is Primary Nurse. db 14:51 Patient has correct armband on for positive identification. Bed in low position. Call db light in reach. Side rails up X2. Client placed on continuous cardiac and pulse oximetry monitoring. NIBP monitoring applied. environmental monitoring specialist on. Pulse ox on. NIBP on. Warm blanket given. Pillow given. 20:28 Attending Physician role handed off by Nevaeh Fuentes MD sp4 20:28 Joel Hill MD is Attending Physician. sp4 22:01 Prince Ramirez MD is Hospitalizing Provider. sp4 Administered Medications: 17:35 Drug: Albuterol Inhalation 2.5 mg Inhalation once Route: Inhalation; db 19:03 Follow up: Response: No adverse reaction db 17:35 Drug: Furosemide IVP 80 mg IVP once; give over 2 minutes Route: IVP; Site: left db antecubital; 19:03 Follow up: Response: No adverse reaction db 19:40 Drug: Albuterol Inhalation 2.5 mg Inhalation once Route: Inhalation; jb4 19:53 Drug: Tessalon Perle PO 100 mg PO once Route: PO; jb4 Medication: 13:31 VIS not applicable for this client. db Outcome: 18:39 Discharge ordered by . sw6 22:02 Decision to Hospitalize by Provider. sp4 23:26 Patient left the ED. vc1 Signatures: Dispatcher [employer] EDMS Cruz Perez RN RN jb4 Agueda Huerta RN RN vc1 Dolly Wadsworth RN RN db Potepalov, Sergey, MD MD sp4 Nevaeh Fuentes MD MD sw6 Francesca Morgan kb4 Corrections: (The following items were deleted from the chart) 20:00 19:55 BP 159 / 80; Pulse 112bpm; Resp 18bpm; Pulse Ox 100% RA; jb4 jb4 20:55 19:12 Reassessment: Patient appears in no apparent distress at this time. Patient jb4 and/or family updated on plan of care and expected duration. Pain level reassessed. Patient is alert, oriented x 3, equal unlabored respirations, skin warm/dry/pink. Pt attempting to call his sister for a ride home. jb4
[2024-06-07] MEDS ORDERED: BENZONATATE 100 MG CAP PO ONE (19:44)
[2024-06-07] MEDS ORDERED: ONDANSETRON 4 MG/2 ML VIAL IV PRN (20:53)
[2024-06-07] MEDS ORDERED: ALBUTEROL 2.5 MG/3 ML NEB SOL NEB PRN (20:53)
[2024-06-07] MEDS ORDERED: IPRATROPIUM BROM 0.5MG/2.5ML NEB PRN (20:53)
--- NOTE | 2024-06-07 21:04 | P.HP ---
Certification for Inpatient Patient admitted to: Inpatient With expected LOS: >2 Midnights Practitioner: I am a practitioner with admitting privileges, knowledge of patient current condition, hospital course, and medical plan of care. Services: Services provided to patient in accordance with Admission requirements found in Title 42 Section 412.3 of the Code of Federal Regulations Patient History Date of Service: 06/07/24 Reason for admission: Shortness of breath, pulmonary edema History of Present Illness: Patient is a 69-year-old male very hard of hearing. He has a history of ESRD on hemodialysis Wednesday, atrial fibrillation and hypertension. He is admitted after he presents with shortness of breath. Patient had dialysis today. He later developed shortness of breath and palpitations. He states that the symptoms have been ongoing for the past 24 hours. He arrived in the ER ill-appearing. His chest x-ray revealed pulmonary edema. Patient received a dose of IV Lasix. He so far is oliguric. During my evaluation, patient was on room air. Tachycardic on the monitor with heart rate in the 110s. His initial EKG revealed sinus tachycardia. Placed a consult for nephrology. Patient denied chest pain, palpitations. He was still short of breath during our encounter. Additional blood work included troponin, which was 303. His last cardiac workup was in February 2023. Nuclear stress test was negative for reversible ischemia. Allergies No Known Allergies Allergy (Verified 03/11/22 21:29) Home Medications: Sucroferric Oxyhydroxide [Velphoro] 1,000 mg PO TID 03/12/22 Apixaban [Eliquis *] 2.5 mg PO BID #60 03/13/22 Benzonatate [Tessalon Perle*] 100 mg PO TID PRN 30 Days #30 cap 03/20/23 Folic Acid 1 mg PO DAILY #30 tab 03/20/23 Metoprolol Tartrate 100 mg PO BID 30 Days #60 tab 03/20/23 - Past Medical/Surgical History Diabetic: Yes -: ESRD, (M,W,F dialysis) -: Hypertension -: Diabetes mellitus type 2 -: BPH with urinary retention -: PVD -: AF on AC -: AV graft Psychosocial/ Personal History: The patient is single. He has no children. - Family History Father -: Heart disease, Hypertension Mother -: Other (see notes) Brother -: Heart disease Sister -: Diabetes - Social History Alcohol use: No CD- Drugs: No Caffeine use: No Physical Examination - Physical Exam General: Acute distress, Other (Slightly diaphoretic) HEENT: Atraumatic, Normocephalic Respiratory: Diminished (Slightly labored breathing, tachypneic.), Other Cardiovascular: No edema, Normal pulses, Regular rate/rhythm, Normal S1 S2, Other (Right upper extremity AV fistula) Musculoskeletal: No clubbing, No swelling, No contractures, No erythema, No tenderness, No warmth Neurological: Normal speech, Other (Very hard of hearing) - Studies Laboratory Data (last 24 hrs) 06/07/24 06/07/24 14:18 14:18 WBC 5.40 Hgb 13.7 Hct 41.8 Plt Count 129 L Sodium 133 L Potassium 4.2 BUN 21 H Creatinine 4.94 H Glucose 100 Magnesium 2.6 H Total Bilirubin 0.9 AST 19 ALT 22 Alkaline Phosphatase 93 Lipase 56 Microbiology Data (last 24 hrs): 06/07/24 13:55 Nasopharnyx Influenza Type A Antigen Screen - Final 06/07/24 13:55 Nasopharnyx Influenza Type B Antigen Screen - Final 06/07/24 13:55 Nasopharnyx Respiratory Syncytial Virus Ag Scrn - Final Assessment and Plan - Problems (Diagnosis) (1) Acute diastolic CHF (congestive heart failure) Current Visit: No Status: Acute (2) BPH (benign prostatic hyperplasia) Onset Date: 03/22/18 Current Visit: No Status: Acute (3) Dyspnea Onset Date: 05/25/14 Current Visit: No Status: Acute Qualifiers: (4) Elevated troponin Current Visit: No Status: Acute (5) Pulmonary edema Onset Date: 10/19/17 Current Visit: No Status: Acute Qualifiers: (6) Respiratory failure Current Visit: No Status: Acute (7) Diabetes mellitus Current Visit: No Status: Chronic Qualifiers: Diabetes mellitus type: type 2 Diabetes mellitus halfway insulin use: without termite 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 He is admitted after he presented with shortness of breath and palpitations. He has evidence of pulmonary edema on chest x-ray. Patient was dialyzed today but continued to be symptomatic. Additional workup revealed elevated troponin. His last stress test was roughly 1 year ago. No reversible ischemia was found on nuclear stress test. Patient 2D echo at the time revealed severe global hypokinesis and a EF of 15 to 20%. During this admission, he received a dose of Lasix in the ER. He is currently on room air. Influenza, RSV and COVID test returned negative Acute hypoxemic respiratory failure Acute on chronic systolic CHF exacerbation Moderate mitral regurg Elevated troponin ESRD on hemodialysis Hypertension Atrial fibrillation BPH Thrombocytopenia Hyponatremia Plan: Admit inpatient with telemetry Patient received a dose of Lasix in the ER. Monitor urine output Otherwise, consult nephrology for dialysis. Potassium within normal limits, patient does not appear volume overloaded Cardiology consulted as well due to advanced CHF and elevated troponin Trend troponin and obtain a 2D echo Resume home medications upon reconciliation DVT prophylaxis - Advance Directives Does patient have a Living Will: No Does patient have a Durable POA for Healthcare: No
[2024-06-08] MEDS: HEPARIN 5000 UNIT/ML 1 ML VIAL SQ SCH (00:12)
[2024-06-08 00:55] VITALS: BMI 25.8
[2024-06-08] MEDS ORDERED: HYDRALAZINE HCL 20 MG/ML VIAL IV PRN (05:39)
[2024-06-08 07:21] LABS: Magnesium 2.6 mg/dL (1.6-2.4)
[2024-06-08 07:25] LABS: Troponin High Sensitivity 1119.8 pg/mL (<58.9)
[2024-06-08] MEDS: ASPIRIN EC 81 MG TAB PO SCH (08:29)
[2024-06-08] MEDS: carvediloL 6.25 MG TAB PO SCH (08:29)
[2024-06-08] MEDS ORDERED: HEPA 1000U/500MLS 2,000 UNIT/1,000 ML BAG IV ONE (09:07)
[2024-06-08] MEDS ORDERED: TICAGRELOR 90 MG TABLET PO ONE (09:08)
[2024-06-08] MEDS ORDERED: LIDOCAINE 1% 20 ML MDV ONE (09:08)
[2024-06-08] MEDS ORDERED: ATROPINE SULF 1 MG/10 ML SYR IV ONE (09:08)
[2024-06-08] MEDS ORDERED: MIDAZOLAM HCL 2 MG/2 ML INJ ONE (09:08)
[2024-06-08] MEDS ORDERED: HEPARIN 5000 UNIT/ML 1 ML VIAL ONE (09:08)
[2024-06-08] MEDS ORDERED: HEPARIN 10,000 UNIT/10 ML VIAL IV ONE (09:08)
[2024-06-08] MEDS ORDERED: CLOPIDOGREL 75 MG TABLET ONE (09:08)
[2024-06-08] MEDS ORDERED: FENTANYL CITR 100 MCG/2 ML ONE (09:09)
[2024-06-08] MEDS ORDERED: ASPIRIN 325 MG TAB ONE (09:09)
--- NOTE | 2024-06-08 09:43 | P.CNS ---
Date of Consult: 06/08/24 Chief Complaint: Shortness of breath, pulmonary edema History of Present Illness: Patient with PMH of heart failure reduced EF, ESRD on HD presented with worsening SOB and lower extremities swelling, denies having chest pain, cardiology consulted for elevated troponin. Allergies No Known Allergies Allergy (Verified 03/11/22 21:29) Home medications list reviewed: Yes - Past Medical/Surgical History Diabetic: Yes -: ESRD, (M,W,F dialysis) -: Hypertension -: Diabetes mellitus type 2 -: BPH with urinary retention -: PVD -: AF on AC -: AV graft Psychosocial/ Personal History: The patient is single. He has no children. - Family History Father Medical History: Heart disease, Hypertension Mother Medical History: Other (see notes) Brother Medical History: Heart disease Sister Medical History: Diabetes - Social History Alcohol use: No CD- Drugs: No Caffeine use: No Place of Residence: Home Review of Systems 10-point ROS is otherwise unremarkable Physical Examination Temp Pulse Resp BP Pulse Ox 101.0 F H 116 H 24 H 175/90 H 96 06/08/24 08:00 06/08/24 08:29 06/08/24 08:00 06/08/24 08:29 06/08/24 08:00 General: Alert, In no apparent distress HEENT: Atraumatic, PERRLA, Mucous membr. moist/pink, EOMI, Sclerae nonicteric Neck: Supple, 2+ carotid pulse no bruit, No LAD, Without JVD or thyroid abnormality Respiratory: Clear to auscultation bilaterally, Normal air movement Cardiovascular: Regular rate/rhythm, Normal S1 S2 Gastrointestinal: Normal bowel sounds, No tenderness Musculoskeletal: No tenderness Integumentary: No rashes Neurological: Normal gait, Normal speech, Normal tone, Normal affect Lymphatics: No axilla or inguinal lymphadenopathy Laboratory Data (last 24 hrs) 06/07/24 06/07/24 14:18 14:18 WBC 5.40 Hgb 13.7 Hct 41.8 Plt Count 129 L Sodium 133 L Potassium 4.2 BUN 21 H Creatinine 4.94 H Glucose 100 Magnesium 2.6 H Total Bilirubin 0.9 AST 19 ALT 22 Alkaline Phosphatase 93 Lipase 56 - Problems (1) NSTEMI (non-ST elevated myocardial infarction) Current Visit: Yes Status: Acute Plan: NPO for coronary angiogram ASA 81 mg daily Heparin drip ACS protocol Lipitor 40 mg daily (2) Acute on chronic combined systolic and diastolic heart failure Current Visit: Yes Status: Acute Plan: volume adjustment through dialysis appreciate nephrology input continue Coreg 6.25 mg po BID (3) Atrial fibrillation Current Visit: Yes Status: Acute Plan: not on anitcoagulation, will need low dose eliquis on discharge.
[2024-06-08] MEDS: VANCOMYCIN 1.75 GM in NA CHLORIDE 0.9% 500 ML IVPB ONE (09:48)
[2024-06-08] MEDS: NA CHLORIDE 0.9% 500 ML ONE (10:19)
[2024-06-08] MEDS ORDERED: METOPROLOL TARTRATE 5 MG/5 ML INJ IV ONE (10:57)
--- NOTE | 2024-06-08 11:11 | P.PN ---
Subjective Date of Service: 06/08/24 Chief Complaint: Shortness of breath, pulmonary edema Subjective: Worsening Patient is confused, spiking fever 101, agitated. Review of Systems is unable to be obtained Physical Examination - Vital Signs Temperature: 101.0 F Blood Pressure: 175/90 Pulse: 116 Respirations: 24 Pulse Ox (%): 96 - Physical Exam Other Physical/Emotional Findings: - Physical Exam. General: Chronic ill- looking, agitated. HEENT: Normocephalic, atraumatic, nonicteric sclera, nonanemic conjunctive. Neck: Supple, without JVD or goiter or thyroid mass. Respiratory: Normal breathing effort, clear to auscultation bilaterally, no crackles no wheezing or rhonchi. Cardiovascular: Regular rate and rhythm, S1, S2 normal, no murmur no gallop. Gastrointestinal: Normal bowel sounds, nondistended, nontender, No ascites, , No masses, no hepatosplenomegaly. Extremities : No clubbing, +1/+1 peripheral edema, full range of motion, no deformity, no muscle atrophy, AV fistula in right upper arms. Integumentary: No rashes, petechia, suspected lesions. Lymphatics: No axilla or cervical lymphadenopathy. Neurology; alert awake no focal neurologic deficit, normal affection . mood and behavior. - Studies Laboratory Data (last 24 hrs) 06/07/24 06/07/24 14:18 14:18 WBC 5.40 Hgb 13.7 Hct 41.8 Plt Count 129 L Sodium 133 L Potassium 4.2 BUN 21 H Creatinine 4.94 H Glucose 100 Magnesium 2.6 H Total Bilirubin 0.9 AST 19 ALT 22 Alkaline Phosphatase 93 Lipase 56 Microbiology Data (last 24 hrs): 06/07/24 13:55 Nasopharnyx Influenza Type A Antigen Screen - Final 06/07/24 13:55 Nasopharnyx Influenza Type B Antigen Screen - Final 06/07/24 13:55 Nasopharnyx Respiratory Syncytial Virus Ag Scrn - Final Assessment And Plan - Plan Patient is a 69-year-old male very hard of hearing. He has a history of ESRD on hemodialysis Wednesday, atrial fibrillation and hypertension. He is admitted on general medical floor after he presents with shortness of breath. Patient had dialysis He later developed shortness of breath and palpitations. #1 fever Test negative for influenza, COVID-19, RSV, chest x-ray shows pulmonary edema, I will discharge empiric antibiotic with IV vancomycin and ceftriaxone for possible bacteremia after blood culture x 2 #2 elevated troponin rule out non-STEMI Multiple factor including ESRD, fever, cardiology decided to take him to coronary angiogram, will put him on n.p.o., started heparin infusion Nuclear cardiac stress test negative in 2022 #3 atrial fibrillation with rapid ventricular response on apixaban Will continue metoprolol, apixaban on hold for heparin infusion #4 decompensated heart failure with reduced ejection fraction, dilated cardiomyopathy Order transthoracic echocardiogram reviewed, DVT prophylaxis heparin infusion
--- NOTE | 2024-06-08 14:41 | ECHO ---
HEIGHT: 5 ft 10 in WEIGHT: 180 lb 0 oz DATE OF STUDY: 06/08/[address]: Prince Robert Ramirez MD 2-DIMENSIONAL: YES M.MODE: YES DOPPLER: YES COLOR FLOW: YES TDS: NO PORTABLE: YES DEFINITY: NO BUBBLE STUDY: NO DIAGNOSIS: ACUTE ON CHRONIC CONGESTIVE HEART FAILURE EXACERBATION CARDIAC HISTORY: CATHERIZATION: SURGERY: PROSTHETIC VALVE: PACEMAKER: MEASUREMENTS (cm) DIASTOLIC (NORMALS) SYSTOLIC (NORMALS) IVSd 1.1 (0.6-1.2) LA Diam 2.8 (1.9-4.0) LVEF 5-10% LVIDd 5.4 (3.5-5.7) LVIDs 5.2 (2.0-3.5) %FS 4% LVPWd 1.2 (0.6-1.2) Ao Diam 2.8 (2.0-3.7) 2 DIMENSIONAL ASSESSMENT: RIGHT ATRIUM: NORMAL LEFT ATRIUM: NORMAL RIGHT VENTRICLE: NORMAL LEFT VENTRICLE: MODERATELY DILATED TRICUSPID VALVE: MODERATE TRICUSPID REGURGITATION MITRAL VALVE: MILD TO MODERATE MITRAL REGURGITATION PULMONIC VALVE: NORMAL AORTIC VALVE: NORMAL PERICARDIAL EFFUSION: NONE AORTIC ROOT: NORMAL LEFT VENTRICULAR WALL MOTION: SEVERE GLOBAL HYPOKINESIS. DOPPLER/COLOR FLOW: GRADE III DIASTOLIC DYSFINCTION. COMMENTS: 1. SEVERELY REDUCED LEFT VENTRICULAR SYSTOLIC FUNCTION. LEFT VENTRICULAR EJECTION FRACTION 5-10%. SEVERE GLOBAL HYPOKINESIS. 2. GRADE III DIASTOLIC DYSFINCTION. 3. MODERATE TRICUSPID REGURGITATION. 4. MILD TO MODERATE MITRAL REGURGITATION. 5. ELEVATED FILLING PRESSURE. RIGHT ATRIAL PRESSURE 15-20 mmHg. 6. MODERATE PULMONARY HYPERTENSION. RIGHT VENTRICULAR SYSTOLIC PRESSURE 50-55 mmHg. TECHNOLOGIST: CARLEEN SOUTH
[2024-06-08] MEDS: CEFTRIAXONE 1,000 MG in NA CHLORIDE 0.9% 50 ML IVPB SCH (14:50)
[2024-06-08] MEDS: HEPARIN/D5W 25,000 UNIT/500 ML BAG IV SCH (14:51)
--- NOTE | 2024-06-08 16:53 | P.CNS ---
Date of Consult: 06/08/24 Reason for Consult: Over volume end-stage renal disease Chief Complaint: Shortness of breath, pulmonary edema History of Present Illness: 66-year-old gentleman, well known to me from dialysis with significant past medical history of end-stage renal disease, on hemodialysis, Wednesday, Wednesday, Wednesday at [facility] through right radiocephalic AV fistula, diabetes complicated with neuropathy and nephropathy, benign prostatic hypertrophy. The patient yesterday came to the dialysis with shortness of breath and palpitation, patient received dialysis we managed to remove 3 L patient continued to have shortness of breath with cough patient was referred to the ER patient undergo cardiac cath found to have non-ST elevation MO Allergies No Known Allergies Allergy (Verified 03/11/22 21:29) Home medications list reviewed: Yes - Past Medical/Surgical History Diabetic: Yes -: ESRD, (M,W,F dialysis) -: Hypertension -: Diabetes mellitus type 2 -: BPH with urinary retention -: PVD -: AF on AC -: AV graft Psychosocial/ Personal History: The patient is single. He has no children. - Family History Father Medical History: Heart disease, Hypertension Mother Medical History: Heart disease, Diabetes, Stroke, Kidney disease, Other (see notes) Brother Medical History: Heart disease, Hypertension, Stroke, Kidney disease Sister Medical History: Diabetes - Social History Alcohol use: No CD- Drugs: No Caffeine use: No Place of Residence: Home Review of Systems 10-point ROS is otherwise unremarkable Respiratory: Cough, Shortness of Breath, SOB with Excertion Cardiovascular: Chest Pain, Palpitations, Orthopnea Physical Examination Temp Pulse Resp BP Pulse Ox 98.8 F 101 H 22 H 154/88 H 100 06/08/24 16:00 06/08/24 16:00 06/08/24 16:00 06/08/24 16:00 06/08/24 16:00 General: Alert, Oriented x3 HEENT: Atraumatic, PERRLA Neck: Supple, 2+ carotid pulse no bruit, JVD distended Respiratory: Crackles/rales, Expiratory wheezes Cardiovascular: Normal S1 S2, Systolic murmur Capillary refill: <2 Seconds Gastrointestinal: Normal bowel sounds, Soft and benign Musculoskeletal: No clubbing, No swelling Neurological: Normal speech, Normal strength at 5/5 x4 extr, Cranial nerves 3-12 intact Laboratory Results WBC 5.40 thou/uL (4.3-10.9) 06/07/24 14:18 RBC 4.04 M/uL (4.33-5.43) L 06/07/24 14:18 Hgb 13.7 g/dL (13.6-17.9) 06/07/24 14:18 Hct 41.8 % (39.6-49.0) 06/07/24 14:18 MCV 103.6 fL (80-100) H 06/07/24 14:18 MCH 33.9 pg (27.0-35.0) 06/07/24 14:18 MCHC 32.7 g/dL (32.0-36.0) 06/07/24 14:18 RDW 15.8 % (12.1-15.2) H 06/07/24 14:18 Plt Count 129 thou/uL (152-406) L 06/07/24 14:18 MPV 8.8 fL (7.6-11.3) 06/07/24 14:18 Neutrophils % 73.3 % (41.7-73.7) 06/07/24 14:18 Lymphocytes % 11.3 % (15.3-44.8) L 06/07/24 14:18 Monocytes % 11.0 % (3.3-12.3) 06/07/24 14:18 Eosinophils % 3.8 % (0-4.4) 06/07/24 14:18 Basophils % 0.6 % (0-1.3) 06/07/24 14:18 Absolute Neutrophils 3.9 K/uL (1.8-8.0) 06/07/24 14:18 Absolute Lymphocytes 0.6 K/uL (0.7-4.9) L 06/07/24 14:18 Absolute Monocytes 0.6 K/uL (0.1-1.3) 06/07/24 14:18 Absolute Eosinophils 0.2 K/uL (0-0.5) 06/07/24 14:18 Absolute Basophils 0.0 K/uL (0-0.5) 06/07/24 14:18 Sodium 133 mEq/L (136-145) L 06/07/24 14:18 Potassium 4.2 mEq/L (3.5-5.1) 06/07/24 14:18 Chloride 102 mEq/L (98-107) 06/07/24 14:18 Carbon Dioxide 24 mEq/L (21-32) 06/07/24 14:18 Anion Gap 11.2 mEq/L (5.0-15.0) 06/07/24 14:18 BUN 21 mg/dL (7-18) H 06/07/24 14:18 Creatinine 4.94 mg/dL (0.70-1.30) H 06/07/24 14:18 Est GFR (CKD-EPI) 12 ml/min (=/>90) L 06/07/24 14:18 Glucose 100 mg/dL (74-106) 06/07/24 14:18 Calcium 10.1 mg/dL (8.5-10.1) 06/07/24 14:18 Magnesium 2.6 mg/dL (1.6-2.4) H 06/07/24 14:18 Total Bilirubin 0.9 mg/dL (0.2-1.0) 06/07/24 14:18 Direct Bilirubin 0.3 mg/dL (0-0.2) H 06/07/24 14:18 Indirect Bilirubin 0.6 mg/dL (0.2-0.8) 06/07/24 14:18 AST 19 U/L (15-37) 06/07/24 14:18 ALT 22 U/L (16-61) 06/07/24 14:18 Alkaline Phosphatase 93 U/L (45-117) 06/07/24 14:18 Creatine Kinase 49 U/L (39-308) 06/07/24 14:18 Troponin I High Sens 303.0 pg/mL (<58.9) H* 06/07/24 14:18 NT-Pro-B Natriuret Pep 68427 pg/mL (<125) H 06/07/24 14:18 Serum Total Protein 8.5 g/dL (6.4-8.2) H 06/07/24 14:18 Albumin 3.7 g/dL (3.4-5.0) 06/07/24 14:18 Globulin 4.8 g/dL (2.3-3.5) H 06/07/24 14:18 Albumin/Globulin Ratio 0.8 (1.1-1.8) L 06/07/24 14:18 Lipase 56 U/L (13-75) 06/07/24 14:18 SARS-CoV-2 Ag (Rapid) Negative (Negative) 06/07/24 13:55 Conclusions/Impression: Assessment And Plan: 1. End-stage renal disease with over volume patient had cardiac cath with iodine exposure today patient still nonoliguric I am going to go ahead and arrange for the dialysis today and tomorrow. We will challenge the patient. The patient is going to be dialyzed on low-potassium bath and low blood flow to establish better volume control and we will follow up the patient. 2. Hypertension, controlled, optimal. We will continue trying to utilize blood pressure for more ultrafiltration. 3. Hyperkalemia. The patient is going to be dialyzed on low-potassium bath. 4. Anemia of chronic kidney disease. No need for DANIEL. 5. Over volume. The patient is going to be challenged on the dialysis today and tomorrow. 6. Diabetes as by primary. 7. Non-ST elevation MO status post cardiac cath we will follow-up with cardiology possible patient can need CABG Dialysis today Thank you, for allowing us to participate in the care of your patient. Time spent examining the patient [id number], reviewing data, lab and radiology, placing order, discussing the case with the hospitalist and project manager/team coach including nursing more than 75 minutes.
[2024-06-08 18:08] LABS: HBsAG Nonreactive Report Report; Hepatitis B Surface Ab - Quant 8.59 mIU/mL (<8.0); Hepatitis B surface AG Interp. Nonreactive (Nonreactive)
[2024-06-08] MEDS: ATORVASTATIN 80 MG TAB PO SCH (21:00)
[2024-06-09 08:20] LABS: Absolute Eosinophils 0.1 K/uL (0-0.5); Absolute Lymphocytes (CBC) 0.7 K/uL (0.7-4.9); Absolute Monocytes 0.8 K/uL (0.1-1.3); Eosinophils % 2.5 % (0-4.4); Hematocrit 40.7 % (39.6-49.0); Hemoglobin 13.4 g/dL (13.6-17.9); Lymphocytes % 15.7 % (15.3-44.8); MCH 33.9 pg (27.0-35.0); MCV 102.6 fL (80-100); MPV 8.9 fL (7.6-11.3); Monocytes % 17.4 % (3.3-12.3); Neutrophils % 63.4 % (41.7-73.7); Nucleated Red Blood Cells % 0.3 % (0-0); Platelets 108 thou/uL (152-406); RBC Red Blood Cell Count 3.97 M/uL (4.33-5.43); Red Cell Distribution Width 15.4 % (12.1-15.2)
[2024-06-09 08:28] LABS: Anion Gap 10.7 mEq/L (5.0-15.0); Potassium 4.7 mEq/L (3.5-5.1)
[2024-06-09 09:21] LABS: Differential Total Cells Count 100; Segmented Neutrophils 58 % (40-80)
[2024-06-09 09:22] LABS: Band Neutrophils 3 % (0-1); Blood Morphology Comment NOTED (NOT SEEN); Eosinophils 2 % (0-3); Lymphocytes 19 % (15-42); Monocytes 15 % (0-10); Ovalocytes 1+; Platelet Estimate ADEQ; Poikilocytosis 1+
--- NOTE | 2024-06-09 11:37 | P.PN ---
Subjective Date of Service: 06/09/24 Chief Complaint: Shortness of breath, pulmonary edema Subjective: Improving He is sitting in the bedside eating breakfast, look more comfortable than yesterday, complaining of shortness of breath but no fever or chill Review of Systems Other: Consitutional; fever(-), chills (-), rigor(-), night sweat(-), unintentional weight loss(-), malaise (-) HEENT; diplopia (-), rhinorrhea (-), epistaxis (-), otorrhea (-), otalgia (-) Respiratory; shortness of breath (+), wheezing (-), cough (+), sputum (-), pleuritic chest pain (-) Cardiovascular; chest pain (-), peripheral edema (-), paroxysmal nocturnal dyspnea (-), orthopnea (-) Gastrointestinal; nausea (-), vomiting (-), abdominal pain (-), diarrhea (-), constipation (-), melena (-), hematochezia (-) Genitourinary; urinary frequency (-), dysuria (-), urgency (-), flank pain (-), gross hematuria (-), incontinence (-) Skin; rash (-), pruritus (-) RESIDENT CARE MANAGER RN; headache (-), paresthesia (-), numbness (-), paralysis (-) Physical Examination - Vital Signs Temperature: 99.2 F Blood Pressure: 105/56 Pulse: 81 Respirations: 20 Pulse Ox (%): 91 - Physical Exam Other Physical/Emotional Findings: - Physical Exam. General: Chronic ill- looking, in no acute distress. HEENT: Normocephalic, atraumatic, nonicteric sclera, nonanemic conjunctive. Neck: Supple, without JVD or goiter or thyroid mass. Respiratory: Normal breathing effort, coarse breath sound with bilateral crackle of 2 half away from lung bases, no wheezing or rhonchi. Cardiovascular: Regular rate and rhythm, S1, S2 normal, no murmur no gallop. Gastrointestinal: Normal bowel sounds, nondistended, nontender, No ascites, , No masses, no hepatosplenomegaly. Extremities : No clubbing, +1/+1 peripheral edema, full range of motion, no deformity, no muscle atrophy, AV fistula in right upper arms. Integumentary: No rashes, petechia, suspected lesions. Lymphatics: No axilla or cervical lymphadenopathy. Neurology; alert awake no focal neurologic deficit, normal affection . mood and behavior. Assessment And Plan - Plan Patient is a 69-year-old male very hard of hearing. He has a history of ESRD on hemodialysis Wednesday, atrial fibrillation and hypertension. He is admitted on general medical floor after he presents with shortness of breath. Patient had dialysis He later developed shortness of breath and palpitations. #1 fever Afebrile over the past 24-hour, Test negative for influenza, COVID-19, RSV, chest x-ray showed pulmonary edema, blood culture no growth for the past 24 hours. I will keep him on IV vancomycin and ceftriaxone as the patient have a high risk of bacteremia due to hemodialysis. #2 non-STEMI Unofficial report says multivessel coronary artery disease, CABG is recommended. given his dilated cardiomyopathy with poor left ventricle ejection fraction I do not think patient is a candidate for CABG. Will continue aspirin, statin, carvedilol, heparin infusion #3 atrial fibrillation with rapid ventricular response on apixaban Heart rate at target on carvedilol #4 decompensated heart failure with reduced ejection fraction, dilated cardiomyopathy old transthoracic echocardiogram reviewed, severe global hypokinesia, ejection fraction 5 to 10%, diastolic dysfunction, moderate MR and TR #5 ESRD on hemodialysis Patient need another hemodialysis today due to pulmonary edema after coronary angiogram DVT prophylaxis heparin infusion
--- NOTE | 2024-06-09 13:45 | P.PN ---
Subjective Date of Service: 06/09/24 Chief Complaint: Shortness of breath, pulmonary edema Subjective: No new changes, No C/O voiced, Tolerating diet, Ambulating, Improving Review of Systems 10-point ROS is otherwise unremarkable Physical Examination - Vital Signs Temperature: 98.3 F Blood Pressure: 97/53 Pulse: 74 Respirations: 20 Pulse Ox (%): 92 - Physical Exam General: Alert, In no apparent distress HEENT: Atraumatic, PERRLA, EOMI Neck: Supple, JVD not distended Respiratory: Clear to auscultation bilaterally, Normal air movement Cardiovascular: Regular rate/rhythm, Normal S1 S2 Gastrointestinal: Normal bowel sounds, No tenderness Musculoskeletal: No tenderness Integumentary: No rashes Neurological: Normal speech, Normal tone, Normal affect Lymphatics: No axilla or inguinal lymphadenopathy Other Physical/Emotional Findings: - Physical Exam. General: Chronic ill- looking, in no acute distress. HEENT: Normocephalic, atraumatic, nonicteric sclera, nonanemic conjunctive. Neck: Supple, without JVD or goiter or thyroid mass. Respiratory: Normal breathing effort, coarse breath sound with bilateral crackle of 2 half away from lung bases, no wheezing or rhonchi. Cardiovascular: Regular rate and rhythm, S1, S2 normal, no murmur no gallop. Gastrointestinal: Normal bowel sounds, nondistended, nontender, No ascites, , No masses, no hepatosplenomegaly. Extremities : No clubbing, +1/+1 peripheral edema, full range of motion, no deformity, no muscle atrophy, AV fistula in right upper arms. Integumentary: No rashes, petechia, suspected lesions. Lymphatics: No axilla or cervical lymphadenopathy. Neurology; alert awake no focal neurologic deficit, normal affection . mood and behavior. - Studies Medications List Reviewed: Yes Assessment And Plan - Current Problems (Diagnosis) (1) NSTEMI (non-ST elevated myocardial infarction) Current Visit: Yes Status: Acute Plan: coronary angiogram done and shows LAD ENTERPRISE APPLICATION ADMINISTRATOR and RCA disease, outpatient evaluation for CABG vs high risk PCI ASA 81 mg daily Stop heparin Lipitor 80 mg daily (2) Acute on chronic combined systolic and diastolic heart failure Current Visit: Yes Status: Acute Plan: volume adjustment through dialysis appreciate nephrology input continue Coreg 6.25 mg po BID (3) Atrial fibrillation Current Visit: Yes Status: Acute Plan: not on anitcoagulation, will need low dose eliquis of 2.5 mg po BID on discharge.
--- NOTE | 2024-06-09 15:46 | EKG ---
Test Date: 2024-06-07 Test Time: 13:36:30 [place]: MYRNA MEASUREMENT RESULTS: Intervals: Rate: 119 KS: 186 QRSD: 128 QT: 310 QTc: 436 [place]: P: 73 KS: 186 QRS: -48 T: 117 INTERPRETIVE STATEMENTS: Sinus tachycardia Possible Left atrial enlargement Left axis deviation Left ventricular hypertrophy with QRS widening and repolarization abnormality Possible Inferior infarct, age undetermined Abnormal ECG Compared to ECG 03/17/2023 21:43:32 Early repolarization now present Myocardial infarct finding now present Sinus rhythm no longer present T-wave abnormality no longer present Possible ischemia no longer present Electronically Signed On 06-09-24 15:44:16 INSTRUCTIONAL TECHNOLOGY COORDINATOR by Oswald Patterson
[2024-06-09] MEDS ORDERED: VANCOMYCIN 1 GM in NA CHLORIDE 0.9% 250 ML IVPB SCH (18:00)
--- NOTE | 2024-06-09 23:17 | OP ---
Date of Procedure: 06/08/2024 Surgeon: Oswald Patterson Procedures Performed: 1.Left heart catheterization. 2.Selective coronary angiogram. Indication For Procedure: [id number]. Complications: None. Estimated Blood Loss: Less than 50 cc. Access: Right common femoral artery, closed by Mynx. Sedation Time: 20 minutes with 1 of Versed and 25 of fentanyl. Description Of Procedure: After risks, benefits, and alternatives were explained to the patient, the patient agreed to proceed with the procedure and signed informed consent. The patient was brought b [facility] to the irrigation laborer, prepped and draped in sterile fashion. Time-out was performed. Sedation was ad ministered. Next, the right common femoral artery access was obtained using ultrasound-guided microp uncture technique. 6-Yakut sheath was inserted. After the JL4 catheter was advanced over a J-wire to the aortic root, selective angiogram was done of the left coronary system, that was later exchange d with a JR4 catheter to the LV cavity. LVEDP was obtained. Pullback did not show any gradient. Sa me catheter was used for selective angiogram of the right coronary systems. At the end of procedure, catheter was pulled back and removed over a J-wire. Sheath was removed. Mynx was applied. Hemosta sis was achieved and the patient was moved back to recovery in stable condition. Findings: 1.Left main: Normal. 2.LAD with ostial to proximal 80% to 90% disease, then mid occluded. The LAD fills by [id number] collaterals into mid to distal LAD. Small artery. 3.Diagonal 1: Diffuse proximal to mid 70% disease. 4.Left circumflex: Large, dominant, mild luminal irregularities. 5.RCA: Mid 100% occluded before RV marginal branch, most likely nondominant artery. Assessment And Plan: Significant left anterior descending disease, diagonal 1, diagonal 2, and right coronary artery disease. The plan will be to consult CT Surgery as an outpatient for bypass. If bypass is not an option, then we can attempt LAD SPA EXPERIENCE COORDINATOR PCI and fixing RCA into RV marginal. OLIVARES/MODL Voice ID: [id number] Report ID: [id number]
[2024-06-10 05:50] LABS: Absolute Eosinophils 0.5 K/uL (0-0.5); Absolute Lymphocytes (CBC) 1.3 K/uL (0.7-4.9); Absolute Neutrophil 1.8 K/uL (1.8-8.0); Basophils % 0.5 % (0-1.3); Eosinophils % 11.8 % (0-4.4); Hematocrit 39.6 % (39.6-49.0); Hemoglobin 12.9 g/dL (13.6-17.9); Lymphocytes % 27.2 % (15.3-44.8); MCH 33.6 pg (27.0-35.0); MCHC 32.6 g/dL (32.0-36.0); MCV 103.1 fL (80-100); MPV 9.5 fL (7.6-11.3); Monocytes % 21.1 % (3.3-12.3); Neutrophils % 39.4 % (41.7-73.7); Platelets 98 thou/uL (152-406); RBC Red Blood Cell Count 3.85 M/uL (4.33-5.43); Red Cell Distribution Width 15.2 % (12.1-15.2)
[2024-06-10 06:08] LABS: Anion Gap 13.2 mEq/L (5.0-15.0); Potassium 4.2 mEq/L (3.5-5.1)
[2024-06-10 08:57] LABS: Differential Total Cells Count 100; Segmented Neutrophils 40 % (40-80)
[2024-06-10 08:58] LABS: Atypical Lymphocytes 8 %; Blood Morphology Comment NOT SEEN (NOT SEEN); Lymphocytes 27 % (15-42); Monocytes 18 % (0-10); Platelet Estimate DECR
[2024-06-10 09:03] LABS: Platelets Clumped FEW
--- NOTE | 2024-06-10 11:22 | P.PN ---
Subjective Date of Service: 06/10/24 Chief Complaint: Shortness of breath, pulmonary edema Subjective: Improving He reports that he is feeling better, no fever or chill overnight, waiting for hemodialysis, denied any shortness of breath at rest no chest pain. Review of Systems Other: Consitutional; fever(-), chills (-), rigor(-), night sweat(-), unintentional weight loss(-), malaise (-) HEENT; diplopia (-), rhinorrhea (-), epistaxis (-), otorrhea (-), otalgia (-) Respiratory; shortness of breath (-), wheezing (-), cough (-), sputum (-), pleuritic chest pain (-) Cardiovascular; chest pain (-), peripheral edema (-), paroxysmal nocturnal dyspnea (-), orthopnea (-) Gastrointestinal; nausea (-), vomiting (-), abdominal pain (-), diarrhea (-), constipation (-), melena (-), hematochezia (-) Genitourinary; urinary frequency (-), dysuria (-), urgency (-), flank pain (-), gross hematuria (-), incontinence (-) Skin; rash (-), pruritus (-) 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 General: Chronic ill- looking, in no acute distress. HEENT: Normocephalic, atraumatic, nonicteric sclera, nonanemic conjunctive. Neck: Supple, without JVD or goiter or thyroid mass. Respiratory: Normal breathing effort, coarse breath sound with bilateral crackle up to one third from lung bases, no wheezing or rhonchi. Cardiovascular: Regular rate and rhythm, S1, S2 normal, no murmur no gallop. Gastrointestinal: Normal bowel sounds, nondistended, nontender, No ascites, , No masses, no hepatosplenomegaly. Extremities : No clubbing, +1/+1 peripheral edema, full range of motion, no deformity, no muscle atrophy, AV fistula in right upper arms. Integumentary: No rashes, petechia, suspected lesions. Lymphatics: No axilla or cervical lymphadenopathy. Neurology; alert awake no focal neurologic deficit, normal affection . mood and behavior. - Studies Medications List Reviewed: Yes Assessment And Plan - Plan Patient is a 69-year-old male very hard of hearing. He has a history of ESRD on hemodialysis Wednesday, atrial fibrillation and hypertension. He is admitted on general medical floor after he presents with shortness of breath. Patient had dialysis He later developed shortness of breath and palpitations. #1 fever Likely acute viral illness, Afebrile over the past 48-hour, Test negative for influenza, COVID-19, RSV, chest x-ray showed pulmonary edema, blood culture result shows preliminary no growth for the past 24 hours. I will start empiric antibiotics and observe his temperature #2 non-STEMI likely type II due to fever A coronary angiogram result reviewed multivessel coronary artery disease, CABG or PCI is recommended. given his dilated cardiomyopathy with poor left ventricle ejection fraction. I do not think patient is a candidate for CABG. Will continue aspirin, statin, carvedilol, heparin infusion discontinued #3 atrial fibrillation with rapid ventricular response on apixaban Heart rate at target on carvedilol #4 decompensated heart failure with reduced ejection fraction, dilated cardiomyopathy Hypervolemia, not a candidate for guideline directed therapy for ESRD old transthoracic echocardiogram reviewed, severe global hypokinesia, ejection fraction 5 to 10%, diastolic dysfunction, moderate MR and TR #5 ESRD on hemodialysis Patient is scheduled for another hemodialysis today due to pulmonary edema after coronary angiogram DVT prophylaxis heparin subcu Disposition; plan to discharge home if patient remained afebrile for the next 48 or 72 hours of antibiotics and blood culture final report negative
[2024-06-10] MEDS: MIDODRINE HCL 5 MG TABLET PO ONE (16:38)
[2024-06-10] MEDS: ALBUMIN HUMAN 25% 100 ML IV ONE (16:38)
[2024-06-10] MEDS: HEPARIN 5000 UNIT/ML 1 ML VIAL SQ SCH (20:26)
[2024-06-10 22:28] VITALS: O2SAT 96
[2024-06-11 06:16] LABS: Absolute Eosinophils 0.6 K/uL (0-0.5); Absolute Lymphocytes (CBC) 1.4 K/uL (0.7-4.9); Absolute Neutrophil 2.4 K/uL (1.8-8.0); Basophils % 0.6 % (0-1.3); Eosinophils % 10.7 % (0-4.4); Hematocrit 42.3 % (39.6-49.0); Hemoglobin 13.7 g/dL (13.6-17.9); Lymphocytes % 25.3 % (15.3-44.8); MCH 33.4 pg (27.0-35.0); MCHC 32.3 g/dL (32.0-36.0); MCV 103.2 fL (80-100); MPV 9.7 fL (7.6-11.3); Monocytes % 18.7 % (3.3-12.3); Neutrophils % 44.7 % (41.7-73.7); Nucleated Red Blood Cells % 0.2 % (0-0); Platelets 116 thou/uL (152-406); Red Cell Distribution Width 15.5 % (12.1-15.2)
[2024-06-11 06:42] LABS: Anion Gap 13.6 mEq/L (5.0-15.0); Potassium 3.6 mEq/L (3.5-5.1)
[2024-06-11 09:39] VITALS: BP 124/62
--- NOTE | 2024-06-11 09:39 | P.DS ---
Admission Date: 06/07/24 Discharge Date: 06/11/24 Disposition: ROUTINE DISCHARGE Discharge Condition: GOOD Reason for Admission: Shortness of breath, pulmonary edema Brief History of Present Illness: Patient is a 69-year-old male very hard of hearing. He has a history of ESRD on hemodialysis Wednesday, atrial fibrillation and hypertension. He is admitted on general medical floor after he presents with shortness of breath. Patient had dialysis. He later developed shortness of breath and palpitations. He was admitted for pulmonary edema secondary to volume overload and non-STEMI and fever Hospital Course: He was treated with empiric antibiotics with IV vancomycin and ceftriaxone for fever, IV heparin for non-STEMI. Patient underwent coronary angiogram which revealed multivessel coronary artery disease, not suitable for any intervention. Patient continued to have hemodialysis during hospitalization for mild pulmonary edema. His symptom improved and became quickly afebrile. Blood culture x 2 were no growth to date. Antibiotic discontinued. Patient remained afebrile and no leukocytosis, no sign of infection, no chest pain. Patient is being discharged home. He is instructed to follow-up with cardiology for further management of multivessel coronary artery disease. He is deemed not candidate for CABG due to marked decreased left ventricle ejection fraction by transthoracic echocardiogram. #1 acute viral illness Resolved, Afebrile for 24hours off empiric antibiotic, tested negative for influenza, COVID-19, RSV, chest x-ray showed pulmonary edema, blood culture result showed preliminary no growth to date. No other sign of infection and no sepsis #2 non-STEMI likely type II due to fever Troponin trending up, no ischemic change on twelve-lead EKG A coronary angiogram result reviewed multivessel coronary artery disease, CABG or PCI is recommended. given his dilated cardiomyopathy with poor left ventricle ejection fraction. patient is a candidate for CABG. Was treated with aspirin, statin, carvedilol. LDL cholesterol elevated 112 #3 atrial fibrillation with rapid ventricular response related to fever Heart rate at target and blood pressure reasonably controlled on carvedilol after fever subsided. #4 acute decompensated heart failure with reduced ejection fraction, dilated cardiomyopathy, [place] heart association class III-IV Hypervolemia with mild pulmonary, not a candidate for guideline directed therapy for ESRD transthoracic echocardiogram demonstrated severe global hypokinesia, ejection fraction 5 to 10%, diastolic dysfunction, moderate MR and TR #5 ESRD on hemodialysis Inpatient hemodialysis x 2 Vital Signs/Physical Exam: Temp Pulse Resp BP Pulse Ox 97.9 F 60 18 113/53 L 96 06/11/24 04:00 06/11/24 04:00 06/11/24 04:00 06/11/24 04:00 06/11/24 04:00 Other Physical/Emotional Findings: - Physical Exam. General: Chronic ill- looking, in no acute distress. HEENT: Normocephalic, atraumatic, nonicteric sclera, nonanemic conjunctive. Neck: Supple, without JVD or goiter or thyroid mass. Respiratory: Normal breathing effort, coarse breath sound with bilateral crackle up to one third from lung bases, no wheezing or rhonchi. Cardiovascular: Regular rate and rhythm, S1, S2 normal, no murmur no gallop. Gastrointestinal: Normal bowel sounds, nondistended, nontender, No ascites, , No masses, no hepatosplenomegaly. Extremities : No clubbing, no peripheral edema, full range of motion, no deformity, no muscle atrophy, AV fistula in right upper arms. Integumentary: No rashes, petechia, suspected lesions. Lymphatics: No axilla or cervical lymphadenopathy. Neurology; alert awake no focal neurologic deficit, normal affection . mood and behavior. Laboratory Data at Discharge: WBC 5.40 thou/uL (4.3-10.9) 06/11/24 04:57 Hgb 13.7 g/dL (13.6-17.9) 06/11/24 04:57 Hct 42.3 % (39.6-49.0) 06/11/24 04:57 Plt Count 116 thou/uL (152-406) L 06/11/24 04:57 APTT 39.1 SECONDS (24.3-36.9) H 06/09/24 16:38 Sodium 134 mEq/L (136-145) L 06/11/24 04:57 Potassium 3.6 mEq/L (3.5-5.1) D 06/11/24 04:57 BUN 41 mg/dL (7-18) H 06/11/24 04:57 Creatinine 7.19 mg/dL (0.70-1.30) H 06/11/24 04:57 Glucose 87 mg/dL (74-106) 06/11/24 04:57 Phosphorus 2.7 mg/dL (2.5-4.9) 06/07/24 23:40 Magnesium 2.6 mg/dL (1.6-2.4) H 06/08/24 06:06 Total Bilirubin 0.9 mg/dL (0.2-1.0) 06/07/24 14:18 AST 19 U/L (15-37) 06/07/24 14:18 ALT 22 U/L (16-61) 06/07/24 14:18 Alkaline Phosphatase 93 U/L (45-117) 06/07/24 14:18 Lipase 56 U/L (13-75) 06/07/24 14:18 Home Medications: Aspirin [Adult Aspirin Regimen] 81 mg PO DAILY #30 06/11/24 Atorvastatin Calcium [Lipitor] 80 mg PO BEDTIME #30 tab 06/11/24 Carvedilol [Coreg] 6.25 mg PO BID #60 06/11/24 New Medications: Aspirin [Adult Aspirin Regimen] 81 mg PO DAILY #30 Carvedilol [Coreg] 6.25 mg PO BID #60 Atorvastatin Calcium [Lipitor] 80 mg PO BEDTIME #30 tab Diet: Renal Activity: Ad giuseppe Followup: Oswald Patterson MD [ACTIVE - CAN ADMIT] - NONE,NONE [Primary Care Provider] -
[2024-06-11 10:11] VITALS: TEMP 97.1
== END 2024-06-11 11:50 | disposition home or self-care (01) | DRG 280 ==
LOC: ER 13:18 → ERHOLD 20:53 → 4TH 22:55
PROVIDERS: ADMIT Internal Medicine; ATTEND Internal Medicine
PROC: 5A1D70Z Performance of Urinary Filtration, Intermittent, Less than 6 Hours Per Day (ICD-10-PCS; principal; 2024-06-07)
PROC: 4A023N7 Measurement of Cardiac Sampling and Pressure, Left Heart, Percutaneous Approach (ICD-10-PCS; 2024-06-08)
PROC: B2111ZZ Fluoroscopy of Multiple Coronary Arteries using Low Osmolar Contrast (ICD-10-PCS; 2024-06-08)
DX: I13.2 Hypertensive heart and chronic kidney disease with heart failure and with stage 5 chronic kidney disease, or end stage renal disease (principal); I50.23 Acute on chronic systolic (congestive) heart failure; I21.A1 Myocardial infarction type 2; N18.6 End stage renal disease; J96.01 Acute respiratory failure with hypoxia; E87.1 Hypo-osmolality and hyponatremia; E11.22 Type 2 diabetes mellitus with diabetic chronic kidney disease; E11.65 Type 2 diabetes mellitus with hyperglycemia; E11.40 Type 2 diabetes mellitus with diabetic neuropathy, unspecified; E11.51 Type 2 diabetes mellitus with diabetic peripheral angiopathy without gangrene; D63.1 Anemia in chronic kidney disease; I48.91 Unspecified atrial fibrillation; E87.5 Hyperkalemia; I34.0 Nonrheumatic mitral (valve) insufficiency; H91.90 Unspecified hearing loss, unspecified ear; I42.0 Dilated cardiomyopathy; D69.6 Thrombocytopenia, unspecified; N40.0 Benign prostatic hyperplasia without lower urinary tract symptoms; I25.10 Atherosclerotic heart disease of native coronary artery without angina pectoris; F17.210 Nicotine dependence, cigarettes, uncomplicated; B97.89 Other viral agents as the cause of diseases classified elsewhere; R00.0 Tachycardia, unspecified; Z99.2 Dependence on renal dialysis; Z88.5 Allergy status to narcotic agent; Z79.82 Long term (current) use of aspirin; Z11.52 Encounter for screening for COVID-19; Z79.01 Long term (current) use of anticoagulants; Z79.02 Long term (current) use of antithrombotics/antiplatelets; Z79.899 Other long term (current) drug therapy; Z91.158 Patient's noncompliance with renal dialysis for other reason
CPT/HCPCS: 36415; 71045; 76937; 80048; 80076; 80202; 82550; 82947; 83690; 83735; 83880; 84100; 84484; 85025; 85730; 86706; 87040; 87340; 87804; 87807; 87811; 90935; 93005; 93306; 93458; 94760; 96374; 99152; 99153; 99285; C1760; C1893; J0461; J0696; J1644; J1940; J2003; J2250; J3010; J7040; J7613; P9047; Q9966

== ENCOUNTER 2025-03-16 23:41 | Inpatient (IN) | payer OTHER, BC ==
[2025-03-17 00:25] LABS: PT Prothrombin Time 15.2 SECONDS (10-13.0); PTT, Activated Partial Thromb 29.2 SECONDS (27.2-37.4); Protime INR 1.36
[2025-03-17 00:28] LABS: Blood O2 Saturation 98.4 % (92.0-98.5)
[2025-03-17 00:33] LABS: Absolute Lymphocytes (CBC) 1.7 K/uL (0.7-4.9); Hematocrit 27.0 % (39.6-49.0); Hemoglobin 9.0 g/dL (13.6-17.9); MCH 32.2 pg (27.0-35.0); MCHC 33.4 g/dL (32.0-36.0); MCV 96.6 fL (80-100); MPV 7.1 fL (7.6-11.3); Nucleated RBC Absolute Count 0.0 (0-0); Nucleated Red Blood Cells % 0.0 % (0-0); RBC Red Blood Cell Count 2.79 M/uL (4.33-5.43); White Blood Count 8.00 thou/uL (4.3-10.9)
[2025-03-17 00:43] LABS: Comment N; Influenza A Ag Negative; Influenza B Ag Negative; SARS-CoV-2 Antigen Rapid Res Negative (Negative)
[2025-03-17] MEDS ORDERED: ALBUTEROL 2.5 MG/3 ML NEB SOL ONE (00:48)
[2025-03-17] MEDS ORDERED: CEFEPIME 2 GM VIAL ONE (00:49)
[2025-03-17] MEDS ORDERED: IPRATROPIUM BROM 0.5MG/2.5ML ONE (00:49)
[2025-03-17] MEDS ORDERED: ACETAMINOPHEN 500 MG TAB ONE (00:49)
[2025-03-17] MEDS ORDERED: IBUPROFEN 400 MG TAB ONE (00:49)
[2025-03-17] MEDS ORDERED: HYDROCORTISONE SUC 100 MG INJ ONE (00:49)
[2025-03-17] MEDS ORDERED: NA CHLORIDE 0.9% 1,000 ML ONE (00:50)
[2025-03-17] MEDS ORDERED: VANCOMYCIN 1 GM/VIAL ONE (00:50)
[2025-03-17] MEDS ORDERED: NA CHLORIDE 0.9% 100 ML ONE (00:50)
[2025-03-17] MEDS ORDERED: NA CHLORIDE 0.9% 500 ML ONE (00:50)
[2025-03-17 00:56] LABS: ALT/SGPT < 14 U/L (16-61); AST/SGOT 20 U/L (15-37); Albumin 1.9 g/dL (3.4-5.0); Albumin/Globulin Ratio 0.4 (1.1-1.8); Alkaline Phosphatase 84 U/L (45-117); Anion Gap 10.9 mEq/L (5.0-15.0); BUN Blood Urea Nitrogen 18 mg/dL (7-18); Globulin 5.1 g/dL (2.3-3.5); Glucose Level 83 mg/dL (74-106); NT PRO-BNP > 35000 pg/mL (<125); Potassium 3.9 mEq/L (3.5-5.1)
[2025-03-17 00:57] LABS: Thyroid Stimulating Hormone 7.050 uIU/mL (0.358-3.740)
[2025-03-17 00:58] LABS: Troponin High Sensitivity 3307.9 pg/mL (<58.9)
--- NOTE | 2025-03-17 02:54 | RAD REPORT ---
TIME OF STUDY: 03/16/2025 11:58 PM CDT REASON FOR EXAM: CHEST PAIN COMPARISON: March 02, 2025 FINDINGS: AP view of the chest was obtained, chest 1 view. Lungs: The lungs are adequately inflated. Mild pulmonary vascular congestion is noted. A right IJ jareth simba dialysis catheter is noted and unchanged. Interval placement of an external defibrillator vest. Pleura: No pneumothorax. There is no pleural effusion. Heart and Mediastinum: Cardiac silhouette is enlarged and stable. Aorta is atherosclerotic and tortuo us. Bones: No acute bony abnormality.. IMPRESSION: 1. Cardiomegaly with mild pulmonary vascular congestion. Electronically signed by: Selvin Wooten MD 03/17/2025 02:06 AM CDT RP Due to temporary technical issues with the PACS/[employer] reporting system, reports are being jennifer d by the in-house radiologist without review as a courtesy to ensure prompt reporting the interpreting radiologist is fully responsible for the content of the report. Transcribed Date/Time: 03/17/2025 2:53 AM
--- NOTE | 2025-03-17 05:14 | RAD REPORT ---
Head Brain Wo Cont CLINICAL HISTORY: confusion COMPARISON: March 21, 2018 Ct Head Brain Without Cont. No Prior Report. TECHNIQUE: Contiguous noncontrast axial images of the head were obtained. Sagittal and coronal reform atted images are generated for review. This exam was performed according to our departmental dose-optimization program, which includes automated exposure control, adjustment of the mA and/or kV according to patient size and/or use of iterative reconstruction technique. FINDINGS: BRAIN/VENTRICLES: There is no acute intracranial hemorrhage, mass effect or midline shift. No abnorma l extra-axial fluid collections. The gilliam-white differentiation is maintained without evidence of acute infarct. There is no evidence of hydrocephalus. Nonspecific periventricular and deep white sarah er hypodensities are likely the result of chronic small vessel ischemic disease. ORBITS: The visualized portions of the orbits demonstrate no acute abnormality. SINUSES: The visualized paranasal sinuses and mastoid air cells demonstrate no acute abnormality. SOFT TISSUE/SKULL: No acute abnormality of the visualized skull. The soft tissues are intact. IMPRESSION: No acute intracranial abnormality. RECOMMENDATIONS: Electronically signed by: Young Adam MD 03/17/2025 05:02 AM CDT RP Due to temporary technical issues with the PACS/[employer] reporting system, reports are being jennifer d by the in-house radiologist without review as a courtesy to ensure prompt reporting the interpreting radiologist is fully responsible for the content of the report. Transcribed Date/Time: 03/17/2025 5:13 AM
--- NOTE | 2025-03-17 05:14 | RAD REPORT ---
EXAM DESCRIPTION: Chest Abd Pelvis Wo Con CLINICAL HISTORY: CHEST PAIN COMPARISON: March 04, 2025 CT Chest Abdomen Pelvis Without Contrast. TECHNIQUE: Contiguous axial images of the chest, abdomen and pelvis were obtained without the administration of intravenous contrast followed by reconstruction images. The exam was performed according to our departmental dose-optimization program, which includes automated exposure control, adjustment of the mA and/or kV according to patient size and/or use of iterative reconstruction technique. FINDINGS: CHEST: MEDIASTINUM: The heart size is enlarged. Aortic and coronary vascular calcifications noted. No perica rdial effusion. The aorta is intact without aneurysm. There are no pathologically enlarged intrathoracic or axillary lymph nodes. There is a minimal hiatal hernia. LUNGS/PLEURA: The central airways are patent. Atelectasis or developing infection right posterior dorina g base. No edema or pneumothorax. No lung nodule or mass. SOFT TISSUES/BONES: There are no suspicious-appearing lytic or blastic osseous lesions. No acute osse ous abnormality. ABDOMEN/PELVIS: ORGANS: Liver and spleen are grossly intact. Images are limited secondary to beam hardening artifact. The gallbladder is contracted with multiple stones. Pancreas and adrenal glands are normal. Kidneys are atrophic with numerous bilateral renal cysts. Focal region of fat stranding within the le ft perirenal fat similar to that of prior exam. GI/BOWEL: There are no CT findings of small bowel obstruction. No acute bowel wall inflammation. The appendix is not visualized. PELVIS: There is mild nonspecific induration of the fat along the anterior aspect of the bladder chance lar to that of prior exam. The prostate is enlarged. The rectum is normal. Small fat-containing inguinal hernia on the right. No adenopathy or free fluid. PERITONEUM/RETROPERITONEUM: No intraperitoneal free air or free fluid. No retroperitoneal or mesenter ic lymphadenopathy. BONES/SOFT TISSUES: No suspicious lytic or blastic osseous lesions. No acute osseous abnormality. Mod erate lumbar spondylosis with multilevel disc , endplate changes, anterior osteophyte and vacuum disc. IMPRESSION: 1. Right lower lobe atelectasis or developing infection. 2. Cardiomegaly. 3. Cholelithiasis. 4. Bilateral renal atrophy with numerous bilateral renal cysts. 5. Prostatomegaly. 6. Nonspecific fat stranding along the anterior aspect of the bladder. Correlate urinalysis. RECOMMENDATIONS: Electronically signed by: Young Adam MD 03/17/2025 05:09 AM CDT RP Due to temporary technical issues with the PACS/[employer] reporting system, reports are being jennifer d by the in-house radiologist without review as a courtesy to ensure prompt reporting the interpreting radiologist is fully responsible for the content of the report. Transcribed Date/Time: 03/17/2025 5:13 AM
--- NOTE | 2025-03-17 05:58 | ER ---
Nurse's Notes [facility] Name: Go Shen Age: 69 yrs Sex: Male : 1955 Arrival Date: 03/16/2025 Time: 23:41 Bed 4 Private MD: Diagnosis: Severe sepsis without septic shock Presentation: 03/16 23:47 Chief complaint: EMS states: Pt's called EMS for Fall from his couch. When EMS kd3 arrived on scene pt was lethargic with and O\T\ of 89 % on room air, BGL of 72, End tidal of 22, and was hypotensive. PT placed on 4 L N/C and is now saturating at 97%. Pt appears more alert on arrival to the ED and is able to answer questions but is hard of hearing. Pt was released from [facility] for pneumonia, sepsis, right foot wound, and occluded right fistula. Pt now has a dialysis catheter to the right chest wall, last dialysis was yesterday per the patient. 23:48 Coronavirus screen: unknown. Ebola Screen: No symptoms or risks identified at this kd3 time. Initial Sepsis Screen: Does the patient meet any 2 criteria? RR > 20 per min. Mean Arterial Pressure (MAP) < 65. Altered Mental Status. Yes Does the patient have a suspected source of infection?. Risk Assessment: Do you want to hurt yourself or someone else? Patient reports no desire to harm self or others. Onset of symptoms was March 16, 2025. 23:48 Method Of Arrival: EMS: [facility] kd3 23:48 Acuity: LITO 2 kd3 Triage Assessment: 23:52 General: Appears ill, Behavior is cooperative, drowsy, flat. Pain: Denies pain. kd3 Historical: - Allergies: 23:52 Codeine; kd3 - PMHx: 23:52 BPH; ESRD; HD - MWF; Hypertension; kd3 - Immunization history:: Adult Immunizations unknown. - Infectious Disease History:: Denies. - Social history:: Smoking status: unknown. - Family history:: not pertinent. Screenin/27 00:06 [facility] ED Fall Risk Assessment (Adult) History of falling in the last 3 months, kd3 including since admission Yes- physiologic fall (2 pts) Confusion or Disorientation Yes (5 pts) Intoxicated or Sedated No (0 pts) Impaired Gait Yes (1 pt) Mobility Assist Device Used No (0 pt) Altered Elimination No (0 pt) Score/Fall Risk Level 3 or more points = High Risk Maintained a safe environment. Abuse screen: Denies threats or abuse. Denies injuries from another. Nutritional screening: No deficits noted. Tuberculosis screening: No symptoms or risk factors identified. Assessment: 00:00 General: Appears in no apparent distress. comfortable, Behavior is calm, cooperative. lg3 Pain: Complains of pain in right foot. Neuro: No deficits noted. Mckenna Agitation-Sedation Scale (RASS): 0 - Alert and Calm Level of Consciousness is awake, alert, obeys commands, Oriented to person, place, time, situation. Cardiovascular: Denies chest pain, shortness of breath, Capillary refill < 3 seconds Clubbing of nail beds is absent JVD is absent Patient's skin is warm and dry. life vest in place. Respiratory: No deficits noted. Airway is patent Respiratory effort is even, unlabored, Respiratory pattern is regular, symmetrical. GI: No deficits noted. No signs and/or symptoms were reported involving the gastrointestinal system. Abdomen is round non-distended, obese. : Reports anuria. EENT: No deficits noted. No signs and/or symptoms were reported regarding the EENT system. Derm: No deficits noted. No signs and/or symptoms reported regarding the dermatologic system. Skin is intact, is healthy with good turgor, Skin is dry, Skin is normal, Skin temperature is warm. Musculoskeletal: Circulation, motion, and sensation intact. Range of motion: intact in all extremities, Reports pain in right foot. 04:41 Reassessment: Patient appears in no apparent distress at this time. No changes from lg3 previously documented assessment. Patient and/or family updated on plan of care and expected duration. Pain level reassessed. Patient is alert, oriented x 3, equal unlabored respirations, skin warm/dry/pink. Patient states feeling better. Patient states symptoms have improved. 05:00 Reassessment: Patient appears in no apparent distress at this time. No changes from ss12 previously documented assessment. Patient and/or family updated on plan of care and expected duration. Pain level reassessed. 05:47 Reassessment: No changes from previously documented assessment. Patient and/or family kd3 updated on plan of care and expected duration. Pain level reassessed. Patient is alert, oriented x 3, equal unlabored respirations, skin warm/dry/pink. 08:00 Reassessment: Patient appears in no apparent distress at this time. Patient is alert, bp oriented x 3, equal unlabored respirations, skin warm/dry/pink. ADMIT IN PROCESS. Vital Signs: 00:06 BP 125 / 56; Pulse 98; Resp 23; Temp 101.2(O); Pulse Ox 97% on 4 lpm NC; Weight 86 kg; kd3 02:27 BP 133 / 54; Pulse 92; Resp 21 S; Pulse Ox 98% on 4 lpm NC; lg3 04:41 BP 116 / 62; Pulse 94; Resp 18 S; Pulse Ox 94% on 4 lpm NC; lg3 05:15 BP 125 / 69; Pulse 99; Resp 18; Temp 98; Pulse Ox 100% on 4 lpm NC; ss12 05:47 BP 124 / 62; Pulse 94; Resp 16; Pulse Ox 100% on 4 lpm NC; kd3 08:00 BP 121 / 60; Pulse 90; Resp 16; Pulse Ox 100% ; bp Darío Coma Score: 05:52 Eye Response: spontaneous(4). Motor Response: obeys commands(6). Verbal Response: sp4 oriented(5). Total: 15. ED Course: 03/16 23:43 Patient arrived in ED. kmf 23:47 Lucero Sears, RN is Primary Nurse. kd3 23:52 Triage completed. kd3 23:52 Arm band placed on right wrist. kd3 23:57 Joel Hill MD is Attending Physician. sp4 03/17 00:00 Patient has correct armband on for positive identification. Placed in gown. Bed in low lg3 position. Call light in reach. Side rails up X 1. Client placed on continuous cardiac and pulse oximetry monitoring. NIBP monitoring applied. cardiac monitor technician on. Door closed. Noise minimized. Warm blanket given. Pillow given. 00:00 Inserted saline lock: 22 gauge in left forearm, using aseptic technique. Blood lg3 collected. Flushed with 10 mL NS. 00:00 Initial lab(s) drawn, by me, sent to lab. First set of blood cultures drawn by me, EKG lg3 done, by ED staff, reviewed by Joel Hill MD COVID swab sent to lab. Flu and/or RSV swab sent to lab. 00:44 Chest Single View XRAY In Process Unspecified. EDMS 02:30 CT Chest Abdomen Pelvis W/O Contrast In Process Unspecified. EDMS 02:30 CT Head Brain wo Cont In Process Unspecified. EDMS 05:58 Tyrese Chiang MD is Hospitalizing Provider. sp4 09:45 Patient admitted, IV remains in place. cm10 09:45 No provider procedures requiring assistance completed. cm10 Administered Medications: 00:03 CANCELLED (Physician Discretion): ns 0.9% (30 ml/kg) 30 ml/kg IV at bolus once; Sepsis sp4 Protocol; to be given as a bolus over 90 minutes 01:15 Drug: NS 0.9% IV 1000 ml IV at 1000 ml once; to be given as a bolus over 60 minutes lg3 Route: IV; Rate: 1000 ml; Site: left forearm; 09:13 Follow up: IV Status: Completed infusion bp 01:15 Drug: DuoNeb Nebulize (2.5 mg - 0.5 mg) 3 ml Nebulizer once Route: Nebulizer; lg3 02:02 Follow up: Response: No adverse reaction lg3 01:15 Drug: Solu-CORTEF IVP 100 mg IVP once Route: IVP; Site: left forearm; lg3 02:02 Follow up: Response: No adverse reaction lg3 01:15 CANCELLED (Physician Discretion): midodrine 5 mg PO once lg3 01:16 Drug: Acetaminophen PO 1000 mg PO once Route: PO; lg3 02:03 Follow up: Response: No adverse reaction lg3 01:16 Drug: Cefepime IVPB 2 grams IVPB at 200 ml/hr once over 30 mins; (mix in NS 100 mL) lg3 Route: IVPB; Rate: 200 ml/hr; Infused Over: 30 mins; Site: left forearm; 02:03 Follow up: Response: No adverse reaction; IV Status: Completed infusion; IV Intake: lg3 100ml 01:16 Drug: Ibuprofen PO 400 mg PO once Route: PO; lg3 02:03 Follow up: Response: No adverse reaction lg3 01:24 Drug: vancoMYCIN IVPB 2 grams IVPB at calculated rate once Route: IVPB; Rate: lg3 calculated rate; Site: left forearm; 04:41 Follow up: Response: No adverse reaction; IV Status: Completed infusion; IV Intake: lg3 500ml 02:27 Drug: Albumin IVPB 25 grams 100 ml IVPB once; (Note: Albumin 25% concentration) Volume: lg3 100 ml; Route: IVPB; Site: left forearm; 09:12 Follow up: IV Status: Completed infusion bp 02:27 Drug: Albumin IVPB 25 grams 100 ml IVPB once; (Note: Albumin 25% concentration) Volume: lg3 100 ml; Route: IVPB; Site: left forearm; 09:12 Follow up: IV Status: Completed infusion bp Medication: 00:00 VIS not applicable for this client. lg3 Intake: 02:03 IV: 100ml; Total: 100ml. lg3 04:41 IV: 500ml; Total: 600ml. lg3 Outcome: 05:58 Decision to Hospitalize by Provider. sp4 09:45 Admitted to ICU accompanied by nurse, via stretcher, cm10 09:45 Condition: stable 09:45 Instructed on the need for admit, 09:50 Patient left the ED. eb Signatures: Dispatcher [employer] EDMS Enrique Barnes, RN RN Sally Rincon Lacie, RN RN lg3 Lucero Sears, RN RN [email or web address] Joel Hill MD MD sp4 Cindy Rodrigues RN RN cm10 Marlena Montana Gary Butterfield, RN RN ss12 Corrections: (The following items were deleted from the chart) 03/16 23:52 23:47 Chief complaint: EMS states: Pt's kd3 kd3
--- NOTE | 2025-03-17 05:59 | EDPHYS ---
Physician Documentation [facility] Name: Go Shen Age: 69 yrs Sex: Male : 1955 Arrival Date: 03/16/2025 Time: 23:41 Bed 4 Private MD: ED Physician Joel Hill HPI: 03/16 23:57 This 69 yrs old Male presents to ER via EMS with complaints of fever. sp4 03/17 05:25 Patient presents from home with acute fever and reported to have hypotension.. sp4 05:51 Past medical history end-stage renal disease on hemodialysis. Last dialysis 03 15 2025, sp4 patient was admitted to [facility] was discharged home yesterday but spiked fever at home prompting ambulance transport back to the hospital. . Historical: - Allergies: 03/16 23:52 Codeine; kd3 - PMHx: 23:52 BPH; ESRD; HD - MWF; Hypertension; kd3 - Immunization history:: Adult Immunizations unknown. - Infectious Disease History:: Denies. - Social history:: Smoking status: unknown. - Family history:: not pertinent. 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 Alert severe physical sp4 debility bright upper arm hemodialysis fistula . Signs of prolonged immobility Head/Face: Normocephalic, atraumatic. Eyes: Pupils equal round and reactive to light, extra-ocular motions intact. Lids and lashes normal. Conjunctiva and sclera are not injected. Cornea within normal limits. Periorbital areas with no swelling, redness, or edema. ENT: Nares patent. No nasal discharge, no septal abnormalities noted. Tympanic membranes are normal and external auditory canals are clear. Oropharynx with no redness, swelling, or masses, exudates, or evidence of obstruction, uvula midline. Mucous membranes moist. Neck: Trachea midline, no thyromegaly or masses palpated, and no cervical lymphadenopathy. Supple, full range of motion without nuchal rigidity, or vertebral point tenderness. Chest/axilla: Normal chest wall appearance and motion. Nontender with no deformity. No lesions are appreciated. Cardiovascular: Regular rate and rhythm with a normal S1 and S2. No gallops, murmurs, or rubs. No pulse deficits. Respiratory: Lungs have equal breath sounds bilaterally, clear to auscultation and percussion. No rales, rhonchi or wheezes noted. No increased work of breathing, no retractions or nasal flaring. Abdomen/GI: Soft, with normal bowel sounds. No distension or tympany. No guarding or rebound. No evidence of tenderness throughout. Back: No spinal tenderness. No costovertebral tenderness. Male : Normal genitalia with no discharge or lesions. Skin: Warm, dry with normal turgor. Normal color with no rashes, no lesions, and no evidence of cellulitis. MS/ Extremity: Pulses equal, no cyanosis. Neurovascular intact. Moderate diffuse muscular atrophy secondary to immobility. Neuro: Awake and alert, GCS 15, oriented to person, place, time, and situation. Cranial nerves II-XII grossly intact. Motor strength 5/5 in all extremities. Sensory grossly intact. Psych: Awake, alert, with orientation to person, place and time. Behavior, mood, and affect are within normal limits 06:01 ECG was reviewed by the Attending Physician. EKG is 0000 sinus tachycardia rate 101 sp4 left axis deviation, LVH, otherwise unremarkable Vital Signs: 00:06 BP 125 / 56; Pulse 98; Resp 23; Temp 101.2(O); Pulse Ox 97% on 4 lpm NC; Weight 86 kg; kd3 02:27 BP 133 / 54; Pulse 92; Resp 21 S; Pulse Ox 98% on 4 lpm NC; lg3 04:41 BP 116 / 62; Pulse 94; Resp 18 S; Pulse Ox 94% on 4 lpm NC; lg3 05:15 BP 125 / 69; Pulse 99; Resp 18; Temp 98; Pulse Ox 100% on 4 lpm NC; ss12 05:47 BP 124 / 62; Pulse 94; Resp 16; Pulse Ox 100% on 4 lpm NC; kd3 08:00 BP 121 / 60; Pulse 90; Resp 16; Pulse Ox 100% ; bp [place] Coma Score: 05:52 Eye Response: spontaneous(4). Motor Response: obeys commands(6). Verbal Response: sp4 oriented(5). Total: 15. MDM: 00:03 Medical Screening Exam initiated sp4 03:37 ED course: FINDINGS: AP view of the chest was obtained, chest 1 view. Lungs: The lungs sp4 are adequately inflated. Mild pulmonary vascular congestion is noted. A right IJ tunnel dialysis catheter is noted and unchanged. Interval placement of an external defibrillator vest. Pleura: No pneumothorax. There is no pleural effusion. Heart and Mediastinum: Cardiac silhouette is enlarged and stable. Aorta is atherosclerotic and tortuous. Bones: No acute bony abnormality.. IMPRESSION: 1. Cardiomegaly with mild pulmonary vascular congestion.. 05:15 ED course: CHEST: MEDIASTINUM: The heart size is enlarged. Aortic and coronary vascular sp4 calcifications noted. No pericardial effusion. The aorta is intact without aneurysm. There are no pathologically enlarged intrathoracic or axillary lymph nodes. There is a minimal hiatal hernia. LUNGS/PLEURA: The central airways are patent. Atelectasis or developing infection right posterior lung base. No edema or pneumothorax. No lung nodule or mass. SOFT TISSUES/BONES: There are no suspicious-appearing lytic or blastic osseous lesions. No acute osseous abnormality. ABDOMEN/PELVIS: ORGANS: Liver and spleen are grossly intact. Images are limited secondary to beam hardening artifact. The gallbladder is contracted with multiple stones. Pancreas and adrenal glands are normal. Kidneys are atrophic with numerous bilateral renal cysts. Focal region of fat stranding within the left perirenal fat similar to that of prior exam. GI/BOWEL: There are no CT findings of small bowel obstruction. No acute bowel wall inflammation. The appendix is not visualized. PELVIS: There is mild nonspecific induration of the fat along the anterior aspect of the bladder similar to that of prior exam. The prostate is enlarged. The rectum is normal. Small fat-containing inguinal hernia on the right. No adenopathy or free fluid. PERITONEUM/RETROPERITONEUM: No intraperitoneal free air or free fluid. No retroperitoneal or mesenteric lymphadenopathy. BONES/SOFT TISSUES: No suspicious lytic or blastic osseous lesions. No acute osseous abnormality. Moderate lumbar spondylosis with multilevel disc , endplate changes, anterior osteophyte and vacuum disc. IMPRESSION: 1. Right lower lobe atelectasis or developing infection. 2. Cardiomegaly. 3. Cholelithiasis. 4. Bilateral renal atrophy with numerous bilateral renal cysts. 5. Prostatomegaly. 6. Nonspecific fat stranding along the anterior aspect of the bladder. Correlate urinalysis. RECOMMENDATIONS: . 05:15 ED course: FINDINGS: BRAIN/VENTRICLES: There is no acute intracranial hemorrhage, mass sp4 effect or midline shift. No abnormal extra-axial fluid collections. The gilliam-white differentiation is maintained without evidence of acute infarct. There is no evidence of hydrocephalus. Nonspecific periventricular and deep white matter hypodensities are likely the result of chronic small vessel ischemic disease. ORBITS: The visualized portions of the orbits demonstrate no acute abnormality. SINUSES: The visualized paranasal sinuses and mastoid air cells demonstrate no acute abnormality. SOFT TISSUE/SKULL: No acute abnormality of the visualized skull. The soft tissues are intact. IMPRESSION: No acute intracranial abnormality. . 05:17 ED course: FINDINGS: AP view of the chest was obtained, chest 1 view. Lungs: The lungs sp4 are adequately inflated. Mild pulmonary vascular congestion is noted. A right IJ tunnel dialysis catheter is noted and unchanged. Interval placement of an external defibrillator vest. Pleura: No pneumothorax. There is no pleural effusion. Heart and Mediastinum: Cardiac silhouette is enlarged and stable. Aorta is atherosclerotic and tortuous. Bones: No acute bony abnormality.. IMPRESSION: 1. Cardiomegaly with mild pulmonary vascular congestion.. 05:53 Differential diagnosis: viral Infection, bacterial infection, URI, bronchitis, sp4 pneumonia UTI, gastroenteritis. Data reviewed: vital signs, nurses notes, lab test result(s), EKG, radiologic studies. Data reviewed: EMS record, old medical records. Consideration of Admission/Observation Patient was admitted/placed on observation. Escalation of care including admission/observation considered. Management of patient was discussed with the following: Hospitalist: Discussed with admitting hospitalist. ED course: Sinus tachycardia. No identifiable source of fever. Presumed sepsis. Will proceed with admission. ED course: Sepsis reevaluation complete, septic fluid bolus 30 mL/kg could not be given secondary to end-stage renal disease and volume overload also congestive heart failure. Total of 1000 mL fluid was given. 03/16 23:58 Order name: BNP; Complete Time: sp4 03/16 23:58 Order name: Blood Culture Adult (2) sp4 03/16 23:58 Order name: CBC with Diff; Complete Time: sp4 03/16 23:58 Order name: CMP; Complete Time: sp4 03/16 23:58 Order name: Lactate w/ 2H reflex if indic.; Complete Time: :27 [facility] 03/16 23:58 Order name: Protime (+inr); Complete Time: 01:27 [facility] 03/16 23:58 Order name: Ptt, Activated; Complete Time: 01:27 03/16 23:58 Order name: Troponin HS; Complete Time: 01:27 03/16 23:58 Order name: ABG; Complete Time: 01:27 [facility] 03/16 23:58 Order name: UA Rfx Allan Cult if indicated [facility] 03/16 23:59 Order name: COVID-19 Ag + Flu A+B Ag; Complete Time: 01:27 [facility] 03/16 23:59 Order name: TSH; Complete Time: 01:27 [facility] 03/16 23:59 Order name: T4 Free; Complete Time: 01:27 03/17 01:13 Order name: Glucose, Ancillary Testing; Complete Time: 01:27 [facility] 03/17 03:38 Order name: Troponin High Sensitivity; Complete Time: 04:40 [facility] 03/16 23:58 Order name: Chest Single View XRAY; Complete Time: 03:37 03/17 01:33 Order name: CT Chest Abdomen Pelvis W/O Contrast; Complete Time: 05:59 03/17 01:34 Order name: CT Head Brain wo Cont; Complete Time: 05:59 03/17 06:49 Order name: CONS Physician Consult [facility] 03/16 23:58 Order name: Accucheck; Complete Time: 01:16 03/16 23:58 Order name: Cardiac monitoring; Complete Time: 00:39 03/16 23:58 Order name: EKG - Nurse/Tech; Complete Time: 00:39 03/16 23:58 Order name: IV Saline Lock - Large Bore; Complete Time: 01:16 03/16 23:58 Order name: Labs collected and sent; Complete Time: 00:39 03/16 23:58 Order name: O2 Per Protocol; Complete Time: 00:39 03/16 23:58 Order name: O2 Sat Monitoring; Complete Time: 00:39 03/16 23:58 Order name: Vital Signs; Complete Time: 01:16 4 EC:00 Rate is 101 beats/min. Rhythm is regular, Sinus tachycardia. Left axis deviation noted. sp4 RI interval is normal. QRS interval is prolonged. QT interval is normal. No Q waves. T waves are Normal. No ST changes noted. Clinical impression: No evidence of ischemia. Interpreted by me. Reviewed by me. Administered Medications: 00:03 CANCELLED (Physician Discretion): ns 0.9% (30 ml/kg) 30 ml/kg IV at bolus once; Sepsis sp4 Protocol; to be given as a bolus over 90 minutes 01:15 Drug: NS 0.9% IV 1000 ml IV at 1000 ml once; to be given as a bolus over 60 minutes lg3 Route: IV; Rate: 1000 ml; Site: left forearm; 09:13 Follow up: IV Status: Completed infusion bp 01:15 Drug: DuoNeb Nebulize (2.5 mg - 0.5 mg) 3 ml Nebulizer once Route: Nebulizer; lg3 02:02 Follow up: Response: No adverse reaction lg3 01:15 Drug: Solu-CORTEF IVP 100 mg IVP once Route: IVP; Site: left forearm; lg3 02:02 Follow up: Response: No adverse reaction lg3 01:15 CANCELLED (Physician Discretion): midodrine 5 mg PO once lg3 01:16 Drug: Acetaminophen PO 1000 mg PO once Route: PO; lg3 02:03 Follow up: Response: No adverse reaction lg3 01:16 Drug: Cefepime IVPB 2 grams IVPB at 200 ml/hr once over 30 mins; (mix in NS 100 mL) lg3 Route: IVPB; Rate: 200 ml/hr; Infused Over: 30 mins; Site: left forearm; 02:03 Follow up: Response: No adverse reaction; IV Status: Completed infusion; IV Intake: lg3 100ml 01:16 Drug: Ibuprofen PO 400 mg PO once Route: PO; lg3 02:03 Follow up: Response: No adverse reaction lg3 01:24 Drug: vancoMYCIN IVPB 2 grams IVPB at calculated rate once Route: IVPB; Rate: lg3 calculated rate; Site: left forearm; 04:41 Follow up: Response: No adverse reaction; IV Status: Completed infusion; IV Intake: lg3 500ml 02:27 Drug: Albumin IVPB 25 grams 100 ml IVPB once; (Note: Albumin 25% concentration) Volume: lg3 100 ml; Route: IVPB; Site: left forearm; 09:12 Follow up: IV Status: Completed infusion bp 02:27 Drug: Albumin IVPB 25 grams 100 ml IVPB once; (Note: Albumin 25% concentration) Volume: lg3 100 ml; Route: IVPB; Site: left forearm; 09:12 Follow up: IV Status: Completed infusion bp Disposition: 03/18 00:19 Chart complete. sp4 Disposition Summary: 03/17/25 05:58 Hospitalization Ordered Notes: Hospitalization Status: Inpatient Admission sp4 Provider: Tyrese Chiang sp4 Condition: Stable sp4 Problem: new sp4 Symptoms: have improved sp4 Bed/Room Type: Standard sp4 Location: Intensive Care Unit(03/17/25 08:56) eb Room Assignment: 1-(03/17/25 08:56) eb Diagnosis - Severe sepsis without septic shock sp4 Forms: - Medication Reconciliation Form sp4 - SBAR form sp4 - Leadership Thank You Letter sp4 Critical care time excluding procedures: 03/17 06:03 Critical care time: Bedside Care: 36 minutes, Consultation: 12 minutes, Family sp4 Intervention: 12 minutes. Total time: 60 minutes Signatures: Dispatcher [employer] EDMS Sally Fitzgerald Lacie RN RN [email or web address] Lucero Sears, RN RN [email or web address] Joel Hill MD MD sp4 Enrique Barnes RN bp Corrections: (The following items were deleted from the chart) 03/16 23:58 23:58 PROBNP+C.LAB.BRZ ordered. EDMS EDMS 23:58 23:58 BLOOD CULTURE*+BA.LAB.BRZ ordered. EDMS EDMS 23:58 23:58 CBC+H.LAB.BRZ ordered. EDMS EDMS 23:58 23:58 COMPREHENSIVE METABOLIC PANEL+C.LAB.BRZ ordered. EDMS EDMS 23:58 23:58 LACTATE+C.LAB.BRZ ordered. EDMS EDMS 23:58 23:58 PROTIME (+INR)+COAG.LAB.BRZ ordered. EDMS EDMS 23:58 23:58 PTT, ACTIVATED+COAG.LAB.BRZ ordered. EDMS EDMS 23:58 23:58 Troponin High Sensitivity+C.LAB.BRZ ordered. EDMS EDMS 23:58 23:58 Chest Single View+RAD.RAD.BRZ ordered. EDMS EDMS 23:58 23:58 Arterial Blood Gas+RC.LAB.BRZ ordered. EDMS EDMS 23:59 23:59 UA Rfx Allan Cult if indicated+U.LAB.BRZ ordered. EDMS EDMS 03/17 00:03 03/16 23:58 NS 0.9% IV (30 ml/kg) 30 ml/kg IV at bolus once; Sepsis Protocol; to be sp4 given as a bolus over 90 minutes ordered. sp4 03/17 01:15 00:03 midodrine 5 mg PO once ordered. sp4 lg3 01:16 03/16 23:58 Carpenter ordered. sp4 lg3 03/17 03:38 03:38 Troponin High Sensitivity+C.LAB.BRZ ordered. EDMS EDMS 08:56 05:58 Telemetry/MedSurg (Inpatient) sp4 eb 08:56 05:58 sp4 eb
--- NOTE | 2025-03-17 07:59 | P.HP ---
Certification for Inpatient Patient admitted to: Inpatient With expected LOS: >2 Midnights Patient will require the following post-hospital care: None Practitioner: I am a practitioner with admitting privileges, knowledge of patient current condition, hospital course, and medical plan of care. Services: Services provided to patient in accordance with Admission requirements found in Title 42 Section 412.3 of the Code of Federal Regulations Patient History Date of Service: 03/17/25 Reason for admission: Fever of unknown origin, acute encephalopathy History of Present Illness: Patient is 69 years old male patient who came in via EMS from home after a fall and found to have a fever of 101.2. Patient was discharged 03/16 from [facility] for pneumonia, sepsis, right foot wound, and occluded right fistula.. Past medical history significant for end-stage renal disease currently on hemodialysis, patient dialyzes Wednesday, Wednesday and Wednesday. Last dialysis yesterday with new dialysis catheter to right chest, Hypertension, BPH, anemia, and CHF. Patient admitted for further evaluation and management for fever of unknown origin. Unable to meaningfully assess ROS at time of admission due to patient's mental status. The most likely source at time of admission is genitourinary. ER course: Patient presented in the ER via EMS after his called due to fall from the couch. Patient seen and examined in the ER, Macedonian-speaking, uses device for interpretation. Blood pressures in ED within normal limits. Patient placed on 4 L nasal cannula O2 to maintain O2 sats greater than 94%. Chest x-ray was completed showing cardiomegaly and mild pulmonary vascular congestion. CT chest abdomen pelvis without contrast completed showing RLL atelectasis versus developing infection, cardiomegaly, cardio lithiasis, renal atrophy with numerous bilateral renal cyst, prostate a megaly, nonspecific fat stranding along anterior aspect of the bladder. CT head/brain without contrast completed showing no acute intracranial abnormality. Patient was given normal saline 1 L bolus to be given over 1 hour, DuoNebs, Solu-Cortef 100 mg IV push x 1, Tylenol 1 g p.o. x 1, cefepime IVPB 2 g x 1, ibuprofen 400 mg p.o. x 1, vancomycin 2 g IVPB x 1, albumin IVPB 25 mg x 2. Labs notable for hemoglobin of 9, last known approximately 11. VBG completed with pH of 7.48, pCO2 of 40, bicarb of 29.6. Sodium 134, creatinine 4.61. Troponin 3298 (4953 on last admission 02/27) , BNP greater than 35,000 (chronic), cardiology contacted and aware. UA ordered pending. Allergies No Known Allergies Allergy (Verified 03/11/22 21:29) Home medications list reviewed: Yes (Discharge med list from 03/16 DC from [facility] available) Home Medications: Aspirin [Adult Aspirin Regimen] 81 mg PO DAILY #30 06/11/24 Atorvastatin Calcium [Lipitor] 80 mg PO BEDTIME #30 tab 06/11/24 Gabapentin 300 mg PO 03/17/25 Metoprolol Tartrate 12.5 mg PO BID 03/17/25 Na Bicarb Tab [Sodium Bicarb 325 MG Tab*] 03/17/25 Tamsulosin HCl [Flomax] 0.4 mg PO BEDTIME 03/17/25 - Past Medical/Surgical History Has patient received pneumonia vaccine in the past: No Diabetic: Yes -: ESRD, (M,W,F dialysis) -: Hypertension -: Diabetes mellitus type 2 -: BPH with urinary retention -: PVD -: AF on AC -: AV graft Psychosocial/ Personal History: The patient is single. He has no children. - Family History Father -: Heart disease, Hypertension Mother -: Heart disease, Diabetes, Stroke, Kidney disease, Other (see notes) Brother -: Heart disease, Hypertension, Stroke, Kidney disease Sister -: Diabetes - Social History Smoking Status: Unknown if ever smoked Alcohol use: No CD- Drugs: No Caffeine use: No Place of Residence: Home Review of Systems is unable to be obtained Physical Examination - Physical Exam General: In no apparent distress, Unresponsive HEENT: Atraumatic, Normocephalic, Mucous membr. moist/pink, Other (Pupils 2 mm, slow reaction to light) Neck: 2+ carotid pulse no bruit, JVD not distended, No Thyromegaly, No LAD Respiratory: Clear to auscultation bilaterally, Normal air movement, Diminished Cardiovascular: No edema, Normal pulses, Regular rate/rhythm, Normal S1 S2 Capillary refill: Brisk Gastrointestinal: Normal bowel sounds, Soft and benign, Non-distended, W/out h epatosplenomegaly, No tenderness, No masses, No rebound Musculoskeletal: No swelling, No contractures, No erythema, Clubbing Integumentary: No rashes, No breakdown, No significant lesion, No tenderness/swelling, No erythema Neurological: Normal tone, Abnormal strength, Abnormal sensation, Abnormal affect External genitalia: Deferred Rectal: Deferred - Studies Laboratory Data (last 24 hrs) 03/17/25 03/17/25 03/17/25 00:00 00:00 00:00 WBC 8.00 Hgb 9.0 L Hct 27.0 L Plt Count 252 PT 15.2 H INR 1.36 APTT 29.2 Sodium 134 L Potassium 3.9 BUN 18 Creatinine 4.61 H Glucose 83 Total Bilirubin 0.5 AST 20 ALT < 14 L Alkaline Phosphatase 84 Assessment and Plan - Plan Patient is 69 years old male patient who came in via EMS from home after a fall and found to have a fever of 101.2. Patient was discharged 03/16 from [facility] for pneumonia, sepsis, right foot wound, and occluded right fistula.. Past medical history significant for end-stage renal disease currently on hemodialysis, patient dialyzes Wednesday, Wednesday and Wednesday. Last dialysis yesterday with new dialysis catheter to right chest, Hypertension, BPH, anemia, and CHF. Patient admitted for further evaluation and management for fever of unknown origin. Unable to meaningfully assess ROS at time of admission due to patient's mental status. The most likely source at time of admission is genitourinary. Plan: Acute encephalopathy Fever of unknown origin Likely etiology Review of outside hospital records show asymptomatic bacteriuria without culture results untreated Blood cultures collected, will follow WBC 8, VBG notable for pH 7.48, pCO2 40, HCO3 29.6, sodium 134 CT CAP concerning for atelectasis versus developing infection, bladder fat stranding Discharged from [facility] x 1 day for pneumonia. Per record review of outside hospital patient has been off antibiotics for approximately 9 days. UA ordered to reflex to culture, will follow Bilateral lower extremity ultrasound to rule out DVT ordered Initiated cefepime and vancomycin, monitoring for toxicity, pharmacy to dose Monitor CBC Weakness Fall Fall precautions ESRD on HD (MWF): -Creatinine 4.61, potassium 3.9, sodium 134. -Nephrology consulted, will defer dialysis to them. -Maintain euvolemia. -Daily KFT. -Avoid nephrotoxins when possible. -Renally dose all medications. Monitor BMP, mag, Phos BPH Continue tamsulosin 0.4 mg nightly Acute on chronic Normocytic Anemia: -Hb: 9 , was 11 on last admission. -Iron/TIBC, B12, Folic acid ordered, will follow. -No sign of active bleed. -Ordered CBC for tomorrow. -Will continue to trend. -Transfuse if symptomatic or <7. heart failure with severely reduced ejection fraction, not in acute exacerbation: Pulmonary hypertension LifeVest -Last echo on file May 2024 EF 5 to 10%, severe global hypokinesis, grade 3 diastolic dysfunction, moderate TR, moderate MR, moderate pulmonary hypertension -Strict intake output chart. 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
[2025-03-17] MEDS: ALBUMIN HUMAN 25% 200 ML IV ONE (11:16)
[2025-03-17] MEDS: HEPARIN 5000 UNIT/ML 1 ML VIAL SQ SCH (11:25)
[2025-03-17 12:56] VITALS: BMI 29.2
[2025-03-17] MEDS: CEFEPIME 2 GM in NA CHLORIDE 0.9% 100 ML IV SCH (14:45)
[2025-03-17] MEDS: VANCOMYCIN 2 GM in NA CHLORIDE 0.9% 500 ML IVPB SCH (14:45)
--- NOTE | 2025-03-17 14:49 | CON ---
Date of Consultation: 03/17/2025 Reason For Consultation: Elevated troponin. History Of Present Illness: A 69-year-old male who was brought in after a fall, found to have fever 101. Apparently, he had pneumonia and sepsis recently and wound in the right foot was treated in [facility] [place]. He is known to have congestive heart failure, hypertension, and chronic ane betsey. Denies having any chest pain. Cardiac enzymes were checked and they were in 3000 range. The p enedina was seen by bedside. Denies having any shortness of breath at the present time, but he had si gnificant shortness of breath with normal activities. No cough. Past Medical History: Hypertension, CHF, end-stage renal disease, diabetes, atrial fibrillation. Medications: Refer to reconciliation sheet for detailed list. Allergies: NO KNOWN DRUG ALLERGIES. Past Surgical History: AV graft for dialysis. Family History: No premature coronary artery disease or cancer. Social History: Does not smoke or drink. Does not use any drugs. Review of Systems: All systems reviewed, they are negative except as mentioned in HPI. Physical Examination: Vital Signs: Reviewed. Head and Neck: Pupils are equal, reactive to light. Intact eye movements. No JVD. No cervical lym phadenopathy. Neck is supple. Thyroid is not enlarged. Lungs: Clear to auscultation bilaterally. No rhonchi, wheezing, or crackles. No accessory muscle u se. Heart: Regular. No extra sounds. Abdomen: Soft, nontender. Bowel sounds positive. No organomegaly. No masses or hernia. No rigidi ty or rebound. Extremities: No edema, clubbing, or cyanosis. Intact pulses. Skin: No rash. Neurologic: Alert, awake, oriented x3. No acute focal deficits appreciated. Lymph Nodes: No cervical or axillary lymphadenopathy. Investigations: Troponins 3298, down from 3300. BUN is 11, creatinine is 4.6, and hemoglobin is 9. Assessment And Recommendations: 1. Elevated troponin. I am not sure if he had an ischemic workup before specifically coronary angiog ailyn. We will get all the records and if coronary angiogram was not done, recommend to perform it on Wednesday. In the interim, please start the patient on baby aspirin and start him on Lovenox 1 mg/kg heart bcu q.12 hours until further data is available. 2. Congestive heart failure. Appears to be euvolemic. Continue fluid management through dialysis. 3. End-stage renal disease, on hemodialysis. SR/MODL Voice ID: [id number] Report ID: [id number]
[2025-03-17] MEDS: PNEUMOCOCCAL VACCINE 0.5 ML IMVAC ONE (15:00)
[2025-03-17] MEDS ORDERED: VANCOMYCIN 1 GM in NA CHLORIDE 0.9% 250 ML IVPB SCH (15:00)
[2025-03-17] MEDS: METOPROLOL TAR 25 MG TAB PO SCH (20:33)
[2025-03-17] MEDS: ATORVASTATIN 80 MG TAB PO SCH (20:33)
[2025-03-17] MEDS: TAMSULOSIN 0.4 MG SR CAP PO SCH (20:33)
[2025-03-17] MEDS: GABAPENTIN 300 MG CAP PO SCH (20:33)
[2025-03-17] MEDS: SODIUM BICARB 325 MG TAB PO SCH (20:33)
--- NOTE | 2025-03-18 01:09 | CON ---
Date of Consultation: 03/17/2025 Chief Complaint: End-stage renal disease, on hemodialysis. History Of Present Illness: The patient is admitted to ICU because of fever of unknown origin, acute encephalopathy. The patient has multiple medical problems including history of congestive heart rafaela lure with systolic dysfunction, coronary artery disease. The patient is a 69-year-old man who was br ought by EMS from home after he sustained fall and was found to have fever up to 101.2. He was recen tly discharged on March 16 from [facility] and he was treated for pneumonia, sepsis, right foot wound, and occluded right hemodialysis AV fistula. The patient has history of end-stage renal disease, on hemodialysis and patient dialyzed on Wednesday, Wednesday, and Fridays. He had dialys is on Wednesday and today he is to have dialysis for metabolic clearance and to obtain negative fluid balance. The patient has history of BPH, chronic anemia, hypertension, congestive heart failure, co ronary artery disease. Cardiology is consulted. The patient was placed on nasal cannula of 4 L O2 due to the shortness of breath and hypoxemic respir atory failure and SpO2 improved to 94% in the emergency room. Chest x-ray showed cardiomegaly, mild pulmonary vascular congestion. CT scan of the abdomen and pelvis without contrast showed right lower lobe atelectasis versus developing infection, cardiomegaly, renal atrophy, numerous bilateral renal cysts. The patient was told by attendings from [facility] that he has from his kidney and he needs to see urologist. CT scan of the brain without contrast was completed and showed no intracranial abnormality. The patient was started on vancomycin, cefepime, he received Solu-Michael ef and DuoNeb. Troponin was up to 4953 on previous admission and during this admission is 3298. BNP was elevated up to 35,000. Review of Systems: Constitutional: The patient denies headache. Eyes: Denies vision changes. Ears, Nose, Mouth, and Throat: Denies sore throat or earache. Respiratory: He has some shortness of breath with light activities. He remains bed bound. Cardiovascular: Denies chest pain, palpitation. Denies syncope. GI: Denies nausea or vomiting. : Denies dysuria or hematuria. All other systems reviewed and all are negative. Past Medical History: As stated above end-stage renal disease, Wednesday, Wednesday, Wednesday hemodialysi s, hypertension, diabetes mellitus type 2, BPH, peripheral vascular disease, atrial fibrillation on a nticoagulation, coronary artery disease, congestive heart failure, systolic dysfunction, hyperlipidem ia, anemia, CKD, renal osteodystrophy. Family History: heart disease, hypertension. Mother; heart disease, diabetes, stroke, ki dney stones. Brother; hypertension, stroke, kidney disease, heart disease. Sister; diabetes mellitu s. Social History: Denies tobacco, alcohol. Denies drugs. Physical Examination: General: The patient is not in acute distress. Answer simple questions. HEENT: Atraumatic, normocephalic. Neck: Supple. No bruits. Respiratory: Diminished breath sounds. Few rhonchi, few crackles at bases. Heart: S1, S2. No pericardial friction or rub. Abdomen: Soft, benign, nontender. No rebound. No guarding. Extremities: Slight edema in both ankles. Neurological: Moving extremities. Cranial nerves intact. Laboratory Data: Hemoglobin 9.0, WBC 8, platelet count 252. INR 1.36, PT 15.2, PTT 29.2. Sodium 13 4, potassium 3.9, BUN 19, creatinine 4.61, glucose 83, AST 20, ALT 14. Impression And Plan: 1. The patient is a 69-year-old man with a recent history of prolonged admission for pneumonia, sepsi s, right foot wound and occluded right AV fistula. He was discharged on March 16 and subsequentl y he sustained fall at home, was found to have high-grade fever of 101.2. He is admitted to ICU, pos sible sepsis and congestive heart failure and elevated troponin. Cardiology is consulted for acute c oronary syndrome. The patient will continue broad-spectrum antibiotics and will have further workup with Cardiology. The patient has generalized weakness and deconditioning. 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 Due to high-grade fever, he remains in ICU. He is bed-bound and he is initiated on c efepime and vancomycin. Continue to monitor vancomycin level and adjust dose according to lab result s. Heart failure with severely reduced ejection fraction. Volemia is in acceptable control. The pa sandra has ejection fraction of 5% to 10% with severe global hypokinesis. Monitor blood pressure and continue dialysis. Adjust dialysis parameters according to clinical status. ultrafiltrat ion was ordered for maintenance fluid balance. 2. Hypertension. The patient is on metoprolol. 3. Congestive heart failure. Continue beta tyrese. 4. Anemia of chronic kidney disease. Monitor hemoglobin level. Hemoglobin level is 9. Continue DANIEL . 5. Renal osteodystrophy. Monitor phosphorus level and continue binder. EB/MODL Voice ID: [id number] Report ID: [id number]
[2025-03-18 05:40] LABS: Absolute Lymphocytes (CBC) 1.3 K/uL (0.7-4.9); Hematocrit 26.4 % (39.6-49.0); Hemoglobin 8.9 g/dL (13.6-17.9); MCH 32.5 pg (27.0-35.0); MCHC 33.6 g/dL (32.0-36.0); MCV 96.5 fL (80-100); MPV 7.8 fL (7.6-11.3); Nucleated RBC Absolute Count 0.0 (0-0); Nucleated Red Blood Cells % 0.0 % (0-0); RBC Red Blood Cell Count 2.74 M/uL (4.33-5.43); White Blood Count 5.80 thou/uL (4.3-10.9)
[2025-03-18 05:58] LABS: AST/SGOT 20 U/L (15-37); Albumin 2.3 g/dL (3.4-5.0); Albumin/Globulin Ratio 0.5 (1.1-1.8); Alkaline Phosphatase 81 U/L (45-117); Anion Gap 11.7 mEq/L (5.0-15.0); BUN Blood Urea Nitrogen 18 mg/dL (7-18); Bilirubin Indirect, Calculated 0.3 mg/dL (0.2-0.8); Globulin 4.7 g/dL (2.3-3.5); Glucose Level 94 mg/dL (74-106); Magnesium 2.1 mg/dL (1.6-2.4); Potassium 3.7 mEq/L (3.5-5.1)
[2025-03-18 05:59] LABS: ALT/SGPT < 14 U/L (16-61)
[2025-03-18 06:00] LABS: Troponin High Sensitivity 2295.4 pg/mL (<58.9)
--- NOTE | 2025-03-18 07:06 | P.PN ---
Subjective Date of Service: 03/18/25 Chief Complaint: Fever of unknown origin, acute encephalopathy Subjective: Improving Patient assessed in room lying in bed on room air in no apparent distress. Patient was asleep and woke easily to initiate exam. Patient denies acute complaints. He endorses weakness, but states that it has been consistent since his previous hospitalization. He reports being discharged from [place] with the same weakness and having to sleep on the couch due to not being able to ambulate to his room due to the weakness. He states that he fell off the couch and his sister called EMS because she became concerned. Denies fevers, chills, cough, bladder pain, back pain. Review of Systems 10-point ROS is otherwise unremarkable Physical Examination - Vital Signs Temperature: 97.8 F Blood Pressure: 116/56 Pulse: 88 Respirations: 16 Pulse Ox (%): 100 - Physical Exam General: Alert, In no apparent distress, Oriented x3, Cooperative, Obese HEENT: Atraumatic, Normocephalic, Mucous membr. moist/pink Neck: Supple, 2+ carotid pulse no bruit, JVD not distended, No Thyromegaly Respiratory: Clear to auscultation bilaterally, Normal air movement, Diminished (bases) Cardiovascular: No edema, Normal pulses, Regular rate/rhythm, Normal S1 S2 Capillary refill: Brisk Gastrointestinal: Normal bowel sounds, Soft and benign, Non-distended, W/out hepatosplenomegaly Musculoskeletal: No clubbing, No swelling, No contractures, No erythema Integumentary: No rashes, No breakdown, No significant lesion, No tenderness/swelling Neurological: Normal speech, Normal tone, Sensation intact, Cranial nerves 3-12 intact, Normal affect Urinary: Dialysis catheter (RUE) External genitalia: Deferred Rectal: Deferred - Studies Medications List Reviewed: Yes Assessment And Plan - Plan Patient is 69 years old male patient who came in via EMS from home after a fall and found to have a fever of 101.2. Patient was discharged 03/16 from [facility] for pneumonia, sepsis, right foot wound, and occluded right fistula.. Past medical history significant for end-stage renal disease currently on hemodialysis, patient dialyzes Wednesday, Wednesday and Wednesday. Last dialysis yesterday with new dialysis catheter to right chest, Hypertension, BPH, anemia, and CHF. Patient admitted for further evaluation and management for fever of unknown origin. Unable to meaningfully assess ROS at time of admission due to patient's mental status. The most likely source at time of admission is genitourinary. Plan: Acute encephalopathy, resolved Fever of unknown origin, resolved Likely etiology Review of outside hospital records show asymptomatic bacteriuria without culture results untreated Blood cultures NGTD WBC 5.8 CT CAP concerning for atelectasis versus developing infection, bladder fat stranding Discharged from [facility] x 1 day for pneumonia. Per record review of outside hospital patient has been off antibiotics for approximately 9 days. UA ordered to reflex to culture, will follow Bilateral lower extremity ultrasound to rule out DVT ordered cefepime and vancomycin on admission. De-escalate to just cefepime. Monitor CBC Weakness Fall Insetting of prolonged hospitalization over multiple courses Fall precautions PT/OT consulted ESRD on HD (MWF): -Creatinine 4.28, potassium 3.7, sodium 138. -Nephrology consulted, will defer dialysis to them. -Maintain euvolemia. -Daily KFT. -Avoid nephrotoxins when possible. -Renally dose all medications. Monitor BMP, mag, Phos BPH Continue tamsulosin 0.4 mg nightly Acute on chronic Normocytic Anemia: -Hb: 9 , was 11 on last admission. -Iron/TIBC, B12, Folic acid ordered, will follow. -No sign of active bleed. -Ordered CBC for tomorrow. -Will continue to trend. -Transfuse if symptomatic or <7. heart failure with severely reduced ejection fraction, not in acute exacerbation: Pulmonary hypertension LifeVest -Last echo on file May 2024 EF 5 to 10%, severe global hypokinesis, grade 3 diastolic dysfunction, moderate TR, moderate MR, moderate pulmonary hypertension -Strict intake output chart. -Fluid restriction <1500 ml/day -Beta-tyrese: Metoprolol tartrate 12.5 mg twice daily Hypertension Continue metoprolol 12.5 mg twice daily Monitor vital signs Hearing impairment Uses cell phone for international account representative communication Diabetic neuropathy Continue gabapentin 300 mg 3 times daily Discharge Plan: Prison Plan to discharge in: 48 Hours - Code Status/Comfort Care Code Status Assessed: No Critical Care: Yes Time Spent Managing PTS Care (In Minutes): 68
[2025-03-18] MEDS: ASPIRIN EC 81 MG TAB PO SCH (08:32)
[2025-03-18] MEDS: FOLIC ACID 1 MG TABLET PO SCH (08:32)
[2025-03-18] MEDS: HEPARIN/D5W 25,000 UNIT/500 ML BAG IV PRN (09:08)
--- NOTE | 2025-03-18 14:30 | RAD REPORT ---
EXAMINATION: US Extrem Venous W Compress Warren CLINICAL INDICATION: HS MAIN Concern for DVT bilateral lower extremities Y TECHNIQUE: Complete bilateral duplex sonography of the BILATERAL lower extremity veins was performed. The examination included compression for vein patency, color Doppler imaging and flow augmentation in response to distal compression of the distal external iliac, common femoral, femoral, popliteal, t ibial, and great and small saphenous veins. COMPARISON: No prior exam. FINDINGS: Duplex sonography testing of the veins of the BILATERAL lower extremity was performed. Color flow keon ging shows all veins to be compressible with [id number] color filling. Pulsatile and phasic flow is present within all lower extremity deep and superficial veins examined. IMPRESSION: There is no deep vein or superficial vein thrombosis.
[2025-03-18] MEDS: HEPARIN 5000 UNIT/ML 1 ML VIAL IV ONE ×2 (16:38→21:51)
--- NOTE | 2025-03-18 18:33 | PN ---
Date of Progress Note: 03/18/2025 Subjective: Seen by bedside. Doing well. Breathing much easier. No chest pain. Review of Systems: No chest pain. Has mild orthopnea. No nausea, vomiting, diarrhea. No abdominal pain. All other sy stems reviewed, they are all negative. Physical Examination: Vital Signs: Reviewed. Head and Neck: Pupils are equal, reactive to light. Intact eye movements. No JVD. No cervical lym phadenopathy. Neck is supple. Thyroid is not enlarged. Lungs: Clear to auscultation bilaterally. No rhonchi, wheezing, or crackles. No accessory muscle u se. Heart: Regular rate and rhythm. No extra sounds. Abdomen: Soft, nontender. Bowel sounds positive. No organomegaly. No masses or hernia. No rigidi ty or rebound. Extremities: No edema, clubbing, cyanosis. Intact pulses. Skin: No rash. No nodules. Neurologic: Alert, awake without any acute focal deficits appreciated. Investigations: Troponin trended down, latest is 2500. BUN is 18, creatinine 4.28, and hemoglobin i s 8.9. Assessment And Recommendations: 1. Elevated troponin, very low ejection fraction. The patient denies having any coronary angiogram i n the past. 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 If no heart catheterizat ion was done, we will plan for coronary angiogram tomorrow and keep n.p.o. past midnight for possible heart catheterization in the morning. 2. Acute on chronic congestive heart failure exacerbation, improving. Continue dialysis for fluid ma nagement. SR/MODL Voice ID: [id number] Report ID: [id number]
[2025-03-18] MEDS: ACETAMINOPHEN 325 MG TABLET PO PRN (20:57)
--- NOTE | 2025-03-18 21:28 | PN ---
Date of Progress Note: 03/18/2025 Chief Complaint: End-stage renal disease, on hemodialysis. Subjective: The patient is admitted to ICU because of fever of unknown origin, acute encephalopathy. He has history of multiple medical problems including history of congestive heart failure with systolic dysfunction, coronary artery disease. He is a 69-year-old man who was brought by EMS from home after he sustained a fall and was found to have fever up to 101.2. He was recently discharged on March 16 from [facility] and he was treated for pneumonia, sepsis, right foot wound, and occluded right hemodialysis AV fistula. The patient has history of end-stage renal disease, on hemodialysis. The patient dialyzes on Wednesday, Wednesday, Wednesday. He underwent dialysis yesterday. Procedure was well tolerated. Blood pressure is improving, and the patient is transferred from ICU to telemetry unit. Review of Systems: Denies chest pain, palpitations, syncope. Physical Examination: Lungs: Clear to auscultation bilaterally. Heart: S1, S2. Abdomen: Soft, benign. Extremities: No edema. Impression: 1. End-stage renal disease. The patient is to have cardiac catheterization tomorrow and plan is to continue dialysis after IV contrast exposure. Monitor electrolytes closely. 2. Fever of unknown origin. Workup is pending. Continue broad-spectrum antibiotics. The patient is hemodynamically stable. 3. Congestive heart failure, severe systolic dysfunction, ejection fraction 10% with severe global hypokinesis. Monitor blood pressure during dialysis. Continue ultrafiltration according to blood pressure and volemia status. 4. Hypertension. The patient is on metoprolol. 5. Congestive heart failure. Continue beta-tyrese. 6. Anemia of chronic disease. Monitor hemoglobin level. Continue DANIEL. 7. Renal osteodystrophy. Monitor phosphorus level. Continue binders. EB/MODL Voice ID: [id number] Report ID: [id number] TRAVIS
[2025-03-19 05:25] LABS: Absolute Lymphocytes (CBC) 1.1 K/uL (0.7-4.9); Hematocrit 25.4 % (39.6-49.0); Hemoglobin 8.5 g/dL (13.6-17.9); MCH 32.3 pg (27.0-35.0); MCHC 33.4 g/dL (32.0-36.0); MCV 96.7 fL (80-100); MPV 7.4 fL (7.6-11.3); Nucleated RBC Absolute Count 0.0 (0-0); Nucleated Red Blood Cells % 0.1 % (0-0); RBC Red Blood Cell Count 2.63 M/uL (4.33-5.43); White Blood Count 5.50 thou/uL (4.3-10.9)
[2025-03-19 05:36] LABS: PT Prothrombin Time 15.0 SECONDS (10-13.0); PTT, Activated Partial Thromb 43.6 SECONDS (27.2-37.4); Protime INR 1.34
[2025-03-19 05:43] LABS: Anion Gap 9.5 mEq/L (5.0-15.0); BUN Blood Urea Nitrogen 27.0 mg/dL (7-18); Glucose Level 96.0 mg/dL (74-106); Iron 31.0 ug/dL (65-175); Magnesium 2.3 mg/dL (1.6-2.4); Potassium 3.5 mEq/L (3.5-5.1); Transferrin 102.0 mg/dL (200-360)
--- NOTE | 2025-03-19 09:22 | P.PN ---
Date of Service: 03/19/25 [facility] Live Progress Note Patient Name: BRAD BLANC Date of : 1955 Patient Status: Inpatient Attending Provider: Tyrese Chiang Date: 03/18/25 06:55 Initialization Date: 03/18/25 06:55 Subjective Date of Service: 03/18/25 Chief Complaint: Fever of unknown origin, acute encephalopathy Subjective: Improving Patient assessed in room lying in bed on room air in no apparent distress. Patient was asleep and woke easily to initiate exam. Patient denies acute complaints. Continues to endorse weakness, reports he believes it is improving. Denies fever, chills overnight. No fevers recorded overnight. Review of Systems 10-point ROS is otherwise unremarkable Physical Examination - Vital Signs Temperature: 97.6 F Blood Pressure: 109/59 Pulse: 81 Respirations: 18 Pulse Ox (%): 95 on room air - Physical Exam General: Alert, In no apparent distress, Oriented x3, Cooperative, Obese HEENT: Atraumatic, Normocephalic, Mucous membr. moist/pink Neck: Supple, 2+ carotid pulse no bruit, JVD not distended, No Thyromegaly Respiratory: Clear to auscultation bilaterally, Normal air movement, Diminished (bases) Cardiovascular: No edema, Normal pulses, Regular rate/rhythm, Normal S1 S2 Capillary refill: Brisk Gastrointestinal: Normal bowel sounds, Soft and benign, Non-distended, W/out hepatosplenomegaly Musculoskeletal: No clubbing, No swelling, No contractures, No erythema Integumentary: No rashes, No breakdown, No significant lesion, No tenderness/swelling Neurological: Normal speech, Normal tone, Sensation intact, Cranial nerves 3-12 intact, Normal affect Urinary: Dialysis catheter (RUE) External genitalia: Deferred Rectal: Deferred - Studies Medications List Reviewed: Yes Assessment And Plan - Plan Patient is 69 years old male patient who came in via EMS from home after a fall and found to have a fever of 101.2. Patient was discharged 03/16 from [facility] for pneumonia, sepsis, right foot wound, and occluded right fistula.. Past medical history significant for end-stage renal disease currently on hemodialysis, patient dialyzes Wednesday, Wednesday and Wednesday. Last dialysis yesterday with new dialysis catheter to right chest, Hypertension, BPH, anemia, and CHF. Patient admitted for further evaluation and management for fever of unknown origin. Unable to meaningfully assess ROS at time of admission due to patient's mental status. The most likely source at time of admission is genitourinary. Plan: Acute encephalopathy, resolved Fever of unknown origin, resolved Likely etiology Review of outside hospital records show asymptomatic bacteriuria without culture results untreated Blood cultures NGTD Sputum cultures ordered, will follow WBC 5.5 CT CAP concerning for atelectasis versus developing infection, bladder fat stranding Discharged from [facility] x 1 day for pneumonia. Per record review of outside hospital patient has been off antibiotics for approximately 9 days. UA ordered to reflex to culture, will follow Bilateral lower extremity ultrasound to rule out DVT negative Continue cefepime 2 g twice daily IV Monitor CBC Plan for EGD after coronary angiogram today 03/19 Weakness Fall Insetting of prolonged hospitalization over multiple courses Fall precautions PT/OT consulted Social work consulted and anticipated SNF needs ESRD on HD (MWF): -Creatinine 5.81, potassium 3.5, sodium 137. -Nephrology consulted, will defer dialysis to them. -Maintain euvolemia. -Daily KFT. -Avoid nephrotoxins when possible. -Renally dose all medications. Monitor BMP, mag, Phos BPH Continue tamsulosin 0.4 mg nightly Acute on chronic Normocytic Anemia: Iron deficiency anemia Anemia of chronic diseases -Hb: 8.5 , was 11 on last admission. -Iron 31, TIBC 143, transferrin 102, iron sat percent 21 -No sign of active bleed. -Ordered CBC for tomorrow. -Will continue to trend. -Transfuse if symptomatic or <7. Acute on chronic heart failure with severely reduced ejection fraction, not in acute exacerbation: Pulmonary hypertension LifeVest -Last echo on file May 2024 EF 5 to 10%, severe global hypokinesis, grad e 3 diastolic dysfunction, moderate TR, moderate MR, moderate pulmonary hypertension -Strict intake output chart. -Fluid restriction <1500 ml/day -Beta-tyrese: Metoprolol tartrate 12.5 mg twice daily Patient n.p.o. for coronary angiogram with Dr. Reilly today 03/19 Fluid status managed with HD Hypertension Continue metoprolol 12.5 mg twice daily Monitor vital signs Hearing impairment Uses cell phone for aviation support equipment repairer communication Diabetic neuropathy Continue gabapentin 300 mg 3 times daily Discharge Plan: Alf Plan to discharge in: 24 Hours - Code Status/Comfort Care Code Status Assessed: No Critical Care: no
--- NOTE | 2025-03-19 11:12 | P.PN ---
Subjective Date of Service: 03/19/25 Chief Complaint: Fever of unknown origin, acute encephalopathy Subjective: No new changes, Other (complain of leg and heel pain, no chest pain) Review of Systems 10-point ROS is otherwise unremarkable Physical Examination - Vital Signs Temperature: 97.6 F Blood Pressure: 109/59 Pulse: 81 Respirations: 18 Pulse Ox (%): 95 - Physical Exam General: Alert, In no apparent distress HEENT: Atraumatic, PERRLA, EOMI Neck: Supple, JVD not distended Respiratory: Clear to auscultation bilaterally, Normal air movement Cardiovascular: Regular rate/rhythm, Normal S1 S2 Gastrointestinal: Normal bowel sounds, No tenderness Musculoskeletal: No tenderness Integumentary: No rashes Neurological: Normal speech, Normal tone, Normal affect Lymphatics: No axilla or inguinal lymphadenopathy - Studies Medications List Reviewed: Yes Assessment And Plan - Current Problems (Diagnosis) (1) Chronic combined systolic and diastolic heart failure Current Visit: Yes Status: Acute Plan: patient looks euvolemic on exam continue lopressor 12.5 mg po BID Continue dialysis (2) NSTEMI (non-ST elevated myocardial infarction) Current Visit: No Status: Acute Plan: Patient with complex CAD, LAD and 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 continue aggressive medical treatment ASA 81 mg daily Plavix 75 mg daily Lipitor 80 mg daily D/C Heparin drip Cardiology will sign off, please call with any questions.
--- NOTE | 2025-03-19 12:22 | RAD REPORT ---
EXAMINATION: Abdomen Pelvis W/Wo Contrast CLINICAL INDICATION: Male, 69 years old.renal mass TECHNIQUE: CT abdomen and pelvis was performed before and after the administration of IV contrast as per department protocol. Axial, sagittal and coronal reconstructions were obtained. One or more of the following dose reduction techniques were used: Automated exposure control, adjustment of the mA a nd/or kV according to patient size, and/or iterative reconstruction. Unless otherwise specified, incidental findings do not require dedicated imaging follow-up. [id number]. COMPARISON: 03/17/2025 FINDINGS: LOWER CHEST: Bilateral pleural effusions with pulmonary edema.Moderate cardiomegaly. Moderate coronar y artery calcifications.Small hiatal hernia with circumferential thickening of the esophagus which could reflect esophagitis. UPPER GI: No significant abnormality. LIVER: No significant focal abnormality. GALLBLADDER/BILE DUCTS: Cholelithiasis without CT evidence of acute cholecystitis.? PANCREAS: No mass, ductal dilation, or alesha-pancreatic fluid. 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 ADRENALS: Mild splenomegaly. KIDNEYS AND URETERS: No hydronephrosis.Multiple bilateral renal lesions. Interval decrease in size of a fluid collection along the anterior aspect of the right upper pole kidney measuring 2.4 x 2.2 cm, previously 6.5 x 3.7 cm.Assessment for contrast enhancement somewhat limited due to patient body habitus and likely poor cardiac output and contrast distribution.There is a fat-containing mass in the left perinephric region which is unchanged and measures approximately 3.7 cm. ABDOMINAL AORTA AND OTHER VESSELS: Severe atherosclerosis. Probable severe narrowing at the right anh al ostium. The SMA is heavily calcified. PERITONEUM: Nonspecific free fluid. LYMPH NODES: No pathologic lymphadenopathy. ABDOMINAL WALL: Body wall edema. SMALL BOWEL/COLON: Small bowel has normal course and caliber. No colonic wall thickening or pericolon ic inflammatory changes.Normal appendix. URINARY BLADDER: Moderate bladder wall thickening with stranding. Nonsimple appearing fluid present w ithin the bladder lumen. REPRODUCTIVE ORGANS: Severe prostatomegaly. MUSCULOSKELETAL: Multilevel degenerative changes in the spine. No acute fracture. ADDITIONAL FINDINGS: None. IMPRESSION: 1. Assessment of the renal lesions is limited due to motion and poor contrast enhancement likely as a result of patient's cardiac status. No definite solid enhancing mass is seen. Fluid structure anterior to the right upper pole kidney may be a subacute subcapsular hematoma or could represent a r ecently ruptured cyst which has decreased in size since 03/04/2025. A fat-containing left-sided para nephric lesion is unchanged. This could represent an angiomyolipoma though not definitively from the left kidney. A liposarcoma or fat necrosis with previous renal ablation could appear similar. The other lesions may be a combination of cysts, complex cysts, and/or small neoplasms. Consider 3-6 kel h follow-up renal protocol CT or MRI. 2. Contents within the bladder lumen are above that of simple fluid and could represent complex fluid or hematuria. Correlate with urinalysis. Bladder stranding is present which is suggestive of either infection or inflammation. Correlate with urinalysis to exclude cystitis. Large prostate. 3. Pulmonary edema with small bilateral pleural effusions.
[2025-03-19] MEDS: TRAMADOL HCL 50 MG TAB PO PRN (17:05)
[2025-03-19] MEDS: EPOETIN 4,000 UNIT/ML VIAL IV SCH (21:00)
[2025-03-19] MEDS: ACETAMINOPHEN 325 MG TABLET PO ONE (23:41)
--- NOTE | 2025-03-20 01:24 | PN ---
Date of Progress Note: 03/19/2025 Chief Complaint: End-stage renal disease, on hemodialysis; congestive heart failure, severe systolic dysfunction. Subjective: The patient was admitted to ICU because of fever of unknown origin. He is on antibiotic s for pneumonia. He is undergoing cardiac workup and was scheduled to have cardiac catheterization t reji. Dialysis was ordered to be done after IV contrast exposure. Review of Systems: Denies chest pain, palpitation. Physical Examination: Lungs: Clear to auscultation bilaterally. Heart: S1, S2. Abdomen: Soft. Extremities: No edema. Impression And Plan: 1. End-stage renal disease. Dialysis is scheduled to be done after IV contrast exposure. The patien t is to have cardiac catheterization. 2. Fever of unknown origin. The patient is hemodynamically stable. Continue broad-spectrum antibiot ics. Workup is pending. 3. Congestive heart failure. Ejection fraction severely diminished, severe global hypokinesis. 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 Monitor blood pressure during dialysis. Continue ultrafil tration for volume control. 4. Hypertension. Patient on metoprolol for congestive heart failure. Continue beta tyrese. 5. Anemia of chronic disease. Monitor hemoglobin level. Continue DANIEL. EB/MODL Voice ID: [id number] Report ID: [id number]
[2025-03-20 05:37] LABS: Absolute Lymphocytes (CBC) 1.2 K/uL (0.7-4.9); Hematocrit 26.2 % (39.6-49.0); Hemoglobin 8.8 g/dL (13.6-17.9); MCH 32.6 pg (27.0-35.0); MCHC 33.7 g/dL (32.0-36.0); MCV 96.6 fL (80-100); MPV 7.7 fL (7.6-11.3); Nucleated RBC Absolute Count 0.0 (0-0); Nucleated Red Blood Cells % 0.1 % (0-0); RBC Red Blood Cell Count 2.71 M/uL (4.33-5.43); White Blood Count 6.50 thou/uL (4.3-10.9)
[2025-03-20 05:58] LABS: Anion Gap 8.9 mEq/L (5.0-15.0); BUN Blood Urea Nitrogen 18.0 mg/dL (7-18); Glucose Level 91.0 mg/dL (74-106); Magnesium 2.3 mg/dL (1.6-2.4); Potassium 3.9 mEq/L (3.5-5.1)
[2025-03-20 05:59] LABS: Troponin High Sensitivity 2011.2 pg/mL (<58.9)
--- NOTE | 2025-03-20 13:00 | PN ---
Date of Progress Note: 03/20/2025 Subjective: The patient was admitted to the hospital with altered mental status, suspect of encephalopathy secondary to UTI. The patient still confused. Physical Examination: Vital Signs: Blood pressure 120/60, pulse of 100, afebrile. Chest: Clear to auscultation. Heart: S1, S2. Systolic murmur. Abdomen: Soft, nontender. Extremities: Right AV graft. Right IJ PermCath. No edema. Neurologic: Alert. No focality. Confused. Laboratory Data: WBC 6.5, hemoglobin 8.8, sodium 135, potassium 3.9, bicarb 27, BUN 18, creatinine 4.7, calcium of 9, phosphorus 3.1, magnesium 2.3. Current Medications: The patient on, it includes Epogen 4000, Flomax, aspirin, metoprolol, atorvastatin, sodium bicarb, folic acid. Assessment And Plan: 1. End-stage renal disease. I am going to continue the patient on his dialysis schedule 3 times a week, and we will monitor. 2. Hypertension, controlled. Currently, blood pressure on the lower side. We will follow up the patient. 3. Fever, unknown etiology. Culture, so far, negative. I am going to do culture from the PermCath, and we will follow up. Continue current antibiotic. 4. Questionable of urinary tract infection. Follow up with the Primary. 5. Encephalopathy secondary to questionable urinary tract infection. We will follow up on the UA. Continue current antibiotic. 6. Acidosis. Discontinue oral bicarb. Will be corrected with dialysis. 7. Anemia of chronic kidney disease. Continue DANIEL. 8. Hyponatremia. No need for treatment. Will be corrected with the dialysis. Time spent examining the patient [id number] reviewing data lab and the radiology placing order discussing the case with the patient discussing the case with the master steam yacht including hospitalist and nursing staff more than 55 minutes SAMIRA Voice ID: [id number] Report ID: [id number] TRAVIS
--- NOTE | 2025-03-20 15:35 | P.PN ---
Subjective Date of Service: 03/20/25 Chief Complaint: Fever of unknown origin, acute encephalopathy Patient restless and agitated today. He received a dose of tramadol last night. Family suspected his agitation and restlessness due to tramadol. Patient was interactive and cooperative during my examination however he was moaning and groaning and restless. Physical Examination - Vital Signs Temperature: 97.8 F Blood Pressure: 108/59 Pulse: 89 Respirations: 28 Pulse Ox (%): 97 - Studies Medications List Reviewed: Yes Assessment And Plan - Plan Physical Exam General: Awake, restless, cooperative. HEENT: Mucous membr. moist/pink Neck: Supple, JVD not distended, No Thyromegaly, no neck stiffness. Respiratory: Clear to auscultation bilaterally, diminished breath sounds bilaterally Cardiovascular: No edema, Normal pulses, Regular rate/rhythm, Normal S1 S2 Capillary refill: Brisk Gastrointestinal: Normal bowel sounds, Soft and benign, Non-distended, W/out hepatosplenomegaly Musculoskeletal: No clubbing, No swelling, No contractures, No erythema Integumentary: No rashes, No breakdown, No significant lesion, No tenderness/swelling Neurological: Patient moves all extremities spontaneously, no focal motor deficit. Urinary: Dialysis catheter (RUE) Psychiatric: Agitated. Assessment And Plan - Plan Patient is 69 years old male patient who came in via EMS from home after a fall and found to have a fever of 101.2. Patient was discharged 03/16 from [facility] for pneumonia, sepsis, right foot wound, and occluded right fistula.. Past medical history significant for end-stage renal disease currently on hemodialysis, patient dialyzes Wednesday, Wednesday and Wednesday. Last dialysis yesterday with new dialysis catheter to right chest, Hypertension, BPH, anemia, and CHF. Patient admitted for further evaluation and management for fever of unknown origin. Unable to meaningfully assess ROS at time of admission due to patient's mental status. Acute encephalopathy, resolved Fever of unknown origin, resolved Review of outside hospital records show asymptomatic bacteriuria without culture results untreated Blood cultures NGTD No leukocytosis CT CAP concerning for atelectasis versus developing infection, bladder fat stranding Recently discharged from [facility] after 3-day admission. Bilateral lower extremity ultrasound to rule out DVT negative Blood cultures are showing no growth Nephrology input appreciated, blood culture from dialysis catheter requested. Patient more agitated today however he obeys instructions and cooperative. Avoid tramadol Continue IV vancomycin and cefepime Weakness Fall Likely related to prolonged hospitalization Fall precautions PT/OT as tolerated May need disposition to SNF. ESRD on HD (MWF): Creatinine 5.81, potassium 3.5, sodium 137. Nephrology Dr. Mcgrath is following and managing. Renally dose all medications. Monitor renal function panel BPH Continue tamsulosin 0.4 mg nightly Acute on chronic Normocytic Anemia: Iron deficiency anemia Anemia of chronic diseases Hb: 8.5 , was 11 on last admission. Iron 31, TIBC 143, transferrin 102, iron sat percent 21 No sign of active bleed. Monitor CBC Transfuse if symptomatic or <7. Acute on chronic heart failure with severely reduced ejection fraction, not in acute exacerbation: Pulmonary hypertension LifeVest Last echo on file May 2024 EF 5 to 10%, severe global hypokinesis, grade 3 diastolic dysfunction, moderate TR, moderate MR, moderate pulmonary hypertension Fluid restriction <1500 ml/day Metoprolol tartrate 12.5 mg twice daily Fluid status managed with HD Hypertension Continue metoprolol. Diabetic neuropathy Continue gabapentin 300 mg 3 times daily DVT prophylaxis: Heparin CODE STATUS: Full code
[2025-03-20] MEDS ORDERED: VANCOMYCIN 1 GM in NA CHLORIDE 0.9% 250 ML IVPB SCH (17:00)
[2025-03-20] MEDS: CEFEPIME 1 GM in NA CHLORIDE 0.9% 100 ML IV SCH (17:18)
[2025-03-20] MEDS: VANCOMYCIN 1 GM in NA CHLORIDE 0.9% 250 ML IVPB SCH (18:42)
[2025-03-20] MEDS ORDERED: CEFEPIME 1 GM in NA CHLORIDE 0.9% 100 ML IV SCH (21:00)
[2025-03-21 07:53] LABS: Absolute Lymphocytes (CBC) 1.6 K/uL (0.7-4.9); Hematocrit 27.4 % (39.6-49.0); Hemoglobin 8.9 g/dL (13.6-17.9); MCH 31.6 pg (27.0-35.0); MCHC 32.6 g/dL (32.0-36.0); MCV 97.0 fL (80-100); MPV 8.3 fL (7.6-11.3); Nucleated RBC Absolute Count 0.0 (0-0); Nucleated Red Blood Cells % 0.1 % (0-0); RBC Red Blood Cell Count 2.82 M/uL (4.33-5.43); White Blood Count 7.80 thou/uL (4.3-10.9)
[2025-03-21 08:00] LABS: Anion Gap 12.3 mEq/L (5.0-15.0); BUN Blood Urea Nitrogen 15.0 mg/dL (7-18); Glucose Level 83.0 mg/dL (74-106); Potassium 4.3 mEq/L (3.5-5.1)
--- NOTE | 2025-03-21 11:26 | P.PN ---
Date of Service: 03/21/25 Subjective: The patient was admitted to the hospital with altered mental status, suspect of encephalopathy secondary to UTI. The patient still confused. Patient received dialysis yesterday tramadol has been DC'd patient more sleepy today Physical Examination: Temp Pulse Resp BP Pulse Ox 98.5 F 81 20 146/75 H 95 03/21/25 08:00 03/21/25 08:00 03/21/25 08:00 03/21/25 08:00 03/21/25 08:00 Chest: Clear to auscultation. Heart: S1, S2. Systolic murmur. Abdomen: Soft, nontender. Extremities: Right AV graft. Right IJ PermCath. No edema. Neurologic: Alert. No focality. Confused. Laboratory Last Values WBC 8.00 thou/uL (4.3-10.9) 03/17/25 00:00 RBC 2.79 M/uL (4.33-5.43) L 03/17/25 00:00 Hgb 9.0 g/dL (13.6-17.9) L 03/17/25 00:00 Hct 27.0 % (39.6-49.0) L 03/17/25 00:00 MCV 96.6 fL (80-100) 03/17/25 00:00 MCH 32.2 pg (27.0-35.0) 03/17/25 00:00 MCHC 33.4 g/dL (32.0-36.0) 03/17/25 00:00 RDW 15.2 % (12.1-15.2) 03/17/25 00:00 Plt Count 252 thou/uL (152-406) 03/17/25 00:00 MPV 7.1 fL (7.6-11.3) L 03/17/25 00:00 Neutrophils % 56.7 % (41.7-73.7) 03/17/25 00:00 Lymphocytes % 20.6 % (15.3-44.8) 03/17/25 00:00 Monocytes % 15.2 % (3.3-12.3) H 03/17/25 00:00 Eosinophils % 6.8 % (0-4.4) H 03/17/25 00:00 Basophils % 0.7 % (0-1.3) 03/17/25 00:00 Absolute Neutrophils 4.6 K/uL (1.8-8.0) 03/17/25 00:00 Absolute Lymphocytes 1.7 K/uL (0.7-4.9) 03/17/25 00:00 Absolute Monocytes 1.2 K/uL (0.1-1.3) 03/17/25 00:00 Absolute Eosinophils 0.5 K/uL (0-0.5) 03/17/25 00:00 Absolute Basophils 0.1 K/uL (0-0.5) 03/17/25 00:00 PT 15.2 SECONDS (10-13.0) H 03/17/25 00:00 INR 1.36 03/17/25 00:00 APTT 29.2 SECONDS (27.2-37.4) 03/17/25 00:00 pH 7.48 (7.35-7.45) H 03/17/25 00:12 pCO2 40 mmHg (35-45) 03/17/25 00:12 pO2 112 mmHg (75-100) H 03/17/25 00:12 HCO3 29.6 mmol/L (22.0-28.0) H 03/17/25 00:12 Base Excess 6.4 mmol/L (-2.0-3.0) H 03/17/25 00:12 ABG O2 Sat (Measured) 98.4 % (92.0-98.5) 03/17/25 00:12 Sodium 134 mEq/L (136-145) L 03/17/25 00:00 Potassium 3.9 mEq/L (3.5-5.1) 03/17/25 00:00 Chloride 98 mEq/L (98-107) 03/17/25 00:00 Carbon Dioxide 29 mEq/L (21-32) 03/17/25 00:00 Anion Gap 10.9 mEq/L (5.0-15.0) 03/17/25 00:00 BUN 18 mg/dL (7-18) 03/17/25 00:00 Creatinine 4.61 mg/dL (0.70-1.30) H 03/17/25 00:00 Est GFR (CKD-EPI) 13 ml/min (=/>90) L 03/17/25 00:00 Glucose 83 mg/dL (74-106) 03/17/25 00:00 POC Glucose 78 mg/dL (65-120) 03/17/25 01:00 Lactic Acid 1.3 mmol/L (0.4-2.0) 03/17/25 00:00 Calcium 8.1 mg/dL (8.5-10.1) L 03/17/25 00:00 Total Bilirubin 0.5 mg/dL (0.2-1.0) 03/17/25 00:00 AST 20 U/L (15-37) 03/17/25 00:00 ALT < 14 U/L (16-61) L 03/17/25 00:00 Alkaline Phosphatase 84 U/L (45-117) 03/17/25 00:00 Troponin I High Sens 3298.3 pg/mL (<58.9) H* 03/17/25 03:49 NT-Pro-B Natriuret Pep > 94365 pg/mL (<125) H 03/17/25 00:00 Serum Total Protein 7.0 g/dL (6.4-8.2) 03/17/25 00:00 Albumin 1.9 g/dL (3.4-5.0) L 03/17/25 00:00 Globulin 5.1 g/dL (2.3-3.5) H 03/17/25 00:00 Albumin/Globulin Ratio 0.4 (1.1-1.8) L 03/17/25 00:00 TSH 7.050 uIU/mL (0.358-3.740) H 03/17/25 00:00 Free T4 1.10 ng/dL (0.76-1.46) 03/17/25 00:00 Influenza Type A Ag Negative 03/17/25 00:08 Influenza Type B Ag Negative 03/17/25 00:08 SARS-CoV-2 Ag (Rapid) Negative (Negative) 03/17/25 00:08 SARS CoV-2 Rapid Comm N 03/17/25 00:08 Acetaminophen (Acetaminophen 325 Mg Tablet) 650 mg PO Q4HP PRN PRN Reason: TEMP > 101' F Last Admin: 03/19/25 12:22 Dose: 650 mg Aspirin (Aspirin Ec 81 Mg Tab) 81 mg PO DAILY CHELY Last Admin: 03/21/25 09:18 Dose: 81 mg Atorvastatin Calcium (Atorvastatin 80 Mg Tab) 80 mg PO BEDTIME CHELY Last Admin: 03/20/25 22:10 Dose: 80 mg Epoetin Sukhdeep (Epoetin 4,000 Unit/Ml Vial) 4,000 unit IV EVERY HD CEHLY Last Admin: 03/20/25 13:50 Dose: 4,000 unit Folic Acid (Folic Acid 1 Mg Tablet) 1 mg PO DAILY CHELY Last Admin: 03/21/25 09:18 Dose: 1 mg Heparin Sodium (Porcine) (Heparin 1,000 Unit/Ml Vial) 6,000 unit IV EVERY HD PRN PRN Reason: FOR DIALYSIS CATHETER CARE Last Admin: 03/20/25 16:31 Dose: 6,000 unit Heparin Sodium (Porcine) (Heparin 1,000 Unit/Ml Vial) 4,000 unit IV EVERY HD PRN PRN Reason: Prevent HD System Clotting Last Admin: 03/20/25 13:50 Dose: 4,000 unit Vancomycin HCl 1 gm/ Sodium (Chloride) 250 mls @ 250 mls/hr IVPB AFTER EACH DIALYSIS CHELY; Protocol Last Admin: 03/20/25 18:42 Dose: 250 mls Cefepime HCl 1 gm/ Sodium (Chloride) 100 mls @ 200 mls/hr IV Q24H CHELY; Protocol Last Admin: 03/20/25 17:18 Dose: 100 mls Metoprolol Tartrate (Metoprolol Tar 25 Mg Tab) 12.5 mg PO BID CHELY Last Admin: 03/21/25 09:18 Dose: 12.5 mg Tamsulosin HCl (Tamsulosin 0.4 Mg Sr Cap) 0.4 mg PO BEDTIME CHELY Last Admin: 03/20/25 22:10 Dose: 0.4 mg Assessment And Plan: 1. End-stage renal disease. I am going to continue the patient on his dialysis schedule 3 times a week, patient received dialysis yesterday will continue TTS for this week then we will switch him back to his regular schedule Wednesday next week and we will monitor. 2. Hypertension, controlled. Currently, blood pressure on the lower side. We will follow up the patient. 3. Fever, unknown etiology. Culture, so far, negative. [facility] Still pending, and we will follow up. Continue current antibiotic. 4. Questionable of urinary tract infection. Follow up with the Primary. 5. Encephalopathy secondary to questionable urinary tract infection. /Medication induced Agree with holding tramadol DC gabapentin we will follow up on the UA. Continue current antibiotic. 6. Acidosis. Discontinue oral bicarb. Will be corrected with dialysis. 7. Anemia of chronic kidney disease. Continue DANIEL. 8. Hyponatremia. No need for treatment. Will be corrected with the dialysis Time spent examining the patient [id number] reviewing data lab and the radiology placing order discussing the case with the team including hospitalist and nursing staff dialysis nurse more than 55-minute
--- NOTE | 2025-03-21 18:04 | P.PN ---
Subjective Date of Service: 03/21/25 Chief Complaint: Fever of unknown origin, acute encephalopathy Patient appears drowsy, no agitation today. No recorded fever. Physical Examination - Vital Signs Temperature: 99.8 F Blood Pressure: 120/60 Pulse: 86 Respirations: 20 Pulse Ox (%): 99 - Studies Medications List Reviewed: Yes Assessment And Plan - Plan Physical Exam General: Drowsy, NAD Neck: Supple, JVD not distended, no neck stiffness. Respiratory: Clear to auscultation bilaterally, diminished breath sounds bilaterally Cardiovascular: No edema, Normal pulses, Regular rate/rhythm, Normal S1 S2 Gastrointestinal: Normal bowel sounds, soft and benign, Non-distended. Musculoskeletal: No swelling, No contractures, No erythema Integumentary: No rashes, No tenderness/swelling Neurological: Patient moves all extremities spontaneously, no focal motor deficit. Psychiatric: Agitated. Assessment And Plan Patient is 69 years old male patient who came in via EMS from home after a fall and found to have a fever of 101.2. Patient was discharged 03/16 from [facility] for pneumonia, sepsis, right foot wound, and occluded right fistula.. Past medical history significant for end-stage renal disease currently on hemodialysis, patient dialyzes Wednesday, Wednesday and Wednesday. Last dialysis yesterday with new dialysis catheter to right chest, Hypertension, BPH, anemia, and CHF. Patient admitted for further evaluation and management for fever of unknown origin. Acute encephalopathy, resolved Fever of unknown origin, resolved Review of outside hospital records show asymptomatic bacteriuria. Blood cultures NGTD No leukocytosis CT CAP concerning for atelectasis versus developing infection, bladder fat stranding Recently discharged from [facility] after 3-day admission. Bilateral lower extremity venous ultrasound negative for DVT Blood cultures are showing no growth Nephrology is following. Patient is getting gabapentin 300 mg 3 times a day which has been discontinued. Avoid psychotropic medication Continue IV vancomycin and cefepime as we wait for results of cultures. Weakness Fall Likely related to prolonged hospitalization Fall precautions PT/OT as tolerated ESRD on HD (MWF): Creatinine 5.81, potassium 3.5, sodium 137. Nephrology Dr. Mcgrath is following and managing. Renally dose all medications. Monitor renal function panel BPH Continue tamsulosin 0.4 mg nightly Acute on chronic Normocytic Anemia: Iron deficiency anemia Anemia of chronic diseases Iron 31, TIBC 143, transferrin 102, iron sat percent 21 No sign of active bleed. Monitor CBC Transfuse if symptomatic or <7. Acute on chronic heart failure with severely reduced ejection fraction, not in acute exacerbation: Pulmonary hypertension LifeVest Last echo on file May 2024 EF 5 to 10%, severe global hypokinesis, grade 3 diastolic dysfunction, moderate TR, moderate MR, moderate pulmonary hypertension Fluid restriction <1500 ml/day Metoprolol tartrate 12.5 mg twice daily Fluid status management with HD Hypertension Continue metoprolol. Diabetic neuropathy Gabapentin on hold due to AMS. DVT prophylaxis: Heparin CODE STATUS: Full code
[2025-03-22 06:30] LABS: Absolute Lymphocytes (CBC) 1.6 K/uL (0.7-4.9); Hematocrit 27.5 % (39.6-49.0); Hemoglobin 9.2 g/dL (13.6-17.9); MCH 32.7 pg (27.0-35.0); MCHC 33.6 g/dL (32.0-36.0); MCV 97.3 fL (80-100); MPV 8.0 fL (7.6-11.3); Nucleated RBC Absolute Count 0.0 (0-0); Nucleated Red Blood Cells % 0.1 % (0-0); RBC Red Blood Cell Count 2.82 M/uL (4.33-5.43); White Blood Count 7.80 thou/uL (4.3-10.9)
[2025-03-22 06:52] LABS: Anion Gap 9.2 mEq/L (5.0-15.0); BUN Blood Urea Nitrogen 24.0 mg/dL (7-18); Glucose Level 87.0 mg/dL (74-106); Potassium 4.2 mEq/L (3.5-5.1)
--- NOTE | 2025-03-22 15:15 | P.PN ---
Date of Service: 03/22/25 Subjective: The patient was admitted to the hospital with altered mental status, suspect of encephalopathy secondary to UTI. The patient still confused. Patient received dialysis yesterday tramadol has been DC'd patient more sleepy today Physical Examination: Temp Pulse Resp BP Pulse Ox 98.5 F 81 20 146/75 H 95 03/21/25 08:00 03/21/25 08:00 03/21/25 08:00 03/21/25 08:00 03/21/25 08:00 Chest: Clear to auscultation. Heart: S1, S2. Systolic murmur. Abdomen: Soft, nontender. Extremities: Right AV graft. Right IJ PermCath. No edema. Neurologic: Alert. No focality. Confused. More awake today oriented to person Laboratory Last Values WBC 8.00 thou/uL (4.3-10.9) 03/17/25 00:00 RBC 2.79 M/uL (4.33-5.43) L 03/17/25 00:00 Hgb 9.0 g/dL (13.6-17.9) L 03/17/25 00:00 Hct 27.0 % (39.6-49.0) L 03/17/25 00:00 MCV 96.6 fL (80-100) 03/17/25 00:00 MCH 32.2 pg (27.0-35.0) 03/17/25 00:00 MCHC 33.4 g/dL (32.0-36.0) 03/17/25 00:00 RDW 15.2 % (12.1-15.2) 03/17/25 00:00 Plt Count 252 thou/uL (152-406) 03/17/25 00:00 MPV 7.1 fL (7.6-11.3) L 03/17/25 00:00 Neutrophils % 56.7 % (41.7-73.7) 03/17/25 00:00 Lymphocytes % 20.6 % (15.3-44.8) 03/17/25 00:00 Monocytes % 15.2 % (3.3-12.3) H 03/17/25 00:00 Eosinophils % 6.8 % (0-4.4) H 03/17/25 00:00 Basophils % 0.7 % (0-1.3) 03/17/25 00:00 Absolute Neutrophils 4.6 K/uL (1.8-8.0) 03/17/25 00:00 Absolute Lymphocytes 1.7 K/uL (0.7-4.9) 03/17/25 00:00 Absolute Monocytes 1.2 K/uL (0.1-1.3) 03/17/25 00:00 Absolute Eosinophils 0.5 K/uL (0-0.5) 03/17/25 00:00 Absolute Basophils 0.1 K/uL (0-0.5) 03/17/25 00:00 PT 15.2 SECONDS (10-13.0) H 03/17/25 00:00 INR 1.36 03/17/25 00:00 APTT 29.2 SECONDS (27.2-37.4) 03/17/25 00:00 pH 7.48 (7.35-7.45) H 03/17/25 00:12 pCO2 40 mmHg (35-45) 03/17/25 00:12 pO2 112 mmHg (75-100) H 03/17/25 00:12 HCO3 29.6 mmol/L (22.0-28.0) H 03/17/25 00:12 Base Excess 6.4 mmol/L (-2.0-3.0) H 03/17/25 00:12 ABG O2 Sat (Measured) 98.4 % (92.0-98.5) 03/17/25 00:12 Sodium 134 mEq/L (136-145) L 03/17/25 00:00 Potassium 3.9 mEq/L (3.5-5.1) 03/17/25 00:00 Chloride 98 mEq/L (98-107) 03/17/25 00:00 Carbon Dioxide 29 mEq/L (21-32) 03/17/25 00:00 Anion Gap 10.9 mEq/L (5.0-15.0) 03/17/25 00:00 BUN 18 mg/dL (7-18) 03/17/25 00:00 Creatinine 4.61 mg/dL (0.70-1.30) H 03/17/25 00:00 Est GFR (CKD-EPI) 13 ml/min (=/>90) L 03/17/25 00:00 Glucose 83 mg/dL (74-106) 03/17/25 00:00 POC Glucose 78 mg/dL (65-120) 03/17/25 01:00 Lactic Acid 1.3 mmol/L (0.4-2.0) 03/17/25 00:00 Calcium 8.1 mg/dL (8.5-10.1) L 03/17/25 00:00 Total Bilirubin 0.5 mg/dL (0.2-1.0) 03/17/25 00:00 AST 20 U/L (15-37) 03/17/25 00:00 ALT < 14 U/L (16-61) L 03/17/25 00:00 Alkaline Phosphatase 84 U/L (45-117) 03/17/25 00:00 Troponin I High Sens 3298.3 pg/mL (<58.9) H* 03/17/25 03:49 NT-Pro-B Natriuret Pep > 70542 pg/mL (<125) H 03/17/25 00:00 Serum Total Protein 7.0 g/dL (6.4-8.2) 03/17/25 00:00 Albumin 1.9 g/dL (3.4-5.0) L 03/17/25 00:00 Globulin 5.1 g/dL (2.3-3.5) H 03/17/25 00:00 Albumin/Globulin Ratio 0.4 (1.1-1.8) L 03/17/25 00:00 TSH 7.050 uIU/mL (0.358-3.740) H 03/17/25 00:00 Free T4 1.10 ng/dL (0.76-1.46) 03/17/25 00:00 Influenza Type A Ag Negative 03/17/25 00:08 Influenza Type B Ag Negative 03/17/25 00:08 SARS-CoV-2 Ag (Rapid) Negative (Negative) 03/17/25 00:08 SARS CoV-2 Rapid Comm N 03/17/25 00:08 Acetaminophen (Acetaminophen 325 Mg Tablet) 650 mg PO Q4HP PRN PRN Reason: TEMP > 101' F Last Admin: 03/19/25 12:22 Dose: 650 mg Aspirin (Aspirin Ec 81 Mg Tab) 81 mg PO DAILY CHELY Last Admin: 03/22/25 09:00 Dose: Not Given Atorvastatin Calcium (Atorvastatin 80 Mg Tab) 80 mg PO BEDTIME CHELY Last Admin: 03/21/25 20:14 Dose: 80 mg Epoetin Sukhdeep (Epoetin 4,000 Unit/Ml Vial) 4,000 unit IV EVERY HD CHELY Last Admin: 03/22/25 11:28 Dose: 4,000 unit Folic Acid (Folic Acid 1 Mg Tablet) 1 mg PO DAILY CHELY Last Admin: 03/22/25 09:00 Dose: Not Given Heparin Sodium (Porcine) (Heparin 1,000 Unit/Ml Vial) 6,000 unit IV EVERY HD PRN PRN Reason: FOR DIALYSIS CATHETER CARE Last Admin: 03/22/25 13:20 Dose: 6,000 unit Heparin Sodium (Porcine) (Heparin 1,000 Unit/Ml Vial) 4,000 unit IV EVERY HD PRN PRN Reason: Prevent HD System Clotting Last Admin: 03/22/25 10:20 Dose: 4,000 unit Vancomycin HCl 1 gm/ Sodium (Chloride) 250 mls @ 250 mls/hr IVPB AFTER EACH DIALYSIS CHELY; Protocol Last Admin: 03/20/25 18:42 Dose: 250 mls Cefepime HCl 1 gm/ Sodium (Chloride) 100 mls @ 200 mls/hr IV Q24H CHELY; Protocol Last Admin: 03/21/25 18:31 Dose: 100 mls Metoprolol Tartrate (Metoprolol Tar 25 Mg Tab) 12.5 mg PO BID CHELY Last Admin: 03/22/25 09:00 Dose: Not Given Tamsulosin HCl (Tamsulosin 0.4 Mg Sr Cap) 0.4 mg PO BEDTIME CHELY Last Admin: 03/21/25 20:14 Dose: 0.4 mg Assessment And Plan: 1. End-stage renal disease. I am going to continue the patient on his dialysis schedule 3 times a week, patient received dialysis yesterday will continue TTS for this week then we will switch him back to his regular schedule Wednesday next week and we will monitor. 2. Hypertension, controlled. Currently, blood pressure on the lower side. We will follow up the patient. 3. Fever, unknown etiology. Culture, so far, negative. Status post culture from the PermCath March 20 Still pending, and we will follow up. Continue current antibiotic. 4. Questionable of urinary tract infection. Follow up with the Primary. 5. Encephalopathy secondary to questionable urinary tract infection. /Medication induced gabapentin recovering very well Agree with holding tramadol DC gabapentin Blood culture negative Continue current antibiotic. 6. Acidosis. Discontinue oral bicarb. Will be corrected with dialysis. 7. Anemia of chronic kidney disease. Continue DANIEL. 8. Hyponatremia. No need for treatment. Will be corrected with the dialysis Time spent examining the patient [id number] reviewing data lab and the radiology placing order discussing the case with the team including hospitalist and nursing staff dialysis nurse more than 55-minute
--- NOTE | 2025-03-22 18:26 | P.PN ---
Subjective Date of Service: 03/22/25 Chief Complaint: Fever of unknown origin, acute encephalopathy Patient seen during dialysis. He is still confused but seems to be more awake and interactive compared to yesterday. Physical Examination - Vital Signs Temperature: 97.5 F Blood Pressure: 123/58 Pulse: 90 Respirations: 18 Pulse Ox (%): 99 - Studies Medications List Reviewed: Yes Assessment And Plan - Plan Physical Exam General: Awake, mildly confused, NAD Neck: Supple, JVD not distended, no neck stiffness. Respiratory: Clear to auscultation bilaterally, diminished breath sounds bi laterally Cardiovascular: No edema, Normal pulses, Regular rate/rhythm, Normal S1 S2 Gastrointestinal: Normal bowel sounds, soft and benign, Non-distended. Musculoskeletal: No swelling, No contractures, No erythema Integumentary: No rashes. Neurological: no focal motor deficit. Psychiatric: No agitated Assessment And Plan Patient is 69 years old male patient who came in via EMS from home after a fall and found to have a fever of 101.2. Patient was discharged 03/16 from [facility] for pneumonia, sepsis, right foot wound, and occluded right fistula.. Past medical history significant for end-stage renal disease currently on hemodialysis, patient dialyzes Wednesday, Wednesday and Wednesday. Last dialysis yesterday with new dialysis catheter to right chest, Hypertension, BPH, anemia, and CHF. Patient admitted for further evaluation and management for fever of unknown origin. Acute encephalopathy, resolved Fever of unknown origin, resolved Review of outside hospital records show asymptomatic bacteriuria. Blood cultures NGTD No leukocytosis CT CAP concerning for atelectasis versus developing infection, bladder fat stranding Recently discharged from [facility] after 3-day admission. Bilateral lower extremity venous ultrasound negative for DVT Blood cultures are showing no growth Nephrology is following. Patient is getting gabapentin 300 mg 3 times a day which has been discontinued. Avoid psychotropic medication Continue IV vancomycin and cefepime as we wait for results of cultures. Weakness Fall Likely related to prolonged hospitalization Fall precautions PT/OT as tolerated ESRD on HD (MWF): Creatinine 5.81, potassium 3.5, sodium 137. Nephrology Dr. Mcgrath is following and managing. Renally dose all medications. Monitor renal function panel BPH Continue tamsulosin 0.4 mg nightly Acute on chronic Normocytic Anemia: Iron deficiency anemia Anemia of chronic diseases Iron 31, TIBC 143, transferrin 102, iron sat percent 21 No sign of active bleed. Monitor CBC Transfuse if symptomatic or <7. Acute on chronic heart failure with severely reduced ejection fraction, not in acute exacerbation: Pulmonary hypertension LifeVest Last echo on file May 2024 EF 5 to 10%, severe global hypokinesis, grade 3 diastolic dysfunction, moderate TR, moderate MR, moderate pulmonary hypertension Fluid restriction <1500 ml/day Metoprolol tartrate 12.5 mg twice daily Fluid status management with HD Hypertension Continue metoprolol. Diabetic neuropathy Gabapentin on hold due to AMS. 03/22/2025 Mental status is improving after holding gabapentin Blood cultures from dialysis catheter is still pending Continue IV vancomycin and cefepime Neurochecks Routine hemodialysis per nephrology Hemoglobin has remained stable LifeVest is in place Patient has been normotensive. He is now receiving metoprolol due to borderline low blood pressure. Continue PT as tolerated. DVT prophylaxis: Heparin CODE STATUS: Full code
--- NOTE | 2025-03-23 11:00 | P.PN ---
Subjective Date of Service: 03/23/25 Chief Complaint: Fever of unknown origin, acute encephalopathy Patient is more awake, oriented x 3 today He denies any new complaint. Physical Examination - Vital Signs Temperature: 97.5 F Blood Pressure: 123/58 Pulse: 90 Respirations: 18 Pulse Ox (%): 99 - Studies Medications List Reviewed: Yes Assessment And Plan - Plan Physical Exam General: Awake, interactive, NAD Neck: Supple, JVD not distended, no neck stiffness. Respiratory: Clear to auscultation bilaterally, diminished breath sounds bilaterally Cardiovascular: No edema, Normal pulses, Regular rate/rhythm, Normal S1 S2 Gastrointestinal: Normal bowel sounds, soft and benign, Non-distended. Musculoskeletal: No swelling, No contractures, No erythema Integumentary: No rashes. Neurological: no focal motor deficit. Psychiatric: No agitated Assessment And Plan Patient is 69 years old male patient who came in via EMS from home after a fall and found to have a fever of 101.2. Patient was discharged 03/16 from [facility] for pneumonia, sepsis, right foot wound, and occluded right fistula.. Past medical history significant for end-stage renal disease currently on hemodialysis, patient dialyzes Wednesday, Wednesday and Wednesday. Last dialysis yesterday with new dialysis catheter to right chest, Hypertension, BPH, anemia, and CHF. Patient admitted for further evaluation and management for fever of unknown origin. Acute encephalopathy, resolved Fever of unknown origin, resolved Review of outside hospital records show asymptomatic bacteriuria. Blood cultures NGTD No leukocytosis CT CAP concerning for atelectasis versus developing infection, bladder fat stranding Recently discharged from [facility] after 3-day admission. Bilateral lower extremity venous ultrasound negative for DVT Blood cultures are showing no growth Nephrology is following. Patient is getting gabapentin 300 mg 3 times a day which has been discontinued. Avoid psychotropic medication Continue IV vancomycin and cefepime as we wait for results of cultures. Weakness Fall Likely related to prolonged hospitalization Fall precautions PT/OT as tolerated ESRD on HD (MWF): Creatinine 5.81, potassium 3.5, sodium 137. Nephrology Dr. Mcgrath is following and managing. Renally dose all medications. Monitor renal function panel BPH Continue tamsulosin 0.4 mg nightly Acute on chronic Normocytic Anemia: Iron deficiency anemia Anemia of chronic diseases Iron 31, TIBC 143, transferrin 102, iron sat percent 21 No sign of active bleed. Monitor CBC Transfuse if symptomatic or <7. Acute on chronic heart failure with severely reduced ejection fraction, not in acute exacerbation: Pulmonary hypertension LifeVest Last echo on file May 2024 EF 5 to 10%, severe global hypokinesis, grade 3 diastolic dysfunction, moderate TR, moderate MR, moderate pulmonary hypertension Fluid restriction <1500 ml/day Metoprolol tartrate 12.5 mg twice daily Fluid status management with HD Hypertension Continue metoprolol. Diabetic neuropathy Gabapentin on hold due to AMS. 03/22/2025 Mental status is improving after holding gabapentin Blood cultures from dialysis catheter is still pending Continue IV vancomycin and cefepime Neurochecks Routine hemodialysis per nephrology Hemoglobin has remained stable LifeVest is in place Patient has been normotensive. He is now receiving metoprolol due to borderline low blood pressure. Continue PT as tolerated. 03/23/2025 More awake today Continue to hold gabapentin Follow blood cultures from dialysis catheter Only 1 episode of fever on presentation, no fever since hospitalization. Continue IV antibiotics Routine hemodialysis per nephrology Stable BP. Continue PT as tolerated. DVT prophylaxis: Heparin CODE STATUS: Full code
[2025-03-23] MEDS: ACETAMINOPHEN 325 MG TABLET PO PRN (21:57)
--- NOTE | 2025-03-23 23:27 | PN ---
Date of Progress Note: 03/23/2025 Subjective: The patient is admitted to the hospital with altered mental status, encephalopathy secondary to urinary tract infection. The patient remains confused, although he is conversant. Denies chest pain, palpitations. Physical Examination: Lungs: Clear to auscultation bilaterally. Heart: S1, S2. Abdomen: Soft. Extremities: No edema. Impression And Plan: 1. End-stage renal disease. Dialysis tomorrow. Plan is to check blood work in the morning. Monitor electrolytes. Volemia is in good control. 2. Hypertension. Blood pressure controlled. 3. Questionable urinary tract infection. Continue antibiotics. 4. Encephalopathy secondary to urinary tract infection. Blood culture negative. Continue current antibiotics. 5. Acidosis secondary to end-stage renal disease. Discontinue oral bicarbonate tablets. Mild metabolic acidosis corrected with dialysis. 6. Hyponatremia, asymptomatic and the patient will continue p.o. fluid restriction and low-sodium diet. JUANI/JENNIFER Voice ID: [id number] Report ID: [id number] TRAVIS
[2025-03-24 05:16] LABS: Absolute Lymphocytes (CBC) 1.5 K/uL (0.7-4.9); Hematocrit 27.7 % (39.6-49.0); Hemoglobin 9.3 g/dL (13.6-17.9); MCH 32.7 pg (27.0-35.0); MCHC 33.6 g/dL (32.0-36.0); MCV 97.4 fL (80-100); MPV 8.8 fL (7.6-11.3); Nucleated RBC Absolute Count 0.0 (0-0); Nucleated Red Blood Cells % 0.2 % (0-0); RBC Red Blood Cell Count 2.84 M/uL (4.33-5.43); White Blood Count 7.70 thou/uL (4.3-10.9)
[2025-03-24 05:48] LABS: Anion Gap 9.8 mEq/L (5.0-15.0); BUN Blood Urea Nitrogen 26.0 mg/dL (7-18); Glucose Level 91.0 mg/dL (74-106); Potassium 3.8 mEq/L (3.5-5.1)
[2025-03-24] MEDS: NEPRO SHAKE 237 ML CAN PO SCH (09:00)
--- NOTE | 2025-03-24 10:59 | P.PN ---
Date of Service: 03/24/25 Subjective: The patient was admitted to the hospital with altered mental status, suspect of encephalopathy secondary to UTI. The patient still confused. Patient received dialysis yesterday tramadol has been DC'd patient more sleepy today Physical Examination: Temp Pulse Resp BP Pulse Ox 98.0 F 87 18 108/65 96 03/24/25 08:00 03/24/25 08:00 03/24/25 08:00 03/24/25 08:00 03/24/25 08:00 Chest: Clear to auscultation. Heart: S1, S2. Systolic murmur. Abdomen: Soft, nontender. Extremities: Right AV graft. Right IJ PermCath. No edema. Neurologic: Alert. No focality. Confused. More awake today oriented to person Laboratory Last Values WBC 8.00 thou/uL (4.3-10.9) 03/17/25 00:00 RBC 2.79 M/uL (4.33-5.43) L 03/17/25 00:00 Hgb 9.0 g/dL (13.6-17.9) L 03/17/25 00:00 Hct 27.0 % (39.6-49.0) L 03/17/25 00:00 MCV 96.6 fL (80-100) 03/17/25 00:00 MCH 32.2 pg (27.0-35.0) 03/17/25 00:00 MCHC 33.4 g/dL (32.0-36.0) 03/17/25 00:00 RDW 15.2 % (12.1-15.2) 03/17/25 00:00 Plt Count 252 thou/uL (152-406) 03/17/25 00:00 MPV 7.1 fL (7.6-11.3) L 03/17/25 00:00 Neutrophils % 56.7 % (41.7-73.7) 03/17/25 00:00 Lymphocytes % 20.6 % (15.3-44.8) 03/17/25 00:00 Monocytes % 15.2 % (3.3-12.3) H 03/17/25 00:00 Eosinophils % 6.8 % (0-4.4) H 03/17/25 00:00 Basophils % 0.7 % (0-1.3) 03/17/25 00:00 Absolute Neutrophils 4.6 K/uL (1.8-8.0) 03/17/25 00:00 Absolute Lymphocytes 1.7 K/uL (0.7-4.9) 03/17/25 00:00 Absolute Monocytes 1.2 K/uL (0.1-1.3) 03/17/25 00:00 Absolute Eosinophils 0.5 K/uL (0-0.5) 03/17/25 00:00 Absolute Basophils 0.1 K/uL (0-0.5) 03/17/25 00:00 PT 15.2 SECONDS (10-13.0) H 03/17/25 00:00 INR 1.36 03/17/25 00:00 APTT 29.2 SECONDS (27.2-37.4) 03/17/25 00:00 pH 7.48 (7.35-7.45) H 03/17/25 00:12 pCO2 40 mmHg (35-45) 03/17/25 00:12 pO2 112 mmHg (75-100) H 03/17/25 00:12 HCO3 29.6 mmol/L (22.0-28.0) H 03/17/25 00:12 Base Excess 6.4 mmol/L (-2.0-3.0) H 03/17/25 00:12 ABG O2 Sat (Measured) 98.4 % (92.0-98.5) 03/17/25 00:12 Sodium 134 mEq/L (136-145) L 03/17/25 00:00 Potassium 3.9 mEq/L (3.5-5.1) 03/17/25 00:00 Chloride 98 mEq/L (98-107) 03/17/25 00:00 Carbon Dioxide 29 mEq/L (21-32) 03/17/25 00:00 Anion Gap 10.9 mEq/L (5.0-15.0) 03/17/25 00:00 BUN 18 mg/dL (7-18) 03/17/25 00:00 Creatinine 4.61 mg/dL (0.70-1.30) H 03/17/25 00:00 Est GFR (CKD-EPI) 13 ml/min (=/>90) L 03/17/25 00:00 Glucose 83 mg/dL (74-106) 03/17/25 00:00 POC Glucose 78 mg/dL (65-120) 03/17/25 01:00 Lactic Acid 1.3 mmol/L (0.4-2.0) 03/17/25 00:00 Calcium 8.1 mg/dL (8.5-10.1) L 03/17/25 00:00 Total Bilirubin 0.5 mg/dL (0.2-1.0) 03/17/25 00:00 AST 20 U/L (15-37) 03/17/25 00:00 ALT < 14 U/L (16-61) L 03/17/25 00:00 Alkaline Phosphatase 84 U/L (45-117) 03/17/25 00:00 Troponin I High Sens 3298.3 pg/mL (<58.9) H* 03/17/25 03:49 NT-Pro-B Natriuret Pep > 11760 pg/mL (<125) H 03/17/25 00:00 Serum Total Protein 7.0 g/dL (6.4-8.2) 03/17/25 00:00 Albumin 1.9 g/dL (3.4-5.0) L 03/17/25 00:00 Globulin 5.1 g/dL (2.3-3.5) H 03/17/25 00:00 Albumin/Globulin Ratio 0.4 (1.1-1.8) L 03/17/25 00:00 TSH 7.050 uIU/mL (0.358-3.740) H 03/17/25 00:00 Free T4 1.10 ng/dL (0.76-1.46) 03/17/25 00:00 Influenza Type A Ag Negative 03/17/25 00:08 Influenza Type B Ag Negative 03/17/25 00:08 SARS-CoV-2 Ag (Rapid) Negative (Negative) 03/17/25 00:08 SARS CoV-2 Rapid Comm N 03/17/25 00:08 Acetaminophen (Acetaminophen 325 Mg Tablet) 650 mg PO Q4HP PRN PRN Reason: Temp > 101' F/ Pain Last Admin: 03/23/25 21:57 Dose: 650 mg Aspirin (Aspirin Ec 81 Mg Tab) 81 mg PO DAILY CHELY Last Admin: 03/24/25 09:17 Dose: 81 mg Atorvastatin Calcium (Atorvastatin 80 Mg Tab) 80 mg PO BEDTIME CHELY Last Admin: 03/23/25 20:14 Dose: 80 mg Enteral Nutritional Formula (Nepro Shake 237 Ml Can) 237 ml PO DAILY CHELY Last Admin: 03/24/25 09:00 Dose: 237 ml Epoetin Sukhdeep (Epoetin 4,000 Unit/Ml Vial) 4,000 unit IV EVERY HD CHELY Last Admin: 03/22/25 11:28 Dose: 4,000 unit Folic Acid (Folic Acid 1 Mg Tablet) 1 mg PO DAILY CHELY Last Admin: 03/24/25 09:17 Dose: 1 mg Heparin Sodium (Porcine) (Heparin 1,000 Unit/Ml Vial) 6,000 unit IV EVERY HD PRN PRN Reason: FOR DIALYSIS CATHETER CARE Last Admin: 03/22/25 13:20 Dose: 6,000 unit Heparin Sodium (Porcine) (Heparin 1,000 Unit/Ml Vial) 4,000 unit IV EVERY HD PRN PRN Reason: Prevent HD System Clotting Last Admin: 03/22/25 10:20 Dose: 4,000 unit Vancomycin HCl 1 gm/ Sodium (Chloride) 250 mls @ 250 mls/hr IVPB AFTER EACH DIALYSIS CHELY; Protocol Last Admin: 03/20/25 18:42 Dose: 250 mls Cefepime HCl 1 gm/ Sodium (Chloride) 100 mls @ 200 mls/hr IV Q24H CHELY; Protocol Last Admin: 03/23/25 17:34 Dose: 100 mls Metoprolol Tartrate (Metoprolol Tar 25 Mg Tab) 12.5 mg PO BID CHELY Last Admin: 03/24/25 09:00 Dose: Not Given Tamsulosin HCl (Tamsulosin 0.4 Mg Sr Cap) 0.4 mg PO BEDTIME CHELY Last Admin: 03/23/25 20:14 Dose: 0.4 mg Assessment And Plan: 1. End-stage renal disease. I am going to continue the patient on his dialysis schedule 3 times a week, patient received dialysis yesterday will continue TTS for this week then we will switch him back to his regular schedule Wednesday next week and we will monitor. 2. Hypertension, controlled. Currently, blood pressure on the lower side. We will follow up the patient. 3. Fever, unknown etiology. Culture, so far, negative. Status post culture from the PermCath March 20 Still pending, and we will follow up. Continue current antibiotic. 4. Questionable of urinary tract infection. Follow up with the Primary. 5. Encephalopathy secondary to questionable urinary tract infection. /Medication induced gabapentin recovering very well, Agree with holding tramadol DC gabapentin Blood culture negative Continue current antibiotic. 6. Acidosis. Discontinue oral bicarb. Will be corrected with dialysis. 7. Anemia of chronic kidney disease. Continue DANIEL. 8. Hyponatremia. No need for treatment. Will be corrected with the dialysis Time spent examining the patient [id number] reviewing data lab and the radiology placing order discussing the case with the team including hospitalist and nursing staff dialysis nurse more than 55-minute
--- NOTE | 2025-03-24 13:44 | P.PN ---
Subjective Date of Service: 03/24/25 Chief Complaint: Fever of unknown origin, acute encephalopathy Patient is much more awake, oriented x 3. He denies any new complaint. Physical Examination - Vital Signs Temperature: 98.0 F Blood Pressure: 108/65 Pulse: 87 Respirations: 18 Pulse Ox (%): 96 - Studies Medications List Reviewed: Yes Assessment And Plan - Plan Physical Exam General: Awake, interactive, oriented x 3, NAD Neck: Supple, JVD not distended. Respiratory: Clear to auscultation bilaterally, diminished breath sounds bilaterally Cardiovascular: No edema, Normal pulses, Regular rate/rhythm, Normal S1 S2 Gastrointestinal: Normal bowel sounds, soft and benign, Non-distended. Musculoskeletal: No swelling, No contractures, No erythema Integumentary: No rashes. Neurological: no focal motor deficit. Psychiatric: Not agitated, cooperative, pleasant. Assessment And Plan Patient is 69 years old male patient who came in via EMS from home after a fall and found to have a fever of 101.2. Patient was discharged 03/16 from [facility] [place] for pneumonia, sepsis, right foot wound, and occluded right fistula.. Past medical history significant for end-stage renal disease currently on hemodialysis, patient dialyzes Wednesday, Wednesday and Wednesday. Last dialysis yesterday with new dialysis catheter to right chest, Hypertension, BPH, anemia, and CHF. Patient admitted for further evaluation and management for fever of unknown origin. Acute encephalopathy, resolved Fever of unknown origin, resolved Review of outside hospital records show asymptomatic bacteriuria. Blood cultures NGTD No leukocytosis CT CAP concerning for atelectasis versus developing infection, bladder fat stranding Recently discharged from [facility] [place] after 3-day admission. Bilateral lower extremity venous ultrasound negative for DVT Blood cultures are showing no growth Nephrology is following. Patient is getting gabapentin 300 mg 3 times a day which has been discontinued. Avoid psychotropic medication Continue IV vancomycin and cefepime as we wait for results of cultures. Weakness Fall Likely related to prolonged hospitalization Fall precautions PT/OT as tolerated ESRD on HD (MWF): Creatinine 5.81, potassium 3.5, sodium 137. Nephrology Dr. Mcgrath is following and managing. Renally dose all medications. Monitor renal function panel BPH Continue tamsulosin 0.4 mg nightly Acute on chronic Normocytic Anemia: Iron deficiency anemia Anemia of chronic diseases Iron 31, TIBC 143, transferrin 102, iron sat percent 21 No sign of active bleed. Monitor CBC Transfuse if symptomatic or <7. Acute on chronic heart failure with severely reduced ejection fraction, not in acute exacerbation: Pulmonary hypertension LifeVest Last echo on file May 2024 EF 5 to 10%, severe global hypokinesis, grade 3 diastolic dysfunction, moderate TR, moderate MR, moderate pulmonary hypertension Fluid restriction <1500 ml/day Metoprolol tartrate 12.5 mg twice daily Fluid status management with HD Hypertension Continue metoprolol. Diabetic neuropathy Gabapentin on hold due to AMS. 03/22/2025 Mental status is improving after holding gabapentin Blood cultures from dialysis catheter is still pending Continue IV vancomycin and cefepime Neurochecks Routine hemodialysis per nephrology Hemoglobin has remained stable LifeVest is in place Patient has been normotensive. He is now receiving metoprolol due to borderline low blood pressure. Continue PT as tolerated. 03/23/2025 More awake today Continue to hold gabapentin Follow blood cultures from dialysis catheter Only 1 episode of fever on presentation, no fever since hospitalization. Continue IV antibiotics Routine hemodialysis per nephrology Stable BP. Continue PT as tolerated. 03/24/2025 AMS is resolving AMS likely secondary to drug-induced secondary to the gabapentin and tramadol Continue to hold gabapentin Blood culture from the dialysis catheter is still pending Peripheral blood cultures have yielded no growth. Continue IV antibiotics for now Routine hemodialysis per nephrology Continue PT. patient slated for SNF placement. LifeVest in place Hemoglobin has been stable. Continue metoprolol as his BP will tolerate. DVT prophylaxis: Heparin CODE STATUS: Full code
[2025-03-25 04:52] LABS: Absolute Lymphocytes (CBC) 1.3 K/uL (0.7-4.9); Hematocrit 25.8 % (39.6-49.0); Hemoglobin 8.6 g/dL (13.6-17.9); MCH 32.5 pg (27.0-35.0); MCHC 33.4 g/dL (32.0-36.0); MCV 97.1 fL (80-100); MPV 8.8 fL (7.6-11.3); Nucleated RBC Absolute Count 0.0 (0-0); Nucleated Red Blood Cells % 0.2 % (0-0); RBC Red Blood Cell Count 2.65 M/uL (4.33-5.43); White Blood Count 7.00 thou/uL (4.3-10.9)
[2025-03-25 05:05] LABS: Anion Gap 9.5 mEq/L (5.0-15.0); BUN Blood Urea Nitrogen 18.0 mg/dL (7-18); Glucose Level 89.0 mg/dL (74-106); Potassium 3.5 mEq/L (3.5-5.1)
--- NOTE | 2025-03-25 12:32 | P.PN ---
Subjective Date of Service: 03/25/25 Chief Complaint: Fever of unknown origin, acute encephalopathy No reported issues overnight Patient is awake and alert. He has no new complain. Physical Examination - Vital Signs Temperature: 97.6 F Blood Pressure: 108/56 Pulse: 85 Respirations: 18 Pulse Ox (%): 100 - Studies Medications List Reviewed: Yes Assessment And Plan - Plan Physical Exam General: Awake and alert, oriented x 3, NAD Respiratory: Clear to auscultation bilaterally, adequate breath sounds bilaterally. Cardiovascular: No edema, Normal pulses, Regular rate/rhythm, Normal S1 S2 Gastrointestinal: Normal bowel sounds, soft and benign, Non-distended. Musculoskeletal: No swelling, no erythema Integumentary: No rashes. Neurological: no focal motor deficit. Psychiatric: cooperative, pleasant. Assessment And Plan Patient is 69 years old male patient who came in via EMS from home after a fall and found to have a fever of 101.2. Patient was discharged 03/16 from [facility] for pneumonia, sepsis, right foot wound, and occluded right fistula.. Past medical history significant for end-stage renal disease currently on hemodialysis, patient dialyzes Wednesday, Wednesday and Wednesday. Last dialysis yesterday with new dialysis catheter to right chest, Hypertension, BPH, anemia, and CHF. Patient admitted for further evaluation and management for fever of unknown origin. Acute encephalopathy, resolved Fever of unknown origin, resolved Review of outside hospital records show asymptomatic bacteriuria. Blood cultures NGTD No leukocytosis CT CAP concerning for atelectasis versus developing infection, bladder fat stranding Recently discharged from [facility] after 3-day admission. Bilateral lower extremity venous ultrasound negative for DVT Blood cultures are showing no growth Nephrology is following. Patient is getting gabapentin 300 mg 3 times a day which has been discontinued. Avoid psychotropic medication Continue IV vancomycin and cefepime as we wait for results of cultures. Weakness Fall Likely related to prolonged hospitalization Fall precautions PT/OT as tolerated ESRD on HD (MWF): Creatinine 5.81, potassium 3.5, sodium 137. Nephrology Dr. Mcgrath is following and managing. Renally dose all medications. Monitor renal function panel BPH Continue tamsulosin 0.4 mg nightly Acute on chronic Normocytic Anemia: Iron deficiency anemia Anemia of chronic diseases Iron 31, TIBC 143, transferrin 102, iron sat percent 21 No sign of active bleed. Monitor CBC Transfuse if symptomatic or <7. Acute on chronic heart failure with severely reduced ejection fraction, not in acute exacerbation: Pulmonary hypertension LifeVest Last echo on file May 2024 EF 5 to 10%, severe global hypokinesis, grade 3 diastolic dysfunction, moderate TR, moderate MR, moderate pulmonary hypertension Fluid restriction <1500 ml/day Metoprolol tartrate 12.5 mg twice daily Fluid status management with HD Hypertension Continue metoprolol. Diabetic neuropathy Gabapentin on hold due to AMS. 03/22/2025 Mental status is improving after holding gabapentin Blood cultures from dialysis catheter is still pending Continue IV vancomycin and cefepime Neurochecks Routine hemodialysis per nephrology Hemoglobin has remained stable LifeVest is in place Patient has been normotensive. He is now receiving metoprolol due to borderline low blood pressure. Continue PT as tolerated. 03/23/2025 More awake today Continue to hold gabapentin Follow blood cultures from dialysis catheter Only 1 episode of fever on presentation, no fever since hospitalization. Continue IV antibiotics Routine hemodialysis per nephrology Stable BP. Continue PT as tolerated. 03/24/2025 AMS is resolving AMS likely secondary to drug-induced secondary to the gabapentin and tramadol Continue to hold gabapentin Blood culture from the dialysis catheter is still pending Peripheral blood cultures have yielded no growth. Continue IV antibiotics for now Routine hemodialysis per nephrology Continue PT. patient slated for SNF placement. LifeVest in place Hemoglobin has been stable. Continue metoprolol as his BP will tolerate. 03/25/2025 Mental status improved to baseline. Continue to hold gabapentin Blood culture from the dialysis catheter has shown no growth to date. Antibiotic day 6. No leukocytosis, patient had only 1 episode of fever on presentation. Discontinue antibiotics and monitor for fever. Routine hemodialysis per nephrology Continue PT. LifeVest is in place. Stable blood pressure, continue metoprolol as tolerated. Patient slated for SNF placement. DVT prophylaxis: Heparin CODE STATUS: Full code
--- NOTE | 2025-03-25 13:02 | PN ---
Subjective: No overnight events. Feels better. On dialysis yesterday. Pending outpatient dialysis arrangement. Physical Examination: Vital Signs: Temperature 98, pulse is 78, blood pressure 106/53. General: On physical examination, awake and alert. Not in distress. Neck: Supple. No elevated JVD. Heart: Regular rate and rhythm. Normal S1, S2. Chest: Clear to auscultation bilaterally. No rales or wheezes. Abdomen: Soft and nontender. Extremities: No edema. . Laboratory Data: White count 7, hemoglobin 8.6. Sodium 135, potassium 3.5, BUN 18, creatinine 1.9. Assessment And Plan: This is a 70-year-old man with past medical history of end-stage renal disease, diabetes, peripheral vascular disease, who was admitted for fall, had a fever. The patient also had metabolic encephalopathy. 1. End-stage renal disease. Continue dialysis 3 times weekly. Next dialysis tomorrow as scheduled. Renal dose medication. 2. AV fistula malfunction. Continues to discharge. Follow up with Vascular as an outpatient. 3. Hypertension. Blood pressure under control. We will discontinue blood pressure medications. 4. Fever of unclear etiology. Tunneled catheter change. Continue antibiotic. 5. Metabolic encephalopathy possibly due to fever and pain medication off gabapentin and tramadol. 6. Anemia of chronic disease. Continue Epogen. Monitor H and H. Thank you for allowing me to participate in the patient's care. Total time spent 55 minutes includin g documentation, reviewing labs, and placing orders. SUSI Voice ID: [id number] Report ID: [id number]
--- NOTE | 2025-03-26 16:53 | P.PN ---
Subjective Date of Service: 03/26/25 Chief Complaint: Fever of unknown origin, acute encephalopathy He is awake and alert and has no new complaint He is eating well Physical Examination - Vital Signs Temperature: 97.5 F Blood Pressure: 124/60 Pulse: 87 Respirations: 14 Pulse Ox (%): 100 - Studies Medications List Reviewed: Yes Assessment And Plan - Plan Physical Exam General: Awake and alert, oriented x 3, NAD Respiratory: Clear to auscultation bilaterally, adequate breath sounds bilaterally. Cardiovascular: No edema, Normal pulses, Regular rate/rhythm, Normal S1 S2 Gastrointestinal: Normal bowel sounds, soft and benign, Non-distended. Musculoskeletal: No swelling, no erythema Integumentary: No rashes. Neurological: no focal motor deficit. Psychiatric: cooperative, pleasant. Assessment And Plan Patient is 69 years old male patient who came in via EMS from home after a fall and found to have a fever of 101.2. Patient was discharged 03/16 from [facility] for pneumonia, sepsis, right foot wound, and occluded right fistula.. Past medical history significant for end-stage renal disease currently on hemodialysis, patient dialyzes Wednesday, Wednesday and Wednesday. Last dialysis yesterday with new dialysis catheter to right chest, Hypertension, BPH, anemia, and CHF. Patient admitted for further evaluation and management for fever of unknown origin. Acute encephalopathy, resolved Fever of unknown origin, resolved Review of outside hospital records show asymptomatic bacteriuria. Blood cultures NGTD No leukocytosis CT CAP concerning for atelectasis versus developing infection, bladder fat stranding Recently discharged from [facility] after 3-day admission. Bilateral lower extremity venous ultrasound negative for DVT Blood cultures are showing no growth Nephrology is following. Patient is getting gabapentin 300 mg 3 times a day which has been discontinued. Avoid psychotropic medication Continue IV vancomycin and cefepime as we wait for results of cultures. Weakness Fall Likely related to prolonged hospitalization Fall precautions PT/OT as tolerated ESRD on HD (MWF): Creatinine 5.81, potassium 3.5, sodium 137. Nephrology Dr. Mcgrath is following and managing. Renally dose all medications. Monitor renal function panel BPH Continue tamsulosin 0.4 mg nightly Acute on chronic Normocytic Anemia: Iron deficiency anemia Anemia of chronic diseases Iron 31, TIBC 143, transferrin 102, iron sat percent 21 No sign of active bleed. Monitor CBC Transfuse if symptomatic or <7. Acute on chronic heart failure with severely reduced ejection fraction, not in acute exacerbation: Pulmonary hypertension LifeVest Last echo on file May 2024 EF 5 to 10%, severe global hypokinesis, grade 3 diastolic dysfunction, moderate TR, moderate MR, moderate pulmonary hypertension Fluid restriction <1500 ml/day Metoprolol tartrate 12.5 mg twice daily Fluid status management with HD Hypertension Continue metoprolol. Diabetic neuropathy Gabapentin on hold due to AMS. 03/22/2025 Mental status is improving after holding gabapentin Blood cultures from dialysis catheter is still pending Continue IV vancomycin and cefepime Neurochecks Routine hemodialysis per nephrology Hemoglobin has remained stable LifeVest is in place Patient has been normotensive. He is now receiving metoprolol due to borderline low blood pressure. Continue PT as tolerated. 03/23/2025 More awake today Continue to hold gabapentin Follow blood cultures from dialysis catheter Only 1 episode of fever on presentation, no fever since hospitalization. Continue IV antibiotics Routine hemodialysis per nephrology Stable BP. Continue PT as tolerated. 03/24/2025 AMS is resolving AMS likely secondary to drug-induced secondary to the gabapentin and tramadol Continue to hold gabapentin Blood culture from the dialysis catheter is still pending Peripheral blood cultures have yielded no growth. Continue IV antibiotics for now Routine hemodialysis per nephrology Continue PT. patient slated for SNF placement. LifeVest in place Hemoglobin has been stable. Continue metoprolol as his BP will tolerate. 03/25/2025 Mental status improved to baseline. Continue to hold gabapentin Blood culture from the dialysis catheter has shown no growth to date. Antibiotic day 6. No leukocytosis, patient had only 1 episode of fever on presentation. Discontinue antibiotics and monitor for fever. Routine hemodialysis per nephrology Continue PT. LifeVest is in place. Stable blood pressure, continue metoprolol as tolerated. Patient slated for SNF placement. 03/26/2025 Altered mental status resolved. AMS likely drug-induced secondary to gabapentin. Clinically stable off antibiotics. Continue metoprolol. LifeVest is in place Patient appears compensated for CHF. Monitor CBC to follow anemia Awaiting insurance authorization for SNF. Continue PT. DVT prophylaxis: Heparin CODE STATUS: Full code
[2025-03-26 17:04] LABS: Hepatitis B surface AG Interp. Nonreactive (Nonreactive)
[2025-03-26 17:05] LABS: HBsAG Nonreactive Report Report
--- NOTE | 2025-03-26 18:37 | PN ---
Date of Progress Note: 03/26/2025 Chief Complaint: End-stage renal disease. History Of Present Illness: The patient is admitted for altered mental status, fever. He has metabo lic encephalopathy, tunneled dialysis catheter was changed and IV access is functioning. The patient underwent urgent procedure with [facility] for clotted IV access in the right arm. Review of Systems: Denies chest pain, palpitation. Physical Examination: Lungs: Clear to auscultation bilaterally. Heart: S1 and S2. Abdomen: Soft. Extremities: No edema. Impression And Plan: 1. The patient is a 70-year-old man with past medical history of end-stage renal disease, peripheral vascular disease, admitted after he sustained fall at home, had fever and workup was initiated for fe cary of unknown origin. The patient presented with altered mental status, which was due to metabolic encephalopathy in the setting of possible sepsis. 2. End-stage renal disease. Continue dialysis 3 times per week. Today, the patient is undergoing di alysis for metabolic clearance and to obtain ultrafiltration to prevent fluid overload and congestive heart failure exacerbation. 3. . The patient will follow up with Vascular Team. 4. Hypertension and blood pressure controlled. Discontinue blood pressure medication in view of hypotensive episodes. 5. Anemia of chronic disease. Continue Epogen. JUANI/JENNIFER Voice ID: [id number] Report ID: [id number]
[2025-03-27 05:31] LABS: Absolute Lymphocytes (CBC) 1.4 K/uL (0.7-4.9); Hematocrit 26.6 % (39.6-49.0); Hemoglobin 8.9 g/dL (13.6-17.9); MCH 32.7 pg (27.0-35.0); MCHC 33.6 g/dL (32.0-36.0); MCV 97.6 fL (80-100); MPV 8.9 fL (7.6-11.3); Nucleated RBC Absolute Count 0.0 (0-0); Nucleated Red Blood Cells % 0.1 % (0-0); RBC Red Blood Cell Count 2.73 M/uL (4.33-5.43); White Blood Count 7.00 thou/uL (4.3-10.9)
[2025-03-27 05:49] LABS: Anion Gap 9.8 mEq/L (5.0-15.0); BUN Blood Urea Nitrogen 19.0 mg/dL (7-18); Glucose Level 79.0 mg/dL (74-106); Potassium 3.8 mEq/L (3.5-5.1)
--- NOTE | 2025-03-27 09:52 | P.PN ---
Date of Service: 03/27/25 Subjective: The patient was admitted to the hospital with altered mental status, suspect of encephalopathy secondary to UTI. The patient still confused. Patient received dialysis yesterday tramadol has been DC'd patient more sleepy today Physical Examination: Temp Pulse Resp BP Pulse Ox 97.6 F 84 20 116/56 L 100 03/27/25 08:00 03/27/25 09:04 03/27/25 08:00 03/27/25 09:04 03/27/25 08:00 Chest: Clear to auscultation. Heart: S1, S2. Systolic murmur. Abdomen: Soft, nontender. Extremities: Right AV graft. Right IJ PermCath. No edema. Neurologic: Alert. No focality. Alert oriented x 3 no focality Acetaminophen (Acetaminophen 325 Mg Tablet) 650 mg PO Q4HP PRN PRN Reason: Temp > 101' F/ Pain Last Admin: 03/27/25 09:05 Dose: 650 mg Aspirin (Aspirin Ec 81 Mg Tab) 81 mg PO DAILY [facility] Last Admin: 03/27/25 09:04 Dose: 81 mg Atorvastatin Calcium (Atorvastatin 80 Mg Tab) 80 mg PO BEDTIME [facility] Last Admin: 03/26/25 19:48 Dose: 80 mg Enteral Nutritional Formula (Nepro Shake 237 Ml Can) 237 ml PO DAILY [facility] Last Admin: 03/27/25 09:00 Dose: 237 ml Epoetin Sukhdeep (Epoetin 4,000 Unit/Ml Vial) 4,000 unit IV EVERY HD [facility] Last Admin: 03/26/25 18:15 Dose: 4,000 unit Folic Acid (Folic Acid 1 Mg Tablet) 1 mg PO DAILY [facility] Last Admin: 03/27/25 09:04 Dose: 1 mg Heparin Sodium (Porcine) (Heparin 1,000 Unit/Ml Vial) 6,000 unit IV EVERY HD PRN PRN Reason: FOR DIALYSIS CATHETER CARE Last Admin: 03/26/25 18:38 Dose: 6,000 unit Heparin Sodium (Porcine) (Heparin 1,000 Unit/Ml Vial) 4,000 unit IV EVERY HD PRN PRN Reason: Prevent HD System Clotting Last Admin: 03/22/25 10:20 Dose: 4,000 unit Metoprolol Tartrate (Metoprolol Tar 25 Mg Tab) 12.5 mg PO BID [facility] Last Admin: 03/27/25 09:04 Dose: 12.5 mg Tamsulosin HCl (Tamsulosin 0.4 Mg Sr Cap) 0.4 mg PO BEDTIME [facility] Last Admin: 03/26/25 19:48 Dose: 0.4 mg Laboratory Last Values WBC 8.00 thou/uL (4.3-10.9) 03/17/25 00:00 RBC 2.79 M/uL (4.33-5.43) L 03/17/25 00:00 Hgb 9.0 g/dL (13.6-17.9) L 03/17/25 00:00 Hct 27.0 % (39.6-49.0) L 03/17/25 00:00 MCV 96.6 fL (80-100) 03/17/25 00:00 MCH 32.2 pg (27.0-35.0) 03/17/25 00:00 MCHC 33.4 g/dL (32.0-36.0) 03/17/25 00:00 RDW 15.2 % (12.1-15.2) 03/17/25 00:00 Plt Count 252 thou/uL (152-406) 03/17/25 00:00 MPV 7.1 fL (7.6-11.3) L 03/17/25 00:00 Neutrophils % 56.7 % (41.7-73.7) 03/17/25 00:00 Lymphocytes % 20.6 % (15.3-44.8) 03/17/25 00:00 Monocytes % 15.2 % (3.3-12.3) H 03/17/25 00:00 Eosinophils % 6.8 % (0-4.4) H 03/17/25 00:00 Basophils % 0.7 % (0-1.3) 03/17/25 00:00 Absolute Neutrophils 4.6 K/uL (1.8-8.0) 03/17/25 00:00 Absolute Lymphocytes 1.7 K/uL (0.7-4.9) 03/17/25 00:00 Absolute Monocytes 1.2 K/uL (0.1-1.3) 03/17/25 00:00 Absolute Eosinophils 0.5 K/uL (0-0.5) 03/17/25 00:00 Absolute Basophils 0.1 K/uL (0-0.5) 03/17/25 00:00 PT 15.2 SECONDS (10-13.0) H 03/17/25 00:00 INR 1.36 03/17/25 00:00 APTT 29.2 SECONDS (27.2-37.4) 03/17/25 00:00 pH 7.48 (7.35-7.45) H 03/17/25 00:12 pCO2 40 mmHg (35-45) 03/17/25 00:12 pO2 112 mmHg (75-100) H 03/17/25 00:12 HCO3 29.6 mmol/L (22.0-28.0) H 03/17/25 00:12 Base Excess 6.4 mmol/L (-2.0-3.0) H 03/17/25 00:12 ABG O2 Sat (Measured) 98.4 % (92.0-98.5) 03/17/25 00:12 Sodium 134 mEq/L (136-145) L 03/17/25 00:00 Potassium 3.9 mEq/L (3.5-5.1) 03/17/25 00:00 Chloride 98 mEq/L (98-107) 03/17/25 00:00 Carbon Dioxide 29 mEq/L (21-32) 03/17/25 00:00 Anion Gap 10.9 mEq/L (5.0-15.0) 03/17/25 00:00 BUN 18 mg/dL (7-18) 03/17/25 00:00 Creatinine 4.61 mg/dL (0.70-1.30) H 03/17/25 00:00 Est GFR (CKD-EPI) 13 ml/min (=/>90) L 03/17/25 00:00 Glucose 83 mg/dL (74-106) 03/17/25 00:00 POC Glucose 78 mg/dL (65-120) 03/17/25 01:00 Lactic Acid 1.3 mmol/L (0.4-2.0) 03/17/25 00:00 Calcium 8.1 mg/dL (8.5-10.1) L 03/17/25 00:00 Total Bilirubin 0.5 mg/dL (0.2-1.0) 03/17/25 00:00 AST 20 U/L (15-37) 03/17/25 00:00 ALT < 14 U/L (16-61) L 03/17/25 00:00 Alkaline Phosphatase 84 U/L (45-117) 03/17/25 00:00 Troponin I High Sens 3298.3 pg/mL (<58.9) H* 03/17/25 03:49 NT-Pro-B Natriuret Pep > 03879 pg/mL (<125) H 03/17/25 00:00 Serum Total Protein 7.0 g/dL (6.4-8.2) 03/17/25 00:00 Albumin 1.9 g/dL (3.4-5.0) L 03/17/25 00:00 Globulin 5.1 g/dL (2.3-3.5) H 03/17/25 00:00 Albumin/Globulin Ratio 0.4 (1.1-1.8) L 03/17/25 00:00 TSH 7.050 uIU/mL (0.358-3.740) H 03/17/25 00:00 Free T4 1.10 ng/dL (0.76-1.46) 03/17/25 00:00 Influenza Type A Ag Negative 03/17/25 00:08 Influenza Type B Ag Negative 03/17/25 00:08 SARS-CoV-2 Ag (Rapid) Negative (Negative) 03/17/25 00:08 SARS CoV-2 Rapid Comm N 03/17/25 00:08 Assessment And Plan: 1. End-stage renal disease. I am going to continue the patient on his dialysis schedule 3 times a week, patient received dialysis yesterday will continue TTS for this week then we will switch him back to his regular schedule Wednesday next week and we will monitor. 2. Hypertension, controlled. Currently, blood pressure on the lower side. We will follow up the patient. 3. Fever, unknown etiology. Culture, so far, negative. Status post culture from the PermCath March 20 Still pending, and we will follow up. Continue current antibiotic. 4. Questionable of urinary tract infection. Follow up with the Primary. 5. Encephalopathy secondary to questionable urinary tract infection. /Medication induced gabapentin recovering very well, Agree with holding tramadol / gabapentin Blood culture negative Continue current antibiotic. 6. Acidosis. Discontinue oral bicarb. Will be corrected with dialysis. 7. Anemia of chronic kidney disease. Continue DANIEL. 8. Hyponatremia. No need for treatment. Will be corrected with the dialysis 9. Hyponatremia secondary to renal failure will be corrected with the dialysis Time spent examining the patient [id number] reviewing data lab and the radiology placing order discussing the case with the team including hospitalist and nursing staff dialysis nurse more than 55-minute
--- NOTE | 2025-03-27 13:21 | P.PN ---
Date of Service: 03/27/25 Subjective: continues with some leg pain otherwise doing okay vitals stable pending placement Physical Exam: Gen: Alert, Oriented, cooperative, pleasant CV: Regular rate and rhythm, no edema Pulm: Nonlabored respirations on room air, clear bilaterally Abdomen: Soft, nontender, nondistended Neuro: No focal motor deficit, Problem List: Acute encephalopathy, resolved Fever of unknown origin, resolved Generalized Weakness Fall ESRD on HD - MWF BPH Iron deficiency anemia Chronic CHF Pulmonary hypertension LifeVest Hypertension Acute encephalopathy, resolved Fever of unknown origin, resolved Review of outside hospital records show asymptomatic bacteriuria. CT CAP concerning for atelectasis versus developing infection, bladder fat stranding Recently discharged from [facility] after 3-day admission. Bilateral lower extremity venous ultrasound negative for DVT Initial blood cultures were without growth. Blood cultures from dialysis cath without growth. s/p 1 week of IV cefepime/Vanc (03/18-03/25) Gabapentin dc'd. Avoid psychotropic medication Mental status improved to baseline. AMS likely drug-induced secondary to gabapentin and tramadol. Clinically stable off antibiotics Generalized Weakness Fall Likely related to prolonged hospitalization Fall precautions PT/OT as tolerated ESRD on HD - MWF Nephrology is following dialysis per nephrology Renally dose all medications. Continue to monitor renal function, electrolytes BPH Continue tamsulosin 0.4 mg nightly Iron deficiency anemia Iron 31, tsat% 21% No sign of active bleed. Daily labs Chronic CHF Pulmonary hypertension LifeVest Hypertension Last echo on file May 2024 EF 5 to 10%, severe global hypokinesis, grade 3 diastolic dysfunction, moderate TR, moderate MR, moderate pulmonary hypertension Fluid restriction <1500 ml/day Continue metoprolol 12.5 mg twice daily Fluid status management with HD Code: Full Dispo: [facility] pending approval
[2025-03-28 06:08] LABS: Hematocrit 27.3 % (39.6-49.0); Hemoglobin 9.4 g/dL (13.6-17.9); MCH 33.3 pg (27.0-35.0); MCHC 34.3 g/dL (32.0-36.0); MCV 97.0 fL (80-100); MPV 8.5 fL (7.6-11.3); RBC Red Blood Cell Count 2.82 M/uL (4.33-5.43); White Blood Count 7.60 thou/uL (4.3-10.9)
[2025-03-28 06:34] LABS: Albumin 2.2 g/dL (3.4-5.0); Anion Gap 14.0 mEq/L (5.0-15.0); BUN Blood Urea Nitrogen 26.0 mg/dL (7-18); Glucose Level 79.0 mg/dL (74-106); Magnesium 2.2 mg/dL (1.6-2.4); Potassium 4.0 mEq/L (3.5-5.1)
--- NOTE | 2025-03-28 09:53 | P.PN ---
Date of Service: 03/28/25 Subjective: The patient was admitted to the hospital with altered mental status, suspect of encephalopathy secondary to UTI. The patient still confused. Patient received dialysis yesterday tramadol has been DC'd patient more sleepy today Physical Examination: Temp Pulse Resp BP Pulse Ox 97.5 F 84 19 113/56 L 100 03/28/25 08:00 03/28/25 08:00 03/28/25 08:00 03/28/25 08:00 03/28/25 08:00 Chest: Clear to auscultation. Heart: S1, S2. Systolic murmur. Abdomen: Soft, nontender. Extremities: Right AV graft. Right IJ PermCath. No edema. Right upper arm AV graft good thrill and bruit Neurologic: Alert. No focality. Alert oriented x 3 no focality Acetaminophen (Acetaminophen 325 Mg Tablet) 650 mg PO Q4HP PRN PRN Reason: Temp > 101' F/ Pain Last Admin: 03/28/25 08:21 Dose: 650 mg Aspirin (Aspirin Ec 81 Mg Tab) 81 mg PO DAILY [facility] Last Admin: 03/28/25 08:22 Dose: 81 mg Atorvastatin Calcium (Atorvastatin 80 Mg Tab) 80 mg PO BEDTIME [facility] Last Admin: 03/27/25 20:45 Dose: 80 mg Enteral Nutritional Formula (Nepro Shake 237 Ml Can) 237 ml PO DAILY [facility] Last Admin: 03/27/25 09:00 Dose: 237 ml Epoetin Sukhdeep (Epoetin 4,000 Unit/Ml Vial) 4,000 unit IV EVERY HD [facility] Last Admin: 03/26/25 18:15 Dose: 4,000 unit Folic Acid (Folic Acid 1 Mg Tablet) 1 mg PO DAILY [facility] Last Admin: 03/28/25 08:22 Dose: 1 mg Heparin Sodium (Porcine) (Heparin 1,000 Unit/Ml Vial) 6,000 unit IV EVERY HD PRN PRN Reason: FOR DIALYSIS CATHETER CARE Last Admin: 03/26/25 18:38 Dose: 6,000 unit Heparin Sodium (Porcine) (Heparin 1,000 Unit/Ml Vial) 4,000 unit IV EVERY HD PRN PRN Reason: Prevent HD System Clotting Last Admin: 03/22/25 10:20 Dose: 4,000 unit Metoprolol Tartrate (Metoprolol Tar 25 Mg Tab) 12.5 mg PO BID [facility] Last Admin: 03/28/25 08:27 Dose: Not Given Tamsulosin HCl (Tamsulosin 0.4 Mg Sr Cap) 0.4 mg PO BEDTIME CHELY Last Admin: 03/27/25 20:44 Dose: 0.4 mg Laboratory Last Values WBC 8.00 thou/uL (4.3-10.9) 03/17/25 00:00 RBC 2.79 M/uL (4.33-5.43) L 03/17/25 00:00 Hgb 9.0 g/dL (13.6-17.9) L 03/17/25 00:00 Hct 27.0 % (39.6-49.0) L 03/17/25 00:00 MCV 96.6 fL (80-100) 03/17/25 00:00 MCH 32.2 pg (27.0-35.0) 03/17/25 00:00 MCHC 33.4 g/dL (32.0-36.0) 03/17/25 00:00 RDW 15.2 % (12.1-15.2) 03/17/25 00:00 Plt Count 252 thou/uL (152-406) 03/17/25 00:00 MPV 7.1 fL (7.6-11.3) L 03/17/25 00:00 Neutrophils % 56.7 % (41.7-73.7) 03/17/25 00:00 Lymphocytes % 20.6 % (15.3-44.8) 03/17/25 00:00 Monocytes % 15.2 % (3.3-12.3) H 03/17/25 00:00 Eosinophils % 6.8 % (0-4.4) H 03/17/25 00:00 Basophils % 0.7 % (0-1.3) 03/17/25 00:00 Absolute Neutrophils 4.6 K/uL (1.8-8.0) 03/17/25 00:00 Absolute Lymphocytes 1.7 K/uL (0.7-4.9) 03/17/25 00:00 Absolute Monocytes 1.2 K/uL (0.1-1.3) 03/17/25 00:00 Absolute Eosinophils 0.5 K/uL (0-0.5) 03/17/25 00:00 Absolute Basophils 0.1 K/uL (0-0.5) 03/17/25 00:00 PT 15.2 SECONDS (10-13.0) H 03/17/25 00:00 INR 1.36 03/17/25 00:00 APTT 29.2 SECONDS (27.2-37.4) 03/17/25 00:00 pH 7.48 (7.35-7.45) H 03/17/25 00:12 pCO2 40 mmHg (35-45) 03/17/25 00:12 pO2 112 mmHg (75-100) H 03/17/25 00:12 HCO3 29.6 mmol/L (22.0-28.0) H 03/17/25 00:12 Base Excess 6.4 mmol/L (-2.0-3.0) H 03/17/25 00:12 ABG O2 Sat (Measured) 98.4 % (92.0-98.5) 03/17/25 00:12 Sodium 134 mEq/L (136-145) L 03/17/25 00:00 Potassium 3.9 mEq/L (3.5-5.1) 03/17/25 00:00 Chloride 98 mEq/L (98-107) 03/17/25 00:00 Carbon Dioxide 29 mEq/L (21-32) 03/17/25 00:00 Anion Gap 10.9 mEq/L (5.0-15.0) 03/17/25 00:00 BUN 18 mg/dL (7-18) 03/17/25 00:00 Creatinine 4.61 mg/dL (0.70-1.30) H 03/17/25 00:00 Est GFR (CKD-EPI) 13 ml/min (=/>90) L 03/17/25 00:00 Glucose 83 mg/dL (74-106) 03/17/25 00:00 POC Glucose 78 mg/dL (65-120) 03/17/25 01:00 Lactic Acid 1.3 mmol/L (0.4-2.0) 03/17/25 00:00 Calcium 8.1 mg/dL (8.5-10.1) L 03/17/25 00:00 Total Bilirubin 0.5 mg/dL (0.2-1.0) 03/17/25 00:00 AST 20 U/L (15-37) 03/17/25 00:00 ALT < 14 U/L (16-61) L 03/17/25 00:00 Alkaline Phosphatase 84 U/L (45-117) 03/17/25 00:00 Troponin I High Sens 3298.3 pg/mL (<58.9) H* 03/17/25 03:49 NT-Pro-B Natriuret Pep > 53021 pg/mL (<125) H 03/17/25 00:00 Serum Total Protein 7.0 g/dL (6.4-8.2) 03/17/25 00:00 Albumin 1.9 g/dL (3.4-5.0) L 03/17/25 00:00 Globulin 5.1 g/dL (2.3-3.5) H 03/17/25 00:00 Albumin/Globulin Ratio 0.4 (1.1-1.8) L 03/17/25 00:00 TSH 7.050 uIU/mL (0.358-3.740) H 03/17/25 00:00 Free T4 1.10 ng/dL (0.76-1.46) 03/17/25 00:00 Influenza Type A Ag Negative 03/17/25 00:08 Influenza Type B Ag Negative 03/17/25 00:08 SARS-CoV-2 Ag (Rapid) Negative (Negative) 03/17/25 00:08 SARS CoV-2 Rapid Comm N 03/17/25 00:08 Assessment And Plan: 1. End-stage renal disease. I am going to continue the patient on his dialysis schedule 3 times a week, Wednesday We will try to use his AV graft today if cannulated well we will plan to remove TDC and we will monitor. 2. Hypertension, controlled. Currently, blood pressure on the lower side. We will follow up the patient. 3. Fever, unknown etiology. Culture, so far, negative. Status post culture from the PermCath March 20 Still pending, and we will follow up. Continue current antibiotic. 4. Questionable of urinary tract infection. Follow up with the Primary. 5. Encephalopathy secondary to questionable urinary tract infection. /Medication induced gabapentin recovering very well, Agree with holding tramadol / gabapentin Blood culture negative Continue current antibiotic. 6. Acidosis. Discontinue oral bicarb. Will be corrected with dialysis. 7. Anemia of chronic kidney disease. Continue DANIEL. 8. Hyponatremia. No need for treatment. Will be corrected with the dialysis 9. Hyponatremia secondary to renal failure will be corrected with the dialysis 10. Congestive heart failure ejection fraction below 25 patient on LifeVest Follow-up with cardiology Time spent examining the patient [id number] reviewing data lab and the radiology placing order discussing the case with the team including hospitalist and nursing staff dialysis nurse more than 55-minute
--- NOTE | 2025-03-28 12:01 | P.PN ---
Date of Service: 03/28/25 Subjective: Doing okay. no new issues breathing okay on room air no further fever working with physical therapy Physical Exam: Gen: Alert, Oriented, cooperative, pleasant CV: Regular rate and rhythm, no edema Pulm: Nonlabored respirations on room air, clear bilaterally Abdomen: Soft, nontender, nondistended Neuro: No focal motor deficit, Problem List: Acute encephalopathy, resolved Fever of unknown origin, resolved Generalized Weakness Fall ESRD on HD - MWF BPH Iron deficiency anemia Chronic CHF Pulmonary hypertension LifeVest Hypertension Acute encephalopathy, resolved Fever of unknown origin, resolved Review of outside hospital records show asymptomatic bacteriuria. CT CAP concerning for atelectasis versus developing infection, bladder fat stranding Recently discharged from [facility] after 3-day admission. Bilateral lower extremity venous ultrasound negative for DVT Initial blood cultures were without growth. Blood cultures from dialysis cath without growth. s/p 1 week of IV cefepime/Vanc (03/18-03/25) Gabapentin dc'd. Avoid psychotropic medication Mental status improved to baseline. AMS likely drug-induced secondary to gabapentin and tramadol. Clinically stable off antibiotics Generalized Weakness Fall Likely related to prolonged hospitalization Fall precautions PT/OT as tolerated ESRD on HD - MWF Nephrology is following dialysis per nephrology Renally dose all medications. Continue to monitor renal function, electrolytes BPH Continue tamsulosin 0.4 mg nightly Iron deficiency anemia Iron 31, tsat% 21% No sign of active bleed. Daily labs Chronic CHF Pulmonary hypertension LifeVest Hypertension Last echo on file May 2024 EF 5 to 10%, severe global hypokinesis, grade 3 diastolic dysfunction, moderate TR, moderate MR, moderate pulmonary hypertension Fluid restriction <1500 ml/day Continue metoprolol 12.5 mg twice daily Fluid status management with HD Code: Full Dispo: [facility] pending approval
[2025-03-28] MEDS ORDERED: MORPHINE 2 MG/ML SYR IV PRN (22:44)
[2025-03-28] MEDS: ZOLPIDEM TARTRATE 5 MG TABLET PO PRN (23:13)
[2025-03-29 06:18] LABS: Anion Gap 10.2 mEq/L (5.0-15.0); BUN Blood Urea Nitrogen 20.0 mg/dL (7-18); Glucose Level 85.0 mg/dL (74-106); Magnesium 2.3 mg/dL (1.6-2.4); Potassium 4.2 mEq/L (3.5-5.1)
[2025-03-29] MEDS: HYDROCODONE/APAP 5/325 MG TAB PO PRN (08:36)
[2025-03-29] MEDS ORDERED: MORPHINE 4 MG/ML SYR IV PRN (10:55)
--- NOTE | 2025-03-29 11:27 | P.PN ---
Date of Service: 03/29/25 Subjective: The patient was admitted to the hospital with altered mental status, suspect of encephalopathy secondary to UTI. The patient still confused. Patient received dialysis yesterday tramadol has been DC'd patient more sleepy today Physical Examination: Temp Pulse Resp BP Pulse Ox 97.9 F 80 16 121/61 95 03/29/25 08:00 03/29/25 08:37 03/29/25 08:36 03/29/25 08:37 03/29/25 08:00 Chest: Clear to auscultation. Heart: S1, S2. Systolic murmur. Abdomen: Soft, nontender. Extremities: Right AV graft. Right IJ PermCath. No edema. Right upper arm AV graft good thrill and bruit Neurologic: Alert. No focality. Alert oriented x 3 no focality Acetaminophen (Acetaminophen 325 Mg Tablet) 650 mg PO Q4HP PRN PRN Reason: Temp > 101' F/ Pain Last Admin: 03/28/25 20:44 Dose: 650 mg Hydrocodone Bitart/Acetaminophen (Hydrocodone/Apap 5/325 Mg Tab) 1 tab PO Q4H PRN PRN Reason: Pain scale 5-7 (Moderate) Last Admin: 03/29/25 08:36 Dose: 1 tab Aspirin (Aspirin Ec 81 Mg Tab) 81 mg PO DAILY [facility] Last Admin: 03/29/25 08:39 Dose: 81 mg Atorvastatin Calcium (Atorvastatin 80 Mg Tab) 80 mg PO BEDTIME [facility] Last Admin: 03/28/25 20:44 Dose: 80 mg Enteral Nutritional Formula (Nepro Shake 237 Ml Can) 237 ml PO DAILY [facility] Last Admin: 03/29/25 08:40 Dose: 237 ml Epoetin Sukhdeep (Epoetin 4,000 Unit/Ml Vial) 4,000 unit IV EVERY HD [facility] Last Admin: 03/26/25 18:15 Dose: 4,000 unit Folic Acid (Folic Acid 1 Mg Tablet) 1 mg PO DAILY [facility] Last Admin: 03/29/25 08:37 Dose: 1 mg Metoprolol Tartrate (Metoprolol Tar 25 Mg Tab) 12.5 mg PO BID [facility] Last Admin: 03/29/25 08:37 Dose: 12.5 mg Morphine Sulfate (Morphine 4 Mg/Ml Syr) 2 mg IV Q4H PRN PRN Reason: Pain scale 8-10 (Severe) Tamsulosin HCl (Tamsulosin 0.4 Mg Sr Cap) 0.4 mg PO BEDTIME [facility] Last Admin: 03/28/25 20:43 Dose: 0.4 mg Zolpidem Tartrate (Zolpidem Tartrate 5 Mg Tablet) 5 mg PO BEDTIME PRN PRN PRN Reason: INSOMNIA Last Admin: 03/28/25 23:13 Dose: 5 mg Laboratory Last Values WBC 8.00 thou/uL (4.3-10.9) 03/17/25 00:00 RBC 2.79 M/uL (4.33-5.43) L 03/17/25 00:00 Hgb 9.0 g/dL (13.6-17.9) L 03/17/25 00:00 Hct 27.0 % (39.6-49.0) L 03/17/25 00:00 MCV 96.6 fL (80-100) 03/17/25 00:00 MCH 32.2 pg (27.0-35.0) 03/17/25 00:00 MCHC 33.4 g/dL (32.0-36.0) 03/17/25 00:00 RDW 15.2 % (12.1-15.2) 03/17/25 00:00 Plt Count 252 thou/uL (152-406) 03/17/25 00:00 MPV 7.1 fL (7.6-11.3) L 03/17/25 00:00 Neutrophils % 56.7 % (41.7-73.7) 03/17/25 00:00 Lymphocytes % 20.6 % (15.3-44.8) 03/17/25 00:00 Monocytes % 15.2 % (3.3-12.3) H 03/17/25 00:00 Eosinophils % 6.8 % (0-4.4) H 03/17/25 00:00 Basophils % 0.7 % (0-1.3) 03/17/25 00:00 Absolute Neutrophils 4.6 K/uL (1.8-8.0) 03/17/25 00:00 Absolute Lymphocytes 1.7 K/uL (0.7-4.9) 03/17/25 00:00 Absolute Monocytes 1.2 K/uL (0.1-1.3) 03/17/25 00:00 Absolute Eosinophils 0.5 K/uL (0-0.5) 03/17/25 00:00 Absolute Basophils 0.1 K/uL (0-0.5) 03/17/25 00:00 PT 15.2 SECONDS (10-13.0) H 03/17/25 00:00 INR 1.36 03/17/25 00:00 APTT 29.2 SECONDS (27.2-37.4) 03/17/25 00:00 pH 7.48 (7.35-7.45) H 03/17/25 00:12 pCO2 40 mmHg (35-45) 03/17/25 00:12 pO2 112 mmHg (75-100) H 03/17/25 00:12 HCO3 29.6 mmol/L (22.0-28.0) H 03/17/25 00:12 Base Excess 6.4 mmol/L (-2.0-3.0) H 03/17/25 00:12 ABG O2 Sat (Measured) 98.4 % (92.0-98.5) 03/17/25 00:12 Sodium 134 mEq/L (136-145) L 03/17/25 00:00 Potassium 3.9 mEq/L (3.5-5.1) 03/17/25 00:00 Chloride 98 mEq/L (98-107) 03/17/25 00:00 Carbon Dioxide 29 mEq/L (21-32) 03/17/25 00:00 Anion Gap 10.9 mEq/L (5.0-15.0) 03/17/25 00:00 BUN 18 mg/dL (7-18) 03/17/25 00:00 Creatinine 4.61 mg/dL (0.70-1.30) H 03/17/25 00:00 Est GFR (CKD-EPI) 13 ml/min (=/>90) L 03/17/25 00:00 Glucose 83 mg/dL (74-106) 03/17/25 00:00 POC Glucose 78 mg/dL (65-120) 03/17/25 01:00 Lactic Acid 1.3 mmol/L (0.4-2.0) 03/17/25 00:00 Calcium 8.1 mg/dL (8.5-10.1) L 03/17/25 00:00 Total Bilirubin 0.5 mg/dL (0.2-1.0) 03/17/25 00:00 AST 20 U/L (15-37) 03/17/25 00:00 ALT < 14 U/L (16-61) L 03/17/25 00:00 Alkaline Phosphatase 84 U/L (45-117) 03/17/25 00:00 Troponin I High Sens 3298.3 pg/mL (<58.9) H* 03/17/25 03:49 NT-Pro-B Natriuret Pep > 65392 pg/mL (<125) H 03/17/25 00:00 Serum Total Protein 7.0 g/dL (6.4-8.2) 03/17/25 00:00 Albumin 1.9 g/dL (3.4-5.0) L 03/17/25 00:00 Globulin 5.1 g/dL (2.3-3.5) H 03/17/25 00:00 Albumin/Globulin Ratio 0.4 (1.1-1.8) L 03/17/25 00:00 TSH 7.050 uIU/mL (0.358-3.740) H 03/17/25 00:00 Free T4 1.10 ng/dL (0.76-1.46) 03/17/25 00:00 Urine Color Cancelled 03/16/25 23:58 Urine Clarity Cancelled 03/16/25 23:58 Urine pH Cancelled 03/16/25 23:58 Ur Specific Mildred Cancelled 03/16/25 23:58 Glucose (UA)(Auto) Cancelled 03/16/25 23:58 Urine Ketones Cancelled 03/16/25 23:58 Urine Blood Cancelled 03/16/25 23:58 Urine Nitrite Cancelled 03/16/25 23:58 Urine Bilirubin Cancelled 03/16/25 23:58 Urine Urobilinogen Cancelled 03/16/25 23:58 Ur Leukocyte Esterase Cancelled 03/16/25 23:58 Urine RBC Cancelled 03/16/25 23:58 Urine Red Cell Clumps Cancelled 03/16/25 23:58 Urine WBC Cancelled 03/16/25 23:58 Urine WBC Clumps Cancelled 03/16/25 23:58 Ur Squamous Epith Cells Cancelled 03/16/25 23:58 U Non-Squamous Epi Cells Cancelled 03/16/25 23:58 Ur Transition Epith Cell Cancelled 03/16/25 23:58 Ur Renal Epithelial Cell Cancelled 03/16/25 23:58 Calcium Carbonate Cryst Cancelled 03/16/25 23:58 Calcium Oxalate Crystal Cancelled 03/16/25 23:58 Leucine Crystals Cancelled 03/16/25 23:58 Cystine Crystals Cancelled 03/16/25 23:58 Uric Acid Crystals Cancelled 03/16/25 23:58 Triple Phos Crystals Cancelled 03/16/25 23:58 Tyrosine Crystals Cancelled 03/16/25 23:58 Unidentified Crystals Cancelled 03/16/25 23:58 Amorphous Crystals Cancelled 03/16/25 23:58 Urine Bacteria Cancelled 03/16/25 23:58 Hyaline Casts Cancelled 03/16/25 23:58 Granular Casts Cancelled 03/16/25 23:58 Waxy Casts Cancelled 03/16/25 23:58 RBC Casts Cancelled 03/16/25 23:58 WBC Casts Cancelled 03/16/25 23:58 Urine Mucus Cancelled 03/16/25 23:58 Urine Trichomonas Cancelled 03/16/25 23:58 Ur Yeast w Hyphae Cancelled 03/16/25 23:58 Urine Yeast (Budding) Cancelled 03/16/25 23:58 Urine Sperm Cancelled 03/16/25 23:58 Ur Oval Fat Bodies Cancelled 03/16/25 23:58 Urine Culture Reflexed Cancelled 03/16/25 23:58 Urine Total Protein Cancelled 03/16/25 23:58 Urine Ascorbic Acid Cancelled 03/16/25 23:58 Urine Fat Cancelled 03/16/25 23:58 Influenza Type A Ag Negative 03/17/25 00:08 Influenza Type B Ag Negative 03/17/25 00:08 SARS-CoV-2 Ag (Rapid) Negative (Negative) 03/17/25 00:08 SARS CoV-2 Rapid Comm N 03/17/25 00:08 Assessment And Plan: 1. End-stage renal disease. I am going to continue the patient on his dialysis schedule 3 times a week, Wednesday We manage to cannulate his AV graft without any problem Consult surgery for TDC removal and we will monitor. Patient cleared from the renal standpoint for DC planning 2. Hypertension, controlled. Currently, blood pressure on the lower side. We will follow up the patient. 3. Fever, unknown etiology. Culture, so far, negative. Status post culture from the [facility] March 20 Still pending, and we will follow up. Continue current antibiotic. 4. Questionable of urinary tract infection. Follow up with the Primary. 5. Encephalopathy secondary to questionable urinary tract infection. /Medication induced gabapentin recovering very well, Agree with holding tramadol / gabapentin Blood culture negative Continue current antibiotic. 6. Acidosis. Discontinue oral bicarb. Will be corrected with dialysis. 7. Anemia of chronic kidney disease. Continue DANIEL. 8. Hyponatremia. No need for treatment. Will be corrected with the dialysis 9. Hyponatremia secondary to renal failure will be corrected with the dialysis 10. Congestive heart failure ejection fraction below 25 patient on LifeVest Follow-up with cardiology Time spent examining the patient [id number] reviewing data lab and the radiology placing order discussing the case with the team including hospitalist and nursing staff dialysis nurse more than 55-minute
--- NOTE | 2025-03-29 11:56 | P.PN ---
Date of Service: 03/29/25 Subjective: Doing okay. no new issues breathing okay on room air no further fever working with physical therapy Physical Exam: Gen: Alert, Oriented, cooperative, pleasant CV: Regular rate and rhythm, no edema Pulm: Nonlabored respirations on room air, clear bilaterally Abdomen: Soft, nontender, nondistended Neuro: No focal motor deficit, Problem List: Acute encephalopathy, resolved Fever of unknown origin, resolved Generalized Weakness Fall ESRD on HD - MWF BPH Iron deficiency anemia Chronic CHF Pulmonary hypertension LifeVest Hypertension Acute encephalopathy, resolved Fever of unknown origin, resolved Review of outside hospital records show asymptomatic bacteriuria. CT CAP concerning for atelectasis versus developing infection, bladder fat stranding Recently discharged from [facility] after 3-day admission. Bilateral lower extremity venous ultrasound negative for DVT Initial blood cultures were without growth. Blood cultures from dialysis cath without growth. s/p 1 week of IV cefepime/Vanc (03/18-03/25) Gabapentin dc'd. Avoid psychotropic medication Mental status improved to baseline. AMS likely drug-induced secondary to gabapentin and tramadol. Clinically stable off antibiotics Generalized Weakness Fall Likely related to prolonged hospitalization Fall precautions PT/OT as tolerated ESRD on HD - MWF Nephrology is following dialysis per nephrology Renally dose all medications. Continue to monitor renal function, electrolytes Surgery consulted by nephro for TDC removal. BPH Continue tamsulosin 0.4 mg nightly Iron deficiency anemia Iron 31, tsat% 21% No sign of active bleed. Daily labs Chronic CHF Pulmonary hypertension LifeVest Hypertension Last echo on file May 2024 EF 5 to 10%, severe global hypokinesis, grade 3 diastolic dysfunction, moderate TR, moderate MR, moderate pulmonary hypertension Fluid restriction <1500 ml/day Continue metoprolol 12.5 mg twice daily Fluid status management with HD Code: Full Dispo: SNF pending approval
[2025-03-30 07:28] LABS: Hematocrit 27.7 % (39.6-49.0); Hemoglobin 9.2 g/dL (13.6-17.9); MCH 32.8 pg (27.0-35.0); MCHC 33.4 g/dL (32.0-36.0); MCV 98.2 fL (80-100); MPV 8.8 fL (7.6-11.3); RBC Red Blood Cell Count 2.82 M/uL (4.33-5.43); White Blood Count 7.50 thou/uL (4.3-10.9)
[2025-03-30 07:41] LABS: Albumin 2.4 g/dL (3.4-5.0); Anion Gap 12.6 mEq/L (5.0-15.0); BUN Blood Urea Nitrogen 29.0 mg/dL (7-18); Glucose Level 87.0 mg/dL (74-106); Potassium 4.6 mEq/L (3.5-5.1)
[2025-03-30 08:11] LABS: Hepatitis B surface AG Interp. Nonreactive (Nonreactive)
[2025-03-30 08:12] LABS: HBsAG Nonreactive Report Report
--- NOTE | 2025-03-30 08:13 | RAD REPORT ---
EXAM: Chest Single View HISTORY: 70 years Male for HD chair; need TB rule out COMPARISON: 03/17/2025 FINDINGS: LUNGS/PLEURA: Pulmonary vascular congestion.No specific findings to indicate TB infection. CARDIAC/MEDIASTINUM: Stable enlargement. UPPER ABDOMEN: No significant abnormality. BONES: No acute abnormality. LINES/TUBES/OTHER: Right IJ dialysis catheter with tip at the proximal SVC. IMPRESSION: Pulmonary vascular congestion. No specific findings to suggest TB infection.
[2025-03-30] MEDS: NA CHLORIDE 0.9% 500 ML ONE (08:40)
[2025-03-30] MEDS: LIDOCAINE HCL/EPINEPHRINE 20 ML MDV ONE (09:18)
[2025-03-30] MEDS ORDERED: FENTANYL CITR 100 MCG/2 ML ONE (09:47)
[2025-03-30] MEDS ORDERED: MIDAZOLAM HCL 2 MG/2 ML INJ ONE (09:56)
[2025-03-30] MEDS ORDERED: ONDANSETRON 4 MG/2 ML VIAL ONE (10:19)
--- NOTE | 2025-03-30 10:23 | P.OP ---
Preoperative diagnosis: Removal of Hemodialysis Catheter Postoperative diagnosis: Removal of Hemodialysis Catheter Primary procedure: Removal of Hemodialysis Catheter Anesthesia: MAC + Local Estimated blood loss: <5cc Specimen: Cath Tip sent for culture Findings: no obvious infection Complications: None Transferred to: Recovery Room Condition: Good
--- NOTE | 2025-03-30 11:09 | CON ---
Date of Consultation: 03/30/2025 Brief History Of Present Illness: The patient is a 70-year-old male known to me, who was recently ad mitted to the hospital. At that time, he had dysfunction of his hemodialysis cath access point, whic h was his right AV fistula or graft. He ultimately had a right internal jugular vein HemoSplit tunne led dialysis catheter placed, which he had been using successfully for some time. He ultimately went to [facility], had the area revised, and now has been getting dialysis through his right br achiocephalic access point. He now is ready to have his hemodialysis catheter removed. He has been at the hospital for some period of time since 03/17, I believe. Past Medical History: End-stage renal disease, hypertension, CHF with very low ejection fraction les s than 20%, diabetes, BPH, peripheral vascular disease. He has an AV graft, AV fistula on the righ t side. Home Medications: Include aspirin, atorvastatin, gabapentin, metoprolol, bicarb, Flomax. Allergies: NO KNOWN DRUG ALLERGIES. Review of Systems: Unable to obtain as patient is deaf and uses a communication device in his phone, which is now functi oning from time to time, but I am able to get through the information from above. Physical Examination: General: He is awake, alert, and oriented. Psychiatric: Appropriate and conversive. HEENT: He is normocephalic. Sclerae anicteric. He has poor dentition. Neck: Supple without JVD. Chest: A catheter in place on the right chest which is HemoSplit. Laboratory Data: Which reveals a white blood cell count of 7.5, hemoglobin 9.2, hematocrit 27.7, audra telet count 206. His last coags showed a PT 15.0, INR 1.34, PTT is 43.6. Chemistry: Sodium 135, po tassium 4.6, chloride 101, carbon dioxide is 26, BUN 29, creatinine 6.06, phosphorus 5.2, calcium 9.6 . Assessment And Plan: This is a 70-year-old male who comes in with a hemodialysis catheter which he n o longer needs as he has functional AV fistula on the right arm versus AV graft in the right arm, whky ch he has been successfully dialyzed through. I have explained the risks, benefits, and alternatives of removal of his right-sided HemoSplit catheter including, but not limited to, bleeding, infection, damage to surrounding tissues, need for further operative procedures. The patient displayed underst anding of the above-stated plan and agreed to proceed as indicated. YASMEEN/JENNIFER Voice ID: [id number] Report ID: [id number]
--- NOTE | 2025-03-30 11:46 | P.PN ---
Date of Service: 03/30/25 Subjective: no issues overnight feeling better vitals stable Physical Exam: Gen: Alert, Oriented, cooperative, pleasant CV: Regular rate and rhythm, no edema Pulm: Nonlabored respirations on room air, clear bilaterally Abdomen: Soft, nontender, nondistended Neuro: No focal motor deficit, Problem List: Acute encephalopathy, resolved Fever of unknown origin, resolved Generalized Weakness Fall ESRD on HD - MWF BPH Iron deficiency anemia Chronic CHF Pulmonary hypertension LifeVest Hypertension Acute encephalopathy, resolved Fever of unknown origin, resolved Review of outside hospital records show asymptomatic bacteriuria. CT CAP concerning for atelectasis versus developing infection, bladder fat stranding Recently discharged from [facility] after 3-day admission. Bilateral lower extremity venous ultrasound negative for DVT Initial blood cultures were without growth. Blood cultures from dialysis cath without growth. s/p 1 week of IV cefepime/Vanc (03/18-03/25) Gabapentin dc'd. Avoid psychotropic medication Mental status improved to baseline. AMS likely drug-induced secondary to gabapentin and tramadol. Clinically stable off antibiotics Generalized Weakness Fall Likely related to prolonged hospitalization Fall precautions PT/OT as tolerated ESRD on HD - MWF Nephrology is following dialysis per nephrology Renally dose all medications. Continue to monitor renal function, electrolytes s/p TDC removal with Dr. Walker today (03/30) BPH Continue tamsulosin 0.4 mg nightly Iron deficiency anemia Iron 31, tsat% 21% No sign of active bleed. Daily labs Chronic CHF Pulmonary hypertension LifeVest Hypertension Last echo on file May 2024 EF 5 to 10%, severe global hypokinesis, grade 3 diastolic dysfunction, moderate TR, moderate MR, moderate pulmonary hypertension Fluid restriction <1500 ml/day Continue metoprolol 12.5 mg twice daily Fluid status management with HD Code: Full Dispo: [facility] pending approval
--- NOTE | 2025-03-30 19:45 | OP ---
Date of Procedure: 03/30/2025 Surgeon: Barron Walker MD, Preoperative Diagnosis: Removal of hemodialysis catheter. Postoperative Diagnosis: Removal of hemodialysis catheter. Procedure Performed: Removal of hemodialysis catheter. Anesthesia: MAC plus local with 1% lidocaine. Estimated Blood Loss: Less than 5 cc. Specimens: Cath tip for culture and remainder sent for ID only. Findings: No obvious infection. Complications: None. Disposition: The patient transferred to recovery room in good condition. Procedure In Detail: After informed consent was obtained, the patient was brought to the operating r oom, prepped and draped in the usual sterile fashion after adequate anesthesia was achieved. I anest hetized the area of the right chest and IJ site where tunneled HemoSplit catheter was evident in the infraclavicular position. At this point, I cut the previously placed sutures and removed them in the ir entirety. At this point, the patient was placed in steep Trendelenburg position. I dilated out t he cuff near the insertion site of the catheter while pressure was held at the insertion site and the exit site. The catheter was removed. The catheter tip was sent for culture and the remainder for I D only. At this point, the patient was sat up in a sitting position and the exit site was irrigated with sterile saline and closed with interrupted 3-0 nylon sutures while pressure was maintained for a total of 8 minutes on the infraclavicular and insertion site, at this point. No additional hemostat ic maneuvers were required. Pressure dressing was applied. The patient tolerated the procedure with out incident or complication, transferred to PACU in good condition. All counts were correct at the end of the case. YASMEEN/MODL Voice ID: [id number] Report ID: [id number]
--- NOTE | 2025-03-31 03:35 | PN ---
Date of Progress Note: 03/30/2025 Subjective: The patient is admitted to the hospital because of altered mental status due to encephal opathy secondary to urinary tract infection. Patient currently is at baseline mental status. Denies complaints. He received dialysis on Wednesday, Wednesday, Wednesday. Review of Systems: Denies chest pain, palpitation. Physical Examination: Lungs: Clear to auscultation bilaterally. Heart: S1, S2. Abdomen: Soft. Extremities: No edema. Impression And Plan: 1. End-stage renal disease. Continue dialysis 3 times per week. 2. Hypertension. Monitor blood pressure during dialysis and adjust ultrafiltration to prevent intrad ialytic hypotension. Blood pressure is controlled. 3. Fever of unknown origin. Culture so far negative, status post culture from [facility] on March 20. Continue current antibiotics. 4. Encephalopathy secondary to questionable urinary tract infection. . Avoid gabapentin. 5. Anemia of chronic kidney disease. Monitor hemoglobin level. Adjust DANIEL as needed. 6. Hyponatremia due to mild volume overload, will be corrected with dialysis. 7. Congestive heart failure, ejection fraction below 25%. The patient will follow up with Cardiology . JUANI/JENNIFER Voice ID: [id number] Report ID: [id number]
[2025-03-31 06:58] LABS: Albumin 2.4 g/dL (3.4-5.0); Anion Gap 10.6 mEq/L (5.0-15.0); BUN Blood Urea Nitrogen 19.0 mg/dL (7-18); Glucose Level 74.0 mg/dL (74-106); Magnesium 2.2 mg/dL (1.6-2.4); Potassium 4.6 mEq/L (3.5-5.1)
--- NOTE | 2025-03-31 11:41 | P.PN ---
Date of Service: 03/31/25 Subjective: breathing okay on room air no new issues vitals stable Physical Exam: Gen: Alert, Oriented, cooperative, pleasant CV: Regular rate and rhythm, no edema Pulm: Nonlabored respirations on room air, clear bilaterally Abdomen: Soft, nontender, nondistended Neuro: No focal motor deficit, Problem List: Acute encephalopathy, resolved Fever of unknown origin, resolved Generalized Weakness Fall ESRD on HD - MWF BPH Iron deficiency anemia Chronic CHF Pulmonary hypertension LifeVest Hypertension Acute encephalopathy, resolved Fever of unknown origin, resolved Review of outside hospital records show asymptomatic bacteriuria. CT CAP concerning for atelectasis versus developing infection, bladder fat stranding Recently discharged from [facility] after 3-day admission. Bilateral lower extremity venous ultrasound negative for DVT Initial blood cultures were without growth. Blood cultures from dialysis cath without growth. s/p 1 week of IV cefepime/Vanc (03/18-03/25) Gabapentin dc'd. Avoid psychotropic medication Mental status improved to baseline. AMS likely drug-induced secondary to gabapentin and tramadol. Clinically stable off antibiotics Generalized Weakness Fall Likely related to prolonged hospitalization Fall precautions PT/OT as tolerated ESRD on HD - MWF Nephrology is following dialysis per nephrology Renally dose all medications. Continue to monitor renal function, electrolytes s/p TDC removal with Dr. Walker (03/30) culture sent out BPH Continue tamsulosin 0.4 mg nightly Iron deficiency anemia Iron 31, tsat% 21% No sign of active bleed. Daily labs Chronic CHF Pulmonary hypertension LifeVest Hypertension Last echo on file May 2024 EF 5 to 10%, severe global hypokinesis, grade 3 diastolic dysfunction, moderate TR, moderate MR, moderate pulmonary hypertension Fluid restriction <1500 ml/day Continue metoprolol 12.5 mg twice daily Fluid status management with HD Code: Full Dispo: SNF pending approval
--- NOTE | 2025-03-31 12:47 | P.PN ---
Date of Service: 03/31/25 Subjective: The patient was admitted to the hospital with altered mental status, suspect of encephalopathy secondary to UTI. The patient still confused. Patient received dialysis yesterday tramadol has been DC'd patient more sleepy today Physical Examination: Temp Pulse Resp BP Pulse Ox 98 F 73 18 109/58 L 100 03/31/25 08:00 03/31/25 08:00 03/31/25 08:00 03/31/25 08:00 03/31/25 08:00 Chest: Clear to auscultation. Heart: S1, S2. Systolic murmur. Abdomen: Soft, nontender. Extremities: Right AV graft. Right IJ PermCath. No edema. Right upper arm AV graft good thrill and bruit Neurologic: Alert. No focality. Alert oriented x 3 no focality Laboratory Last Values WBC 8.00 thou/uL (4.3-10.9) 03/17/25 00:00 RBC 2.79 M/uL (4.33-5.43) L 03/17/25 00:00 Hgb 9.0 g/dL (13.6-17.9) L 03/17/25 00:00 Hct 27.0 % (39.6-49.0) L 03/17/25 00:00 MCV 96.6 fL (80-100) 03/17/25 00:00 MCH 32.2 pg (27.0-35.0) 03/17/25 00:00 MCHC 33.4 g/dL (32.0-36.0) 03/17/25 00:00 RDW 15.2 % (12.1-15.2) 03/17/25 00:00 Plt Count 252 thou/uL (152-406) 03/17/25 00:00 MPV 7.1 fL (7.6-11.3) L 03/17/25 00:00 Neutrophils % 56.7 % (41.7-73.7) 03/17/25 00:00 Lymphocytes % 20.6 % (15.3-44.8) 03/17/25 00:00 Monocytes % 15.2 % (3.3-12.3) H 03/17/25 00:00 Eosinophils % 6.8 % (0-4.4) H 03/17/25 00:00 Basophils % 0.7 % (0-1.3) 03/17/25 00:00 Absolute Neutrophils 4.6 K/uL (1.8-8.0) 03/17/25 00:00 Absolute Lymphocytes 1.7 K/uL (0.7-4.9) 03/17/25 00:00 Absolute Monocytes 1.2 K/uL (0.1-1.3) 03/17/25 00:00 Absolute Eosinophils 0.5 K/uL (0-0.5) 03/17/25 00:00 Absolute Basophils 0.1 K/uL (0-0.5) 03/17/25 00:00 PT 15.2 SECONDS (10-13.0) H 03/17/25 00:00 INR 1.36 03/17/25 00:00 APTT 29.2 SECONDS (27.2-37.4) 03/17/25 00:00 pH 7.48 (7.35-7.45) H 03/17/25 00:12 pCO2 40 mmHg (35-45) 03/17/25 00:12 pO2 112 mmHg (75-100) H 03/17/25 00:12 HCO3 29.6 mmol/L (22.0-28.0) H 03/17/25 00:12 Base Excess 6.4 mmol/L (-2.0-3.0) H 03/17/25 00:12 ABG O2 Sat (Measured) 98.4 % (92.0-98.5) 03/17/25 00:12 Sodium 134 mEq/L (136-145) L 03/17/25 00:00 Potassium 3.9 mEq/L (3.5-5.1) 03/17/25 00:00 Chloride 98 mEq/L (98-107) 03/17/25 00:00 Carbon Dioxide 29 mEq/L (21-32) 03/17/25 00:00 Anion Gap 10.9 mEq/L (5.0-15.0) 03/17/25 00:00 BUN 18 mg/dL (7-18) 03/17/25 00:00 Creatinine 4.61 mg/dL (0.70-1.30) H 03/17/25 00:00 Est GFR (CKD-EPI) 13 ml/min (=/>90) L 03/17/25 00:00 Glucose 83 mg/dL (74-106) 03/17/25 00:00 POC Glucose 78 mg/dL (65-120) 03/17/25 01:00 Lactic Acid 1.3 mmol/L (0.4-2.0) 03/17/25 00:00 Calcium 8.1 mg/dL (8.5-10.1) L 03/17/25 00:00 Total Bilirubin 0.5 mg/dL (0.2-1.0) 03/17/25 00:00 AST 20 U/L (15-37) 03/17/25 00:00 ALT < 14 U/L (16-61) L 03/17/25 00:00 Alkaline Phosphatase 84 U/L (45-117) 03/17/25 00:00 Troponin I High Sens 3298.3 pg/mL (<58.9) H* 03/17/25 03:49 NT-Pro-B Natriuret Pep > 77627 pg/mL (<125) H 03/17/25 00:00 Serum Total Protein 7.0 g/dL (6.4-8.2) 03/17/25 00:00 Albumin 1.9 g/dL (3.4-5.0) L 03/17/25 00:00 Globulin 5.1 g/dL (2.3-3.5) H 03/17/25 00:00 Albumin/Globulin Ratio 0.4 (1.1-1.8) L 03/17/25 00:00 TSH 7.050 uIU/mL (0.358-3.740) H 03/17/25 00:00 Free T4 1.10 ng/dL (0.76-1.46) 03/17/25 00:00 Urine Color Cancelled 03/16/25 23:58 Urine Clarity Cancelled 03/16/25 23:58 Urine pH Cancelled 03/16/25 23:58 Ur Specific [place] Cancelled 03/16/25 23:58 Glucose (UA)(Auto) Cancelled 03/16/25 23:58 Urine Ketones Cancelled 03/16/25 23:58 Urine Blood Cancelled 03/16/25 23:58 Urine Nitrite Cancelled 03/16/25 23:58 Urine Bilirubin Cancelled 03/16/25 23:58 Urine Urobilinogen Cancelled 03/16/25 23:58 Ur Leukocyte Esterase Cancelled 03/16/25 23:58 Urine RBC Cancelled 03/16/25 23:58 Urine Red Cell Clumps Cancelled 03/16/25 23:58 Urine WBC Cancelled 03/16/25 23:58 Urine WBC Clumps Cancelled 03/16/25 23:58 Ur Squamous Epith Cells Cancelled 03/16/25 23:58 U Non-Squamous Epi Cells Cancelled 03/16/25 23:58 Ur Transition Epith Cell Cancelled 03/16/25 23:58 Ur Renal Epithelial Cell Cancelled 03/16/25 23:58 Calcium Carbonate Cryst Cancelled 03/16/25 23:58 Calcium Oxalate Crystal Cancelled 03/16/25 23:58 Leucine Crystals Cancelled 03/16/25 23:58 Cystine Crystals Cancelled 03/16/25 23:58 Uric Acid Crystals Cancelled 03/16/25 23:58 Triple Phos Crystals Cancelled 03/16/25 23:58 Tyrosine Crystals Cancelled 03/16/25 23:58 Unidentified Crystals Cancelled 03/16/25 23:58 Amorphous Crystals Cancelled 03/16/25 23:58 Urine Bacteria Cancelled 03/16/25 23:58 Hyaline Casts Cancelled 03/16/25 23:58 Granular Casts Cancelled 03/16/25 23:58 Waxy Casts Cancelled 03/16/25 23:58 RBC Casts Cancelled 03/16/25 23:58 WBC Casts Cancelled 03/16/25 23:58 Urine Mucus Cancelled 03/16/25 23:58 Urine Trichomonas Cancelled 03/16/25 23:58 Ur Yeast w Hyphae Cancelled 03/16/25 23:58 Urine Yeast (Budding) Cancelled 03/16/25 23:58 Urine Sperm Cancelled 03/16/25 23:58 Ur Oval Fat Bodies Cancelled 03/16/25 23:58 Urine Culture Reflexed Cancelled 03/16/25 23:58 Urine Total Protein Cancelled 03/16/25 23:58 Urine Ascorbic Acid Cancelled 03/16/25 23:58 Urine Fat Cancelled 03/16/25 23:58 Influenza Type A Ag Negative 03/17/25 00:08 Influenza Type B Ag Negative 03/17/25 00:08 SARS-CoV-2 Ag (Rapid) Negative (Negative) 03/17/25 00:08 SARS CoV-2 Rapid Comm N 03/17/25 00:08 Acetaminophen (Acetaminophen 325 Mg Tablet) 650 mg PO Q4HP PRN PRN Reason: Temp > 101' F/ Pain Last Admin: 03/30/25 00:32 Dose: 650 mg Hydrocodone Bitart/Acetaminophen (Hydrocodone/Apap 5/325 Mg Tab) 1 tab PO Q4H PRN PRN Reason: Pain scale 5-7 (Moderate) Last Admin: 03/30/25 22:03 Dose: 1 tab Aspirin (Aspirin Ec 81 Mg Tab) 81 mg PO DAILY [facility] Last Admin: 03/31/25 08:15 Dose: 81 mg Atorvastatin Calcium (Atorvastatin 80 Mg Tab) 80 mg PO BEDTIME CHELY Last Admin: 03/30/25 22:00 Dose: 80 mg Enteral Nutritional Formula (Nepro Shake 237 Ml Can) 237 ml PO DAILY [facility] Last Admin: 03/31/25 08:15 Dose: 237 ml Epoetin Sukhdeep (Epoetin 4,000 Unit/Ml Vial) 4,000 unit IV EVERY HD [facility] Last Admin: 03/30/25 14:15 Dose: 4,000 unit Folic Acid (Folic Acid 1 Mg Tablet) 1 mg PO DAILY [facility] Last Admin: 03/31/25 08:15 Dose: 1 mg Metoprolol Tartrate (Metoprolol Tar 25 Mg Tab) 12.5 mg PO BID [facility] Last Admin: 03/31/25 08:15 Dose: 12.5 mg Tamsulosin HCl (Tamsulosin 0.4 Mg Sr Cap) 0.4 mg PO BEDTIME CHELY Last Admin: 03/30/25 21:59 Dose: 0.4 mg Zolpidem Tartrate (Zolpidem Tartrate 5 Mg Tablet) 5 mg PO BEDTIME PRN PRN PRN Reason: INSOMNIA Last Admin: 03/28/25 23:13 Dose: 5 mg Assessment And Plan: 1. End-stage renal disease. I am going to continue the patient on his dialysis schedule 3 times a week, Wednesday We manage to cannulate his AV graft without any problem status post TDC removal March 30 Continue use AV graft and we will monitor. Patient cleared from the renal standpoint for DC planning 2. Hypertension, controlled. Currently, blood pressure on the lower side. We will follow up the patient. 3. Fever, unknown etiology. Culture, so far, negative. [facility] Still pending, and we will follow up. Continue current antibiotic. 4. Questionable of urinary tract infection. Follow up with the Primary. 5. Encephalopathy secondary to questionable urinary tract infection. /Medication induced gabapentin recovering very well, Agree with holding tramadol / gabapentin Blood culture negative Continue current antibiotic. 6. Acidosis. Discontinue oral bicarb. Will be corrected with dialysis. 7. Anemia of chronic kidney disease. Continue DANIEL. 8. Hyponatremia. No need for treatment. Will be corrected with the dialysis 9. Hyponatremia secondary to renal failure will be corrected with the dialysis 10. Congestive heart failure ejection fraction below 25 patient on LifeVest Follow-up with cardiology Time spent examining the patient [id number] reviewing data lab and the radiology placing order discussing the case with the team including hospitalist and nursing staff dialysis nurse more than 55-minute
[2025-04-01 06:23] LABS: Albumin 2.4 g/dL (3.4-5.0); Anion Gap 12.9 mEq/L (5.0-15.0); BUN Blood Urea Nitrogen 26.0 mg/dL (7-18); Glucose Level 79.0 mg/dL (74-106)
[2025-04-01 06:34] LABS: Magnesium 2.4 mg/dL (1.6-2.4); Potassium 4.9 mEq/L (3.5-5.1)
--- NOTE | 2025-04-01 11:59 | P.PN ---
Date of Service: 04/01/25 Subjective: slept well overnight no new issues vitals stable pending SNF reports ongoing right foot pain Physical Exam: Gen: Alert, Oriented, cooperative, pleasant CV: Regular rate and rhythm, no edema Pulm: Nonlabored respirations on room air, clear bilaterally Abdomen: Soft, nontender, nondistended Skin: R foot wound Neuro: No focal motor deficit, Problem List: Acute encephalopathy, resolved Fever of unknown origin, resolved Chronic right lower extremity wound Generalized Weakness Fall ESRD on HD - MWF BPH Iron deficiency anemia Chronic CHF Pulmonary hypertension LifeVest Hypertension Acute encephalopathy, resolved Fever of unknown origin, resolved Chronic right lower extremity wound Review of outside hospital records show asymptomatic bacteriuria. CT CAP concerning for atelectasis versus developing infection, bladder fat stranding Bilateral lower extremity venous ultrasound negative for DVT Initial blood cultures were without growth. Blood cultures from dialysis cath without growth. s/p 1 week of IV cefepime/Vanc (03/18-03/25) Gabapentin dc'd. Avoid psychotropic medication Mental status improved to baseline. AMS likely drug-induced secondary to gabapentin and tramadol. Clinically stable off antibiotics [place] as needed for right foot pain Generalized Weakness Fall Likely related to prolonged hospitalization Fall precautions PT/OT as tolerated ESRD on HD - MWF Nephrology is following dialysis per nephrology Renally dose all medications. Continue to monitor renal function, electrolytes s/p TDC removal with Dr. Walker (03/30) culture sent out BPH Continue tamsulosin 0.4 mg nightly Iron deficiency anemia Iron 31, tsat% 21% No sign of active bleed. Daily labs Chronic CHF Pulmonary hypertension LifeVest Hypertension Last echo on file May 2024 EF 5 to 10%, severe global hypokinesis, grade 3 diastolic dysfunction, moderate TR, moderate MR, moderate pulmonary hypertension Fluid restriction <1500 ml/day Continue metoprolol 12.5 mg twice daily Fluid status management with HD Code: Full Dispo: SNF pending approval
--- NOTE | 2025-04-01 13:22 | P.PN ---
Date of Service: 04/01/25 Subjective: The patient was admitted to the hospital with altered mental status, suspect of encephalopathy secondary to UTI. The patient still confused. Patient received dialysis yesterday tramadol has been DC'd patient more sleepy today Physical Examination: Temp Pulse Resp BP Pulse Ox 97.4 F 71 18 115/60 96 04/01/25 12:00 04/01/25 12:00 04/01/25 12:00 04/01/25 12:00 04/01/25 12:00 Chest: Clear to auscultation. Heart: S1, S2. Systolic murmur. Abdomen: Soft, nontender. Extremities: Right AV graft. Right IJ PermCath. No edema. Right upper arm AV graft good thrill and bruit Neurologic: Alert. No focality. Alert oriented x 3 no focality Laboratory Last Values WBC 8.00 thou/uL (4.3-10.9) 03/17/25 00:00 RBC 2.79 M/uL (4.33-5.43) L 03/17/25 00:00 Hgb 9.0 g/dL (13.6-17.9) L 03/17/25 00:00 Hct 27.0 % (39.6-49.0) L 03/17/25 00:00 MCV 96.6 fL (80-100) 03/17/25 00:00 MCH 32.2 pg (27.0-35.0) 03/17/25 00:00 MCHC 33.4 g/dL (32.0-36.0) 03/17/25 00:00 RDW 15.2 % (12.1-15.2) 03/17/25 00:00 Plt Count 252 thou/uL (152-406) 03/17/25 00:00 MPV 7.1 fL (7.6-11.3) L 03/17/25 00:00 Neutrophils % 56.7 % (41.7-73.7) 03/17/25 00:00 Lymphocytes % 20.6 % (15.3-44.8) 03/17/25 00:00 Monocytes % 15.2 % (3.3-12.3) H 03/17/25 00:00 Eosinophils % 6.8 % (0-4.4) H 03/17/25 00:00 Basophils % 0.7 % (0-1.3) 03/17/25 00:00 Absolute Neutrophils 4.6 K/uL (1.8-8.0) 03/17/25 00:00 Absolute Lymphocytes 1.7 K/uL (0.7-4.9) 03/17/25 00:00 Absolute Monocytes 1.2 K/uL (0.1-1.3) 03/17/25 00:00 Absolute Eosinophils 0.5 K/uL (0-0.5) 03/17/25 00:00 Absolute Basophils 0.1 K/uL (0-0.5) 03/17/25 00:00 PT 15.2 SECONDS (10-13.0) H 03/17/25 00:00 INR 1.36 03/17/25 00:00 APTT 29.2 SECONDS (27.2-37.4) 03/17/25 00:00 pH 7.48 (7.35-7.45) H 03/17/25 00:12 pCO2 40 mmHg (35-45) 03/17/25 00:12 pO2 112 mmHg (75-100) H 03/17/25 00:12 HCO3 29.6 mmol/L (22.0-28.0) H 03/17/25 00:12 Base Excess 6.4 mmol/L (-2.0-3.0) H 03/17/25 00:12 ABG O2 Sat (Measured) 98.4 % (92.0-98.5) 03/17/25 00:12 Sodium 134 mEq/L (136-145) L 03/17/25 00:00 Potassium 3.9 mEq/L (3.5-5.1) 03/17/25 00:00 Chloride 98 mEq/L (98-107) 03/17/25 00:00 Carbon Dioxide 29 mEq/L (21-32) 03/17/25 00:00 Anion Gap 10.9 mEq/L (5.0-15.0) 03/17/25 00:00 BUN 18 mg/dL (7-18) 03/17/25 00:00 Creatinine 4.61 mg/dL (0.70-1.30) H 03/17/25 00:00 Est GFR (CKD-EPI) 13 ml/min (=/>90) L 03/17/25 00:00 Glucose 83 mg/dL (74-106) 03/17/25 00:00 POC Glucose 78 mg/dL (65-120) 03/17/25 01:00 Lactic Acid 1.3 mmol/L (0.4-2.0) 03/17/25 00:00 Calcium 8.1 mg/dL (8.5-10.1) L 03/17/25 00:00 Total Bilirubin 0.5 mg/dL (0.2-1.0) 03/17/25 00:00 AST 20 U/L (15-37) 03/17/25 00:00 ALT < 14 U/L (16-61) L 03/17/25 00:00 Alkaline Phosphatase 84 U/L (45-117) 03/17/25 00:00 Troponin I High Sens 3298.3 pg/mL (<58.9) H* 03/17/25 03:49 NT-Pro-B Natriuret Pep > 89190 pg/mL (<125) H 03/17/25 00:00 Serum Total Protein 7.0 g/dL (6.4-8.2) 03/17/25 00:00 Albumin 1.9 g/dL (3.4-5.0) L 03/17/25 00:00 Globulin 5.1 g/dL (2.3-3.5) H 03/17/25 00:00 Albumin/Globulin Ratio 0.4 (1.1-1.8) L 03/17/25 00:00 TSH 7.050 uIU/mL (0.358-3.740) H 03/17/25 00:00 Free T4 1.10 ng/dL (0.76-1.46) 03/17/25 00:00 Urine Color Cancelled 03/16/25 23:58 Urine Clarity Cancelled 03/16/25 23:58 Urine pH Cancelled 03/16/25 23:58 Ur Specific [place] Cancelled 03/16/25 23:58 Glucose (UA)(Auto) Cancelled 03/16/25 23:58 Urine Ketones Cancelled 03/16/25 23:58 Urine Blood Cancelled 03/16/25 23:58 Urine Nitrite Cancelled 03/16/25 23:58 Urine Bilirubin Cancelled 03/16/25 23:58 Urine Urobilinogen Cancelled 03/16/25 23:58 Ur Leukocyte Esterase Cancelled 03/16/25 23:58 Urine RBC Cancelled 03/16/25 23:58 Urine Red Cell Clumps Cancelled 03/16/25 23:58 Urine WBC Cancelled 03/16/25 23:58 Urine WBC Clumps Cancelled 03/16/25 23:58 Ur Squamous Epith Cells Cancelled 03/16/25 23:58 U Non-Squamous Epi Cells Cancelled 03/16/25 23:58 Ur Transition Epith Cell Cancelled 03/16/25 23:58 Ur Renal Epithelial Cell Cancelled 03/16/25 23:58 Calcium Carbonate Cryst Cancelled 03/16/25 23:58 Calcium Oxalate Crystal Cancelled 03/16/25 23:58 Leucine Crystals Cancelled 03/16/25 23:58 Cystine Crystals Cancelled 03/16/25 23:58 Uric Acid Crystals Cancelled 03/16/25 23:58 Triple Phos Crystals Cancelled 03/16/25 23:58 Tyrosine Crystals Cancelled 03/16/25 23:58 Unidentified Crystals Cancelled 03/16/25 23:58 Amorphous Crystals Cancelled 03/16/25 23:58 Urine Bacteria Cancelled 03/16/25 23:58 Hyaline Casts Cancelled 03/16/25 23:58 Granular Casts Cancelled 03/16/25 23:58 Waxy Casts Cancelled 03/16/25 23:58 RBC Casts Cancelled 03/16/25 23:58 WBC Casts Cancelled 03/16/25 23:58 Urine Mucus Cancelled 03/16/25 23:58 Urine Trichomonas Cancelled 03/16/25 23:58 Ur Yeast w Hyphae Cancelled 03/16/25 23:58 Urine Yeast (Budding) Cancelled 03/16/25 23:58 Urine Sperm Cancelled 03/16/25 23:58 Ur Oval Fat Bodies Cancelled 03/16/25 23:58 Urine Culture Reflexed Cancelled 03/16/25 23:58 Urine Total Protein Cancelled 03/16/25 23:58 Urine Ascorbic Acid Cancelled 03/16/25 23:58 Urine Fat Cancelled 03/16/25 23:58 Influenza Type A Ag Negative 03/17/25 00:08 Influenza Type B Ag Negative 03/17/25 00:08 SARS-CoV-2 Ag (Rapid) Negative (Negative) 03/17/25 00:08 SARS CoV-2 Rapid Comm N 03/17/25 00:08 Acetaminophen (Acetaminophen 325 Mg Tablet) 650 mg PO Q4HP PRN PRN Reason: Temp > 101' F/ Pain Last Admin: 03/30/25 00:32 Dose: 650 mg Hydrocodone Bitart/Acetaminophen (Hydrocodone/Apap 5/325 Mg Tab) 1 tab PO Q12H PRN PRN Reason: Pain scale 8-10 (Severe) Aspirin (Aspirin Ec 81 Mg Tab) 81 mg PO DAILY [facility] Last Admin: 04/01/25 09:18 Dose: 81 mg Atorvastatin Calcium (Atorvastatin 80 Mg Tab) 80 mg PO BEDTIME [facility] Last Admin: 03/31/25 20:59 Dose: 80 mg Enteral Nutritional Formula (Nepro Shake 237 Ml Can) 237 ml PO DAILY [facility] Last Admin: 04/01/25 09:00 Dose: 237 ml Epoetin Sukhdeep (Epoetin 4,000 Unit/Ml Vial) 4,000 unit IV EVERY HD [facility] Last Admin: 03/30/25 14:15 Dose: 4,000 unit Folic Acid (Folic Acid 1 Mg Tablet) 1 mg PO DAILY [facility] Last Admin: 04/01/25 09:18 Dose: 1 mg Metoprolol Tartrate (Metoprolol Tar 25 Mg Tab) 12.5 mg PO BID [facility] Last Admin: 04/01/25 09:18 Dose: 12.5 mg Tamsulosin HCl (Tamsulosin 0.4 Mg Sr Cap) 0.4 mg PO BEDTIME [facility] Last Admin: 03/31/25 20:59 Dose: 0.4 mg Assessment And Plan: 1. End-stage renal disease. I am going to continue the patient on his dialysis schedule 3 times a week, Wednesday We manage to cannulate his AV graft without any problem status post TDC removal March 30 Continue use AV graft and we will monitor. Patient cleared from the renal standpoint for DC planning 2. Hypertension, controlled. Currently, blood pressure on the lower side. We will follow up the patient. 3. Fever, unknown etiology. Culture, so far, negative. Status post culture from the [facility] March 20 Still pending, and we will follow up. Continue current antibiotic. 4. Questionable of urinary tract infection. Follow up with the Primary. 5. Encephalopathy secondary to questionable urinary tract infection. /Medication induced gabapentin recovering very well, Agree with holding tramadol / gabapentin Blood culture negative Continue current antibiotic. 6. Acidosis. Discontinue oral bicarb. Will be corrected with dialysis. 7. Anemia of chronic kidney disease. Continue DANIEL. 8. Hyponatremia. No need for treatment. Will be corrected with the dialysis 9. Hyponatremia secondary to renal failure will be corrected with the dialysis 10. Congestive heart failure ejection fraction below 25 patient on LifeVest Follow-up with cardiology Time spent examining the patient [id number] reviewing data lab and the radiology placing order discussing the case with the team including hospitalist and nursing staff dialysis nurse more than 55-minute
[2025-04-02] MEDS: HYDROCODONE/APAP 5/325 MG TAB PO PRN (02:00)
[2025-04-02 07:40] LABS: Hematocrit 32.6 % (39.6-49.0); Hemoglobin 10.6 g/dL (13.6-17.9); MCH 32.3 pg (27.0-35.0); MCHC 32.4 g/dL (32.0-36.0); MCV 99.6 fL (80-100); MPV 8.8 fL (7.6-11.3); RBC Red Blood Cell Count 3.27 M/uL (4.33-5.43); White Blood Count 8.90 thou/uL (4.3-10.9)
[2025-04-02 08:03] LABS: Albumin 2.7 g/dL (3.4-5.0); Anion Gap 14.2 mEq/L (5.0-15.0); BUN Blood Urea Nitrogen 36.0 mg/dL (7-18); Glucose Level 91.0 mg/dL (74-106); Magnesium 2.5 mg/dL (1.6-2.4); Potassium 5.2 mEq/L (3.5-5.1)
--- NOTE | 2025-04-02 16:57 | P.PN ---
Date of Service: 04/02/25 Subjective: no acute events stable Physical Exam: Gen: Alert, Oriented, cooperative, pleasant CV: Regular rate and rhythm, no edema Pulm: Nonlabored respirations on room air, clear bilaterally Abdomen: Soft, nontender, nondistended Skin: R foot wound Neuro: No focal motor deficit, Problem List: Acute encephalopathy, resolved Fever of unknown origin, resolved Chronic right lower extremity wound Generalized Weakness Fall ESRD on HD - MWF BPH Iron deficiency anemia Chronic CHF Pulmonary hypertension LifeVest Hypertension Acute encephalopathy, resolved Fever of unknown origin, resolved Chronic right lower extremity wound Review of outside hospital records show asymptomatic bacteriuria. CT CAP concerning for atelectasis versus developing infection, bladder fat stranding Bilateral lower extremity venous ultrasound negative for DVT Initial blood cultures were without growth. Blood cultures from dialysis cath without growth. s/p 1 week of IV cefepime/Vanc (03/18-03/25) Gabapentin dc'd. Avoid psychotropic medication Mental status improved to baseline. AMS likely drug-induced secondary to gabapentin and tramadol. Clinically stable off antibiotics [place] as needed for right foot pain Generalized Weakness Fall Likely related to prolonged hospitalization Fall precautions PT/OT as tolerated ESRD on HD - MWF Nephrology is following dialysis per nephrology Renally dose all medications. Continue to monitor renal function, electrolytes s/p TDC removal with Dr. Walker (03/30) culture sent out BPH Continue tamsulosin 0.4 mg nightly Iron deficiency anemia Iron 31, tsat% 21% No sign of active bleed. Daily labs Chronic CHF Pulmonary hypertension LifeVest Hypertension Last echo on file May 2024 EF 5 to 10%, severe global hypokinesis, grade 3 diastolic dysfunction, moderate TR, moderate MR, moderate pulmonary hypertension Fluid restriction <1500 ml/day Continue metoprolol 12.5 mg twice daily Fluid status management with HD Code: Full Dispo: SNF pending approval/ pending HD chair
--- NOTE | 2025-04-03 01:11 | PN ---
Date of Progress Note: 04/02/2025 Subjective: The patient is admitted to the hospital because of altered mental status due to encephal opathy secondary to urinary tract infection. The patient remains confused. He received dialysis tod ay. Tramadol was stopped due to altered mental status and possible side effect from tramadol in form of confusion. Review of Systems: Denies complaints. Objective: Chest: Clear to auscultation bilaterally. Heart: S1, S2. A 2/6 systolic murmur at left lower sternal border. Abdomen: Soft, benign, nontender. Extremities: Chronic dermatitis, slight edema in both ankles. Impression And Plan: 1. End-stage renal disease. Continue dialysis today. Dialysis will be done with mild ultrafiltratio n. Monitor fluid balance and continue ultrafiltration with dialysis to prevent fluid overload. The patient has severe systolic dysfunction, congestive heart failure. Appears to be euvolemic. Continu e to monitor blood pressure during dialysis to prevent intradialytic hypotension. 2. Fever of unknown etiology. Cultures so far negative, status post culture from [facility]. Tunneled dialysis catheter was removed on March 20. Continue current antibiotics. 3. Questionable urinary tract infection. Follow up by Primary team. 4. Encephalopathy secondary to urinary tract infection versus medication. Gabapentin was . Blood culture negative. 5. Acidosis improved. Discontinue sodium bicarbonate and monitor lab work. 6. Hyponatremia. Continue to correct with dialysis. 7. Congestive heart failure, severe systolic dysfunction. Ejection fraction is 25%. The patient has LifeVest and followup with Cardiology. JUANI/JACOBOL Voice ID: [id number] Report ID: [id number]
[2025-04-03 06:00] LABS: Albumin 2.4 g/dL (3.4-5.0); Anion Gap 12.5 mEq/L (5.0-15.0); BUN Blood Urea Nitrogen 22.0 mg/dL (7-18); Glucose Level 76.0 mg/dL (74-106); Magnesium 2.4 mg/dL (1.6-2.4); Potassium 4.5 mEq/L (3.5-5.1)
--- NOTE | 2025-04-03 11:46 | P.PN ---
Date of Service: 04/03/25 Subjective: The patient was admitted to the hospital with altered mental status, suspect of encephalopathy secondary to UTI. The patient still confused. Patient received dialysis yesterday tramadol has been DC'd patient more sleepy today Physical Examination: Temp Pulse Resp BP Pulse Ox 97.8 F 78 20 123/63 94 04/03/25 04:00 04/03/25 09:59 04/03/25 04:00 04/03/25 09:59 04/03/25 04:00 Chest: Clear to auscultation. Heart: S1, S2. Systolic murmur. Abdomen: Soft, nontender. Extremities: Right AV graft. Right IJ PermCath. No edema. Right upper arm AV graft good thrill and bruit Neurologic: Alert. No focality. Alert oriented x 3 no focality Acetaminophen (Acetaminophen 325 Mg Tablet) 650 mg PO Q4HP PRN PRN Reason: Temp > 101' F/ Pain Last Admin: 04/03/25 05:33 Dose: 650 mg Hydrocodone Bitart/Acetaminophen (Hydrocodone/Apap 5/325 Mg Tab) 1 tab PO Q12H PRN PRN Reason: Pain scale 8-10 (Severe) Last Admin: 04/02/25 02:00 Dose: 1 tab Aspirin (Aspirin Ec 81 Mg Tab) 81 mg PO DAILY [facility] Last Admin: 04/03/25 09:59 Dose: 81 mg Atorvastatin Calcium (Atorvastatin 80 Mg Tab) 80 mg PO BEDTIME [facility] Last Admin: 04/02/25 21:18 Dose: 80 mg Enteral Nutritional Formula (Airwoot Shake 237 Ml Can) 237 ml PO DAILY [facility] Last Admin: 04/03/25 09:00 Dose: 237 ml Epoetin Sukhdeep (Epoetin 4,000 Unit/Ml Vial) 4,000 unit IV EVERY HD [facility] Last Admin: 04/02/25 14:45 Dose: 4,000 unit Folic Acid (Folic Acid 1 Mg Tablet) 1 mg PO DAILY [facility] Last Admin: 04/03/25 09:59 Dose: 1 mg Metoprolol Tartrate (Metoprolol Tar 25 Mg Tab) 12.5 mg PO BID [facility] Last Admin: 04/03/25 09:59 Dose: 12.5 mg Tamsulosin HCl (Tamsulosin 0.4 Mg Sr Cap) 0.4 mg PO BEDTIME [facility] Last Admin: 04/02/25 21:17 Dose: 0.4 mg Laboratory Last Values WBC 8.00 thou/uL (4.3-10.9) 03/17/25 00:00 RBC 2.79 M/uL (4.33-5.43) L 03/17/25 00:00 Hgb 9.0 g/dL (13.6-17.9) L 03/17/25 00:00 Hct 27.0 % (39.6-49.0) L 03/17/25 00:00 MCV 96.6 fL (80-100) 03/17/25 00:00 MCH 32.2 pg (27.0-35.0) 03/17/25 00:00 MCHC 33.4 g/dL (32.0-36.0) 03/17/25 00:00 RDW 15.2 % (12.1-15.2) 03/17/25 00:00 Plt Count 252 thou/uL (152-406) 03/17/25 00:00 MPV 7.1 fL (7.6-11.3) L 03/17/25 00:00 Neutrophils % 56.7 % (41.7-73.7) 03/17/25 00:00 Lymphocytes % 20.6 % (15.3-44.8) 03/17/25 00:00 Monocytes % 15.2 % (3.3-12.3) H 03/17/25 00:00 Eosinophils % 6.8 % (0-4.4) H 03/17/25 00:00 Basophils % 0.7 % (0-1.3) 03/17/25 00:00 Absolute Neutrophils 4.6 K/uL (1.8-8.0) 03/17/25 00:00 Absolute Lymphocytes 1.7 K/uL (0.7-4.9) 03/17/25 00:00 Absolute Monocytes 1.2 K/uL (0.1-1.3) 03/17/25 00:00 Absolute Eosinophils 0.5 K/uL (0-0.5) 03/17/25 00:00 Absolute Basophils 0.1 K/uL (0-0.5) 03/17/25 00:00 PT 15.2 SECONDS (10-13.0) H 03/17/25 00:00 INR 1.36 03/17/25 00:00 APTT 29.2 SECONDS (27.2-37.4) 03/17/25 00:00 pH 7.48 (7.35-7.45) H 03/17/25 00:12 pCO2 40 mmHg (35-45) 03/17/25 00:12 pO2 112 mmHg (75-100) H 03/17/25 00:12 HCO3 29.6 mmol/L (22.0-28.0) H 03/17/25 00:12 Base Excess 6.4 mmol/L (-2.0-3.0) H 03/17/25 00:12 ABG O2 Sat (Measured) 98.4 % (92.0-98.5) 03/17/25 00:12 Sodium 134 mEq/L (136-145) L 03/17/25 00:00 Potassium 3.9 mEq/L (3.5-5.1) 03/17/25 00:00 Chloride 98 mEq/L (98-107) 03/17/25 00:00 Carbon Dioxide 29 mEq/L (21-32) 03/17/25 00:00 Anion Gap 10.9 mEq/L (5.0-15.0) 03/17/25 00:00 BUN 18 mg/dL (7-18) 03/17/25 00:00 Creatinine 4.61 mg/dL (0.70-1.30) H 03/17/25 00:00 Est GFR (CKD-EPI) 13 ml/min (=/>90) L 03/17/25 00:00 Glucose 83 mg/dL (74-106) 03/17/25 00:00 POC Glucose 78 mg/dL (65-120) 03/17/25 01:00 Lactic Acid 1.3 mmol/L (0.4-2.0) 03/17/25 00:00 Calcium 8.1 mg/dL (8.5-10.1) L 03/17/25 00:00 Total Bilirubin 0.5 mg/dL (0.2-1.0) 03/17/25 00:00 AST 20 U/L (15-37) 03/17/25 00:00 ALT < 14 U/L (16-61) L 03/17/25 00:00 Alkaline Phosphatase 84 U/L (45-117) 03/17/25 00:00 Troponin I High Sens 3298.3 pg/mL (<58.9) H* 03/17/25 03:49 NT-Pro-B Natriuret Pep > 42316 pg/mL (<125) H 03/17/25 00:00 Serum Total Protein 7.0 g/dL (6.4-8.2) 03/17/25 00:00 Albumin 1.9 g/dL (3.4-5.0) L 03/17/25 00:00 Globulin 5.1 g/dL (2.3-3.5) H 03/17/25 00:00 Albumin/Globulin Ratio 0.4 (1.1-1.8) L 03/17/25 00:00 TSH 7.050 uIU/mL (0.358-3.740) H 03/17/25 00:00 Free T4 1.10 ng/dL (0.76-1.46) 03/17/25 00:00 Urine Color Cancelled 03/16/25 23:58 Urine Clarity Cancelled 03/16/25 23:58 Urine pH Cancelled 03/16/25 23:58 Ur Specific [place] Cancelled 03/16/25 23:58 Glucose (UA)(Auto) Cancelled 03/16/25 23:58 Urine Ketones Cancelled 03/16/25 23:58 Urine Blood Cancelled 03/16/25 23:58 Urine Nitrite Cancelled 03/16/25 23:58 Urine Bilirubin Cancelled 03/16/25 23:58 Urine Urobilinogen Cancelled 03/16/25 23:58 Ur Leukocyte Esterase Cancelled 03/16/25 23:58 Urine RBC Cancelled 03/16/25 23:58 Urine Red Cell Clumps Cancelled 03/16/25 23:58 Urine WBC Cancelled 03/16/25 23:58 Urine WBC Clumps Cancelled 03/16/25 23:58 Ur Squamous Epith Cells Cancelled 03/16/25 23:58 U Non-Squamous Epi Cells Cancelled 03/16/25 23:58 Ur Transition Epith Cell Cancelled 03/16/25 23:58 Ur Renal Epithelial Cell Cancelled 03/16/25 23:58 Calcium Carbonate Cryst Cancelled 03/16/25 23:58 Calcium Oxalate Crystal Cancelled 03/16/25 23:58 Leucine Crystals Cancelled 03/16/25 23:58 Cystine Crystals Cancelled 03/16/25 23:58 Uric Acid Crystals Cancelled 03/16/25 23:58 Triple Phos Crystals Cancelled 03/16/25 23:58 Tyrosine Crystals Cancelled 03/16/25 23:58 Unidentified Crystals Cancelled 03/16/25 23:58 Amorphous Crystals Cancelled 03/16/25 23:58 Urine Bacteria Cancelled 03/16/25 23:58 Hyaline Casts Cancelled 03/16/25 23:58 Granular Casts Cancelled 03/16/25 23:58 Waxy Casts Cancelled 03/16/25 23:58 RBC Casts Cancelled 03/16/25 23:58 WBC Casts Cancelled 03/16/25 23:58 Urine Mucus Cancelled 03/16/25 23:58 Urine Trichomonas Cancelled 03/16/25 23:58 Ur Yeast w Hyphae Cancelled 03/16/25 23:58 Urine Yeast (Budding) Cancelled 03/16/25 23:58 Urine Sperm Cancelled 03/16/25 23:58 Ur Oval Fat Bodies Cancelled 03/16/25 23:58 Urine Culture Reflexed Cancelled 03/16/25 23:58 Urine Total Protein Cancelled 03/16/25 23:58 Urine Ascorbic Acid Cancelled 03/16/25 23:58 Urine Fat Cancelled 03/16/25 23:58 Influenza Type A Ag Negative 03/17/25 00:08 Influenza Type B Ag Negative 03/17/25 00:08 SARS-CoV-2 Ag (Rapid) Negative (Negative) 03/17/25 00:08 SARS CoV-2 Rapid Comm N 03/17/25 00:08 Assessment And Plan: 1. End-stage renal disease. I am going to continue the patient on his dialysis schedule 3 times a week, Wednesday We manage to cannulate his AV graft without any problem status post TDC removal March 30 Continue use AV graft and we will monitor. Patient cleared from the renal standpoint for DC planning 2. Hypertension, controlled. Currently, blood pressure on the lower side. We w ill follow up the patient. 3. Fever, unknown etiology. Culture, so far, negative. Status post culture from the [facility] March 20 Still pending, and we will follow up. Continue current antibiotic. 4. Questionable of urinary tract infection. Follow up with the Primary. 5. Encephalopathy secondary to questionable urinary tract infection. /Medication induced gabapentin recovering very well, Agree with holding tramadol / gabapentin Blood culture negative Continue current antibiotic. 6. Acidosis. Discontinue oral bicarb. Will be corrected with dialysis. 7. Anemia of chronic kidney disease. Continue DANIEL. 8. Hyponatremia. No need for treatment. Will be corrected with the dialysis 9. Hyponatremia secondary to renal failure will be corrected with the dialysis 10. Congestive heart failure ejection fraction below 25 patient on LifeVest Follow-up with cardiology Time spent examining the patient [id number] reviewing data lab and the radiology placing order discussing the case with the team including hospitalist and nursing staff dialysis nurse more than 55-minute
--- NOTE | 2025-04-03 17:00 | P.PN ---
Subjective Date of Service: 04/03/25 Chief Complaint: Fever of unknown origin, acute encephalopathy He is awake and alert and has no new complaint No fever. Physical Examination - Vital Signs Temperature: 97.7 F Blood Pressure: 128/61 Pulse: 70 Respirations: 16 Pulse Ox (%): 97 - Studies Medications List Reviewed: Yes Assessment And Plan - Plan Physical Exam: Gen: Alert, Oriented, cooperative, pleasant CV: Regular rate and rhythm, no edema Pulm: Nonlabored respirations on room air, clear bilaterally Abdomen: Soft, nontender, nondistended Skin: R foot wound Neuro: No focal motor deficit, Problem List: Acute encephalopathy, resolved Fever of unknown origin, resolved Chronic right lower extremity wound Generalized Weakness Fall ESRD on HD - MWF BPH Iron deficiency anemia Chronic CHF Pulmonary hypertension LifeVest Hypertension Acute metabolic encephalopathy, resolved Fever of unknown origin, resolved Chronic right lower extremity wound CT CAP concerning for atelectasis versus developing infection, bladder fat stranding Bilateral lower extremity venous ultrasound negative for DVT Initial blood cultures were without growth. Blood cultures from dialysis cath without growth. s/p 1 week of IV cefepime/Vanc (03/18-03/25) Mental status improved to baseline. AMS likely drug-induced secondary to gabapentin and tramadol. Gabapentin discontinued. [place] as needed for right foot pain Generalized Weakness Fall Likely related to prolonged hospitalization Fall precautions Continue PT and OT ESRD on HD - MWF Nephrology is following dialysis per nephrology Renally dose all medications. Continue to monitor renal function, electrolytes s/p TDC removal with Dr. Walker (03/30) Catheter tip culture showed no growth BPH Continue tamsulosin 0.4 mg nightly Iron deficiency anemia Iron 31, tsat% 21% No sign of active bleed. Monitor. Chronic CHF Pulmonary hypertension LifeVest Hypertension Last echo on file May 2024 EF 5 to 10%, severe global hypokinesis, grade 3 diastolic dysfunction, moderate TR, moderate MR, moderate pulmonary hypertension Fluid restriction <1500 ml/day Continue metoprolol 12.5 mg twice daily Fluid management with HD Code: Full Dispo: SNF pending HD chair arrangement. DVT prophylaxis: Heparin CODE STATUS: Full code
[2025-04-04 04:39] LABS: Hemoglobin 9.7 g/dL (13.6-17.9); RBC Red Blood Cell Count 2.98 M/uL (4.33-5.43)
[2025-04-04 04:42] LABS: Absolute Lymphocytes (CBC) 1.4 K/uL (0.7-4.9); Hematocrit 29.0 % (39.6-49.0); MCH 32.5 pg (27.0-35.0); MCHC 33.3 g/dL (32.0-36.0); MCV 97.6 fL (80-100); MPV 8.1 fL (7.6-11.3); Nucleated RBC Absolute Count 0.0 (0-0); Nucleated Red Blood Cells % 0.2 % (0-0); White Blood Count 7.60 thou/uL (4.3-10.9)
[2025-04-04 04:59] LABS: Anion Gap 13.3 mEq/L (5.0-15.0); BUN Blood Urea Nitrogen 28.0 mg/dL (7-18); Glucose Level 81.0 mg/dL (74-106); Potassium 4.3 mEq/L (3.5-5.1)
[2025-04-04 11:09] VITALS: O2SAT 97
--- NOTE | 2025-04-04 16:53 | P.DS ---
Admission Date: 03/17/25 Discharge Date: 04/04/25 Disposition: TRANSFER TO SENIOR CARE Discharge Condition: FAIR Reason for Admission: Fever of unknown origin, acute encephalopathy Hospital Course: Problem List: Acute encephalopathy, resolved Fever of unknown origin, resolved Chronic right lower extremity wound Generalized Weakness Fall ESRD on HD - MWF BPH Iron deficiency anemia Chronic CHF Pulmonary hypertension LifeVest Hypertension Patient presents via EMS from home after a fall and found to have a fever of 101.2 of unclear etiology. Patient was just discharged 03/16 from [facility] for pneumonia, sepsis, right foot wound, and occluded right fistula. CT chest/abdomen/pelvis showed right lower lobe atelectasis vs developing infection, cardiomegaly, prostatomegaly, bilateral renal atrophy with numerous renal cysts. Bilateral lower extremity venous ultrasound was negative for DVT. Review of outside hospital records showed asymptomatic bacteriuria. Blood cultures were without growth x2. Unable to get a urine culture due to minimal to no urine output. Dialysis catheter was changed, and the old dialysis cath tip culture did not show any bacterial growth. Patient completed 1 week of IV cefepime/Vanc 03/18-03/25 to treat possible infection. He has remained afebrile without leukocytosis since initial 101.2 temp on admission. Patient was confused during the initial period of hospital stay and the confusion deemed secondary to gabapentin. The altered mental status resolved after discontinuing gabapentin. He worked with physical therapy who felt he would benefit from continued care home to improve strength and endurance to return to prior level of function before returning home. Patient was feeling better close to his base, afebrile without leukocytosis, and deemed stable for discharge. Nephrology was consulted to assist with managing dialysis throughout hospitalization. Patient had dialysis catheter removed by Dr. Walker on 03/30. Iron studies were consistent with mild iron deficiency anemia (iron 31, tsat% 21%). Recommend repeating iron studies in a few months. Outpatient dialysis arranged for Wednesdays and Fridays. Patient has been accepted to SNF. Vital Signs/Physical Exam: Temp Pulse Resp BP Pulse Ox 98.2 F 72 16 125/60 98 04/04/25 08:00 04/04/25 08:00 04/04/25 08:00 04/04/25 08:00 04/04/25 08:00 General: Alert, In no apparent distress, Oriented x3 HEENT: Mucous membr. moist/pink, Sclerae nonicteric Neck: Supple, JVD not distended Respiratory: Clear to auscultation bilaterally, Normal air movement Cardiovascular: No edema, Regular rate/rhythm, Normal S1 S2 Gastrointestinal: Normal bowel sounds, Soft and benign, Non-distended, No tenderness Musculoskeletal: No swelling Integumentary: No cyanosis Neurological: Normal speech, Normal strength at 5/5 x4 extr, Other (Hard of hearing) Laboratory Data at Discharge: WBC 7.60 thou/uL (4.3-10.9) 04/04/25 04:08 Hgb 9.7 g/dL (13.6-17.9) L 04/04/25 04:08 Hct 29.0 % (39.6-49.0) L 04/04/25 04:08 Plt Count 197 thou/uL (152-406) 04/04/25 04:08 PT 15.0 SECONDS (10-13.0) H 03/19/25 04:44 INR 1.34 03/19/25 04:44 APTT Cancelled 03/19/25 Unknown Sodium 138 mEq/L (136-145) 04/04/25 04:08 Potassium 4.3 mEq/L (3.5-5.1) 04/04/25 04:08 BUN 28 mg/dL (7-18) H 04/04/25 04:08 Creatinine 7.27 mg/dL (0.70-1.30) H 04/04/25 04:08 Glucose 81 mg/dL (74-106) 04/04/25 04:08 Phosphorus 5.1 mg/dL (2.5-4.9) H 04/03/25 05:22 Magnesium 2.4 mg/dL (1.6-2.4) 04/03/25 05:22 Total Bilirubin 0.5 mg/dL (0.2-1.0) 03/18/25 04:27 AST 20 U/L (15-37) 03/18/25 04:27 ALT < 14 U/L (16-61) L 03/18/25 04:27 Alkaline Phosphatase 81 U/L (45-117) 03/18/25 04:27 Home Medications: Aspirin [Adult Aspirin Regimen] 81 mg PO DAILY #30 06/11/24 Atorvastatin Calcium [Lipitor] 80 mg PO BEDTIME #30 tab 06/11/24 Metoprolol Tartrate 12.5 mg PO BID 03/17/25 Tamsulosin HCl [Flomax] 0.4 mg PO BEDTIME 03/17/25 Epoetin [Retacrit] 4,000 unit IV EVERY HD vial 04/04/25 Hydrocodone 5/APAP 325 [Sneads 5/325*] 1 tab PO Q12H PRN #10 tab 04/04/25 Nepro Shake [Nepro*] 237 ml PO DAILY can 04/04/25 New Medications: Hydrocodone 5/APAP 325 [Sneads 5/325*] 1 tab PO Q12H PRN #10 tab PRN Reason: Pain Scale 8-10 (Severe) Physician Discharge Instructions: Physician discharge instructions: Patient presents via EMS from home after a fall and found to have a fever of 101.2 of unclear etiology. Patient was just discharged 03/16 from [facility] for pneumonia, sepsis, right foot wound, and occluded right fistula. CT chest/abdomen/pelvis showed right lower lobe atelectasis vs developing infection, cardiomegaly, prostatomegaly, bilateral renal atrophy with numerous renal cysts. Bilateral lower extremity venous ultrasound was negative for DVT. Review of outside hospital records showed asymptomatic bacteriuria. Blood cultures were without growth x2. Unable to get a urine culture due to minimal to no urine output. Patient complete 1 week of IV cefepime/Vanc 03/18-03/25 to treat possible infection. He has remained afebrile without leukocytosis since initial 101.2 temp on admission. He worked with physical therapy who felt he would benefit from continued care home to improve strength and endurance to return to prior level of function before returning home. Patient was feeling better close to his base, afebrile without leukocytosis, and deemed stable for discharge. Nephrology was consulted to assist with managing dialysis throughout hospitalization. Patient had dialysis catheter removed by Dr. Walker on 03/30. Iron studies were consistent with mild iron deficiency anemia (iron 31, tsat% 21%). Recommend repeating iron studies in a few months. Outpatient dialysis arranged for Wednesdays and Fridays. Patient has been accepted to [facility]. Follow up: PCP 1 week Nephrology in 2 weeks Please call to schedule / confirm appointments Diet: Renal (Dialysis) Activity: Fall precautions Followup: Barron Walker MD [ACTIVE - CAN ADMIT] - NONE,NONE [Primary Care Provider] - Time spent managing pt's care (in minutes): 42
--- NOTE | 2025-04-04 18:32 | P.PN ---
Date of Service: 04/04/25 Subjective: The patient was admitted to the hospital with altered mental status, suspect of encephalopathy secondary to UTI. The patient still confused. Patient received dialysis yesterday tramadol has been DC'd patient more sleepy today Physical Examination: Temp Pulse Resp BP Pulse Ox 97.9 F 83 16 125/67 99 04/04/25 16:00 04/04/25 16:00 04/04/25 16:00 04/04/25 16:00 04/04/25 16:00 Chest: Clear to auscultation. Heart: S1, S2. Systolic murmur. Abdomen: Soft, nontender. Extremities: Right AV graft. Right IJ PermCath. No edema. Right upper arm AV graft good thrill and bruit Neurologic: Alert. No focality. Alert oriented x 3 no focality Laboratory Last Values WBC 8.00 thou/uL (4.3-10.9) 03/17/25 00:00 RBC 2.79 M/uL (4.33-5.43) L 03/17/25 00:00 Hgb 9.0 g/dL (13.6-17.9) L 03/17/25 00:00 Hct 27.0 % (39.6-49.0) L 03/17/25 00:00 MCV 96.6 fL (80-100) 03/17/25 00:00 MCH 32.2 pg (27.0-35.0) 03/17/25 00:00 MCHC 33.4 g/dL (32.0-36.0) 03/17/25 00:00 RDW 15.2 % (12.1-15.2) 03/17/25 00:00 Plt Count 252 thou/uL (152-406) 03/17/25 00:00 MPV 7.1 fL (7.6-11.3) L 03/17/25 00:00 Neutrophils % 56.7 % (41.7-73.7) 03/17/25 00:00 Lymphocytes % 20.6 % (15.3-44.8) 03/17/25 00:00 Monocytes % 15.2 % (3.3-12.3) H 03/17/25 00:00 Eosinophils % 6.8 % (0-4.4) H 03/17/25 00:00 Basophils % 0.7 % (0-1.3) 03/17/25 00:00 Absolute Neutrophils 4.6 K/uL (1.8-8.0) 03/17/25 00:00 Absolute Lymphocytes 1.7 K/uL (0.7-4.9) 03/17/25 00:00 Absolute Monocytes 1.2 K/uL (0.1-1.3) 03/17/25 00:00 Absolute Eosinophils 0.5 K/uL (0-0.5) 03/17/25 00:00 Absolute Basophils 0.1 K/uL (0-0.5) 03/17/25 00:00 PT 15.2 SECONDS (10-13.0) H 03/17/25 00:00 INR 1.36 03/17/25 00:00 APTT 29.2 SECONDS (27.2-37.4) 03/17/25 00:00 pH 7.48 (7.35-7.45) H 03/17/25 00:12 pCO2 40 mmHg (35-45) 03/17/25 00:12 pO2 112 mmHg (75-100) H 03/17/25 00:12 HCO3 29.6 mmol/L (22.0-28.0) H 03/17/25 00:12 Base Excess 6.4 mmol/L (-2.0-3.0) H 03/17/25 00:12 ABG O2 Sat (Measured) 98.4 % (92.0-98.5) 03/17/25 00:12 Sodium 134 mEq/L (136-145) L 03/17/25 00:00 Potassium 3.9 mEq/L (3.5-5.1) 03/17/25 00:00 Chloride 98 mEq/L (98-107) 03/17/25 00:00 Carbon Dioxide 29 mEq/L (21-32) 03/17/25 00:00 Anion Gap 10.9 mEq/L (5.0-15.0) 03/17/25 00:00 BUN 18 mg/dL (7-18) 03/17/25 00:00 Creatinine 4.61 mg/dL (0.70-1.30) H 03/17/25 00:00 Est GFR (CKD-EPI) 13 ml/min (=/>90) L 03/17/25 00:00 Glucose 83 mg/dL (74-106) 03/17/25 00:00 POC Glucose 78 mg/dL (65-120) 03/17/25 01:00 Lactic Acid 1.3 mmol/L (0.4-2.0) 03/17/25 00:00 Calcium 8.1 mg/dL (8.5-10.1) L 03/17/25 00:00 Total Bilirubin 0.5 mg/dL (0.2-1.0) 03/17/25 00:00 AST 20 U/L (15-37) 03/17/25 00:00 ALT < 14 U/L (16-61) L 03/17/25 00:00 Alkaline Phosphatase 84 U/L (45-117) 03/17/25 00:00 Troponin I High Sens 3298.3 pg/mL (<58.9) H* 03/17/25 03:49 NT-Pro-B Natriuret Pep > 76139 pg/mL (<125) H 03/17/25 00:00 Serum Total Protein 7.0 g/dL (6.4-8.2) 03/17/25 00:00 Albumin 1.9 g/dL (3.4-5.0) L 03/17/25 00:00 Globulin 5.1 g/dL (2.3-3.5) H 03/17/25 00:00 Albumin/Globulin Ratio 0.4 (1.1-1.8) L 03/17/25 00:00 TSH 7.050 uIU/mL (0.358-3.740) H 03/17/25 00:00 Free T4 1.10 ng/dL (0.76-1.46) 03/17/25 00:00 Urine Color Cancelled 03/16/25 23:58 Urine Clarity Cancelled 03/16/25 23:58 Urine pH Cancelled 03/16/25 23:58 Ur Specific [place] Cancelled 03/16/25 23:58 Glucose (UA)(Auto) Cancelled 03/16/25 23:58 Urine Ketones Cancelled 03/16/25 23:58 Urine Blood Cancelled 03/16/25 23:58 Urine Nitrite Cancelled 03/16/25 23:58 Urine Bilirubin Cancelled 03/16/25 23:58 Urine Urobilinogen Cancelled 03/16/25 23:58 Ur Leukocyte Esterase Cancelled 03/16/25 23:58 Urine RBC Cancelled 03/16/25 23:58 Urine Red Cell Clumps Cancelled 03/16/25 23:58 Urine WBC Cancelled 03/16/25 23:58 Urine WBC Clumps Cancelled 03/16/25 23:58 Ur Squamous Epith Cells Cancelled 03/16/25 23:58 U Non-Squamous Epi Cells Cancelled 03/16/25 23:58 Ur Transition Epith Cell Cancelled 03/16/25 23:58 Ur Renal Epithelial Cell Cancelled 03/16/25 23:58 Calcium Carbonate Cryst Cancelled 03/16/25 23:58 Calcium Oxalate Crystal Cancelled 03/16/25 23:58 Leucine Crystals Cancelled 03/16/25 23:58 Cystine Crystals Cancelled 03/16/25 23:58 Uric Acid Crystals Cancelled 03/16/25 23:58 Triple Phos Crystals Cancelled 03/16/25 23:58 Tyrosine Crystals Cancelled 03/16/25 23:58 Unidentified Crystals Cancelled 03/16/25 23:58 Amorphous Crystals Cancelled 03/16/25 23:58 Urine Bacteria Cancelled 03/16/25 23:58 Hyaline Casts Cancelled 03/16/25 23:58 Granular Casts Cancelled 03/16/25 23:58 Waxy Casts Cancelled 03/16/25 23:58 RBC Casts Cancelled 03/16/25 23:58 WBC Casts Cancelled 03/16/25 23:58 Urine Mucus Cancelled 03/16/25 23:58 Urine Trichomonas Cancelled 03/16/25 23:58 Ur Yeast w Hyphae Cancelled 03/16/25 23:58 Urine Yeast (Budding) Cancelled 03/16/25 23:58 Urine Sperm Cancelled 03/16/25 23:58 Ur Oval Fat Bodies Cancelled 03/16/25 23:58 Urine Culture Reflexed Cancelled 03/16/25 23:58 Urine Total Protein Cancelled 03/16/25 23:58 Urine Ascorbic Acid Cancelled 03/16/25 23:58 Urine Fat Cancelled 03/16/25 23:58 Influenza Type A Ag Negative 03/17/25 00:08 Influenza Type B Ag Negative 03/17/25 00:08 SARS-CoV-2 Ag (Rapid) Negative (Negative) 03/17/25 00:08 SARS CoV-2 Rapid Comm N 03/17/25 00:08 Acetaminophen (Acetaminophen 325 Mg Tablet) 650 mg PO Q4HP PRN PRN Reason: Temp > 101' F/ Pain Last Admin: 04/04/25 05:12 Dose: 650 mg Hydrocodone Bitart/Acetaminophen (Hydrocodone/Apap 5/325 Mg Tab) 1 tab PO Q12H PRN PRN Reason: Pain scale 8-10 (Severe) Last Admin: 04/02/25 02:00 Dose: 1 tab Aspirin (Aspirin Ec 81 Mg Tab) 81 mg PO DAILY [facility] Last Admin: 04/04/25 09:31 Dose: 81 mg Atorvastatin Calcium (Atorvastatin 80 Mg Tab) 80 mg PO BEDTIME [facility] Last Admin: 04/03/25 22:32 Dose: 80 mg Enteral Nutritional Formula (Nepro Shake 237 Ml Can) 237 ml PO DAILY [facility] Last Admin: 04/04/25 09:00 Dose: 237 ml Epoetin Sukhdeep (Epoetin 4,000 Unit/Ml Vial) 4,000 unit IV EVERY HD [facility] Last Admin: 04/02/25 14:45 Dose: 4,000 unit Folic Acid (Folic Acid 1 Mg Tablet) 1 mg PO DAILY [facility] Last Admin: 04/04/25 09:31 Dose: 1 mg Metoprolol Tartrate (Metoprolol Tar 25 Mg Tab) 12.5 mg PO BID [facility] Last Admin: 04/04/25 09:30 Dose: 12.5 mg Tamsulosin HCl (Tamsulosin 0.4 Mg Sr Cap) 0.4 mg PO BEDTIME [facility] Last Admin: 04/03/25 22:32 Dose: 0.4 mg Assessment And Plan: 1. End-stage renal disease. I am going to continue the patient on his dialysis schedule 3 times a week, Wednesday We manage to cannulate his AV graft without any problem status post TDC removal March 30 Continue use AV graft and we will monitor. Patient cleared from the renal standpoint for DC planning 2. Hypertension, controlled. Currently, blood pressure on the lower side. We wi ll follow up the patient. 3. Fever, unknown etiology. Culture, so far, negative. Status post culture from the PermCath March 20 Still pending, and we will follow up. Continue current antibiotic. 4. Questionable of urinary tract infection. Follow up with the Primary. 5. Encephalopathy secondary to questionable urinary tract infection. /Medication induced gabapentin recovering very well, Agree with holding tramadol / gabapentin Blood culture negative Continue current antibiotic. 6. Acidosis. Discontinue oral bicarb. Will be corrected with dialysis. 7. Anemia of chronic kidney disease. Continue DANIEL. 8. Hyponatremia. No need for treatment. Will be corrected with the dialysis 9. Hyponatremia secondary to renal failure will be corrected with the dialysis 10. Congestive heart failure ejection fraction below 25 patient on LifeVest Follow-up with cardiology Time spent examining the patient [id number] reviewing data lab and the radiology placing order discussing the case with the team including hospitalist and nursing staff dialysis nurse more than 55-minute
[2025-04-04 19:53] VITALS: BP 117/56; TEMP 99
== END 2025-04-04 21:45 | DRG 689 ==
LOC: ER 23:41 → ERHOLD 03-17 06:42 → 3RD-ICU 03-17 09:20 → 2ND 03-18 09:45
PROVIDERS: ADMIT Hospitalist; ATTEND Internal Medicine
PROC: 4A033R1 Measurement of Arterial Saturation, Peripheral, Percutaneous Approach (ICD-10-PCS; principal; 2025-03-17)
PROC: 5A1D70Z Performance of Urinary Filtration, Intermittent, Less than 6 Hours Per Day (ICD-10-PCS; 2025-03-17)
PROC: 0JPT0XZ Removal of Tunneled Vascular Access Device from Trunk Subcutaneous Tissue and Fascia, Open Approach (ICD-10-PCS; 2025-03-30)
PROC: 02PY33Z Removal of Infusion Device from Great Vessel, Percutaneous Approach (ICD-10-PCS; 2025-03-30)
DX: N39.0 Urinary tract infection, site not specified (principal); G93.41 Metabolic encephalopathy; I21.4 Non-ST elevation (NSTEMI) myocardial infarction; N18.6 End stage renal disease; I50.23 Acute on chronic systolic (congestive) heart failure; J18.9 Pneumonia, unspecified organism; I13.2 Hypertensive heart and chronic kidney disease with heart failure and with stage 5 chronic kidney disease, or end stage renal disease; E87.20 Acidosis, unspecified; E87.1 Hypo-osmolality and hyponatremia; T82.41XA Breakdown (mechanical) of vascular dialysis catheter, initial encounter; E11.22 Type 2 diabetes mellitus with diabetic chronic kidney disease; E11.51 Type 2 diabetes mellitus with diabetic peripheral angiopathy without gangrene; E11.40 Type 2 diabetes mellitus with diabetic neuropathy, unspecified; D63.1 Anemia in chronic kidney disease; D50.9 Iron deficiency anemia, unspecified; N25.0 Renal osteodystrophy; I27.20 Pulmonary hypertension, unspecified; N40.0 Benign prostatic hyperplasia without lower urinary tract symptoms; I25.10 Atherosclerotic heart disease of native coronary artery without angina pectoris; R79.89 Other specified abnormal findings of blood chemistry; Z99.2 Dependence on renal dialysis; Z60.3 Acculturation difficulty; Z88.5 Allergy status to narcotic agent; Z74.01 Bed confinement status; Z79.82 Long term (current) use of aspirin; Z79.899 Other long term (current) drug therapy; W07.XXXA Fall from chair, initial encounter; Y93.9 Activity, unspecified; Y92.019 Unspecified place in single-family (private) house as the place of occurrence of the external cause; Y99.9 Unspecified external cause status; Z11.52 Encounter for screening for COVID-19
CPT/HCPCS: 36415; 36600; 70450; 71045; 71250; 74176; 74178; 80048; 80053; 80069; 80076; 80202; 82805; 82947; 83540; 83605; 83735; 83880; 84100; 84439; 84443; 84466; 84484; 85025; 85027; 85610; 85730; 86704; 87040; 87070; 87340; 87428; 88300; 90935; 93005; 93970; 94010; 94760; 96365; 96366; 96367; 96375; 97110; 97116; 97161; 97165; 97530; 99285; J0692; J1644; J1720; J2250; J2405; J3010; J3373; J7030; J7040; J7050; J7613; J7644; P9047; Q5105; Q9967